=== PATIENT | male | born 1960 | race Caucasian/White ===

== ENCOUNTER 2017-01-20 15:35 | Emergency (ER) | payer BC, MEDICARE ==
[2017-01-20 16:22] VITALS: BP 122/77
--- NOTE | 2017-01-20 18:25 | EDM.PDOC ---
ED HPI GENERAL MEDICAL PROBLEM - General Chief Complaint: Respiratory Problem Stated Complaint: dyspnea Time Seen by Provider: 01/20/17 17:00 Source of Information: Reports: Patient History Limitations: Reports: No Limitations - History of Present Illness INITIAL COMMENTS - FREE TEXT/NARRATIVE: Pt is end stage COPD patient who still smokes. He uses oxygen 3.5litres per minute at home. He claims he has been feeling shortness of breath since today evening and hence came into the emergency room. No chest pain, does have mild chronic cough, but not worse. He claims he was running fever at home for past 2 days and hence was brought in to emergency room for evaluation. No nausea vomitng. no chills. No abdominal pain. no other compalints. Onset: Today Onset Date: 01/20/17 Onset Time: 15:00 Associated Symptoms: Reports: Cough, Fever/Chills, Shortness of Breath. Denies : Confusion, Chest Pain, Diaphoresis, Headaches, Loss of Appetite, Malaise, Nausea/Vomiting, Rash, Seizure, Syncope, Weakness - Related Data Allergies Allergy/AdvReac Type Severity Reaction Status Date / Time fluconazole [From Diflucan] Allergy Edema Verified 01/20/17 17:19 levofloxacin [From Levaquin] Allergy Tachycardia Verified 01/20/17 17:19 Penicillins Allergy Anaphylactic Verified 01/20/17 17:19 Shock Sulfa (Sulfonamide Allergy Rash Verified 01/20/17 17:19 Antibiotics) azithromycin AdvReac Other Verified 01/20/17 17:19 Home Meds: Home Meds Ipratropium/Albuterol Sulfate [Duoneb 0.5 MG-3 MG/3 ML] 3 ml INH QID PRN [History] Formoterol [Perforomist] 20 mcg NEB BID 12/26/14 [History] Cetirizine [ZyrTEC] 10 mg PO DAILY tablet 12/30/14 [Rx] Montelukast [Singulair] 10 mg PO DAILY tablet 12/30/14 [Rx] Calcium Carbonate/Vitamin D3 [Calcium 600 + Vit D Tablet] 1 each PO DAILY [History] Albuterol [IJD: Albuterol HFA] 90 gm INH BID PRN #1 inhaler 12/14/15 [Rx] Budesonide [Pulmicort] 0.5 mg INH BID #1 neb 12/14/15 [Rx] Ipratropium [Atrovent HFA] 1 puff INH Q4H PRN #30 inhaler 12/14/15 [Rx] Omeprazole 40 mg PO BIDAC cap.cr 12/14/15 [Rx] Ranitidine [Zantac] 150 mg PO BID #60 tablet 12/14/15 [Rx] Tiotropium [Spiriva HandiHaler] 18 mcg INH BEDTIME #2 cap 12/14/15 [Rx] diphenhydrAMINE [Benadryl] 50 mg PO ASDIRECTED PRN #60 cap 12/14/15 [Rx] LORazepam [Ativan] 1 mg PO TID 12/22/15 [History] Acetylcysteine [Mucomyst 10%] 100 mg INH Q6H 12/23/15 [History] Furosemide [Lasix] 40 mg PO DAILY #30 tablet 12/23/15 [Rx] Theophylline [Jc-24] 600 mg PO BID #120 cap.er 12/23/15 [Rx] predniSONE [Prednisone] See Taper PO DAILY #70 tablet 12/23/15 [Rx] Cyclobenzaprine [Flexeril] 10 mg PO TID 01/03/16 [History] Hydrocodone/Acetaminophen [Hydrocodon-Acetaminophen 5-325] 2 tab PO Q6HR PRN [History] Magnesium Hydroxide [Milk of Magnesia] 30 ml PO DAILY PRN 01/03/16 [History] Polyethylene Glycol 3350 [MiraLAX] 17 gm PO BID 01/03/16 [History] Past Medical History - Past Health History Medical/Surgical History: Denies Medical/Surgical History HEENT History: Reports: Impaired Vision Other HEENT History: right eye tear duct torn Cardiovascular History: Reports: Hypertension Respiratory History: Reports: COPD, Pneumonia, Recurrent, SOB Other Respiratory History: severe COPD Gastrointestinal History: Reports: GERD Musculoskeletal History: Reports: Back Pain, Chronic, Osteoporosis Other Musculoskeletal History: 2 vertebrae "gone" 1 fixed" Psychiatric History: Reports: Anxiety - Infectious Disease History Infectious Disease History: Reports: MRSA - Past Surgical History Head Surgeries/Procedures: Reports: None Cardiovascular Surgical History: Reports: None GI Surgical History: Reports: Appendectomy Musculoskeletal Surgical History: Reports: Arthroscopic Knee Dermatological Surgical History: Reports: None Social & Family History - Family History Family Medical History: Noncontributory Respiratory: Reports: Asthma, COPD Endocrine/Metabolic: Reports: Diabetes, type II Oncologic: Reports: Lung - Tobacco Use Smoking Status *Q: Current Every Day Smoker Years of Tobacco use: 40 Packs/Tins Daily: 1.5 Used Tobacco, but Quit: No Month Tobacco Last Used: current Second Hand Smoke Exposure: No - Caffeine Use Caffeine Use: Reports: Coffee - Alcohol Use Days Per Week of Alcohol Use: 2 Number of Drinks Per Day: 2 Total Drinks Per Week: 4 - Recreational Drug Use Recreational Drug Use: No - Living Situation & Occupation Living situation: Reports: Occupation: Unemployed ED ROS GENERAL - Review of Systems Review Of Systems: See Below Constitutional: Reports: Fever. Denies: Chills, Diaphoresis, Decreased Appetite HEENT: Denies: Rhinitis, Sinus Problem, Throat Pain Respiratory: Reports: Shortness of Breath, Wheezing, Cough, Sputum. Denies: Pleuritic Chest Pain, Hemoptysis Cardiovascular: Denies: Chest Pain, Claudication, Lightheadedness GI/Abdominal: Denies: Abdominal Pain, Nausea, Vomiting : Denies: Dysuria, Flank Pain, Frequency Musculoskeletal: Denies: Shoulder Pain, Joint Pain, Joint Swelling Skin: Denies: Bruising, Pruritis, Rash ED EXAM, GENERAL - Physical Exam Exam: See Below Exam Limited By: No Limitations General Appearance: Alert, WD/WN, No Apparent Distress, Other (pt does not appear in any distress. normal breathing. Afebrile. Speaks normal with out breaking the sentences.) Eye Exam: Bilateral Eye: EOMI, PERRL Ears: Normal External Exam, Normal Canal, Hearing Grossly Normal, Normal TMs Ear Exam: Bilateral Ear: Auricle Normal, Canal Normal, TM normal Nose: Normal Inspection, Normal Mucosa, No Blood Throat/Mouth: Normal Lips, Normal Teeth, Normal Gums, Normal Oropharynx, Normal Voice, No Airway Compromise, Other (Pt does have oral thrush, more so over the hard palate behind his dentures and in the buccal cavity.) Head: Atraumatic, Normocephalic Neck: Normal Inspection, Supple, Non-Tender, Full Range of Motion Respiratory/Chest: No Respiratory Distress, No Accessory Muscle Use, Chest Non- Tender, Decreased Breath Sounds (b/l), Crackles (scatterred all over the lung lopez), Rhonchi (few expiratory rhonchi heard.). No: Respiratory Distress Cardiovascular: Normal Peripheral Pulses, Regular Rate, Rhythm, No Edema, No Gallop, No JVD, No Murmur, No Rub Peripheral Pulses: 2+: Radial (L), Radial (R), Dorsalis Pedis (L), Dorsalis Pedis (R) Back Exam: Normal Inspection, Full Range of Motion, NT Extremities: Normal Inspection, Normal Range of Motion, Non-Tender, Normal Capillary Refill, No Pedal Edema Neurological: Alert, Oriented Psychiatric: Normal Affect, Normal Mood Course - Vital Signs Text/Narrative:: Pt appears very stable on exam. He maintains his SPO2 around 96% on 2 litres of oxygen and at home he uses 3.5 litres per minute. He is not tachypnec or in respiratory distress. his temp is 97. Considering his medical history. He did get workup. His CBC is normal. His CMP is stable. His LActic acid is 1.4 normal. His D- dimer is 107 which is in negative range. His chest Xray is stable. Pt is not in any distress. He appear a his stable self. Patient and family reassured that he does not have pneumonia or any acute infection and his saturation is better than normal for him. He does have oral thrush. For which i have started him on nystatin swish and swallow for 10 days. Also advised to remove his denture at night. Also advised to rinse his mouth with water after using his inhaler to prevent oral thrush. Pt was discharged home in stable condition.Followup with his primary care provider on monday in Clinic. Last Recorded V/S: Last Vital Signs Temp 97 F 01/20/17 16:18 Pulse 93 01/20/17 16:18 Resp 22 H 01/20/17 16:18 BP 122/77 01/20/17 16:18 Pulse Ox 94 L 01/20/17 16:18 - Orders/Labs/Meds Orders: Active Orders 24 hr Category Date Time Status Chest 1V Frontal [CR] Stat Exams 01/20/17 16:02 Taken Labs: Laboratory Tests 01/20/17 01/20/17 01/20/17 Range/Units 16:02 16:02 16:03 WBC 11.5 H (4.0-11.0) K/uL RBC 4.32 L (4.50-6.50) M/uL Hgb 13.2 (13.0-18.0) g/dL Hct 40.0 (40.0-54.0) % MCV 93 (76-96) fL MCH 30.6 (27.0-32.0) pg MCHC 33.0 (31.0-35.0) g/dL RDW 13.5 (11.0-16.0) % Plt Count 202 (150-400) K/uL MPV 11.3 H (6.0-10.0) fL Neut % (Auto) 85.9 H (45.0-70.0) % Lymph % (Auto) 7.0 L (20.0-40.0) % [place] % (Auto) 5.2 (3.0-10.0) % Eos % (Auto) 1.5 (1.0-5.0) % Baso % (Auto) 0.4 (0.0-0.5) % Neut # (Auto) 9.87 H (2.00-7.50) K/uL Lymph # (Auto) 0.81 L (1.50-4.00) K/uL [place] # (Auto) 0.60 (0.20-0.80) K/uL Eos # (Auto) 0.17 (0.04-0.40) K/uL Baso # (Auto) 0.05 (0.02-0.10) K/uL D-Dimer, Quantitative 107 (0-400) ng/mL VBG pH (7.31-7.41) VBG pCO2 (41-51) mm/Hg VBG pO2 (30-50) mm/Hg VBG HCO3 (23.0-28.0) mmol/L VBG O2 Saturation (60-85) % VBG Base Excess (-2-3) mm/L O2 Delivery Device Sodium 139 (136-145) mmol/L Potassium 4.2 (3.5-5.1) mmol/L Chloride 99 (98-107) mmol/L Carbon Dioxide 34.7 H (21.0-32.0) mmol/L Anion Gap 9.5 (5.0-15.0) mmol/L BUN 12 D (8-26) mg/dL Creatinine 0.90 (0.70-1.30) mg/dL Est Cr Clr Drug Dosing 110.92 mL/min Estimated GFR (MDRD) > 60 (>60) MLS/MIN BUN/Creatinine Ratio 13.3 (6-25) Glucose 111 H (74-100) mg/dL Lactic Acid (0.90-1.70) mmol/L Calcium 9.3 (8.5-10.1) mg/dL Total Bilirubin 0.6 (0.0-1.0) mg/dL AST 18 (15-37) U/L ALT 26 (12-78) U/L Alkaline Phosphatase 103 (46-116) U/L B-Natriuretic Peptide (0-125) pg/mL Total Protein 7.3 (6.4-8.2) g/dL Albumin 3.8 (3.4-5.0) g/dL Globulin 3.5 (2.2-4.2) g/dL Albumin/Globulin Ratio 1.1 (0.8-2.0) 01/20/17 01/20/17 01/20/17 Range/Units 16:03 16:03 16:08 WBC (4.0-11.0) K/uL RBC (4.50-6.50) M/uL Hgb (13.0-18.0) g/dL Hct (40.0-54.0) % MCV (76-96) fL MCH (27.0-32.0) pg MCHC (31.0-35.0) g/dL RDW (11.0-16.0) % Plt Count (150-400) K/uL MPV (6.0-10.0) fL Neut % (Auto) (45.0-70.0) % Lymph % (Auto) (20.0-40.0) % [place] % (Auto) (3.0-10.0) % Eos % (Auto) (1.0-5.0) % Baso % (Auto) (0.0-0.5) % Neut # (Auto) (2.00-7.50) K/uL Lymph # (Auto) (1.50-4.00) K/uL [place] # (Auto) (0.20-0.80) K/uL Eos # (Auto) (0.04-0.40) K/uL Baso # (Auto) (0.02-0.10) K/uL D-Dimer, Quantitative (0-400) ng/mL VBG pH 7.40 (7.31-7.41) VBG pCO2 56.1 H (41-51) mm/Hg VBG pO2 22 L (30-50) mm/Hg VBG HCO3 34.8 H (23.0-28.0) mmol/L VBG O2 Saturation 35 L (60-85) % VBG Base Excess 10 H (-2-3) mm/L O2 Delivery Device Nasal cannula Sodium (136-145) mmol/L Potassium (3.5-5.1) mmol/L Chloride (98-107) mmol/L Carbon Dioxide (21.0-32.0) mmol/L Anion Gap (5.0-15.0) mmol/L BUN (8-26) mg/dL Creatinine (0.70-1.30) mg/dL Est Cr Clr Drug Dosing mL/min Estimated GFR (MDRD) (>60) MLS/MIN BUN/Creatinine Ratio (6-25) Glucose (74-100) mg/dL Lactic Acid 1.42 (0.90-1.70) mmol/L Calcium (8.5-10.1) mg/dL Total Bilirubin (0.0-1.0) mg/dL AST (15-37) U/L ALT (12-78) U/L Alkaline Phosphatase (46-116) U/L B-Natriuretic Peptide 83 D (0-125) pg/mL Total Protein (6.4-8.2) g/dL Albumin (3.4-5.0) g/dL Globulin (2.2-4.2) g/dL Albumin/Globulin Ratio (0.8-2.0) Departure - Departure Time of Disposition: 18:10 Disposition: Home, Self-Care 01 Condition: Fair Clinical Impression: Oral thrush COPD (chronic obstructive pulmonary disease) Qualifiers: COPD type: COPD with acute exacerbation Qualified Code(s): J44.1 - Chronic obstructive pulmonary disease with (acute) exacerbation - Discharge Information Instructions: Nystatin oral suspension Referrals: PCP,None [Primary Care Provider] - Forms: ED Department Discharge - Problem List & Annotations (1) COPD (chronic obstructive pulmonary disease) SNOMED Code(s): 73742739 Code(s): J44.9 - CHRONIC OBSTRUCTIVE PULMONARY DISEASE, UNSPECIFIED Status : Acute Priority: High Current Visit: Yes Onset Date: ~12/08/15 Qualifiers: COPD type: COPD with acute exacerbation Qualified Code(s): J44.1 - Chronic obstructive pulmonary disease with (acute) exacerbation (2) Oral thrush SNOMED Code(s): 12011500 Code(s): B37.0 - CANDIDAL STOMATITIS Status: Acute Current Visit: Yes - Problem List Review Problem List Initiated/Reviewed/Updated: Yes - Assessment/Plan Assessment:: COPD Oral thrush Plan: Pt appears very stable on exam. He maintains his SPO2 around 96% on 2 litres of oxygen and at home he uses 3.5 litres per minute. He is not tachypnec or in respiratory distress. his temp is 97. Considering his medical history. He did get workup. His CBC is normal. His CMP is stable. His LActic acid is 1.4 normal. His D- dimer is 107 which is in negative range. His chest Xray is stable. Pt is not in any distress. He appear a his stable self. Patient and family reassured that he does not have pneumonia or any acute infection and his saturation is better than normal for him. He does have oral thrush. For which i have started him on nystatin swish and swallow for 10 days. Also advised to remove his denture at night. Also advised to rinse his mouth with water after using his inhaler to prevent oral thrush. Pt was discharged home in stable condition.Followup with his primary care provider on monday in Clinic.
[2017-01-20] MEDS ORDERED: Nystatin Susp 100,000 Unit/ML 5 ML UD Cup ONE (18:30)
--- NOTE | 2017-01-20 23:58 | ER ---
HISTORY OF PRESENT ILLNESS: A 56-year-old male, here with complaints of shortness of breath and coughing. This has been ongoing for several days. The patient states it feels like it is slowly getting worse. He is worried about pneumonia. The patient does have oxygen at home as well as currently he has 2.5 L going by nasal cannula. He has several different medications that he takes by nebulizer at home, and he has been taking all of them today. The patient was able to list off most of them for me. The patient denies any recent falls or injuries. He is not having any problems with chest pain or abdominal pain. PAST MEDICAL HISTORY: Extensive. The patient has longstanding history of COPD, bronchitis, history of pneumonia, history of abdominal bloating and history of respiratory distress. OBJECTIVE: GENERAL APPEARANCE: The patient is awake and alert. He is in mild shortness of breath and has an occasional congested-sounding cough. INITIAL VITAL SIGNS: Show blood pressure 122/77 and O2 sats are at 94% on 2.5 L. He is afebrile, pulse is 93. HEENT: Oral mucous membranes moist. LUNGS: Exam reveals reduced air exchange throughout the lung lopez. I do not hear any rales or wheezing. I can hear some mild rhonchi in both bases. CARDIAC: Heart sounds distinct without murmurs. ABDOMEN: Soft, protuberant, nontender with palpation. Bowel sounds are present. LABORATORY DATA AND X-RAY STUDIES: Chest x-ray is obtained and appears fairly good, stable in appearance. Today, CBC shows white count of 11.5 and neutrophils are also elevated at 85.9. D-dimer is normal at 107. Venous blood gases show a normal pH and pCO2 is 56.1, bicarb is also elevated at 34.8. Comprehensive metabolic panel shows a carbon dioxide of 34.7, otherwise unremarkable. BNP is normal at 83. DIAGNOSIS: Chronic obstructive pulmonary disease with acute exacerbation. TREATMENT PLAN: At this point, I consulted with Dr. Anaya who is taking over as my shift is ending. For further details, refer to Dr. Anaya's dictation. I am sure the patient will be admitted today. CRS/MODL /[id number]
--- NOTE | 2017-01-23 14:23 | CR ---
DATE OF SERVICE: 01/20/17 CLINICAL DATA: SOB and cough. AP CHEST Comparison is made to a prior exam dated 07/08/16. The heart size is stable. The aorta is mildly ectatic. There are emphysematous changes throughout both lungs with reticular opacities scattered throughout both lungs. There are mild atelectatic changes in both lung bases. There is a small focus of increased density in the left lung base laterally which may be infiltrate or atelectasis. Pneumonia should be considered. No pneumothorax. No pleural effusions. The patient is status post vertebroplasty of a lower thoracic vertebra. [id number] [facility]
== END 2017-01-20 18:00 | disposition home or self-care (01) ==
LOC: LB.ED 15:35
DX: J44.1 Chronic obstructive pulmonary disease with (acute) exacerbation (principal); B37.0 Candidal stomatitis; I10 Essential (primary) hypertension; F17.210 Nicotine dependence, cigarettes, uncomplicated; Z88.1 Allergy status to other antibiotic agents; Z88.2 Allergy status to sulfonamides; Z88.8 Allergy status to other drugs, medicaments and biological substances; Z79.899 Other long term (current) drug therapy
CPT/HCPCS: 36415; 71010; 80053; 82803; 83605; 83880; 85025; 85379; 99285; A9270; 99284

== ENCOUNTER 2017-04-12 13:39 | Emergency (ER) | payer BC, MEDICARE ==
[2017-04-12 14:11] VITALS: BP 120/82
--- NOTE | 2017-04-12 17:22 | EDM.PDOC ---
ED HPI GENERAL MEDICAL PROBLEM - General Chief Complaint: Respiratory Problem Stated Complaint: congested Time Seen by Provider: 04/12/17 14:00 Source of Information: Reports: Patient, Family, RN History Limitations: Reports: No Limitations - History of Present Illness INITIAL COMMENTS - FREE TEXT/NARRATIVE: 57 yr male presents with increase in congestion and not feeling well for a few days. States he becomes short of breath with waiting in clinic waiting room and parfume in waiting room bothers him, so he came to the ER today. Pt sitting in W/C with with him. States appointment in June with pulmonology. States he has taken OTC mucinex for his cough and has had some phlegm production with this and now no more phlegm, but increase in congestion. - Related Data Allergies Allergy/AdvReac Type Severity Reaction Status Date / Time fluconazole [From Diflucan] Allergy Edema Verified 01/20/17 17:19 levofloxacin [From Levaquin] Allergy Tachycardia Verified 01/20/17 17:19 Penicillins Allergy Anaphylactic Verified 01/20/17 17:19 Shock Sulfa (Sulfonamide Allergy Rash Verified 01/20/17 17:19 Antibiotics) azithromycin AdvReac Other Verified 01/20/17 17:19 Home Meds: Home Meds Ipratropium/Albuterol Sulfate [Duoneb 0.5 MG-3 MG/3 ML] 3 ml INH QID PRN [History] Formoterol [Perforomist] 20 mcg NEB BID 12/26/14 [History] Cetirizine [ZyrTEC] 10 mg PO DAILY tablet 12/30/14 [Rx] Montelukast [Singulair] 10 mg PO DAILY tablet 12/30/14 [Rx] Calcium Carbonate/Vitamin D3 [Calcium 600 + Vit D Tablet] 1 each PO DAILY [History] Albuterol [IJD: Albuterol HFA] 90 gm INH BID PRN #1 inhaler 12/14/15 [Rx] Budesonide [Pulmicort] 0.5 mg INH BID #1 neb 12/14/15 [Rx] Ranitidine [Zantac] 150 mg PO BID #60 tablet 12/14/15 [Rx] Tiotropium [Spiriva HandiHaler] 18 mcg INH BEDTIME #2 cap 12/14/15 [Rx] diphenhydrAMINE [Benadryl] 50 mg PO ASDIRECTED PRN #60 cap 12/14/15 [Rx] LORazepam [Ativan] 1 mg PO TID 12/22/15 [History] Acetylcysteine [Mucomyst 10%] 100 mg INH Q6H 12/23/15 [History] Theophylline [Jc-24] 600 mg PO BID #120 cap.er 12/23/15 [Rx] Cyclobenzaprine [Flexeril] 10 mg PO TID 01/03/16 [History] Hydrocodone/Acetaminophen [Hydrocodon-Acetaminophen 5-325] 2 tab PO Q6HR PRN [History] Magnesium Hydroxide [Milk of Magnesia] 30 ml PO DAILY PRN 01/03/16 [History] Polyethylene Glycol 3350 [MiraLAX] 17 gm PO BID 01/03/16 [History] Bumetanide 2 mg PO DAILY 01/20/17 [History] Chlorpheniramine Maleate [Chlor-Trimeton] 4 mg PO DAILY PRN 01/20/17 [History] Docusate Sodium [Colace] 100 mg PO DAILY 01/20/17 [History] Ibuprofen 400 mg PO Q4H 01/20/17 [History] Lidocaine 5% [Lidoderm 5%] 700 mg TD DAILY 01/20/17 [History] Omeprazole 40 mg PO DAILY 01/20/17 [History] predniSONE [Prednisone] 10 mg PO DAILY 01/20/17 [History] Past Medical History - Past Health History Medical/Surgical History: Denies Medical/Surgical History HEENT History: Reports: Impaired Vision Other HEENT History: right eye tear duct torn Cardiovascular History: Reports: Hypertension Respiratory History: Reports: COPD, Pneumonia, Recurrent, SOB Other Respiratory History: severe COPD Gastrointestinal History: Reports: GERD Musculoskeletal History: Reports: Back Pain, Chronic, Osteoporosis Other Musculoskeletal History: 2 vertebrae "gone" 1 fixed" Psychiatric History: Reports: Anxiety - Infectious Disease History Infectious Disease History: Reports: MRSA - Past Surgical History Head Surgeries/Procedures: Reports: None Cardiovascular Surgical History: Reports: None GI Surgical History: Reports: Appendectomy Musculoskeletal Surgical History: Reports: Arthroscopic Knee Dermatological Surgical History: Reports: None Social & Family History - Family History Family Medical History: Noncontributory Respiratory: Reports: Asthma, COPD Endocrine/Metabolic: Reports: Diabetes, type II Oncologic: Reports: Lung - Tobacco Use Smoking Status *Q: Current Every Day Smoker Years of Tobacco use: 40 Packs/Tins Daily: 1.5 Used Tobacco, but Quit: No Month Tobacco Last Used: current Second Hand Smoke Exposure: No - Caffeine Use Caffeine Use: Reports: Coffee - Alcohol Use Days Per Week of Alcohol Use: 2 Number of Drinks Per Day: 2 Total Drinks Per Week: 4 - Recreational Drug Use Recreational Drug Use: No - Living Situation & Occupation Living situation: Reports: Occupation: Unemployed ED ROS GENERAL - Review of Systems Review Of Systems: See Below Constitutional: Reports: Weakness HEENT: Reports: No Symptoms Respiratory: Reports: Shortness of Breath, Cough, Other (long history of COPD) Cardiovascular: Reports: Other (dyspnea with little exertion) Musculoskeletal: Reports: Other (chronic back pain) Neurological: Reports: No Symptoms ED EXAM, GENERAL - Physical Exam Exam: See Below Exam Limited By: No Limitations General Appearance: Alert, No Apparent Distress Ears: Hearing Grossly Normal Throat/Mouth: Normal Voice, No Airway Compromise Head: Atraumatic, Normocephalic Neck: Supple, Non-Tender Respiratory/Chest: No Respiratory Distress, Decreased Breath Sounds (to bases), Rhonchi (Rhonchii to middle lung lopez, clears with cough), Wheezing (end expiratory) Cardiovascular: Regular Rate, Rhythm Neurological: Alert, Oriented, Normal Cognition Skin Exam: Warm, Dry, Normal Color Lymphatic: No Adenopathy Course - Vital Signs Last Recorded V/S: Last Vital Signs Temp 97.2 F 04/12/17 14:29 Pulse 104 H 04/12/17 14:29 Resp 18 04/12/17 14:29 BP 120/82 04/12/17 14:29 Pulse Ox 95 04/12/17 14:29 - Orders/Labs/Meds Orders: Active Orders 24 hr Category Date Time Status CXR [Chest 2V] [CR] Stat Exams 04/12/17 14:08 Taken Labs: Laboratory Tests 04/12/17 04/12/17 04/12/17 Range/Units 14:19 14:20 14:20 WBC 10.0 (4.0-11.0) K/uL RBC 4.59 (4.50-6.50) M/uL Hgb 14.0 (13.0-18.0) g/dL Hct 42.9 (40.0-54.0) % MCV 94 (76-96) fL MCH 30.5 (27.0-32.0) pg MCHC 32.6 (31.0-35.0) g/dL RDW 13.0 (11.0-16.0) % Plt Count 214 (150-400) K/uL MPV 11.4 H (6.0-10.0) fL Neut % (Auto) 77.0 H (45.0-70.0) % Lymph % (Auto) 10.8 L (20.0-40.0) % [place] % (Auto) 8.9 (3.0-10.0) % Eos % (Auto) 2.7 (1.0-5.0) % Baso % (Auto) 0.6 H (0.0-0.5) % Neut # (Auto) 7.66 H (2.00-7.50) K/uL Lymph # (Auto) 1.08 L (1.50-4.00) K/uL [place] # (Auto) 0.89 H (0.20-0.80) K/uL Eos # (Auto) 0.27 (0.04-0.40) K/uL Baso # (Auto) 0.06 (0.02-0.10) K/uL Sodium 141 (136-145) mmol/L Potassium 3.8 (3.5-5.1) mmol/L Chloride 100 (98-107) mmol/L Carbon Dioxide 34.4 H (21.0-32.0) mmol/L Anion Gap 10.4 (5.0-15.0) mmol/L BUN 11 D (8-26) mg/dL Creatinine 0.89 (0.70-1.30) mg/dL Est Cr Clr Drug Dosing 75.48 mL/min Estimated GFR (MDRD) > 60 (>60) MLS/MIN BUN/Creatinine Ratio 12.4 (6-25) Glucose 98 (74-100) mg/dL Calcium 9.0 (8.5-10.1) mg/dL Theophylline 13 D (10-20) ug/mL - Re-Assessments/Exams Free Text/Narrative Re-Assessment/Exam: 04/12/17 17:25 Review of lab results and chest x-ray. No leukocytosis, slight elevation of neutrophils. Chest x-ray has mild atelectasis to bases, no consolidation noted. Recommend discharge to home with care of and start Azithromycin X 5 days. RTC in 5 days if symptoms persist. Departure - Departure Time of Disposition: 16:01 Disposition: Home, Self-Care 01 Condition: Fair Clinical Impression: COPD (chronic obstructive pulmonary disease) with acute bronchitis - Discharge Information Instructions: Shortness of Breath, [id number], Acute Bronchitis, [id number] Referrals: PCP,None [Primary Care Provider] - Forms: ED Department Discharge Care Plan Goals: take antibiotic as prescribed. Return to clinic next week or sooner if needed. - My Orders Last 24 Hours: My Active Orders 04/12/17 14:08 CXR [Chest 2V] [CR] Stat - Assessment/Plan Last 24 Hours: My Active Orders 04/12/17 14:08 CXR [Chest 2V] [CR] Stat
--- NOTE | 2017-04-12 19:21 | CR ---
DATE OF SERVICE: 04/12/17 CLINICAL DATA: shortness of breath PA AND LATERAL CHEST: Comparison is made to a prior exam dated 03/20/17. The heart size is normal. The aorta is ectatic. The lungs are mildly hyperexpanded. There are mild interstitial changes throughout both lungs. There are minimal atelectatic changes in both lung bases. There is linear fibrosis in the right apex. There is minimal pleural thickening in both hemithoraces. The patient is status post vertebroplasty in the lower thoracic spine. There are partial compression fractures involving multiple mid and lower thoracic vertebra, unchanged from the prior exam. No evidence of acute intrathoracic disease. [id number] [facility]
== END 2017-04-12 16:00 | disposition home or self-care (01) ==
LOC: LB.ED 13:39
DX: J44.0 Chronic obstructive pulmonary disease with (acute) lower respiratory infection (principal); J20.9 Acute bronchitis, unspecified; I10 Essential (primary) hypertension; K21.9 Gastro-esophageal reflux disease without esophagitis; F17.210 Nicotine dependence, cigarettes, uncomplicated; Z79.899 Other long term (current) drug therapy; Z88.0 Allergy status to penicillin; Z88.1 Allergy status to other antibiotic agents; Z88.2 Allergy status to sulfonamides; Z88.8 Allergy status to other drugs, medicaments and biological substances
CPT/HCPCS: 36415; 71046; 80048; 80198; 85025; 99283; 99284

== ENCOUNTER → 2019-01-17 | Outpatient (CLI) | payer BC, MEDICARE ==
--- NOTE | 2019-01-18 08:54 | CR ---
DATE OF SERVICE: 01/17/19 CLINICAL DATA: Pain in right shoulder. RIGHT SHOULDER: No priors. There is diffuse osteopenia. There are osteoarthritic changes of the AC and glenohumeral joints. There are multiple, small osseous densities superior to the glenoid on the frontal views consistent with small loose bodies or bony avulsions. No acute fracture or dislocation. No focal, lytic or blastic bone lesions. There is pleural thickening and fibrotic changes in the right lung apex. [id number] [facility]
== END ==
LOC: LB.CLINIC 10:16
PROVIDERS: ATTEND Nurse Practitioner Family
DX: M25.511 Pain in right shoulder (principal); M85.811 Other specified disorders of bone density and structure, right shoulder; M19.011 Primary osteoarthritis, right shoulder; J92.9 Pleural plaque without asbestos
CPT/HCPCS: 73030-RT

== ENCOUNTER 2019-09-06 16:06 | Emergency (ER) | payer BC, MEDICARE ==
[2019-09-06 17:27] VITALS: BP 103/66; PULSE 89
[2019-09-06] MEDS: Albuterol/Ipratropium 3.0-0.5 MG/3 ML Neb Soln NEB ONE (18:35)
[2019-09-06] MEDS: methylPREDNISolone Sodium Succinate 125 MG/2 ML SDV IV STA (18:35)
[2019-09-06] MEDS ORDERED: Potassium Chloride 40 MEQ/20 ML SDV IV ONE (19:30)
[2019-09-06] MEDS: Potassium Chloride 10 MEQ Tab.ER PO ONE (19:35)
[2019-09-06] MEDS: Potassium Chloride Riders 10 MEQ in Premix Bag 1 BAG IV SCH (20:16)
[2019-09-06] MEDS: Potassium Chloride 20 MEQ Tab.ER PO ONE (20:41)
--- NOTE | 2019-09-06 20:42 | EDM.PDOC ---
ED HPI GENERAL MEDICAL PROBLEM - General Chief Complaint: Respiratory Problem Stated Complaint: STATES HE IS HAVING AN EXACERBATION OF COPD Time Seen by Provider: 09/06/19 16:25 Source of Information: Reports: Patient History Limitations: Reports: No Limitations - History of Present Illness INITIAL COMMENTS - FREE TEXT/NARRATIVE: Patient is a 59 y/o male, with PMHx significant for COPD and bilateral leg swelling, who presents with shortness of breath that is worse than normal x 3 days. Patient denies any history of CHF and hasn't seen a pharmacovigilance scientist. 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 Patient denies fever, smoking, chest pain, dizziness, palpitations, abdominal pain, N/V/D, or numbness/tingling. - Related Data Allergies Allergy/AdvReac Type Severity Reaction Status Date / Time fluconazole [From Diflucan] Allergy Edema Verified 09/06/19 19:14 levofloxacin [From Levaquin] Allergy Tachycardia Verified 09/06/19 19:14 Penicillins Allergy Anaphylactic Verified 09/06/19 19:14 Shock Sulfa (Sulfonamide Allergy Rash Verified 09/06/19 19:14 Antibiotics) azithromycin AdvReac Other Verified 09/06/19 19:14 Home Meds: Home Meds Ipratropium/Albuterol Sulfate [Duoneb 0.5 MG-3 MG/3 ML] 3 ml INH QID PRN 12/11/12 [History] Formoterol [Perforomist] 20 mcg NEB BID 12/26/14 [History] Cetirizine [ZyrTEC] 10 mg PO DAILY tablet 12/30/14 [Rx] Montelukast [Singulair] 10 mg PO DAILY tablet 12/30/14 [Rx] Calcium Carbonate/Vitamin D3 [Calcium 600 + Vit D Tablet] 1 each PO DAILY 12/08/15 [History] Albuterol [IJD: Albuterol HFA] 90 gm INH BID PRN #1 inhaler 12/14/15 [Rx] Budesonide [Pulmicort] 0.5 mg INH BID #1 neb 12/14/15 [Rx] Ranitidine [Zantac] 150 mg PO BID #60 tablet 12/14/15 [Rx] Tiotropium [Spiriva HandiHaler] 18 mcg INH BEDTIME #2 cap 12/14/15 [Rx] diphenhydrAMINE [Benadryl] 50 mg PO ASDIRECTED PRN #60 cap 12/14/15 [Rx] LORazepam [Ativan] 1 mg PO QID 12/22/15 [History] Acetylcysteine [Mucomyst 10%] 100 mg INH Q6H 12/23/15 [History] Cyclobenzaprine [Flexeril] 10 mg PO TID 01/03/16 [History] Hydrocodone/Acetaminophen [Hydrocodon-Acetaminophen 5-325] 2 tab PO Q8HR 01/03/16 [History] Magnesium Hydroxide [Milk of Magnesia] 30 ml PO DAILY PRN 01/03/16 [History] Polyethylene Glycol 3350 [MiraLAX] 17 gm PO BID 01/03/16 [History] Bumetanide 4 mg PO DAILY 01/20/17 [History] Chlorpheniramine Maleate [Chlor-Trimeton] 4 mg PO DAILY PRN 01/20/17 [History] Docusate Sodium [Colace] 100 mg PO DAILY 01/20/17 [History] Ibuprofen 400 mg PO Q4H 01/20/17 [History] Lidocaine 5% [Lidoderm 5%] 700 mg TD DAILY 01/20/17 [History] Omeprazole 40 mg PO DAILY 01/20/17 [History] predniSONE [Prednisone] 10 mg PO DAILY 01/20/17 [History] B12/Levomefolate Calcium/B-6 [Folbic Rf Tablet] 1 each PO DAILY 09/06/19 [History] Potassium Chloride [Klor-Con M20] 20 meq PO DAILY 09/06/19 [History] Revefenacin [Yupelri] 175 mcg IH DAILY 09/06/19 [History] Sennosides/Docusate Sodium [Senokot-S Tablet] 1 each PO DAILY 09/06/19 [History] Theophylline [Jc-24] 900 mg PO BID 09/06/19 [History] Past Medical History - Past Health History Medical/Surgical History: Denies Medical/Surgical History HEENT History: Reports: Impaired Vision Other HEENT History: right eye tear duct torn Cardiovascular History: Reports: Hypertension Respiratory History: Reports: COPD, Pneumonia, Recurrent, SOB Other Respiratory History: severe COPD Gastrointestinal History: Reports: GERD Musculoskeletal History: Reports: Back Pain, Chronic, Osteoporosis Other Musculoskeletal History: 2 vertebrae "gone" 1 fixed" Psychiatric History: Reports: Anxiety - Infectious Disease History Infectious Disease History: Reports: MRSA - Past Surgical History Head Surgeries/Procedures: Reports: None Cardiovascular Surgical History: Reports: None GI Surgical History: Reports: Appendectomy Musculoskeletal Surgical History: Reports: Arthroscopic Knee Dermatological Surgical History: Reports: None Social & Family History - Family History Family Medical History: Noncontributory Respiratory: Reports: Asthma, COPD Endocrine/Metabolic: Reports: Diabetes, type II Oncologic: Reports: Lung - Tobacco Use Smoking Status *Q: Former Smoker Used Tobacco, but Quit: Yes Month/Year Tobacco Last Used: 10/2006 Second Hand Smoke Exposure: No - Caffeine Use Caffeine Use: Reports: Coffee - Recreational Drug Use Recreational Drug Use: No - Living Situation & Occupation Living situation: Reports: Occupation: Unemployed ED ROS GENERAL - Review of Systems Review Of Systems: Comprehensive ROS is negative, except as noted in HPI. ED EXAM, GENERAL - Physical Exam Exam: See Below Exam Limited By: No Limitations General Appearance: Alert, No Apparent Distress Head: Atraumatic, Normocephalic Neck: Normal Inspection Respiratory/Chest: No Respiratory Distress, No Accessory Muscle Use, Chest Non-Tender, Decreased Breath Sounds, Crackles, Wheezing Cardiovascular: Normal Peripheral Pulses, Regular Rate, Rhythm, No JVD, No Murmur Extremities: Normal Capillary Refill, Pedal Edema Skin Exam: Warm, Dry, Intact, Normal Color, No Rash (Decreased BS bilateral lower lobes; crackles and mild wheeze diffusely and bilaterally. Severe pitting pedal edema bilaterally. ) Course - Vital Signs Text/Narrative:: Hypokalemia - potassium 40 mEq given. [address] with Dr. Monae (Cardio at [facility]) and patient will increase his daily potassium to 40 mEq daily x 5 days and then return to 20 mEq after that. ECHO ordered for outpatient. BNP elevated. EKG and troponin normal. Patient given solumedrol 125 mg IV and duoneb x 1 with improvement in symptoms and exam. Call Dr. Monae next week for follow up apt for further evaluation and treatment. continue medications as prescribed. Last Recorded V/S: Last Vital Signs Temp 37.2 C 09/06/19 17:25 Pulse 89 09/06/19 17:25 Resp 22 H 09/06/19 17:25 BP 103/66 09/06/19 17:25 Pulse Ox 9 L 09/06/19 17:25 - Orders/Labs/Meds Orders: Active Orders 24 hr Category Date Time Status EKG Documentation Completion [RC] ASDIRECTED Care 09/06/19 19:46 Active RT Aerosol Therapy [RC] ASDIRECTED Care 09/06/19 17:48 Active CXR [Chest 2V] [CR] Stat Exams 09/06/19 17:49 Taken Potassium Chloride Riders [KCl 10 MEQ in Water 50 ML] Med 09/06/19 20:00 Active 10 meq Premix Bag 1 bag IV Q1H Medication Orders Potassium Chloride 10 meq/ (Premix) 50 mls @ 50 mls/hr IV Q1H ALEK Stop: 09/06/19 21:59 Last Admin: 09/06/19 20:16 Dose: 50 mls/hr Documented by: JACKI Labs: Laboratory Tests 09/06/19 09/06/19 09/06/19 Range/Units 18:00 18:00 18:00 WBC 15.8 H D (4.0-11.0) K/uL RBC 4.61 (4.50-6.50) M/uL Hgb 14.1 (13.0-18.0) g/dL Hct 42.1 (40.0-54.0) % MCV 91 (76-96) fL MCH 30.6 (27.0-32.0) pg MCHC 33.5 (31.0-35.0) g/dL RDW 14.3 (11.0-16.0) % Plt Count 241 (150-400) K/uL MPV 12.2 H (6.0-10.0) fL Neut % (Auto) 76.8 H (45.0-70.0) % Lymph % (Auto) 11.6 L (20.0-40.0) % [place] % (Auto) 9.3 (3.0-10.0) % Eos % (Auto) 1.9 (1.0-5.0) % Baso % (Auto) 0.4 (0.0-0.5) % Neut # (Auto) 12.17 H (2.00-7.50) K/uL Lymph # (Auto) 1.83 (1.50-4.00) K/uL [place] # (Auto) 1.48 H (0.20-0.80) K/uL Eos # (Auto) 0.30 (0.04-0.40) K/uL Baso # (Auto) 0.06 (0.02-0.10) K/uL Sodium 132 L (136-145) mmol/L Potassium 3.1 L (3.5-5.1) mmol/L Chloride 95 L (98-107) mmol/L Carbon Dioxide 28.5 (21.0-32.0) mmol/L Anion Gap 11.6 (5.0-15.0) mmol/L BUN 10 (8-26) mg/dL Creatinine 0.97 (0.70-1.30) mg/dL Est Cr Clr Drug Dosing 67.62 mL/min Estimated GFR (MDRD) > 60 (>60) MLS/MIN BUN/Creatinine Ratio 10.3 (6-25) Glucose 81 (74-100) mg/dL Calcium 8.9 (8.5-10.1) mg/dL Total Bilirubin 0.7 (0.0-1.0) mg/dL AST 13 L (15-37) U/L ALT 21 (12-78) U/L Alkaline Phosphatase 115 (46-116) U/L Troponin I < 0.017 (0.000-0.060) ng/mL B-Natriuretic Peptide 487 H D (0-125) pg/mL Total Protein 7.3 (6.4-8.2) g/dL Albumin 3.7 (3.4-5.0) g/dL Globulin 3.6 (2.2-4.2) g/dL Albumin/Globulin Ratio 1.0 (0.8-2.0) Theophylline (10-20) ug/mL 09/06/19 Range/Units 18:00 WBC (4.0-11.0) K/uL RBC (4.50-6.50) M/uL Hgb (13.0-18.0) g/dL Hct (40.0-54.0) % MCV (76-96) fL MCH (27.0-32.0) pg MCHC (31.0-35.0) g/dL RDW (11.0-16.0) % Plt Count (150-400) K/uL MPV (6.0-10.0) fL Neut % (Auto) (45.0-70.0) % Lymph % (Auto) (20.0-40.0) % [place] % (Auto) (3.0-10.0) % Eos % (Auto) (1.0-5.0) % Baso % (Auto) (0.0-0.5) % Neut # (Auto) (2.00-7.50) K/uL Lymph # (Auto) (1.50-4.00) K/uL [place] # (Auto) (0.20-0.80) K/uL Eos # (Auto) (0.04-0.40) K/uL Baso # (Auto) (0.02-0.10) K/uL Sodium (136-145) mmol/L Potassium (3.5-5.1) mmol/L Chloride (98-107) mmol/L Carbon Dioxide (21.0-32.0) mmol/L Anion Gap (5.0-15.0) mmol/L BUN (8-26) mg/dL Creatinine (0.70-1.30) mg/dL Est Cr Clr Drug Dosing mL/min Estimated GFR (MDRD) (>60) MLS/MIN BUN/Creatinine Ratio (6-25) Glucose (74-100) mg/dL Calcium (8.5-10.1) mg/dL Total Bilirubin (0.0-1.0) mg/dL AST (15-37) U/L ALT (12-78) U/L Alkaline Phosphatase (46-116) U/L Troponin I (0.000-0.060) ng/mL B-Natriuretic Peptide (0-125) pg/mL Total Protein (6.4-8.2) g/dL Albumin (3.4-5.0) g/dL Globulin (2.2-4.2) g/dL Albumin/Globulin Ratio (0.8-2.0) Theophylline 11 (10-20) ug/mL Meds: Medications Generic Name Dose Route Start Last Admin Trade Name Freq PRN Reason Stop Dose Admin Potassium Chloride 10 meq/ 50 mls @ 50 mls/hr 09/06/19 20:00 09/06/19 20:16 Premix IV 09/06/19 21:59 50 mls/hr Q1H ALEK Administration Discontinued Medications Generic Name Dose Route Start Last Admin Trade Name Freq PRN Reason Stop Dose Admin Albuterol/Ipratropium 3 ml 09/06/19 17:47 09/06/19 18:35 Duoneb 3.0-0.5 Mg/3 Ml NEB 09/06/19 17:48 3 ml Q4H ONE Administration Methylprednisolone Sodium Succinate 125 mg 09/06/19 17:46 09/06/19 18:35 Solu-Medrol IV 09/06/19 17:47 125 mg NOW STA Administration Potassium Chloride 20 meq 09/06/19 19:30 Potassium Chloride IV 09/06/19 19:31 ONETIME ONE Potassium Chloride 20 meq 09/06/19 19:26 09/06/19 19:35 Klor-Con 10 PO 09/06/19 19:27 20 meq ONETIME ONE Administration Departure - Departure Time of Disposition: 21:00 Disposition: Home, Self-Care 01 Condition: Good Clinical Impression: Shortness of breath - Discharge Information *PRESCRIPTION DRUG MONITORING PROGRAM REVIEWED*: Not Applicable *COPY OF PRESCRIPTION DRUG MONITORING REPORT IN PATIENT SHONDA: Not Applicable Referrals: PCP,None [Primary Care Provider] - 1 Week (Dr Monae (Cardio)) Forms: ED Department Discharge Additional Instructions: Discharge home. Potassium 40mg by mouth daily for 4 days starting tomorrow and then drop back to 20mEq on . Diet: 2gm sodium daily, low sodium diet. Call Dr. Monae office for appointment next week, . Echo to be scheduled. Elevated legs as much as possible. Sepsis Event Note (ED) - Evaluation Sepsis Screening Result: Possible Sepsis Risk - Focused Exam Vital Signs: Vital Signs Temp Pulse Resp BP Pulse Ox 09/06/19 17:25 37.2 C 89 22 H 103/66 9 L 09/06/19 17:11 37.2 C 89 18 103/66 91 L - My Orders Last 24 Hours: My Active Orders 09/06/19 17:48 RT Aerosol Therapy [RC] ASDIRECTED 09/06/19 17:49 CXR [Chest 2V] [CR] Stat 09/06/19 19:46 EKG Documentation Completion [RC] ASDIRECTED 09/06/19 20:00 Potassium Chloride Riders [KCl 10 MEQ in Water 50 ML] 10 meq Premix Bag 1 bag IV Q1H - Assessment/Plan Last 24 Hours: My Active Orders 09/06/19 17:48 RT Aerosol Therapy [RC] ASDIRECTED 09/06/19 17:49 CXR [Chest 2V] [CR] Stat 09/06/19 19:46 EKG Documentation Completion [RC] ASDIRECTED 09/06/19 20:00 Potassium Chloride Riders [KCl 10 MEQ in Water 50 ML] 10 meq Premix Bag 1 bag IV Q1H Plan: Return to the ED for fever >102, unable to tolerate fluids, difficulty breathing/swallowing, and/or persistent/worsening symptoms.
--- NOTE | 2019-09-07 14:38 | CR ---
CLINICAL DATA: COPD exacerbation. AP AND LATERAL CHEST, 06 SEPTEMBER 2019: Comparison is made to a prior exam dated 17 September 2018. The heart size is normal. The aorta is ectatic. There are mild interstitial infiltrates throughout both lungs. There are mild atelectatic changes at both lung bases. The lungs are otherwise clear. No pneumothorax. No pleural effusions. No areas of consolidation. There is diffuse osteopenia of the bony thorax. There are multiple partial compression fractures involving the thoracic spine. The patient is status post vertebroplasty in a lower thoracic vertebra. No other significant findings. Job: [id number] MTDD
== END 2019-09-06 20:50 | disposition home or self-care (01) ==
LOC: LB.ED 16:06
DX: R06.02 Shortness of breath (principal); I10 Essential (primary) hypertension; J44.9 Chronic obstructive pulmonary disease, unspecified; K21.9 Gastro-esophageal reflux disease without esophagitis; F41.9 Anxiety disorder, unspecified; E87.6 Hypokalemia; Z87.891 Personal history of nicotine dependence; Z88.1 Allergy status to other antibiotic agents; Z88.0 Allergy status to penicillin; Z88.2 Allergy status to sulfonamides; Z79.899 Other long term (current) drug therapy
CPT/HCPCS: 36415; 71046; 80053; 80198; 83880; 84484; 85025; 93005; 96374; 96375; 99285; A9270; J2930; J3480; J7620-GY

== ENCOUNTER 2020-08-31 12:20 | Emergency (ER) | payer MEDICARE ==
--- NOTE | 2020-08-31 13:09 | EDM.PDOC ---
ED HPI GENERAL MEDICAL PROBLEM - General Chief Complaint: General Stated Complaint: HAND AND FOOT PAIN Time Seen by Provider: 08/31/20 13:08 Source of Information: Reports: Patient, EMS, Family History Limitations: Reports: No Limitations - History of Present Illness INITIAL COMMENTS - FREE TEXT/NARRATIVE: patient presented to the ER with a c/o right hand and right foot pain. Denies injury or trauma. Reports that hand pain started 3 days ago and has been gradually getting worse. Associated with swelling and redness. pain 8 out of 10, unable to move around or touch anything. no fever or chills. 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 Minimal pain. But reports a b/l LEs edema for years. He is on Vicodin daily for chronic back pain. Also daily prednisone for end stage COPD. Right Hand Pain Score (Numeric/FACES): 10 - Related Data Allergies Allergy/AdvReac Type Severity Reaction Status Date / Time fluconazole [From Diflucan] Allergy Edema Verified 08/31/20 13:14 levofloxacin [From Levaquin] Allergy Tachycardia Verified 08/31/20 13:14 Penicillins Allergy Anaphylactic Verified 08/31/20 13:14 Shock Sulfa (Sulfonamide Allergy Rash Verified 08/31/20 13:14 Antibiotics) azithromycin AdvReac Other Verified 08/31/20 13:14 Home Meds: Home Meds Ipratropium/Albuterol Sulfate [Duoneb 0.5 MG-3 MG/3 ML] 3 ml INH QID PRN 12/11/12 [History] Formoterol [Perforomist] 20 mcg NEB BID 12/26/14 [History] Cetirizine [ZyrTEC] 10 mg PO DAILY tablet 12/30/14 [Rx] Montelukast [Singulair] 10 mg PO DAILY tablet 12/30/14 [Rx] Calcium Carbonate/Vitamin D3 [Calcium 600 + Vit D Tablet] 1 each PO DAILY 12/08/15 [History] Budesonide [Pulmicort] 0.5 mg INH BID #1 neb 12/14/15 [Rx] LORazepam [Ativan] 1 mg PO QID 12/22/15 [History] Acetylcysteine [Mucomyst 10%] 100 mg INH Q6H 12/23/15 [History] Hydrocodone/Acetaminophen [Hydrocodon-Acetaminophen 5-325] 2 tab PO Q8HR 01/03/16 [History] Polyethylene Glycol 3350 [MiraLAX] 17 gm PO BID 01/03/16 [History] Bumetanide 4 mg PO DAILY 01/20/17 [History] Docusate Sodium [Colace] 100 mg PO DAILY 01/20/17 [History] Ibuprofen 400 mg PO Q4H 01/20/17 [History] Omeprazole 40 mg PO DAILY 01/20/17 [History] predniSONE [Prednisone] 10 mg PO DAILY 01/20/17 [History] B12/Levomefolate Calcium/B-6 [Folbic Rf Tablet] 1 each PO DAILY 09/06/19 [History] Potassium Chloride [Klor-Con M20] 20 meq PO DAILY 09/06/19 [History] Sennosides/Docusate Sodium [Senokot-S Tablet] 1 each PO DAILY 09/06/19 [History] Theophylline [Jc-24] 900 mg PO BID 09/06/19 [History] 0.9 % Sodium Chloride [Sodium Chloride] 3 ml NEB ASDIRECTED PRN 08/31/20 [History] Acetaminophen [Tylenol] 650 mg PO ASDIRECTED PRN 08/31/20 [History] Albuterol [IJD: Albuterol HFA] 90 gm INH QID 08/31/20 [History] Amoxicillin/Potassium Clav [Augmentin 875-125 Tablet] 1 each PO BID 10 Days #20 tablet 08/31/20 [Rx] Bumetanide 2 mg PO QPM 08/31/20 [History] Ketorolac [Toradol] 10 mg PO Q6H PRN #12 tab 08/31/20 [Rx] Ondansetron [Zofran ODT] 4 mg PO Q6H PRN #20 tab.dis 08/31/20 [Rx] Spironolactone [Aldactone] 25 mg PO QAM 08/31/20 [History] Tiotropium [Spiriva HandiHaler] 25 mcg INH QAM 08/31/20 [History] diphenhydrAMINE [Benadryl] 50 mg PO BID PRN 08/31/20 [History] Past Medical History - Past Health History Medical/Surgical History: Denies Medical/Surgical History HEENT History: Reports: Impaired Vision Other HEENT History: right eye tear duct torn Cardiovascular History: Reports: Hypertension Respiratory History: Reports: COPD, Pneumonia, Recurrent, SOB Other Respiratory History: severe COPD Gastrointestinal History: Reports: GERD Musculoskeletal History: Reports: Back Pain, Chronic, Osteoporosis Other Musculoskeletal History: 2 vertebrae "gone" 1 fixed" Psychiatric History: Reports: Anxiety - Infectious Disease History Infectious Disease History: Reports: MRSA - Past Surgical History Head Surgeries/Procedures: Reports: None Cardiovascular Surgical History: Reports: None GI Surgical History: Reports: Appendectomy Musculoskeletal Surgical History: Reports: Arthroscopic Knee Dermatological Surgical History: Reports: None Social & Family History - Family History Family Medical History: No Pertinent Family History Respiratory: Reports: Asthma, COPD Endocrine/Metabolic: Reports: Diabetes, type II Oncologic: Reports: Lung - Caffeine Use Caffeine Use: Reports: Coffee - Living Situation & Occupation Living situation: Reports: Occupation: Unemployed ED ROS GENERAL - Review of Systems Review Of Systems: See Below Constitutional: Reports: Malaise, Fatigue HEENT: Reports: No Symptoms Respiratory: Reports: Shortness of Breath Cardiovascular: Reports: No Symptoms GI/Abdominal: Reports: Constipation : Reports: No Symptoms Musculoskeletal: Reports: Arm Pain Skin: Reports: No Symptoms Neurological: Reports: No Symptoms Psychiatric: Reports: No Symptoms ED EXAM, GENERAL - Physical Exam Exam: See Below Exam Limited By: No Limitations General Appearance: Alert, WD/WN, No Apparent Distress Eye Exam: Bilateral Eye: EOMI Head: Atraumatic Neck: Normal Inspection Respiratory/Chest: No Respiratory Distress, No Accessory Muscle Use Cardiovascular: Regular Rate, Rhythm GI/Abdominal: Normal Bowel Sounds, Soft, Non-Tender, Other (OBESE) Extremities: Arm Pain, Other (B/L LEs edema, right hand showd mild swelling and redness, also TTP) Neurological: Alert, Oriented, Normal Cognition Skin Exam: Other (right foot is showing 2 francisco of open wounds - no signs of infection - but has granulation tissue) Course - Vital Signs Last Recorded V/S: Last Vital Signs Temp 37.0 C 08/31/20 14:37 Pulse 93 08/31/20 14:37 Resp 20 08/31/20 12:53 BP 120/85 08/31/20 12:53 Pulse Ox 93 L 08/31/20 14:37 - Orders/Labs/Meds Orders: Active Orders 24 hr Category Date Time Status Hand Comp Min 3V Rt [CR] Stat Exams 08/31/20 13:25 Taken Labs: Laboratory Tests 08/31/20 08/31/20 Range/Units 13:40 13:40 WBC 17.1 H (4.0-11.0) K/uL RBC 4.18 L (4.50-6.50) M/uL Hgb 12.8 L (13.0-18.0) g/dL Hct 38.5 L (40.0-54.0) % MCV 92 (76-96) fL MCH 30.6 (27.0-32.0) pg MCHC 33.2 (31.0-35.0) g/dL RDW 14.8 (11.0-16.0) % Plt Count 274 (150-400) K/uL MPV 12.0 H (6.0-10.0) fL Neut % (Auto) 80.9 H (45.0-70.0) % Lymph % (Auto) 7.8 L (20.0-40.0) % [place] % (Auto) 10.5 H (3.0-10.0) % Eos % (Auto) 0.6 L (1.0-5.0) % Baso % (Auto) 0.2 (0.0-0.5) % Neut # (Auto) 13.82 H (2.00-7.50) K/uL Lymph # (Auto) 1.34 L (1.50-4.00) K/uL [place] # (Auto) 1.79 H (0.20-0.80) K/uL Eos # (Auto) 0.10 (0.04-0.40) K/uL Baso # (Auto) 0.04 (0.02-0.10) K/uL ESR 58 H (0-20) mm/hr Sodium 137 (136-145) mmol/L Potassium 2.8 L* D (3.5-5.1) mmol/L Chloride 94 L (98-107) mmol/L Carbon Dioxide 31.6 (21.0-32.0) mmol/L Anion Gap 14.2 (5.0-15.0) mmol/L BUN 13 (8-26) mg/dL Creatinine 1.14 (0.70-1.30) mg/dL Est Cr Clr Drug Dosing 56.84 mL/min Estimated GFR (MDRD) > 60 (>60) MLS/MIN BUN/Creatinine Ratio 11.4 (6-25) Glucose 107 H (74-100) mg/dL Calcium 8.8 (8.5-10.1) mg/dL C-Reactive Protein 136.9 H (0.0-3.0) mg/L Theophylline 17 D (10-20) ug/mL Meds: Medications Discontinued Medications Generic Name Dose Route Start Last Admin Trade Name Shahzad PRN Reason Stop Dose Admin Ketorolac Tromethamine Confirm 08/31/20 14:38 08/31/20 15:00 Ketorolac 30 Mg/Ml Sdv Administered 08/31/20 14:39 Not Given Dose 30 mg .ROUTE .STK-MED ONE Ketorolac Tromethamine 30 mg 08/31/20 14:25 08/31/20 14:28 Ketorolac 30 Mg/Ml Sdv IM 08/31/20 14:26 30 mg ONETIME ONE Administration Morphine Sulfate 5 mg 08/31/20 13:25 08/31/20 13:30 Morphine 10 Mg/Ml Syringe IM 08/31/20 13:26 5 mg ONETIME ONE Administration Morphine Sulfate Confirm 08/31/20 13:39 08/31/20 13:37 Morphine 10 Mg/Ml Sdv Administered 08/31/20 13:40 Not Given Dose 10 mg .ROUTE .STK-MED ONE Ondansetron HCl Confirm 08/31/20 15:04 08/31/20 15:00 Ondansetron 4 Mg Tab.Dis Administered 08/31/20 15:05 Not Given Dose 4 mg .ROUTE .STK-MED ONE - Re-Assessments/Exams Free Text/Narrative Re-Assessment/Exam: xrays - no signs of fractures labs were ordered - leukocytosis - patient is on chronic steroids use mild hypokalemia - he hasn't taken his K supplements this week normal Cr elevation in CRP/ESR pain controlled with IM morphine and Toradol wound dressing changes of the foot will start him on PO Augmentin - reports he had in the past without problem - for RUE cellulitis Departure - Departure Time of Disposition: 15:02 Disposition: Home, Self-Care 01 Condition: Good Clinical Impression: Hypokalemia, Cellulitis of hand Chronic pain Qualifiers: Chronic pain type: other chronic pain Qualified Code(s): G89.29 - Other chronic pain - Discharge Information *PRESCRIPTION DRUG MONITORING PROGRAM REVIEWED*: Not Applicable *COPY OF PRESCRIPTION DRUG MONITORING REPORT IN PATIENT SHONDA: Not Applicable Prescriptions: Amoxicillin/Potassium Clav [Augmentin 705125 Tablet] 1 each PO BID 10 Days #20 tablet Ketorolac [Toradol] 10 mg PO Q6H PRN #12 tab PRN Reason: Pain (Moderate 4-6) Ondansetron [Zofran ODT] 4 mg PO Q6H PRN #20 tab.dis PRN Reason: NAUSEA Instructions: Cellulitis, Adult, Hypokalemia Referrals: Kain Chacon MD [Primary Care Provider] - Forms: ED Department Discharge Additional Instructions: - take antibiotics as prescribed for 10 days - take potassium twice daily for 2 days, then once daily after that - double dose of stool softeners for 3 days, then once daily after that - daily wound dressing changes - follow up with PCP in 3-7 days - take pain medications as prescribed Sepsis Event Note (ED) - Focused Exam Vital Signs: Vital Signs Temp Pulse Resp BP Pulse Ox 08/31/20 14:37 37.0 C 93 93 L 08/31/20 13:55 90 95 08/31/20 12:53 37.4 C 101 H 20 120/85 90 L - Problem List & Annotations (1) Cellulitis of hand SNOMED Code(s): 12446176 Code(s): L03.119 - CELLULITIS OF UNSPECIFIED PART OF LIMB Status: Acute Priority: Low Current Visit: Yes (2) Chronic pain SNOMED Code(s): 42509676 Code(s): G89.29 - OTHER CHRONIC PAIN Status: Chronic Priority: Low Current Visit: Yes Qualifiers: Chronic pain type: other chronic pain Qualified Code(s): G89.29 - Other chronic pain (3) Hypokalemia SNOMED Code(s): 91340692 Code(s): E87.6 - HYPOKALEMIA Status: Acute Priority: Low Current Visit: Yes - Problem List Review Problem List Initiated/Reviewed/Updated: Yes - My Orders Last 24 Hours: My Active Orders 08/31/20 13:25 Hand Comp Min 3V Rt [CR] Stat - Assessment/Plan Last 24 Hours: My Active Orders 08/31/20 13:25 Hand Comp Min 3V Rt [CR] Stat Plan: - take antibiotics as prescribed for 7 days - take potassium twice daily for 2 days, then once daily after that - double dose of stool softeners for 3 days, then once daily after that - daily wound dressing changes - follow up with PCP in 3-7 days - take pain medications as prescribed
[2020-08-31 13:24] VITALS: BP 120/85
[2020-08-31] MEDS ORDERED: Morphine 10 MG/ML Syringe IM ONE (13:25)
[2020-08-31] MEDS: Morphine 10 MG/ML SDV ONE ×2 (13:30→13:37)
[2020-08-31] MEDS ORDERED: Ketorolac 30 MG/ML SDV IM ONE (14:25)
[2020-08-31 14:38] VITALS: PULSE 93
[2020-08-31] MEDS ORDERED: Ketorolac 30 MG/ML SDV ONE (14:38)
[2020-08-31] MEDS ORDERED: Ondansetron 4 MG Tab.DIS PO ONE (14:45)
[2020-08-31] MEDS ORDERED: Ondansetron 4 MG Tab.DIS ONE (15:04)
--- NOTE | 2020-09-01 07:24 | CR ---
Date of Service: 08/31/20 Clinical Data: pain/ swelling RIGHT HAND: No priors. There is diffuse osteopenia. There are osteoarthritic changes involving multiple joints of the hand and wrist. No acute fracture or dislocation. No focal lytic or blastic bone lesions. [id number] [facility]
== END 2020-08-31 15:10 | disposition home or self-care (01) ==
LOC: LB.ED 12:20
DX: L03.113 Cellulitis of right upper limb (principal); R60.0 Localized edema; E87.6 Hypokalemia; K21.9 Gastro-esophageal reflux disease without esophagitis; I10 Essential (primary) hypertension; J44.9 Chronic obstructive pulmonary disease, unspecified; Z88.1 Allergy status to other antibiotic agents; Z88.2 Allergy status to sulfonamides; Z88.8 Allergy status to other drugs, medicaments and biological substances; Z88.0 Allergy status to penicillin; Z79.899 Other long term (current) drug therapy
CPT/HCPCS: 36415; 73130-RT; 80048; 80198; 85025; 85651; 86140; 96372; 99284; 99284-25; A0425; A0429; A9270-GY; J1885; J2270

== ENCOUNTER 2020-11-15 17:30 | Inpatient (IN) | payer MEDICARE ==
[2020-11-15] MEDS: Albuterol/Ipratropium 3.0-0.5 MG/3 ML Neb Soln NEB PRN ×2 (17:57→18:15)
--- NOTE | 2020-11-15 17:57 | EDM.PDOC ---
<Jhonatan Urbina S - Last Filed: 11/15/20 18:05> ED HPI GENERAL MEDICAL PROBLEM - General Chief Complaint: Respiratory Problem Stated Complaint: SHORTNESS OF BREATH Time Seen by Provider: 11/15/20 17:57 Source of Information: Reports: Patient, EMS History Limitations: Reports: No Limitations - History of Present Illness INITIAL COMMENTS - FREE TEXT/NARRATIVE: 60-year-old male presents to the ER via EMS for shortness of breath. Previous medical history significant for end-stage COPD, respiratory infection for 1.5 weeks. Patient is currently on a steroid burst and azithromycin for his upper respiratory infection. Patient's stated that he normally gives himself his nebulizer treatments but has been so confused as did not know what they were and who they were for. Patient is not vaccinated for Covid. Patient patient also complains of a wet productive cough, increased pedal edema, increase in distention of his belly. states the lowest SPO2 that she had noticed today was 82% on 3 L of at home oxygen. 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 (see below) (Patient taking all his at home medications with the exception of his potassium.) - Related Data Allergies Allergy/AdvReac Type Severity Reaction Status Date / Time fluconazole [From Diflucan] Allergy Edema Verified 08/31/20 13:14 levofloxacin [From Levaquin] Allergy Tachycardia Verified 08/31/20 13:14 Penicillins Allergy Anaphylactic Verified 08/31/20 13:14 Shock Sulfa (Sulfonamide Allergy Rash Verified 08/31/20 13:14 Antibiotics) azithromycin AdvReac Other Verified 08/31/20 13:14 Home Meds: Home Meds RX: Ipratropium/Albuterol Sulfate [Duoneb 0.5 MG-3 MG/3 ML] 3 ml INH QID PRN 12/11/12 [History] RX: Formoterol [Perforomist] 20 mcg NEB BID 12/26/14 [History] RX: Cetirizine [ZyrTEC] 10 mg PO DAILY tablet 12/30/14 [Rx] RX: Montelukast [Singulair] 10 mg PO DAILY tablet 12/30/14 [Rx] RX: Calcium Carbonate/Vitamin D3 [Calcium 600 + Vit D Tablet] 1 each PO DAILY 12/08/15 [History] RX: Budesonide [Pulmicort] 0.5 mg INH BID #1 neb 12/14/15 [Rx] RX: LORazepam [Ativan] 1 mg PO QID 12/22/15 [History] Acetylcysteine [Mucomyst 10%] 100 mg INH Q6H 12/23/15 [History] Hydrocodone/Acetaminophen [Hydrocodon-Acetaminophen 5-325] 10 mg PO Q8HR 01/03/16 [History] Polyethylene Glycol 3350 [MiraLAX] 17 gm PO BID 01/03/16 [History] Docusate Sodium [Colace] 250 mg PO DAILY 01/20/17 [History] RX: Bumetanide 3 mg PO DAILY 01/20/17 [History] RX: Ibuprofen 400 mg PO Q4H 01/20/17 [History] RX: Omeprazole 40 mg PO DAILY 01/20/17 [History] predniSONE [Prednisone] 10 mg PO DAILY 01/20/17 [History] B12/Levomefolate Calcium/B-6 [Folbic Rf Tablet] 1 each PO DAILY 09/06/19 [History] Potassium Chloride [Klor-Con M20] 20 meq PO DAILY 09/06/19 [History] RX: Theophylline [Jc-24] 600 mg PO TID 09/06/19 [History] Sennosides/Docusate Sodium [Senokot-S Tablet] 1 each PO DAILY 09/06/19 [History] 0.9 % Sodium Chloride [Sodium Chloride] 3 ml NEB ASDIRECTED PRN 08/31/20 [History] Acetaminophen [Tylenol] 650 mg PO ASDIRECTED PRN 08/31/20 [History] Amoxicillin/Potassium Clav [Augmentin 875-125 Tablet] 1 each PO BID 10 Days #20 tablet 08/31/20 [Rx] Ketorolac [Toradol] 10 mg PO Q6H PRN #12 tab 08/31/20 [Rx] Ondansetron [Zofran ODT] 4 mg PO Q6H PRN #20 tab.dis 08/31/20 [Rx] RX: Albuterol [IJD: Albuterol HFA] 90 gm INH QID 08/31/20 [History] RX: Bumetanide 2 mg PO QPM 08/31/20 [History] RX: Tiotropium [Spiriva HandiHaler] 25 mcg INH QAM 08/31/20 [History] RX: diphenhydrAMINE [Benadryl] 50 mg PO BID PRN 08/31/20 [History] Spironolactone [Aldactone] 25 mg PO QAM 08/31/20 [History] ED ROS GENERAL - Review of Systems Review Of Systems: Unable To Obtain Reason Not Obtained: Patient short of breath, conducted a short review of systems. Constitutional: Reports: Fever, Chills, Fatigue, Diaphoresis Respiratory: Reports: Shortness of Breath, Wheezing, Cough, Sputum Cardiovascular: Denies: Chest Pain Endocrine: Reports: Fatigue Skin: Reports: Other (Flaking) Psychiatric: Reports: Agitation, Anxiety ED EXAM, GENERAL - Physical Exam Exam: See Below (Limited) Reason Not Obtained: Limited physical exam did not address ENT. Exam Limited By: Respiratory Distress General Appearance: Alert, Anxious, Moderate Distress Throat/Mouth: Normal Lips, No Airway Compromise Head: Atraumatic, Normocephalic Respiratory/Chest: Respiratory Distress, Decreased Breath Sounds, Crackles, Rales, Rhonchi, Accessory Muscle Use Cardiovascular: Regular Rate, Rhythm, Tachycardia GI/Abdominal: Distended, Tender (Male) Exam: Deferred Rectal (Males) Exam: Deferred Extremities: Pedal Edema (+3 bilateral), Other (Patient has what appears to be a venous stasis ulcer on the dorsal side of his right foot that is dressed and bandaged.) Neurological: Alert Departure - Departure Disposition: Admitted As Inpatient 68 Clinical Impression: COPD exacerbation, COPD (chronic obstructive pulmonary disease) with acute bronchitis, Pneumonia due to COVID-19 virus - Discharge Information <Lauren Tillman - Last Filed: 11/15/20 22:04> ED HPI GENERAL MEDICAL PROBLEM - History of Present Illness INITIAL COMMENTS - FREE TEXT/NARRATIVE: chills at home, productive cough. No CP. h.o CHF on diuretics and multiple other medical problems. Reports some increase in swelling and edema. Duration: Week(s): Past Medical History - Past Health History Medical/Surgical History: Denies Medical/Surgical History HEENT History: Reports: Impaired Vision Other HEENT History: right eye tear duct torn Cardiovascular History: Reports: Hypertension Respiratory History: Reports: COPD, Pneumonia, Recurrent, SOB Other Respiratory History: severe COPD Gastrointestinal History: Reports: GERD Musculoskeletal History: Reports: Back Pain, Chronic, Osteoporosis Other Musculoskeletal History: 2 vertebrae "gone" 1 fixed" Psychiatric History: Reports: Anxiety - Infectious Disease History Infectious Disease History: Reports: MRSA - Past Surgical History Head Surgeries/Procedures: Reports: None Cardiovascular Surgical History: Reports: None Respiratory Surgical History: Reports: None GI Surgical History: Reports: Appendectomy Musculoskeletal Surgical History: Reports: Arthroscopic Knee Dermatological Surgical History: Reports: None Social & Family History - Family History Family Medical History: No Pertinent Family History Respiratory: Reports: Asthma, COPD Endocrine/Metabolic: Reports: Diabetes, type II Oncologic: Reports: Lung - Caffeine Use Caffeine Use: Reports: Coffee, Tea - Living Situation & Occupation Living situation: Reports: Occupation: Unemployed Course - Vital Signs Last Recorded V/S: Last Vital Signs Temp 38.8 C H 11/15/20 19:30 Pulse 100 11/15/20 19:30 Resp 22 H 11/15/20 19:30 BP 125/78 11/15/20 19:30 Pulse Ox 94 L 11/15/20 19:30 - Orders/Labs/Meds Orders: Active Orders 24 hr Category Date Time Status Admission Diagnosis [ADT] Stat ADT 11/15/20 19:30 Active Admission Status [Patient Status] [ADT] Routine ADT 11/15/20 19:30 Active RT Aerosol Therapy [RC] ASDIRECTED Care 11/15/20 17:41 Active Chest 1V Frontal [CR] Stat Exams 11/15/20 17:39 Taken CORONAVIRUS COVID-19 RAPID [MOLEC] Stat Lab 11/15/20 17:50 Stop Req CULTURE BLOOD [BC] Stat Lab 11/15/20 18:14 Received HEPATIC FUNCTION PANEL,HFP [CHEM] DAILY Lab 11/16/20 19:30 Ordered HEPATIC FUNCTION PANEL,HFP [CHEM] DAILY Lab 11/17/20 19:30 Ordered HEPATIC FUNCTION PANEL,HFP [CHEM] DAILY Lab 11/18/20 19:30 Ordered HEPATIC FUNCTION PANEL,HFP [CHEM] DAILY Lab 11/19/20 19:30 Ordered Albuterol/Ipratropium [DuoNeb 3.0-0.5 MG/3 ML] Med 11/15/20 17:41 Active 3 ml NEB Q2H PRN Enoxaparin [Lovenox] Med 11/15/20 19:30 Active 40 mg SUBCUT Q12H dexAMETHasone Med 11/15/20 19:30 Active 6 mg PO DAILY Medication Orders Albuterol/Ipratropium (Albuterol/Ipratropium 3.0-0.5 Mg/3 Ml Neb Soln) 3 ml NEB Q2H PRN PRN Reason: Dyspnea Last Admin: 11/15/20 18:15 Dose: 3 ml Documented by: Admin: 11/15/20 17:57 Dose: 3 ml Documented by: JACKI Dexamethasone (Dexamethasone 4 Mg Tab) 6 mg PO DAILY ALEK Last Admin: 11/15/20 20:08 Dose: 6 mg Documented by: JERZY Enoxaparin Sodium (Enoxaparin 40 Mg/0.4 Ml Syringe) 40 mg SUBCUT Q12H ALEK Last Admin: 11/15/20 20:06 Dose: 40 mg Documented by: JERZY Labs: Laboratory Tests 11/15/20 11/15/20 11/15/20 Range/Units 18:00 18:00 18:00 WBC 7.0 D (4.0-11.0) K/uL RBC 4.74 (4.50-6.50) M/uL Hgb 13.7 (13.0-18.0) g/dL Hct 41.5 (40.0-54.0) % MCV 88 (76-96) fL MCH 28.9 (27.0-32.0) pg MCHC 33.0 (31.0-35.0) g/dL RDW 15.5 (11.0-16.0) % Plt Count 115 L D (150-400) K/uL MPV 11.5 H (6.0-10.0) fL Neut % (Auto) 86.0 H (45.0-70.0) % Lymph % (Auto) 5.2 L (20.0-40.0) % [place] % (Auto) 8.5 (3.0-10.0) % Eos % (Auto) 0.0 L (1.0-5.0) % Baso % (Auto) 0.3 (0.0-0.5) % Neut # (Auto) 6.01 (2.00-7.50) K/uL Lymph # (Auto) 0.36 L (1.50-4.00) K/uL [place] # (Auto) 0.59 (0.20-0.80) K/uL Eos # (Auto) 0.00 L (0.04-0.40) K/uL Baso # (Auto) 0.02 (0.02-0.10) K/uL ESR (0-20) mm/hr Sodium 131 L (136-145) mmol/L Potassium 3.7 D (3.5-5.1) mmol/L Chloride 90 L (98-107) mmol/L Carbon Dioxide 31.1 (21.0-32.0) mmol/L Anion Gap 13.6 (5.0-15.0) mmol/L BUN 19 D (8-26) mg/dL Creatinine 1.43 H D (0.70-1.30) mg/dL Est Cr Clr Drug Dosing TNP Estimated GFR (MDRD) 51 L (>60) MLS/MIN BUN/Creatinine Ratio 13.3 (6-25) Glucose 96 (74-100) mg/dL Lactic Acid (0.4-2.0) mmol/L Calcium 8.6 (8.5-10.1) mg/dL Phosphorus (2.5-4.9) mg/dL Magnesium (1.8-2.4) mg/dL Total Bilirubin 0.5 (0.0-1.0) mg/dL AST 45 H (15-37) U/L ALT 85 H (12-78) U/L Alkaline Phosphatase 99 (46-116) U/L Troponin I < 0.017 (0.000-0.060) ng/mL C-Reactive Protein (0.0-3.0) mg/L B-Natriuretic Peptide (0-125) pg/mL Total Protein 6.8 (6.4-8.2) g/dL Albumin 3.3 L (3.4-5.0) g/dL Globulin 3.5 (2.2-4.2) g/dL Albumin/Globulin Ratio 0.9 (0.8-2.0) SARS-CoV-2 RNA (PAM) (NEGATIVE) 11/15/20 11/15/20 11/15/20 Range/Units 18:00 18:00 18:00 WBC (4.0-11.0) K/uL RBC (4.50-6.50) M/uL Hgb (13.0-18.0) g/dL Hct (40.0-54.0) % MCV (76-96) fL MCH (27.0-32.0) pg MCHC (31.0-35.0) g/dL RDW (11.0-16.0) % Plt Count (150-400) K/uL MPV (6.0-10.0) fL Neut % (Auto) (45.0-70.0) % Lymph % (Auto) (20.0-40.0) % [place] % (Auto) (3.0-10.0) % Eos % (Auto) (1.0-5.0) % Baso % (Auto) (0.0-0.5) % Neut # (Auto) (2.00-7.50) K/uL Lymph # (Auto) (1.50-4.00) K/uL [place] # (Auto) (0.20-0.80) K/uL Eos # (Auto) (0.04-0.40) K/uL Baso # (Auto) (0.02-0.10) K/uL ESR (0-20) mm/hr Sodium (136-145) mmol/L Potassium (3.5-5.1) mmol/L Chloride (98-107) mmol/L Carbon Dioxide (21.0-32.0) mmol/L Anion Gap (5.0-15.0) mmol/L BUN (8-26) mg/dL Creatinine (0.70-1.30) mg/dL Est Cr Clr Drug Dosing Estimated GFR (MDRD) (>60) MLS/MIN BUN/Creatinine Ratio (6-25) Glucose (74-100) mg/dL Lactic Acid 6.4 H (0.4-2.0) mmol/L Calcium (8.5-10.1) mg/dL Phosphorus 2.9 (2.5-4.9) mg/dL Magnesium 1.7 L (1.8-2.4) mg/dL Total Bilirubin (0.0-1.0) mg/dL AST (15-37) U/L ALT (12-78) U/L Alkaline Phosphatase (46-116) U/L Troponin I (0.000-0.060) ng/mL C-Reactive Protein (0.0-3.0) mg/L B-Natriuretic Peptide 1548 H D (0-125) pg/mL Total Protein (6.4-8.2) g/dL Albumin (3.4-5.0) g/dL Globulin (2.2-4.2) g/dL Albumin/Globulin Ratio (0.8-2.0) SARS-CoV-2 RNA (PAM) (NEGATIVE) 11/15/20 11/15/20 11/15/20 Range/Units 18:00 18:00 18:00 WBC (4.0-11.0) K/uL RBC (4.50-6.50) M/uL Hgb (13.0-18.0) g/dL Hct (40.0-54.0) % MCV (76-96) fL MCH (27.0-32.0) pg MCHC (31.0-35.0) g/dL RDW (11.0-16.0) % Plt Count (150-400) K/uL MPV (6.0-10.0) fL Neut % (Auto) (45.0-70.0) % Lymph % (Auto) (20.0-40.0) % [place] % (Auto) (3.0-10.0) % Eos % (Auto) (1.0-5.0) % Baso % (Auto) (0.0-0.5) % Neut # (Auto) (2.00-7.50) K/uL Lymph # (Auto) (1.50-4.00) K/uL [place] # (Auto) (0.20-0.80) K/uL Eos # (Auto) (0.04-0.40) K/uL Baso # (Auto) (0.02-0.10) K/uL ESR 55 H (0-20) mm/hr Sodium (136-145) mmol/L Potassium (3.5-5.1) mmol/L Chloride (98-107) mmol/L Carbon Dioxide (21.0-32.0) mmol/L Anion Gap (5.0-15.0) mmol/L BUN (8-26) mg/dL Creatinine (0.70-1.30) mg/dL Est Cr Clr Drug Dosing Estimated GFR (MDRD) (>60) MLS/MIN BUN/Creatinine Ratio (6-25) Glucose (74-100) mg/dL Lactic Acid (0.4-2.0) mmol/L Calcium (8.5-10.1) mg/dL Phosphorus (2.5-4.9) mg/dL Magnesium (1.8-2.4) mg/dL Total Bilirubin (0.0-1.0) mg/dL AST (15-37) U/L ALT (12-78) U/L Alkaline Phosphatase (46-116) U/L Troponin I (0.000-0.060) ng/mL C-Reactive Protein 182.2 H (0.0-3.0) mg/L B-Natriuretic Peptide (0-125) pg/mL Total Protein (6.4-8.2) g/dL Albumin (3.4-5.0) g/dL Globulin (2.2-4.2) g/dL Albumin/Globulin Ratio (0.8-2.0) SARS-CoV-2 RNA (PAM) Positive H (NEGATIVE) Meds: Medications Generic Name Dose Route Start Last Admin Trade Name Freq PRN Reason Stop Dose Admin Albuterol/Ipratropium 3 ml 11/15/20 17:41 11/15/20 18:15 Albuterol/Ipratropium 3.0-0.5 Mg/3 Ml Neb Soln NEB 3 ml Q2H PRN Administration Dyspnea Dexamethasone 6 mg 11/15/20 19:30 11/15/20 20:08 Dexamethasone 4 Mg Tab PO 6 mg DAILY ALEK Administration Enoxaparin Sodium 40 mg 11/15/20 19:30 11/15/20 20:06 Enoxaparin 40 Mg/0.4 Ml Syringe SUBCUT 40 mg Q12H ALEK Administration Discontinued Medications Generic Name Dose Route Start Last Admin Trade Name Freq PRN Reason Stop Dose Admin Remdesivir 200 mg/ Sodium 250 mls @ 250 mls/hr 11/15/20 19:17 11/15/20 20:04 Chloride IV 11/15/20 19:18 250 mls/hr ONETIME ONE Administration - Re-Assessments/Exams Free Text/Narrative Re-Assessment/Exam: patient was given neb treatment - reports significant improvement in SOB. started him in Remdesivir and Dexamethasone, as well as, Lovenox. Departure - Departure Time of Disposition: 21:58 Condition: Fair - Discharge Information *PRESCRIPTION DRUG MONITORING PROGRAM REVIEWED*: Not Applicable *COPY OF PRESCRIPTION DRUG MONITORING REPORT IN PATIENT SHONDA: Not Applicable Sepsis Event Note (ED) - Focused Exam Vital Signs: Vital Signs Temp Temp Pulse Resp BP Pulse Ox 11/15/20 19:30 38.8 C H 100 22 H 125/78 94 L 11/15/20 18:22 108 H 22 H 92 L 11/15/20 17:40 37.3 C 107 H 22 H 132/82 91 L - Problem List & Annotations (1) COPD exacerbation SNOMED Code(s): 698520660, 655209879 Code(s): J44.1 - CHRONIC OBSTRUCTIVE PULMONARY DISEASE W (ACUTE) EXACERBATION Status: Chronic Priority: Medium Current Visit: Yes Annotation/Comment:: 07/29/15 - Chronich obstructive pulmonary disease exac erbatoin wtih bronchitis 04/30/15 - into ER. (2) Pneumonia due to COVID-19 virus SNOMED Code(s): 254879117973913902 Code(s): U07.1 - COVID-19; J12.82 - PNEUMONIA DUE TO CORONAVIRUS DISEASE 2019 Status: Acute Priority: Medium Current Visit: Yes (3) Respiratory failure with hypoxia SNOMED Code(s): 17489030312570379 Code(s): J96.91 - RESPIRATORY FAILURE, UNSPECIFIED WITH HYPOXIA Status: Acute Priority: Medium Current Visit: Yes Qualifiers: Chronicity: acute on chronic Qualified Code(s): J96.21 - Acute and chronic respiratory failure with hypoxia (4) Oxygen dependent SNOMED Code(s): 122447508941 Code(s): Z99.81 - DEPENDENCE ON SUPPLEMENTAL OXYGEN Status: Acute Priority: Low Current Visit: Yes - Problem List Review Problem List Initiated/Reviewed/Updated: Yes - My Orders Last 24 Hours: My Active Orders 11/15/20 18:14 CULTURE BLOOD [BC] Stat 11/15/20 19:30 Admission Diagnosis [ADT] Stat Admission Status [Patient Status] [ADT] Routine Enoxaparin [Lovenox] 40 mg SUBCUT Q12H dexAMETHasone 6 mg PO DAILY 11/16/20 19:30 HEPATIC FUNCTION PANEL,HFP [CHEM] DAILY 11/17/20 19:30 HEPATIC FUNCTION PANEL,HFP [CHEM] DAILY 11/18/20 19:30 HEPATIC FUNCTION PANEL,HFP [CHEM] DAILY 11/19/20 19:30 HEPATIC FUNCTION PANEL,HFP [CHEM] DAILY - Assessment/Plan Last 24 Hours: My Active Orders 11/15/20 18:14 CULTURE BLOOD [BC] Stat 11/15/20 19:30 Admission Diagnosis [ADT] Stat Admission Status [Patient Status] [ADT] Routine Enoxaparin [Lovenox] 40 mg SUBCUT Q12H dexAMETHasone 6 mg PO DAILY 11/16/20 19:30 HEPATIC FUNCTION PANEL,HFP [CHEM] DAILY 11/17/20 19:30 HEPATIC FUNCTION PANEL,HFP [CHEM] DAILY 11/18/20 19:30 HEPATIC FUNCTION PANEL,HFP [CHEM] DAILY 11/19/20 19:30 HEPATIC FUNCTION PANEL,HFP [CHEM] DAILY Plan: - IV remdesiver 200mg now and 100mg daily - Dexamethasone 6mg Po - duoneb and albuterol q2-4 hrs - O2 supplementation to keep SpO2 > 90% - resume rest of home meds as before - DVT ppx with Lovenox - daily labs given the complexity of patient's Past medical hx and risk of quick decompensation without appropriate treatment - decision to admit the patient to the floor for further therapy and stabilization
[2020-11-15] MEDS ORDERED: REMDESIVIR 200 MG in Sodium Chloride 0.9% 250 ML IV ONE (19:17)
[2020-11-15] MEDS: Enoxaparin 40 MG/0.4 ML Syringe SUBCUT SCH (20:06)
[2020-11-15] MEDS: Dexamethasone 4 MG Tab PO SCH (20:08)
[2020-11-15] MEDS: Budesonide 0.5 MG/2 ML Neb Susp NEB SCH (23:00)
[2020-11-15] MEDS ORDERED: Ondansetron 4 MG Tab.DIS PO PRN (23:01)
[2020-11-15] MEDS ORDERED: Acetylcysteine 20% 200 MG/ML 30 ML Nebulizer Soln SDV INH SCH (23:15)
[2020-11-15] MEDS: MUCOMYST 10% INH SCH (23:30)
[2020-11-16] MEDS: MUCOMYST 10% INH SCH ×3 (06:15→20:19)
[2020-11-16] MEDS: Bumetanide 2 MG Tab PO SCH ×2 (06:15→12:40)
[2020-11-16] MEDS: Enoxaparin 40 MG/0.4 ML Syringe SUBCUT SCH ×2 (06:30→19:55)
[2020-11-16] MEDS ORDERED: Albuterol 0.083% 2.5 MG/3 ML Neb Soln NEB SCH (08:00)
[2020-11-16] MEDS ORDERED: THEOPHYLLINE 300 MG PO SCH (08:00)
--- NOTE | 2020-11-16 08:47 | CR ---
Date of Service: 11/15/20 Clinical Data: sob AP CHEST: Comparison is made to a prior exam dated 09/25/20. The heart size is stable. The pulmonary vasculature is prominent with cephalization of flow consistent with pulmonary venous congestion. There are poorly defined infiltrates in the right upper lobe adjacent to the minor fissure and in both lung bases, left greater than right, consistent with pneumonia. No pneumothorax. No pleural effusions. [id number] MTDD
[2020-11-16] MEDS: Dexamethasone 4 MG Tab PO SCH (09:41)
[2020-11-16] MEDS: Potassium Chloride 20 MEQ Tab.ER PO SCH (09:42)
[2020-11-16] MEDS: Polyethylene Glycol 3350 Powder 17 GM Packet PO SCH (09:42)
[2020-11-16] MEDS: Tiotropium Inhaler 18 MCG Inhalation Powder Cap Kit of 5 INH SCH (09:44)
[2020-11-16] MEDS: Acetaminophen/HYDROcodone 325-10 MG Tab PO SCH ×3 (09:44→20:00)
[2020-11-16] MEDS: LORazepam 1 MG Tab PO SCH ×4 (09:51→19:54)
[2020-11-16] MEDS: Omeprazole 20 MG Cap.CR PO SCH (09:52)
[2020-11-16] MEDS: Spironolactone 25 MG Tab PO SCH (09:52)
[2020-11-16] MEDS: predniSONE 10 MG Tab PO SCH (09:52)
[2020-11-16] MEDS: Budesonide 0.5 MG/2 ML Neb Susp NEB SCH ×2 (09:53→20:00)
[2020-11-16] MEDS: Cetirizine 10 MG Tab PO SCH (09:53)
[2020-11-16] MEDS: PERFOROMIST 20 MCG/2 ML INH SCH ×4 (12:00→20:59)
[2020-11-16] MEDS: Menthol/Zinc Oxide Ointment 113 GM Tube TOP PRN (13:43)
--- NOTE | 2020-11-16 14:03 | PCM.HP.2 ---
H&P History of Present Illness - General Date of Service: 11/16/20 Admit Problem/Dx: Admission Diagnosis/Problem Admission Diagnosis/Problem Pneumonia Source of Information: Patient History Limitations: Reports: No Limitations - History of Present Illness Initial Comments - Free Text/Narative: Patient with a h/o End stage COPD, O2 dependent who presented to the ER with worsening SOB and fever. Was found to be positive for COVID. CXR concerning for perihilar infiltrates. Was also found to be severely hypoxic. He was admitted to the floor for aggressive respiratory therapy, Remdisiver and Dexamethasone. Also for O2 supplementation. Overnight, patient reports significant improvement in breathing but not back to normal yet. He didn't get the vaccination, nor his who is also symptomatic but less severe. Onset of Symptoms: Reports: Gradual Duration of Symptoms: Reports: Week(s): (1) Location: Reports: Chest Severity: Moderate Improves with: Reports: None Worsens with: Reports: Movement Context: Reports: Sick Contact - Related Data Allergies/Adverse Reactions: Allergies Allergy/AdvReac Type Severity Reaction Status Date / Time fluconazole [From Diflucan] Allergy Edema Verified 08/31/20 13:14 levofloxacin [From Levaquin] Allergy Tachycardia Verified 08/31/20 13:14 Penicillins Allergy Anaphylactic Verified 08/31/20 13:14 Shock Sulfa (Sulfonamide Allergy Rash Verified 08/31/20 13:14 Antibiotics) azithromycin AdvReac Other Verified 08/31/20 13:14 Home Medications: Home Meds Ipratropium/Albuterol Sulfate [Duoneb 0.5 MG-3 MG/3 ML] 3 ml INH QID 12/11/12 [History] Formoterol [Perforomist] 20 mcg NEB BID 12/26/14 [History] Cetirizine [ZyrTEC] 10 mg PO DAILY tablet 12/30/14 [Rx] Calcium Carbonate/Vitamin D3 [Calcium 600 + Vit D Tablet] 1 each PO DAILY 12/08/15 [History] Budesonide [Pulmicort] 0.5 mg INH BID #1 neb 12/14/15 [Rx] LORazepam [Ativan] 1 mg PO QID 12/22/15 [History] Acetylcysteine [Mucomyst 10%] 100 mg INH Q6H 12/23/15 [History] Polyethylene Glycol 3350 [MiraLAX] 17 gm PO DAILY 01/03/16 [History] Bumetanide 3 mg PO WITHBREAKFAST 01/20/17 [History] Docusate Sodium [Colace] 250 mg PO BEDTIME 01/20/17 [History] Ibuprofen 400 mg PO Q4H PRN 01/20/17 [History] Omeprazole 40 mg PO DAILY 01/20/17 [History] predniSONE [Prednisone] 10 mg PO DAILY 01/20/17 [History] B12/Levomefolate Calcium/B-6 [Folbic Rf Tablet] 1 each PO BEDTIME 09/06/19 [History] Potassium Chloride [Klor-Con M20] 20 meq PO DAILY 09/06/19 [History] Sennosides/Docusate Sodium [Senokot-S Tablet] 1 each PO ACLUNCH 09/06/19 [History] Theophylline [Jc-24] 300 mg PO TID 09/06/19 [History] Albuterol [IJD: Albuterol HFA] 2 puff INH QID PRN 08/31/20 [History] Bumetanide 2 mg PO ACLUNCH 08/31/20 [History] Ondansetron [Zofran ODT] 4 mg PO Q6H PRN #20 tab.dis 08/31/20 [Rx] Spironolactone [Aldactone] 25 mg PO QAM 08/31/20 [History] Tiotropium [Spiriva HandiHaler] 1 puff INH DAILY 08/31/20 [History] diphenhydrAMINE [Benadryl] 50 mg PO BID PRN 08/31/20 [History] Hydrocodone/Acetaminophen [Hydrocodon-Acetaminophn 10-325] 1 tab PO TID 11/15/20 [History] Montelukast [Singulair] 10 mg PO BEDTIME 11/15/20 [History] Past Medical History - Past Health History Medical/Surgical History: Denies Medical/Surgical History HEENT History: Reports: Impaired Vision Other HEENT History: right eye tear duct torn Cardiovascular History: Reports: Hypertension Respiratory History: Reports: COPD, Pneumonia, Recurrent, SOB Other Respiratory History: severe COPD Gastrointestinal History: Reports: GERD Musculoskeletal History: Reports: Back Pain, Chronic, Osteoporosis Other Musculoskeletal History: 2 vertebrae "gone" 1 fixed" Psychiatric History: Reports: Anxiety - Infectious Disease History Infectious Disease History: Reports: MRSA - Past Surgical History Head Surgeries/Procedures: Reports: None HEENT Surgical History: Reports: None Cardiovascular Surgical History: Reports: None Respiratory Surgical History: Reports: None GI Surgical History: Reports: Appendectomy Musculoskeletal Surgical History: Reports: Arthroscopic Knee Dermatological Surgical History: Reports: None Social & Family History - Family History Family Medical History: No Pertinent Family History Respiratory: Reports: Asthma, COPD Endocrine/Metabolic: Reports: Diabetes, type II Oncologic: Reports: Lung - Tobacco Use Tobacco Use Status *Q: Former Tobacco User Used Tobacco, but Quit: Yes Month/Year Tobacco Last Used: 2009 Second Hand Smoke Exposure: No - Caffeine Use Caffeine Use: Reports: Soda - Recreational Drug Use Recreational Drug Use: No - Living Situation & Occupation Living situation: Reports: Occupation: Unemployed H&P Review of Systems - Review of Systems: Review Of Systems: See Below General: Reports: No Symptoms HEENT: Reports: No Symptoms Pulmonary: Reports: Shortness of Breath, Wheezing, Cough, Sputum Cardiovascular: Reports: Dyspnea on Exertion. Denies: Chest Pain Gastrointestinal: Reports: No Symptoms Musculoskeletal: Reports: No Symptoms Skin: Reports: No Symptoms Psychiatric: Reports: No Symptoms Neurological: Reports: No Symptoms Exam - Exam Exam: See Below - Vital Signs Vital Signs: Last Vital Signs Temp 36.3 C 11/16/20 12:00 Pulse 80 11/16/20 12:00 Resp 20 11/16/20 12:00 BP 98/65 11/16/20 12:00 Pulse Ox 92 L 11/16/20 12:00 Weight: 86.183 kg - Exam Quality Assessment: Supplemental Oxygen, DVT Prophylaxis General: Alert, Oriented, Cooperative, Mild Distress HEENT: PERRLA, Conjunctiva Clear Lungs: Decreased Breath Sounds, Rhonchi, Wheezing Cardiovascular: Regular Rate, Regular Rhythm Extremities: Pedal Edema Neurological: Cranial Nerves Intact Neuro Extensive - Mental Status: Alert, Oriented x3 Psychiatric: Alert, Normal Affect - Patient Data Lab Results Last 24 hrs: Laboratory Results - last 24 hr 11/15/20 11/15/20 11/15/20 Range/Units 18:00 18:00 18:00 WBC 7.0 D (4.0-11.0) K/uL RBC 4.74 (4.50-6.50) M/uL Hgb 13.7 (13.0-18.0) g/dL Hct 41.5 (40.0-54.0) % MCV 88 (76-96) fL MCH 28.9 (27.0-32.0) pg MCHC 33.0 (31.0-35.0) g/dL RDW 15.5 (11.0-16.0) % Plt Count 115 L D (150-400) K/uL MPV 11.5 H (6.0-10.0) fL Neut % (Auto) 86.0 H (45.0-70.0) % Lymph % (Auto) 5.2 L (20.0-40.0) % [place] % (Auto) 8.5 (3.0-10.0) % Eos % (Auto) 0.0 L (1.0-5.0) % Baso % (Auto) 0.3 (0.0-0.5) % Neut # (Auto) 6.01 (2.00-7.50) K/uL Lymph # (Auto) 0.36 L (1.50-4.00) K/uL [place] # (Auto) 0.59 (0.20-0.80) K/uL Eos # (Auto) 0.00 L (0.04-0.40) K/uL Baso # (Auto) 0.02 (0.02-0.10) K/uL ESR (0-20) mm/hr Sodium 131 L (136-145) mmol/L Potassium 3.7 D (3.5-5.1) mmol/L Chloride 90 L (98-107) mmol/L Carbon Dioxide 31.1 (21.0-32.0) mmol/L Anion Gap 13.6 (5.0-15.0) mmol/L BUN 19 D (8-26) mg/dL Creatinine 1.43 H D (0.70-1.30) mg/dL Est Cr Clr Drug Dosing TNP Estimated GFR (MDRD) 51 L (>60) MLS/MIN BUN/Creatinine Ratio 13.3 (6-25) Glucose 96 (74-100) mg/dL Lactic Acid (0.4-2.0) mmol/L Calcium 8.6 (8.5-10.1) mg/dL Phosphorus (2.5-4.9) mg/dL Magnesium (1.8-2.4) mg/dL Total Bilirubin 0.5 (0.0-1.0) mg/dL Direct Bilirubin (0.0-0.3) mg/dL Indirect Bilirubin (<= 0.7) mg/dL AST 45 H (15-37) U/L ALT 85 H (12-78) U/L Alkaline Phosphatase 99 (46-116) U/L Troponin I < 0.017 (0.000-0.060) ng/mL C-Reactive Protein (0.0-3.0) mg/L B-Natriuretic Peptide (0-125) pg/mL Total Protein 6.8 (6.4-8.2) g/dL Albumin 3.3 L (3.4-5.0) g/dL Globulin 3.5 (2.2-4.2) g/dL Albumin/Globulin Ratio 0.9 (0.8-2.0) SARS-CoV-2 RNA (PAM) (NEGATIVE) 11/15/20 11/15/20 11/15/20 Range/Units 18:00 18:00 18:00 WBC (4.0-11.0) K/uL RBC (4.50-6.50) M/uL Hgb (13.0-18.0) g/dL Hct (40.0-54.0) % MCV (76-96) fL MCH (27.0-32.0) pg MCHC (31.0-35.0) g/dL RDW (11.0-16.0) % Plt Count (150-400) K/uL MPV (6.0-10.0) fL Neut % (Auto) (45.0-70.0) % Lymph % (Auto) (20.0-40.0) % [place] % (Auto) (3.0-10.0) % Eos % (Auto) (1.0-5.0) % Baso % (Auto) (0.0-0.5) % Neut # (Auto) (2.00-7.50) K/uL Lymph # (Auto) (1.50-4.00) K/uL [place] # (Auto) (0.20-0.80) K/uL Eos # (Auto) (0.04-0.40) K/uL Baso # (Auto) (0.02-0.10) K/uL ESR (0-20) mm/hr Sodium (136-145) mmol/L Potassium (3.5-5.1) mmol/L Chloride (98-107) mmol/L Carbon Dioxide (21.0-32.0) mmol/L Anion Gap (5.0-15.0) mmol/L BUN (8-26) mg/dL Creatinine (0.70-1.30) mg/dL Est Cr Clr Drug Dosing Estimated GFR (MDRD) (>60) MLS/MIN BUN/Creatinine Ratio (6-25) Glucose (74-100) mg/dL Lactic Acid 6.4 H (0.4-2.0) mmol/L Calcium (8.5-10.1) mg/dL Phosphorus 2.9 (2.5-4.9) mg/dL Magnesium 1.7 L (1.8-2.4) mg/dL Total Bilirubin (0.0-1.0) mg/dL Direct Bilirubin (0.0-0.3) mg/dL Indirect Bilirubin (<= 0.7) mg/dL AST (15-37) U/L ALT (12-78) U/L Alkaline Phosphatase (46-116) U/L Troponin I (0.000-0.060) ng/mL C-Reactive Protein (0.0-3.0) mg/L B-Natriuretic Peptide 1548 H D (0-125) pg/mL Total Protein (6.4-8.2) g/dL Albumin (3.4-5.0) g/dL Globulin (2.2-4.2) g/dL Albumin/Globulin Ratio (0.8-2.0) SARS-CoV-2 RNA (PAM) (NEGATIVE) 11/15/20 11/15/20 11/15/20 Range/Units 18:00 18:00 18:00 WBC (4.0-11.0) K/uL RBC (4.50-6.50) M/uL Hgb (13.0-18.0) g/dL Hct (40.0-54.0) % MCV (76-96) fL MCH (27.0-32.0) pg MCHC (31.0-35.0) g/dL RDW (11.0-16.0) % Plt Count (150-400) K/uL MPV (6.0-10.0) fL Neut % (Auto) (45.0-70.0) % Lymph % (Auto) (20.0-40.0) % [place] % (Auto) (3.0-10.0) % Eos % (Auto) (1.0-5.0) % Baso % (Auto) (0.0-0.5) % Neut # (Auto) (2.00-7.50) K/uL Lymph # (Auto) (1.50-4.00) K/uL [place] # (Auto) (0.20-0.80) K/uL Eos # (Auto) (0.04-0.40) K/uL Baso # (Auto) (0.02-0.10) K/uL ESR 55 H (0-20) mm/hr Sodium (136-145) mmol/L Potassium (3.5-5.1) mmol/L Chloride (98-107) mmol/L Carbon Dioxide (21.0-32.0) mmol/L Anion Gap (5.0-15.0) mmol/L BUN (8-26) mg/dL Creatinine (0.70-1.30) mg/dL Est Cr Clr Drug Dosing Estimated GFR (MDRD) (>60) MLS/MIN BUN/Creatinine Ratio (6-25) Glucose (74-100) mg/dL Lactic Acid (0.4-2.0) mmol/L Calcium (8.5-10.1) mg/dL Phosphorus (2.5-4.9) mg/dL Magnesium (1.8-2.4) mg/dL Total Bilirubin (0.0-1.0) mg/dL Direct Bilirubin (0.0-0.3) mg/dL Indirect Bilirubin (<= 0.7) mg/dL AST (15-37) U/L ALT (12-78) U/L Alkaline Phosphatase (46-116) U/L Troponin I (0.000-0.060) ng/mL C-Reactive Protein 182.2 H (0.0-3.0) mg/L B-Natriuretic Peptide (0-125) pg/mL Total Protein (6.4-8.2) g/dL Albumin (3.4-5.0) g/dL Globulin (2.2-4.2) g/dL Albumin/Globulin Ratio (0.8-2.0) SARS-CoV-2 RNA (PAM) Positive H (NEGATIVE) 11/16/20 11/16/20 11/16/20 Range/Units 07:30 07:30 10:13 WBC 2.2 L D (4.0-11.0) K/uL RBC 4.40 L (4.50-6.50) M/uL Hgb 12.7 L (13.0-18.0) g/dL Hct 38.3 L (40.0-54.0) % MCV 87 (76-96) fL MCH 28.9 (27.0-32.0) pg MCHC 33.2 (31.0-35.0) g/dL RDW 15.3 (11.0-16.0) % Plt Count 108 L (150-400) K/uL MPV 12.2 H (6.0-10.0) fL Neut % (Auto) (45.0-70.0) % Lymph % (Auto) (20.0-40.0) % [place] % (Auto) (3.0-10.0) % Eos % (Auto) (1.0-5.0) % Baso % (Auto) (0.0-0.5) % Neut # (Auto) (2.00-7.50) K/uL Lymph # (Auto) (1.50-4.00) K/uL [place] # (Auto) (0.20-0.80) K/uL Eos # (Auto) (0.04-0.40) K/uL Baso # (Auto) (0.02-0.10) K/uL ESR (0-20) mm/hr Sodium 131 L (136-145) mmol/L Potassium 3.2 L (3.5-5.1) mmol/L Chloride 92 L (98-107) mmol/L Carbon Dioxide 32.5 H (21.0-32.0) mmol/L Anion Gap 9.7 (5.0-15.0) mmol/L BUN 19 (8-26) mg/dL Creatinine 1.14 D (0.70-1.30) mg/dL Est Cr Clr Drug Dosing 56.84 Estimated GFR (MDRD) > 60 (>60) MLS/MIN BUN/Creatinine Ratio 16.7 (6-25) Glucose 131 H D (74-100) mg/dL Lactic Acid (0.4-2.0) mmol/L Calcium 8.1 L (8.5-10.1) mg/dL Phosphorus (2.5-4.9) mg/dL Magnesium (1.8-2.4) mg/dL Total Bilirubin 0.6 (0.0-1.0) mg/dL Direct Bilirubin 0.2 (0.0-0.3) mg/dL Indirect Bilirubin 0.4 (<= 0.7) mg/dL AST 42 H (15-37) U/L ALT 68 (12-78) U/L Alkaline Phosphatase 83 (46-116) U/L Troponin I (0.000-0.060) ng/mL C-Reactive Protein (0.0-3.0) mg/L B-Natriuretic Peptide (0-125) pg/mL Total Protein 6.6 (6.4-8.2) g/dL Albumin 2.7 L (3.4-5.0) g/dL Globulin 3.9 (2.2-4.2) g/dL Albumin/Globulin Ratio 0.7 L (0.8-2.0) SARS-CoV-2 RNA (PAM) (NEGATIVE) Result Diagrams: 11/16/20 07:30 11/16/20 10:13 Sepsis Event Note - Evaluation Sepsis Screening Result: Possible Sepsis Risk - Focused Exam Vital Signs: Vital Signs Temp Temp Pulse Resp BP Pulse Ox Pulse Ox 11/16/20 12:00 36.3 C 80 20 98/65 92 L 11/16/20 10:00 92 L 11/16/20 08:00 37.2 C 80 20 99/70 92 L 11/16/20 04:00 36.8 C 98 20 113/76 91 L - Problem List (1) COPD exacerbation SNOMED Code(s): 684588004, 799385597 ICD Code: J44.1 - CHRONIC OBSTRUCTIVE PULMONARY DISEASE W (ACUTE) EXACERBATION Status: Chronic Priority: Medium Current Visit: Yes Problem Details: 07/29/15 - Chronich obstructive pulmonary disease exacerbatoin wtih bronchitis 04/30/15 - into ER. (2) Pneumonia due to COVID-19 virus SNOMED Code(s): 931132546555671037 ICD Code: U07.1 - COVID-19; J12.82 - PNEUMONIA DUE TO CORONAVIRUS DISEASE 2019 Status: Acute Priority: Medium Current Visit: Yes (3) Respiratory failure with hypoxia SNOMED Code(s): 13665906469288356 ICD Code: J96.91 - RESPIRATORY FAILURE, UNSPECIFIED WITH HYPOXIA Status: Acute Priority: Medium Current Visit: Yes Qualifiers: Chronicity: acute on chronic Qualified Code(s): J96.21 - Acute and chronic respiratory failure with hypoxia (4) Oxygen dependent SNOMED Code(s): 690498599243 ICD Code: Z99.81 - DEPENDENCE ON SUPPLEMENTAL OXYGEN Status: Acute Priority: Low Current Visit: Yes Problem List Initiated/Reviewed/Updated: Yes Orders Last 24hrs: Active Orders 24 hr Category Date Time Status Admission Diagnosis [ADT] Stat ADT 11/15/20 19:30 Active Admission Status [Patient Status] [ADT] Routine ADT 11/15/20 19:30 Active Height and Weight [RC] DAILY Care 11/15/20 22:09 Active Intake and Output [RC] 06,18 Care 11/15/20 22:10 Active Oxygen Therapy [RC] DAILY Care 11/15/20 22:09 Active RT Aerosol Therapy [RC] ASDIRECTED Care 11/15/20 17:41 Active RT Aerosol Therapy [RC] ASDIRECTED Care 11/15/20 22:06 Active RT Post Treatment Assessment [RC] Click to Edit Care 11/15/20 23:02 Active VTE/DVT Education [RC] DAILY Care 11/15/20 22:09 Active Vital Signs [RC] Q4H Care 11/15/20 22:09 Active Heart Healthy Diet [DIET] Diet 11/16/20 Breakfast Ordered CORONAVIRUS COVID-19 RAPID [MOLEC] Stat Lab 11/15/20 17:50 Stop Req CULTURE BLOOD [BC] Stat Lab 11/15/20 18:14 Received CULTURE MRSA SURVEY [RM] Routine Lab 11/16/20 04:50 Received HEPATIC FUNCTION PANEL,HFP [CHEM] DAILY Lab 11/17/20 19:30 Ordered HEPATIC FUNCTION PANEL,HFP [CHEM] DAILY Lab 11/18/20 19:30 Ordered HEPATIC FUNCTION PANEL,HFP [CHEM] DAILY Lab 11/19/20 19:30 Ordered Acetaminophen/HYDROcodone [[place] 325-10 MG] Med 11/16/20 08:00 Active 1 tab PO TID Albuterol [Ventolin HFA] Med 11/15/20 23:01 Active 0 gm INH QID PRN Albuterol/Ipratropium [DuoNeb 3.0-0.5 MG/3 ML] Med 11/15/20 17:41 Active 3 ml NEB Q2H PRN Budesonide [Pulmicort] Med 11/15/20 22:15 Active 0.5 mg NEB BID Bumetanide [Bumex] Med 11/16/20 11:00 Active 2 mg PO ACLUNCH Bumetanide [Bumex] Med 11/16/20 07:00 Active 3 mg PO WITHBREAKFAST Cetirizine [ZyrTEC] Med 11/16/20 08:00 Active 10 mg PO DAILY Docusate Sodium [Dok] Med 11/16/20 20:00 Active 250 mg PO BEDTIME Docusate Sodium/Sennosides [Senna Plus] Med 11/16/20 11:00 Active 1 tab PO ACLUNCH Enoxaparin [Lovenox] Med 11/15/20 19:30 Active 40 mg SUBCUT Q12H LORazepam [Ativan] Med 11/16/20 08:00 Active 1 mg PO QID Magnesium Oxide Med 11/16/20 20:00 Active 400 mg PO BID Menthol/Zinc Oxide [Calmoseptine] Med 11/16/20 07:41 Active 1 gm TOP QID PRN Montelukast [Singulair] Med 11/16/20 20:00 Active 10 mg PO BEDTIME Non-Formulary Medication [NF Drug] Med 11/16/20 14:00 Active 0.5 each PO TID Omeprazole Med 11/16/20 08:00 Active 40 mg PO DAILY Ondansetron [Zofran ODT] Med 11/15/20 23:01 Active 4 mg PO Q6H PRN Patient's Own Medication [Ptom] Med 11/16/20 01:00 Active 0 each INH BID Patient's Own Medication [Ptom] Med 11/16/20 14:00 Active 1 each INH Q6H Potassium Chloride [Klor-Con M20] Med 11/16/20 08:00 Active 20 meq PO DAILY Spironolactone [Aldactone] Med 11/16/20 08:00 Active 25 mg PO QAM Tiotropium [Spiriva HandiHaler] Med 11/16/20 08:00 Active 18 mcg INH DAILY dexAMETHasone Med 11/15/20 19:30 Active 6 mg PO DAILY diphenhydrAMINE [Benadryl] Med 11/15/20 23:01 Active 50 mg PO BID PRN polyethylene glycoL 3350 [MiraLAX] Med 11/16/20 08:00 Active 17 gm PO DAILY predniSONE Med 11/16/20 08:00 Active 10 mg PO DAILY Resuscitation Status Routine Resus Stat 11/15/20 22:09 Ordered Medication Orders Hydrocodone Bitart/Acetaminophen (Acetaminophen/Hydrocodone 325-10 Mg Tab) 1 tab PO TID [facility] Last Admin: 11/16/20 09:44 Dose: 1 tab Documented by: RAMÓN Albuterol (Albuterol 8 Gm Inhaler) 0 gm INH QID PRN PRN Reason: Shortness of Breath Albuterol/Ipratropium (Albuterol/Ipratropium 3.0-0.5 Mg/3 Ml Neb Soln) 3 ml NEB Q2H PRN PRN Reason: Dyspnea Last Admin: 11/15/20 18:15 Dose: 3 ml Documented by: Admin: 11/15/20 17:57 Dose: 3 ml Documented by: JACKI Budesonide (Budesonide 0.5 Mg/2 Ml Neb Susp) 0.5 mg NEB BID [facility] Last Admin: 11/16/20 09:53 Dose: 0.5 mg Documented by: Admin: 11/15/20 23:00 Dose: 0.5 mg Documented by: JERZY Bumetanide (Bumetanide 2 Mg Tab) 2 mg PO ACLUNCH [facility] Last Admin: 11/16/20 12:40 Dose: 2 mg Documented by: RAMÓN Bumetanide (Bumetanide 2 Mg Tab) 3 mg PO WITHBREAKFAST [facility] Last Admin: 11/16/20 06:15 Dose: 3 mg Documented by: JERZY Calamine/Phenol (Menthol/Zinc Oxide Ointment 113 Gm Tube) 1 gm TOP QID PRN PRN Reason: Rash Last Admin: 11/16/20 13:43 Dose: 1 applic Documented by: RAMÓN Cetirizine HCl (Cetirizine 10 Mg Tab) 10 mg PO DAILY [facility] Last Admin: 11/16/20 09:53 Dose: 10 mg Documented by: RAMÓN Dexamethasone (Dexamethasone 4 Mg Tab) 6 mg PO DAILY [facility] Last Admin: 11/16/20 09:41 Dose: 6 mg Documented by: Admin: 11/15/20 20:08 Dose: 6 mg Documented by: JERZY Diphenhydramine HCl (Diphenhydramine 50 Mg Cap) 50 mg PO BID PRN PRN Reason: burning eyes Docusate Sodium (Docusate Sodium 250 Mg Cap) 250 mg PO BEDTIME [facility] Enoxaparin Sodium (Enoxaparin 40 Mg/0.4 Ml Syringe) 40 mg SUBCUT Q12H [facility] Last Admin: 11/16/20 06:30 Dose: 40 mg Documented by: Admin: 11/15/20 20:06 Dose: 40 mg Documented by: JERZY Lorazepam (Lorazepam 1 Mg Tab) 1 mg PO QID [facility] Last Admin: 11/16/20 12:40 Dose: 1 mg Documented by: Admin: 11/16/20 09:51 Dose: 1 mg Documented by: RAMÓN Magnesium Oxide (Magnesium Oxide 400 Mg Tab) 400 mg PO BID [facility] Montelukast Sodium (Montelukast 10 Mg Tab) 10 mg PO BEDTIME [facility] Theophylline 600mg (Er Tablet) 0.5 each PO TID [facility] Omeprazole (Omeprazole 20 Mg Cap.Cr) 40 mg PO DAILY [facility] Last Admin: 11/16/20 09:52 Dose: 40 mg Documented by: RAMÓN Ondansetron HCl (Ondansetron 4 Mg Tab.Dis) 4 mg PO Q6H PRN PRN Reason: NAUSEA Perforomist 20mcg/ (2ml Nebs) 0 each INH BID [facility] Last Admin: 11/16/20 13:23 Dose: 1 each Documented by: Admin: 11/16/20 00:00 Dose: 1 each Documented by: JERZY Mucomyst 10% Soln (Neb) 1 each INH Q6H [facility] Polyethylene Glycol (Polyethylene Glycol 3350 Powder 17 Gm Packet) 17 gm PO DAILY [facility] Last Admin: 11/16/20 09:42 Dose: 17 gm Documented by: RAMÓN Potassium Chloride (Potassium Chloride 20 Meq Tab.Er) 20 meq PO DAILY [facility] Last Admin: 11/16/20 09:42 Dose: 20 meq Documented by: RAMÓN Prednisone (Prednisone 10 Mg Tab) 10 mg PO DAILY [facility] Last Admin: 11/16/20 09:52 Dose: 10 mg Documented by: RAMÓN Senna/Docusate Sodium (Docusate Sodium/Sennosides 50-8.6 Mg Tab) 1 tab PO ACLUNCH [facility] Last Admin: 11/16/20 12:39 Dose: 1 tab Documented by: RAMÓN Spironolactone (Spironolactone 25 Mg Tab) 25 mg PO QAM [facility] Last Admin: 11/16/20 09:52 Dose: 25 mg Documented by: RAMÓN Tiotropium [place] (Tiotropium Inhaler 18 Mcg Inhalation Powder Cap Kit Of 5) 18 mcg INH DAILY [facility] Last Admin: 11/16/20 09:44 Dose: 1 puff Documented by: RAMÓN Assessment/Plan Comment:: 1- COVID pneumonia: continue on Remdesiver daily 100mg for 4 days. Dexamethasone 6mg PO. 2- COPD exacerbation: continue with neb treatments. Aggressive pulmonary hygiene is indicated. Theophylline, Mucomyst, DuoNebs and Pulmicort. 3- O2 dependent: non- rebreather and switch to nasal cannula as tolerating, to keep SpO2 >90%. 4- DVT/PE ppx with Lovenox 40mg BID 5- h/o chronic constipation due to chronic opioids use: resume home meds for stool softeners 6- h/o chronic back pain: resume baseline pain medications. patient is in the isolation room Improving but still critical - requiring 4 more days for IV remdesivir. - Mortality Measure Prognosis:: Good
[2020-11-16] MEDS: THEOPHYLLINE 600 MG PO SCH ×2 (16:29→20:19)
[2020-11-16] MEDS: REMDESIVIR 100 MG in Sodium Chloride 0.9% 100 ML IV SCH (16:36)
[2020-11-16] MEDS: Albuterol/Ipratropium 3.0-0.5 MG/3 ML Neb Soln NEB PRN (18:45)
[2020-11-16] MEDS: Magnesium Oxide 400 MG Tab PO SCH (19:54)
[2020-11-16] MEDS: Docusate Sodium 250 MG Cap PO SCH (19:54)
[2020-11-16] MEDS: Montelukast 10 MG Tab PO SCH (19:56)
[2020-11-16] MEDS ORDERED: Acetaminophen/HYDROcodone 325-10 MG Tab ONE (20:00)
[2020-11-17] MEDS: MUCOMYST 10% INH SCH ×4 (02:00→20:35)
[2020-11-17] MEDS: Albuterol/Ipratropium 3.0-0.5 MG/3 ML Neb Soln NEB PRN ×2 (02:16→06:10)
[2020-11-17] MEDS: Albuterol 0.083% 2.5 MG/3 ML Neb Soln NEB SCH ×5 (09:15→21:02)
[2020-11-17] MEDS: Magnesium Oxide 400 MG Tab PO SCH ×2 (09:23→20:31)
[2020-11-17] MEDS: Tiotropium Inhaler 18 MCG Inhalation Powder Cap Kit of 5 INH SCH (09:23)
[2020-11-17] MEDS: Polyethylene Glycol 3350 Powder 17 GM Packet PO SCH (09:23)
[2020-11-17] MEDS: Acetaminophen/HYDROcodone 325-10 MG Tab PO SCH ×3 (09:23→20:32)
[2020-11-17] MEDS: predniSONE 10 MG Tab PO SCH (09:23)
[2020-11-17] MEDS: Dexamethasone 4 MG Tab PO SCH (09:24)
[2020-11-17] MEDS: Spironolactone 25 MG Tab PO SCH (09:24)
[2020-11-17] MEDS: Omeprazole 20 MG Cap.CR PO SCH (09:24)
[2020-11-17] MEDS: Potassium Chloride 20 MEQ Tab.ER PO SCH ×2 (09:24→20:44)
[2020-11-17] MEDS: Cetirizine 10 MG Tab PO SCH (09:24)
[2020-11-17] MEDS: LORazepam 1 MG Tab PO SCH ×4 (09:24→20:31)
[2020-11-17] MEDS: THEOPHYLLINE 600 MG PO SCH ×3 (09:27→20:32)
[2020-11-17] MEDS: Budesonide 0.5 MG/2 ML Neb Susp NEB SCH ×2 (09:28→20:22)
[2020-11-17] MEDS: PERFOROMIST 20 MCG/2 ML INH SCH ×2 (09:28→20:52)
[2020-11-17] MEDS: Menthol/Zinc Oxide Ointment 113 GM Tube TOP PRN (09:35)
[2020-11-17] MEDS: Bumetanide 2 MG Tab PO SCH ×2 (13:09→13:10)
[2020-11-17] MEDS: Albuterol/Ipratropium 3.0-0.5 MG/3 ML Neb Soln NEB SCH ×2 (13:09→17:17)
[2020-11-17] MEDS: Enoxaparin 40 MG/0.4 ML Syringe SUBCUT SCH ×2 (13:10→20:23)
[2020-11-17] MEDS: REMDESIVIR 100 MG in Sodium Chloride 0.9% 100 ML IV SCH (15:36)
--- NOTE | 2020-11-17 16:29 | PCM.PN ---
- General Info Date of Service: 11/17/20 Admission Dx/Problem (Free Text): Admission Diagnosis/Problem Admission Diagnosis/Problem Pneumonia Subjective Update: reports slight improvement in breathing today compared to yesterday, no back to baseline yet. Reports nebs has been helping. O2 remained between 88-94% on 5 lit NC. no fever or chills. Tolerating PO Functional Status: Reports: Tolerating Diet, Urinating - Review of Systems General: Reports: No Symptoms. Denies: Chills HEENT: Reports: No Symptoms Pulmonary: Reports: Shortness of Breath, Cough, Sputum Cardiovascular: Reports: Dyspnea on Exertion. Denies: Chest Pain, Palpitations Gastrointestinal: Reports: No Symptoms Musculoskeletal: Reports: No Symptoms Skin: Reports: No Symptoms Neurological: Reports: No Symptoms Psychiatric: Reports: No Symptoms - Patient Data Vitals - Most Recent: Last Vital Signs Temp 36.6 C 11/17/20 12:00 Pulse 85 11/17/20 15:39 Resp 20 11/17/20 15:39 BP 120/73 11/17/20 15:39 Pulse Ox 90 L 11/17/20 15:39 Weight - Most Recent: 86.183 kg I&O - Last 24 Hours: Intake & Output 11/17/20 11/17/20 11/17/20 06:59 14:59 22:59 Intake Total 420 Output Total 400 Balance 20 Lab Results Last 24 Hours: Laboratory Results - last 24 hr 11/17/20 Range/Units 07:45 Total Bilirubin 0.8 D (0.0-1.0) mg/dL Direct Bilirubin 0.1 (0.0-0.3) mg/dL Indirect Bilirubin 0.7 (<= 0.7) mg/dL AST 37 (15-37) U/L ALT 64 (12-78) U/L Alkaline Phosphatase 83 (46-116) U/L Total Protein 6.7 (6.4-8.2) g/dL Albumin 2.9 L (3.4-5.0) g/dL Globulin 3.8 (2.2-4.2) g/dL Albumin/Globulin Ratio 0.8 (0.8-2.0) Fab Results Last 24 Hours: Microbiology 11/16/20 04:50 MRSA Surveillance Culture - Final Nares, Left NO MRSA ISOLATED 11/15/20 18:14 Aerobic Blood Culture - Preliminary Blood NO GROWTH AFTER 1 DAY Anaerobic Blood Culture - Preliminary NO GROWTH AFTER 1 DAY Med Orders - Current: Current Medications Hydrocodone Bitart/Acetaminophen (Acetaminophen/Hydrocodone 325-10 Mg Tab) 1 tab PO TID [facility] Last Admin: 11/17/20 15:34 Dose: 1 tab Documented by: Albuterol (Albuterol 8 Gm Inhaler) 0 gm INH QID PRN PRN Reason: Shortness of Breath Albuterol (Albuterol 0.083% 2.5 Mg/3 Ml Neb Soln) 2.5 mg NEB Q3H [facility] Last Admin: 11/17/20 15:35 Dose: 2.5 mg Documented by: Albuterol/Ipratropium (Albuterol/Ipratropium 3.0-0.5 Mg/3 Ml Neb Soln) 6 ml NEB ASDIRECTED ONE Stop: 11/17/20 20:01 Albuterol/Ipratropium (Albuterol/Ipratropium 3.0-0.5 Mg/3 Ml Neb Soln) 3 ml NEB Q6H [facility] Last Admin: 11/17/20 13:09 Dose: 3 ml Documented by: Budesonide (Budesonide 0.5 Mg/2 Ml Neb Susp) 0.5 mg NEB BID [facility] Last Admin: 11/17/20 09:28 Dose: 0.5 mg Documented by: Bumetanide (Bumetanide 2 Mg Tab) 2 mg PO ACLUNCH [facility] Last Admin: 11/17/20 13:09 Dose: 2 mg Documented by: Bumetanide (Bumetanide 2 Mg Tab) 3 mg PO WITHBREAKFAST [facility] Last Admin: 11/17/20 13:10 Dose: Not Given Documented by: Calamine/Phenol (Menthol/Zinc Oxide Ointment 113 Gm Tube) 1 gm TOP QID PRN PRN Reason: Rash Last Admin: 11/17/20 09:35 Dose: 1 applic Documented by: Cetirizine HCl (Cetirizine 10 Mg Tab) 10 mg PO DAILY [facility] Last Admin: 11/17/20 09:24 Dose: 10 mg Documented by: Dexamethasone (Dexamethasone 4 Mg Tab) 6 mg PO DAILY [facility] Last Admin: 11/17/20 09:24 Dose: 6 mg Documented by: Diphenhydramine HCl (Diphenhydramine 50 Mg Cap) 50 mg PO BID PRN PRN Reason: burning eyes Docusate Sodium (Docusate Sodium 250 Mg Cap) 250 mg PO BEDTIME [facility] Last Admin: 11/16/20 19:54 Dose: 250 mg Documented by: Enoxaparin Sodium (Enoxaparin 40 Mg/0.4 Ml Syringe) 40 mg SUBCUT Q12H [facility] Last Admin: 11/17/20 13:10 Dose: Not Given Documented by: Remdesivir 100 mg/ Sodium (Chloride) 100 mls @ 100 mls/hr IV Q24H [facility] Stop: 11/19/20 16:59 Last Admin: 11/17/20 15:36 Dose: 100 mls/hr Documented by: Lorazepam (Lorazepam 1 Mg Tab) 1 mg PO QID [facility] Last Admin: 11/17/20 15:35 Dose: 1 mg Documented by: Magnesium Oxide (Magnesium Oxide 400 Mg Tab) 400 mg PO BID [facility] Last Admin: 11/17/20 09:23 Dose: 400 mg Documented by: Montelukast Sodium (Montelukast 10 Mg Tab) 10 mg PO BEDTIME [facility] Last Admin: 11/16/20 19:56 Dose: 10 mg Documented by: Theophylline 600mg (Er Tablet) 0.5 each PO TID [facility] Last Admin: 11/17/20 13:11 Dose: 0.5 each Documented by: Omeprazole (Omeprazole 20 Mg Cap.Cr) 40 mg PO DAILY [facility] Last Admin: 11/17/20 09:24 Dose: 40 mg Documented by: Ondansetron HCl (Ondansetron 4 Mg Tab.Dis) 4 mg PO Q6H PRN PRN Reason: NAUSEA Perforomist 20mcg/ (2ml Nebs) 0 each INH BID [facility] Last Admin: 11/17/20 09:28 Dose: 1 each Documented by: Mucomyst 10% Soln (Neb) 1 each INH Q6H [facility] Last Admin: 11/17/20 13:10 Dose: 1 each Documented by: Polyethylene Glycol (Polyethylene Glycol 3350 Powder 17 Gm Packet) 17 gm PO DAILY [facility] Last Admin: 11/17/20 09:23 Dose: 17 gm Documented by: Potassium Chloride (Potassium Chloride 20 Meq Tab.Er) 20 meq PO DAILY [facility] Last Admin: 11/17/20 09:24 Dose: 20 meq Documented by: Prednisone (Prednisone 10 Mg Tab) 10 mg PO DAILY [facility] Last Admin: 11/17/20 09:23 Dose: 10 mg Documented by: Senna/Docusate Sodium (Docusate Sodium/Sennosides 50-8.6 Mg Tab) 1 tab PO ACLU GAH [facility] Last Admin: 11/17/20 13:09 Dose: 1 tab Documented by: Spironolactone (Spironolactone 25 Mg Tab) 25 mg PO QAM [facility] Last Admin: 11/17/20 09:24 Dose: 25 mg Documented by: Tiotropium [place] (Tiotropium Inhaler 18 Mcg Inhalation Powder Cap Kit Of 5) 18 mcg INH DAILY [facility] Last Admin: 11/17/20 09:23 Dose: 1 puff Documented by: Discontinued Medications Hydrocodone Bitart/Acetaminophen (Acetaminophen/Hydrocodone 325-10 Mg Tab) Confirm Administered Dose 1 tab .ROUTE .STK-MED ONE Stop: 11/16/20 20:01 Last Admin: 11/16/20 20:18 Dose: Not Given Documented by: Acetylcysteine (Acetylcysteine 20% 200 Mg/Ml 30 Ml Nebulizer Soln Sdv) 100 mg INH Q6H [facility] Last Admin: 11/15/20 23:30 Dose: 100 mg Documented by: Albuterol (Albuterol 0.083% 2.5 Mg/3 Ml Neb Soln) 2.5 mg NEB Q6H [facility] Albuterol/Ipratropium (Albuterol/Ipratropium 3.0-0.5 Mg/3 Ml Neb Soln) 3 ml NEB Q2H PRN PRN Reason: Dyspnea Last Admin: 11/17/20 06:10 Dose: 3 ml Documented by: Remdesivir 200 mg/ Sodium (Chloride) 250 mls @ 250 mls/hr IV ONETIME ONE Stop: 11/15/20 19:18 Last Admin: 11/15/20 20:04 Dose: 250 mls/hr Documented by: Mucomyst 10% Soln (Neb) 0 each INH Q6H [facility] Last Admin: 11/16/20 06:15 Dose: 1 each Documented by: Theophylline (Theophylline 300 Mg Cap.Er) 300 mg PO TID [facility] Last Admin: 11/16/20 12:39 Dose: 300 mg Documented by: - Exam Quality Assessment: Supplemental Oxygen, DVT Prophylaxis General: Alert, Oriented, Cooperative HEENT: Pupils Equal Lungs: Decreased Breath Sounds, Crackles Cardiovascular: Regular Rate, Regular Rhythm GI/Abdominal Exam: Normal Bowel Sounds, Soft, Non-Tender Back Exam: Normal Inspection Extremities: Normal Inspection, Normal Range of Motion, Pedal Edema Neurological: No New Focal Deficit Psy/Mental Status: Alert, Normal Affect, Normal Mood - Patient Data Lab Results Last 24 hrs: Laboratory Results - last 24 hr 11/17/20 Range/Units 07:45 Total Bilirubin 0.8 D (0.0-1.0) mg/dL Direct Bilirubin 0.1 (0.0-0.3) mg/dL Indirect Bilirubin 0.7 (<= 0.7) mg/dL AST 37 (15-37) U/L ALT 64 (12-78) U/L Alkaline Phosphatase 83 (46-116) U/L Total Protein 6.7 (6.4-8.2) g/dL Albumin 2.9 L (3.4-5.0) g/dL Globulin 3.8 (2.2-4.2) g/dL Albumin/Globulin Ratio 0.8 (0.8-2.0) Result Diagrams: 11/16/20 07:30 11/16/20 10:13 Fab Results Last 24 hrs: Microbiology 11/16/20 04:50 MRSA Surveillance Culture - Final Nares, Left NO MRSA ISOLATED 11/15/20 18:14 Aerobic Blood Culture - Preliminary Blood NO GROWTH AFTER 1 DAY Anaerobic Blood Culture - Preliminary NO GROWTH AFTER 1 DAY Sepsis Event Note - Evaluation Sepsis Screening Result: No Definite Risk - Focused Exam Vital Signs: Vital Signs Temp Pulse Resp BP Pulse Ox Pulse Ox 11/17/20 15:39 85 20 120/73 90 L 11/17/20 12:00 36.6 C 84 20 109/67 86 L 11/17/20 09:02 88 L 11/17/20 08:00 94 20 111/68 92 L - Problem List & Annotations (1) COPD exacerbation SNOMED Code(s): 552971586, 635423855 Code(s): J44.1 - CHRONIC OBSTRUCTIVE PULMONARY DISEASE W (ACUTE) EXACERBATION Status: Chronic Priority: Medium Current Visit: Yes Annotation/Comment:: 07/29/15 - Chronich obstructive pulmonary disease exacerbatoin wtih bronchitis 04/30/15 - into ER. (2) Pneumonia due to COVID-19 virus SNOMED Code(s): 870917251949881861 Code(s): U07.1 - COVID-19; J12.82 - PNEUMONIA DUE TO CORONAVIRUS DISEASE 2019 Status: Acute Priority: Medium Current Visit: Yes (3) Respiratory failure with hypoxia SNOMED Code(s): 71957604539861781 Code(s): J96.91 - RESPIRATORY FAILURE, UNSPECIFIED WITH HYPOXIA Status: Acute Priority: Medium Current Visit: Yes Qualifiers: Chronicity: acute on chronic Qualified Code(s): J96.21 - Acute and chronic respiratory failure with hypoxia (4) Oxygen dependent SNOMED Code(s): 678540723142 Code(s): Z99.81 - DEPENDENCE ON SUPPLEMENTAL OXYGEN Status: Acute Priority: Low Current Visit: Yes - Problem List Review Problem List Initiated/Reviewed/Updated: Yes - My Orders Last 24 Hours: My Active Orders 11/16/20 20:00 Docusate Sodium [Dok] 250 mg PO BEDTIME Magnesium Oxide 400 mg PO BID Montelukast [Singulair] 10 mg PO BEDTIME 11/17/20 09:02 RT Aerosol Therapy [RC] ASDIRECTED 11/17/20 09:15 Albuterol [Proventil Neb Soln] 2.5 mg NEB Q3H 11/17/20 12:00 Albuterol/Ipratropium [DuoNeb 3.0-0.5 MG/3 ML] 3 ml NEB Q6H 11/17/20 15:30 CXR [Chest 1V Frontal] [CR] Routine 11/17/20 16:21 BASIC METABOLIC PANEL,BMP [CHEM] Routine CBC W/O DIFF,HEMOGRAM [HEME] Routine 11/17/20 16:22 B-TYPE NATRIURETIC PEPTIDE,BNP [CHEM] Routine 11/18/20 19:30 HEPATIC FUNCTION PANEL,HFP [CHEM] DAILY 11/19/20 19:30 HEPATIC FUNCTION PANEL,HFP [CHEM] DAILY - Plan Plan:: 1- COVID pneumonia: continue on Remdesiver daily 100mg for 4 days. Dexamethasone 6mg PO. Azithromycin 500mg PO daily for 7 days. 2- COPD exacerbation: continue with neb treatments. Aggressive pulmonary hygiene is indicated. Theophylline, Mucomyst, DuoNebs and Pulmicort. Nebs scheduled q2-4 hrs 3- O2 dependent: non- rebreather and switch to nasal cannula as tolerating, to keep SpO2 >90%. 4- DVT/PE ppx with Lovenox 40mg BID 5- h/o chronic constipation due to chronic opioids use: resume home meds for stool softeners 6- h/o chronic back pain: resume baseline pain medications. 7- mild hypokalemia: On K supplements. patient is in the isolation room Improving but still critical - requiring 4 more days for IV remdesivir- ends on 11/19
[2020-11-17] MEDS: Azithromycin 250 MG Tab PO SCH (17:16)
[2020-11-17] MEDS ORDERED: Albuterol/Ipratropium 3.0-0.5 MG/3 ML Neb Soln NEB ONE (20:00)
[2020-11-17] MEDS: diphenhydrAMINE 50 MG Cap PO PRN (20:31)
[2020-11-17] MEDS: Docusate Sodium 250 MG Cap PO SCH (20:32)
[2020-11-17] MEDS: Montelukast 10 MG Tab PO SCH (20:32)
[2020-11-17] MEDS ORDERED: Bumetanide 1 MG Tab PO ONE (21:19)
[2020-11-18] MEDS: Albuterol/Ipratropium 3.0-0.5 MG/3 ML Neb Soln NEB SCH ×5 (00:42→23:52)
[2020-11-18] MEDS: Albuterol 0.083% 2.5 MG/3 ML Neb Soln NEB SCH ×8 (00:42→20:20)
[2020-11-18] MEDS: MUCOMYST 10% INH SCH ×5 (01:16→20:43)
[2020-11-18] MEDS ORDERED: LORazepam 1 MG Tab PO ONE (03:45)
[2020-11-18] MEDS: Enoxaparin 40 MG/0.4 ML Syringe SUBCUT SCH ×2 (06:40→20:28)
[2020-11-18] MEDS: Bumetanide 2 MG Tab PO SCH ×2 (06:42→10:04)
[2020-11-18] MEDS: PERFOROMIST 20 MCG/2 ML INH SCH ×2 (07:45→20:54)
[2020-11-18] MEDS: Omeprazole 20 MG Cap.CR PO SCH (07:46)
[2020-11-18] MEDS: Magnesium Oxide 400 MG Tab PO SCH ×2 (07:46→20:21)
[2020-11-18] MEDS: Cetirizine 10 MG Tab PO SCH (07:47)
[2020-11-18] MEDS: Potassium Chloride 20 MEQ Tab.ER PO SCH ×2 (07:47→20:21)
[2020-11-18] MEDS: Spironolactone 25 MG Tab PO SCH (07:47)
[2020-11-18] MEDS: predniSONE 10 MG Tab PO SCH (07:47)
[2020-11-18] MEDS: Dexamethasone 4 MG Tab PO SCH (07:47)
[2020-11-18] MEDS: Acetaminophen/HYDROcodone 325-10 MG Tab PO SCH ×3 (07:48→20:22)
[2020-11-18] MEDS: LORazepam 1 MG Tab PO SCH ×4 (07:48→20:21)
[2020-11-18] MEDS: Tiotropium Inhaler 18 MCG Inhalation Powder Cap Kit of 5 INH SCH (07:48)
[2020-11-18] MEDS: Polyethylene Glycol 3350 Powder 17 GM Packet PO SCH (07:49)
[2020-11-18] MEDS: Azithromycin 250 MG Tab PO SCH (07:49)
[2020-11-18] MEDS: Budesonide 0.5 MG/2 ML Neb Susp NEB SCH ×2 (07:52→20:20)
[2020-11-18] MEDS: THEOPHYLLINE 600 MG PO SCH ×3 (07:54→20:24)
[2020-11-18] MEDS ORDERED: Morphine Oral Concentrate 20 MG/ML 30 ML Bottle ONE (08:12)
[2020-11-18] MEDS: Morphine Oral Concentrate 20 MG/ML 30 ML Bottle SL PRN ×3 (08:22→22:51)
--- NOTE | 2020-11-18 08:26 | CR ---
Date of Service: 11/17/20 Clinical Data: Worsening SOB AP CHEST: Comparison is made to a prior exam dated 11/15/20. The patient has taken a poor inspiration. The heart size is stable. The pulmonary vasculature remains mildly prominent, however, it does appear slightly improved from the prior study. The poorly defined infiltrates in the right upper lobe and in both lung bases appear minimally improved. No other interval changes. No new abnormalities. [id number] [facility]
[2020-11-18] MEDS: LORazepam 2 MG/ML SDV IVPUSH PRN ×2 (11:28→22:51)
[2020-11-18] MEDS: REMDESIVIR 100 MG in Sodium Chloride 0.9% 100 ML IV SCH (16:58)
--- NOTE | 2020-11-18 17:55 | PN ---
DATE OF VISIT: 11/18/2020 HISTORY OF PRESENT ILLNESS: This patient was admitted 3 days ago for COVID plus pneumonia with underlying history of COPD. The patient has been getting Remdesivir infusions as well as dexamethasone. He has been on oxygen currently on 10 L per mask. He has been refusing a BiPAP machine. He has history also of CHF. The patient has advanced COPD. He is on O2 at home and has nebulizer treatments at home as well. He has not been vaccinated. He is not on any IV fluids. I understand his condition has been slowly improving. He has had episodes of anxiety and does take Ativan at home 1 mg q.i.d. He has been getting 0.5 mg here for anxiety, but I understand this has not been helping much. Upon arrival to the patient in the COVID room, he is sitting in a chair with his mask on. He states that he feels a little better. His cough has improved some. He tells me that he is able to drink liquids good. He does not have much of an appetite for solid food though. He has been able to ambulate around the room and go to the bathroom on his own. PHYSICAL EXAMINATION: GENERAL: The patient is not in any respiratory distress with oxygen on. VITAL SIGNS: Revealed he is afebrile. Pulse 105, O2 sats are 91% on 10 L, and blood pressure 140/68. LUNGS: Lung exam today reveals scattered rhonchi throughout the lung lopez. I do not hear any wheezing . CARDIAC: Heart sounds distinct without murmurs. SKIN: Warm and dry. EXTREMITIES: He does have some lower extremity edema noted, more so on the left leg than the right. At this point, we will continue with the current treatment plan.The patient's Ativan will be increased to 1 mg and he also will be put on morphine p.r.n. for pain control. We will continue to monitor the patient without any other changes as of this point in time. CRS/MODL /[id number]
[2020-11-18] MEDS: Montelukast 10 MG Tab PO SCH (20:21)
[2020-11-18] MEDS: Docusate Sodium 250 MG Cap PO SCH (20:21)
[2020-11-18] MEDS: Sodium Chloride 0.9% 10 ML Syringe FLUSH SCH (20:30)
[2020-11-19] MEDS: Albuterol 8 GM Inhaler INH PRN (01:24)
[2020-11-19] MEDS: MUCOMYST 10% INH SCH ×4 (01:27→20:00)
[2020-11-19] MEDS: Morphine Oral Concentrate 20 MG/ML 30 ML Bottle SL PRN (03:12)
[2020-11-19] MEDS: Albuterol 0.083% 2.5 MG/3 ML Neb Soln NEB SCH ×8 (03:24→20:16)
[2020-11-19] MEDS: LORazepam 2 MG/ML SDV IVPUSH PRN ×3 (04:13→20:15)
[2020-11-19] MEDS: Albuterol/Ipratropium 3.0-0.5 MG/3 ML Neb Soln NEB SCH ×3 (05:52→17:52)
[2020-11-19] MEDS: Bumetanide 2 MG Tab PO SCH ×2 (08:24→10:51)
[2020-11-19] MEDS: Enoxaparin 40 MG/0.4 ML Syringe SUBCUT SCH ×2 (08:24→20:17)
[2020-11-19] MEDS: Omeprazole 20 MG Cap.CR PO SCH (08:25)
[2020-11-19] MEDS: Dexamethasone 4 MG Tab PO SCH (08:26)
[2020-11-19] MEDS: Magnesium Oxide 400 MG Tab PO SCH ×2 (08:26→20:10)
[2020-11-19] MEDS: Potassium Chloride 20 MEQ Tab.ER PO SCH ×2 (08:27→20:10)
[2020-11-19] MEDS: Acetaminophen/HYDROcodone 325-10 MG Tab PO SCH ×3 (08:28→20:00)
[2020-11-19] MEDS: Azithromycin 250 MG Tab PO SCH (08:28)
[2020-11-19] MEDS: predniSONE 10 MG Tab PO SCH (08:29)
[2020-11-19] MEDS: LORazepam 1 MG Tab PO SCH ×4 (08:30→20:00)
[2020-11-19] MEDS: Cetirizine 10 MG Tab PO SCH (08:30)
[2020-11-19] MEDS: Spironolactone 25 MG Tab PO SCH (08:30)
[2020-11-19] MEDS: Polyethylene Glycol 3350 Powder 17 GM Packet PO SCH ×2 (08:32→12:14)
[2020-11-19] MEDS: Tiotropium Inhaler 18 MCG Inhalation Powder Cap Kit of 5 INH SCH (08:32)
[2020-11-19] MEDS: THEOPHYLLINE 600 MG PO SCH ×2 (08:33→14:40)
[2020-11-19] MEDS: PERFOROMIST 20 MCG/2 ML INH SCH ×2 (08:37→20:00)
[2020-11-19] MEDS: Budesonide 0.5 MG/2 ML Neb Susp NEB SCH ×2 (08:38→20:16)
[2020-11-19] MEDS: Sodium Chloride 0.9% 10 ML Syringe FLUSH SCH ×2 (08:38→20:00)
--- NOTE | 2020-11-19 15:22 | PN ---
DATE OF VISIT: 11/19/2020 SUBJECTIVE: This patient has been an inpatient for 4 days for COVID with underlying issues with COPD, CHF, and pneumonia. The patient has been getting remdesivir. He received his 4th injection today and he has been getting dexamethasone in addition to multiple inhalers that he uses. He has been on oxygen 10 to 11 L, which has kept his sats in the low 90s when he keeps the mask on. The patient has been somewhat noncompliant with this. When I saw the patient this morning, he states that he feels okay. He thinks he is doing better. His liquid intake has been okay. OBJECTIVE: VITAL SIGNS: Today reveal he is afebrile. Pulse is 108, blood pressure 120/76, respirations 22, and O2 sats are 93 on 10 L. LUNGS: Physical exam today reveals rhonchi is only heard in the right upper lobe. Yesterday, rhonchi was scattered throughout the patient's lungs. I do not hear any wheezing and he has a fairly good air exchange today. CARDIAC: Heart sounds distinct. No murmurs noted. SKIN: Warm and dry. ASSESSMENT AND PLAN: I did consult with Pharmacy. We will continue the patient on dexamethasone for a 10-day course of treatment. At this point, he is slowly improving. His did bring in a Trilogy machine today and we will see if he can tolerate this to try to blow off some CO2. The patient will have ABGs ordered now. We did get a CMP earlier today, which revealed his potassium level had improved from 2.8 to 3.2. I did discuss with the patient's the fact that they do not want him transferred out of our facility if his condition worsens and he is DNR/DNI, and they are both in agreement with this. I spoke with his , Britta today by phone. I also discussed this pt'e case with the E- Hospitalist Dr Temple who will review his case and make some additional changes. CRS/MODL /[id number] NUSRAT
[2020-11-19] MEDS: REMDESIVIR 100 MG in Sodium Chloride 0.9% 100 ML IV SCH (16:25)
--- NOTE | 2020-11-19 18:36 | PCM.PN ---
- General Info Date of Service: 11/19/20 - Patient Data Vitals - Most Recent: Last Vital Signs Temp 98.3 F 11/19/20 15:30 Pulse 108 H 11/19/20 15:30 Resp 16 11/19/20 15:30 BP 121/76 11/19/20 15:30 Pulse Ox 93 L 11/19/20 12:00 Weight - Most Recent: 190 lb I&O - Last 24 Hours: Intake & Output 11/19/20 11/19/20 11/19/20 06:59 14:59 22:59 Intake Total 900 280 Output Total 725 900 Balance 175 -620 Lab Results Last 24 Hours: Laboratory Results - last 24 hr 11/19/20 11/19/20 11/19/20 Range/Units 07:30 08:00 08:40 WBC 16.1 H D (4.0-11.0) K/uL RBC 4.77 (4.50-6.50) M/uL Hgb 13.7 (13.0-18.0) g/dL Hct 41.0 (40.0-54.0) % MCV 86 (76-96) fL MCH 28.7 (27.0-32.0) pg MCHC 33.4 (31.0-35.0) g/dL RDW 15.2 (11.0-16.0) % Plt Count 126 L D (150-400) K/uL Neut % (Auto) 87.4 H (45.0-70.0) % Lymph % (Auto) 3.3 L (20.0-40.0) % [place] % (Auto) 8.6 (3.0-10.0) % Eos % (Auto) 0.1 L (1.0-5.0) % Baso % (Auto) 0.6 H (0.0-0.5) % Neut # (Auto) 14.10 H (2.00-7.50) K/uL Lymph # (Auto) 0.53 L (1.50-4.00) K/uL [place] # (Auto) 1.39 H (0.20-0.80) K/uL Eos # (Auto) 0.02 L (0.04-0.40) K/uL Baso # (Auto) 0.09 (0.02-0.10) K/uL ABG pH (7.35-7.45) ABG pCO2 (35-45) mmHg ABG pO2 (80-105) mmHg ABG HCO3 (22-26) mmol/L ABG O2 Saturation (95-98) % ABG Base Excess (-2-2) Curtis Test VBG pH VBG pCO2 VBG HCO3 VBG Base Excess O2 Delivery Device Sodium 130 L (136-145) mmol/L Potassium 3.2 L (3.5-5.1) mmol/L Chloride 90 L (98-107) mmol/L Carbon Dioxide 29.0 (21.0-32.0) mmol/L Anion Gap 14.2 (5.0-15.0) mmol/L BUN 20 (8-26) mg/dL Creatinine 1.08 (0.70-1.30) mg/dL Est Cr Clr Drug Dosing 60.00 mL/min Estimated GFR (MDRD) > 60 (>60) MLS/MIN BUN/Creatinine Ratio 18.5 (6-25) Glucose 132 H D (74-100) mg/dL Calcium 8.3 L (8.5-10.1) mg/dL Total Bilirubin 1.6 H D (0.0-1.0) mg/dL Direct Bilirubin 0.3 (0.0-0.3) mg/dL Indirect Bilirubin 1.3 H (<= 0.7) mg/dL AST 56 H (15-37) U/L ALT 70 (12-78) U/L Alkaline Phosphatase 95 (46-116) U/L Total Protein 6.9 (6.4-8.2) g/dL Albumin 3.1 L (3.4-5.0) g/dL Globulin 3.8 (2.2-4.2) g/dL Albumin/Globulin Ratio 0.8 (0.8-2.0) 11/19/20 Range/Units 13:25 WBC (4.0-11.0) K/uL RBC (4.50-6.50) M/uL Hgb (13.0-18.0) g/dL Hct (40.0-54.0) % MCV (76-96) fL MCH (27.0-32.0) pg MCHC (31.0-35.0) g/dL RDW (11.0-16.0) % Plt Count (150-400) K/uL Neut % (Auto) (45.0-70.0) % Lymph % (Auto) (20.0-40.0) % [place] % (Auto) (3.0-10.0) % Eos % (Auto) (1.0-5.0) % Baso % (Auto) (0.0-0.5) % Neut # (Auto) (2.00-7.50) K/uL Lymph # (Auto) (1.50-4.00) K/uL [place] # (Auto) (0.20-0.80) K/uL Eos # (Auto) (0.04-0.40) K/uL Baso # (Auto) (0.02-0.10) K/uL ABG pH 7.42 (7.35-7.45) ABG pCO2 49.5 H (35-45) mmHg ABG pO2 22.8 L* (80-105) mmHg ABG HCO3 31.8 H (22-26) mmol/L ABG O2 Saturation 39.2 L (95-98) % ABG Base Excess 7.3 H (-2-2) Curtis Test Positive VBG pH Cancelled VBG pCO2 Cancelled VBG HCO3 Cancelled VBG Base Excess Cancelled O2 Delivery Device Simple mask Sodium (136-145) mmol/L Potassium (3.5-5.1) mmol/L Chloride (98-107) mmol/L Carbon Dioxide (21.0-32.0) mmol/L Anion Gap (5.0-15.0) mmol/L BUN (8-26) mg/dL Creatinine (0.70-1.30) mg/dL Est Cr Clr Drug Dosing mL/min Estimated GFR (MDRD) (>60) MLS/MIN BUN/Creatinine Ratio (6-25) Glucose (74-100) mg/dL Calcium (8.5-10.1) mg/dL Total Bilirubin (0.0-1.0) mg/dL Direct Bilirubin (0.0-0.3) mg/dL Indirect Bilirubin (<= 0.7) mg/dL AST (15-37) U/L ALT (12-78) U/L Alkaline Phosphatase (46-116) U/L Total Protein (6.4-8.2) g/dL Albumin (3.4-5.0) g/dL Globulin (2.2-4.2) g/dL Albumin/Globulin Ratio (0.8-2.0) Fab Results Last 24 Hours: Microbiology 11/15/20 18:14 Aerobic Blood Culture - Preliminary Blood NO GROWTH AFTER 4 DAYS Anaerobic Blood Culture - Preliminary NO GROWTH AFTER 4 DAYS Med Orders - Current: Current Medications Hydrocodone Bitart/Acetaminophen (Acetaminophen/Hydrocodone 325-10 Mg Tab) 1 tab PO TID [facility] Last Admin: 11/19/20 15:00 Dose: 1 tab Documented by: Albuterol (Albuterol 8 Gm Inhaler) 0 gm INH QID PRN PRN Reason: Shortness of Breath Last Admin: 11/19/20 01:24 Dose: 2 puff Documented by: Albuterol (Albuterol 0.083% 2.5 Mg/3 Ml Neb Soln) 2.5 mg NEB Q3H [facility] Last Admin: 11/19/20 17:52 Dose: Not Given Documented by: Albuterol/Ipratropium (Albuterol/Ipratropium 3.0-0.5 Mg/3 Ml Neb Soln) 3 ml NEB Q6H [facility] Last Admin: 11/19/20 17:52 Dose: 3 ml Documented by: Budesonide (Budesonide 0.5 Mg/2 Ml Neb Susp) 0.5 mg NEB BID [facility] Last Admin: 11/19/20 08:38 Dose: 0.5 mg Documented by: Bumetanide (Bumetanide 2 Mg Tab) 2 mg PO ACLUNCH [facility] Last Admin: 11/19/20 10:51 Dose: 2 mg Documented by: Bumetanide (Bumetanide 2 Mg Tab) 3 mg PO DAILY@0800 [facility] Last Admin: 11/19/20 08:24 Dose: 3 mg Documented by: Calamine/Phenol (Menthol/Zinc Oxide Ointment 113 Gm Tube) 1 gm TOP QID PRN PRN Reason: Rash Last Admin: 11/17/20 09:35 Dose: 1 applic Documented by: Cetirizine HCl (Cetirizine 10 Mg Tab) 10 mg PO DAILY [facility] Last Admin: 11/19/20 08:30 Dose: 10 mg Documented by: Diphenhydramine HCl (Diphenhydramine 50 Mg Cap) 50 mg PO BID PRN PRN Reason: burning eyes Last Admin: 11/17/20 20:31 Dose: 50 mg Documented by: Docusate Sodium (Docusate Sodium 250 Mg Cap) 250 mg PO BEDTIME [facility] Last Admin: 11/18/20 20:21 Dose: 250 mg Documented by: Enoxaparin Sodium (Enoxaparin 40 Mg/0.4 Ml Syringe) 40 mg SUBCUT Q12H [facility] Last Admin: 11/19/20 08:24 Dose: 40 mg Documented by: Levofloxacin/Dextrose 500 mg/ (Levofloxacin/Dextrose) 200 mls @ 100 mls/hr IV Q24H [facility] Lorazepam (Lorazepam 1 Mg Tab) 1 mg PO QID [facility] Last Admin: 11/19/20 16:24 Dose: 1 mg Documented by: Lorazepam (Lorazepam 2 Mg/Ml Sdv) 1 mg IVPUSH Q6H PRN PRN Reason: Agitation Last Admin: 11/19/20 10:52 Dose: 1 mg Documented by: Magnesium Oxide (Magnesium Oxide 400 Mg Tab) 400 mg PO BID [facility] Last Admin: 11/19/20 08:26 Dose: 400 mg Documented by: Methylprednisolone Sodium Succinate (Methylprednisolone Sodium Succinate 40 Mg/1 Ml Sdv) 40 mg IVPUSH Q12H [facility] Montelukast Sodium (Montelukast 10 Mg Tab) 10 mg PO BEDTIME [facility] Last Admin: 11/18/20 20:21 Dose: 10 mg Documented by: Morphine Sulfate (Morphine Oral Concentrate 20 Mg/Ml 30 Ml Bottle) 5 mg SL Q4H PRN PRN Reason: Pain Last Admin: 11/19/20 03:12 Dose: 5 mg Documented by: Theophylline 600mg (Er Tablet) 0.5 each PO TID [facility] Last Admin: 11/19/20 14:40 Dose: 0.5 each Documented by: Omeprazole (Omeprazole 20 Mg Cap.Cr) 40 mg PO DAILY [facility] Last Admin: 11/19/20 08:25 Dose: 40 mg Documented by: Ondansetron HCl (Ondansetron 4 Mg Tab.Dis) 4 mg PO Q6H PRN PRN Reason: NAUSEA Last Admin: 11/19/20 08:31 Dose: 4 mg Documented by: Perforomist 20mcg/ (2ml Nebs) 0 each INH BID [facility] Last Admin: 11/19/20 08:37 Dose: 1 each Documented by: Mucomyst 10% Soln (Neb) 1 each INH Q6H [facility] Last Admin: 11/19/20 14:41 Dose: 1 each Documented by: Polyethylene Glycol (Polyethylene Glycol 3350 Powder 17 Gm Packet) 17 gm PO DAILY [facility] Last Admin: 11/19/20 12:14 Dose: Not Given Documented by: Potassium Chloride (Potassium Chloride 20 Meq Tab.Er) 20 meq PO BID [facility] Last Admin: 11/19/20 08:27 Dose: 20 meq Documented by: Prednisone (Prednisone 10 Mg Tab) 10 mg PO DAILY [facility] Last Admin: 11/19/20 08:29 Dose: 10 mg Documented by: Senna/Docusate Sodium (Docusate Sodium/Sennosides 50-8.6 Mg Tab) 1 tab PO ACLUNCH [facility] Last Admin: 11/19/20 10:51 Dose: 1 tab Documented by: Sodium Chloride (Sodium Chloride 0.9% 10 Ml Syringe) 10 ml FLUSH BID [facility] Last Admin: 11/19/20 08:38 Dose: 10 ml Documented by: Spironolactone (Spironolactone 25 Mg Tab) 25 mg PO QAM [facility] Last Admin: 11/19/20 08:30 Dose: 25 mg Documented by: Tiotropium [place] (Tiotropium Inhaler 18 Mcg Inhalation Powder Cap Kit Of 5) 18 mcg INH DAILY [facility] Last Admin: 11/19/20 08:32 Dose: 1 puff Documented by: Discontinued Medications Hydrocodone Bitart/Acetaminophen (Acetaminophen/Hydrocodone 325-10 Mg Tab) Confirm Administered Dose 1 tab .ROUTE .STK-MED ONE Stop: 11/16/20 20:01 Last Admin: 11/16/20 20:18 Dose: Not Given Documented by: Acetylcysteine (Acetylcysteine 20% 200 Mg/Ml 30 Ml Nebulizer Soln Sdv) 100 mg INH Q6H [facility] Last Admin: 11/15/20 23:30 Dose: 100 mg Documented by: Albuterol (Albuterol 0.083% 2.5 Mg/3 Ml Neb Soln) 2.5 mg NEB Q6H [facility] Albuterol/Ipratropium (Albuterol/Ipratropium 3.0-0.5 Mg/3 Ml Neb Soln) 3 ml NEB Q2H PRN PRN Reason: Dyspnea Last Admin: 11/17/20 06:10 Dose: 3 ml Documented by: Albuterol/Ipratropium (Albuterol/Ipratropium 3.0-0.5 Mg/3 Ml Neb Soln) 6 ml NEB ASDIRECTED ONE Stop: 11/17/20 20:01 Last Admin: 11/17/20 21:02 Dose: 6 ml Documented by: Azithromycin (Azithromycin 250 Mg Tab) 500 mg PO DAILY [facility] Stop: 11/24/20 16:31 Last Admin: 11/19/20 08:28 Dose: 500 mg Documented by: Bumetanide (Bumetanide 2 Mg Tab) 3 mg PO WITHBREAKFAST [facility] Last Admin: 11/18/20 06:42 Dose: 3 mg Documented by: Bumetanide (Bumetanide 1 Mg Tab) 3 mg PO ONETIME ONE Stop: 11/17/20 21:20 Last Admin: 11/17/20 22:11 Dose: 3 mg Documented by: Dexamethasone (Dexamethasone 4 Mg Tab) 6 mg PO DAILY [facility] Last Admin: 11/19/20 08:26 Dose: 6 mg Documented by: Remdesivir 200 mg/ Sodium (Chloride) 250 mls @ 250 mls/hr IV ONETIME ONE Stop: 11/15/20 19:18 Last Admin: 11/15/20 20:04 Dose: 250 mls/hr Documented by: Remdesivir 100 mg/ Sodium (Chloride) 100 mls @ 100 mls/hr IV Q24H [facility] Stop: 11/19/20 16:59 Last Admin: 11/19/20 16:25 Dose: 100 mls/hr Documented by: Lorazepam (Lorazepam 1 Mg Tab) 1 mg PO ONETIME ONE Stop: 11/18/20 03:46 Last Admin: 11/18/20 03:45 Dose: 1 mg Documented by: Lorazepam (Lorazepam 2 Mg/Ml Sdv) 0.5 mg IVPUSH Q6H PRN PRN Reason: Agitation Last Admin: 11/19/20 04:13 Dose: 0.5 mg Documented by: Morphine Sulfate (Morphine Oral Concentrate 20 Mg/Ml 30 Ml Bottle) Confirm Administered Dose 600 mg .ROUTE .STK-MED ONE Stop: 11/18/20 08:13 Last Admin: 11/18/20 09:22 Dose: Not Given Documented by: Mucomyst 10% Soln (Neb) 0 each INH Q6H [facility] Last Admin: 11/18/20 09:24 Dose: Not Given Documented by: Potassium Chloride (Potassium Chloride 20 Meq Tab.Er) 20 meq PO DAILY [facility] Last Admin: 11/17/20 09:24 Dose: 20 meq Documented by: Theophylline (Theophylline 300 Mg Cap.Er) 300 mg PO TID [facility] Last Admin: 11/16/20 12:39 Dose: 300 mg Documented by: - Patient Data Lab Results Last 24 hrs: Laboratory Results - last 24 hr 11/19/20 11/19/20 11/19/20 Range/Units 07:30 08:00 08:40 WBC 16.1 H D (4.0-11.0) K/uL RBC 4.77 (4.50-6.50) M/uL Hgb 13.7 (13.0-18.0) g/dL Hct 41.0 (40.0-54.0) % MCV 86 (76-96) fL MCH 28.7 (27.0-32.0) pg MCHC 33.4 (31.0-35.0) g/dL RDW 15.2 (11.0-16.0) % Plt Count 126 L D (150-400) K/uL Neut % (Auto) 87.4 H (45.0-70.0) % Lymph % (Auto) 3.3 L (20.0-40.0) % [place] % (Auto) 8.6 (3.0-10.0) % Eos % (Auto) 0.1 L (1.0-5.0) % Baso % (Auto) 0.6 H (0.0-0.5) % Neut # (Auto) 14.10 H (2.00-7.50) K/uL Lymph # (Auto) 0.53 L (1.50-4.00) K/uL [place] # (Auto) 1.39 H (0.20-0.80) K/uL Eos # (Auto) 0.02 L (0.04-0.40) K/uL Baso # (Auto) 0.09 (0.02-0.10) K/uL ABG pH (7.35-7.45) ABG pCO2 (35-45) mmHg ABG pO2 (80-105) mmHg ABG HCO3 (22-26) mmol/L ABG O2 Saturation (95-98) % ABG Base Excess (-2-2) Curtis Test VBG pH VBG pCO2 VBG HCO3 VBG Base Excess O2 Delivery Device Sodium 130 L (136-145) mmol/L Potassium 3.2 L (3.5-5.1) mmol/L Chloride 90 L (98-107) mmol/L Carbon Dioxide 29.0 (21.0-32.0) mmol/L Anion Gap 14.2 (5.0-15.0) mmol/L BUN 20 (8-26) mg/dL Creatinine 1.08 (0.70-1.30) mg/dL Est Cr Clr Drug Dosing 60.00 mL/min Estimated GFR (MDRD) > 60 (>60) MLS/MIN BUN/Creatinine Ratio 18.5 (6-25) Glucose 132 H D (74-100) mg/dL Calcium 8.3 L (8.5-10.1) mg/dL Total Bilirubin 1.6 H D (0.0-1.0) mg/dL Direct Bilirubin 0.3 (0.0-0.3) mg/dL Indirect Bilirubin 1.3 H (<= 0.7) mg/dL AST 56 H (15-37) U/L ALT 70 (12-78) U/L Alkaline Phosphatase 95 (46-116) U/L Total Protein 6.9 (6.4-8.2) g/dL Albumin 3.1 L (3.4-5.0) g/dL Globulin 3.8 (2.2-4.2) g/dL Albumin/Globulin Ratio 0.8 (0.8-2.0) // Range/Units 13:25 WBC (4.0-11.0) K/uL RBC (4.50-6.50) M/uL Hgb (13.0-18.0) g/dL Hct (40.0-54.0) % MCV (76-96) fL MCH (27.0-32.0) pg MCHC (31.0-35.0) g/dL RDW (11.0-16.0) % Plt Count (150-400) K/uL Neut % (Auto) (45.0-70.0) % Lymph % (Auto) (20.0-40.0) % [place] % (Auto) (3.0-10.0) % Eos % (Auto) (1.0-5.0) % Baso % (Auto) (0.0-0.5) % Neut # (Auto) (2.00-7.50) K/uL Lymph # (Auto) (1.50-4.00) K/uL [place] # (Auto) (0.20-0.80) K/uL Eos # (Auto) (0.04-0.40) K/uL Baso # (Auto) (0.02-0.10) K/uL ABG pH 7.42 (7.35-7.45) ABG pCO2 49.5 H (35-45) mmHg ABG pO2 22.8 L* (80-105) mmHg ABG HCO3 31.8 H (22-26) mmol/L ABG O2 Saturation 39.2 L (95-98) % ABG Base Excess 7.3 H (-2-2) Curtis Test Positive VBG pH Cancelled VBG pCO2 Cancelled VBG HCO3 Cancelled VBG Base Excess Cancelled O2 Delivery Device Simple mask Sodium (136-145) mmol/L Potassium (3.5-5.1) mmol/L Chloride (98-107) mmol/L Carbon Dioxide (21.0-32.0) mmol/L Anion Gap (5.0-15.0) mmol/L BUN (8-26) mg/dL Creatinine (0.70-1.30) mg/dL Est Cr Clr Drug Dosing mL/min Estimated GFR (MDRD) (>60) MLS/MIN BUN/Creatinine Ratio (6-25) Glucose (74-100) mg/dL Calcium (8.5-10.1) mg/dL Total Bilirubin (0.0-1.0) mg/dL Direct Bilirubin (0.0-0.3) mg/dL Indirect Bilirubin (<= 0.7) mg/dL AST (15-37) U/L ALT (12-78) U/L Alkaline Phosphatase (46-116) U/L Total Protein (6.4-8.2) g/dL Albumin (3.4-5.0) g/dL Globulin (2.2-4.2) g/dL Albumin/Globulin Ratio (0.8-2.0) Result Diagrams: 11/19/20 07:30 11/19/20 08:00 Fab Results Last 24 hrs: Microbiology 11/15/20 18:14 Aerobic Blood Culture - Preliminary Blood NO GROWTH AFTER 4 DAYS Anaerobic Blood Culture - Preliminary NO GROWTH AFTER 4 DAYS Sepsis Event Note - Evaluation Sepsis Screening Result: Sepsis Risk - Focused Exam Vital Signs: Vital Signs Temp Pulse Resp BP Pulse Ox 11/19/20 15:30 98.3 F 108 H 16 121/76 11/19/20 12:00 98.0 F 108 H 22 H 120/76 93 L 11/19/20 08:00 98.2 F 112 H 22 H 120/69 83 L - Problem List Review Problem List Initiated/Reviewed/Updated: No - My Orders Last 24 Hours: My Active Orders 11/19/20 18:00 Levofloxacin/Dextrose 5%-Water [Levaquin in D5W 500 MG/100 ML] 500 mg Levofloxacin/Dextrose 5%-Water [Levaquin in D5W 500 MG/100 ML] 100 ml IV Q24H methylPREDNISolone Sod Succ [Solu-MEDROL] 40 mg IVPUSH Q12H 11/19/20 18:11 THEOPHYLLINE [CHEM] Routine 11/19/20 19:03 ABG [BLOOD GAS ARTERIAL] [BG] Routine - Plan Plan:: [facility] CONSULTATION NOTE: [facility] was contacted by Marcio Fernandez with request of consultation for covid 19 resp failure HPI: 60-year-old male with chronic respiratory disease presented on 11/15 with acute on chronic hypoxia. At that time he required initiation of oxygen by facemask for sats in the 80s despite 2 L by nasal cannula. He was found to be Covid positive. He was admitted and started on appropriate therapies of remdesivir and dexamethasone and nebulized treatments. Azithromycin was used as well. His O2 needs slightly increased today. During my visit he was 83-84% with his nebulized treatment. On 8 L by simple mask his oxygen sats were 87%. 91% on 14 L bled in. ABG done earlier today appears consistent with a venous gas. Other lab notable for increasing bilirubin Pertinent Medical History: COPD, follows [facility] in [facility] but reports have not been able to see in years. Dr Chacon his local physician has been prescribing meds. reports he has exacerbation approx. every 6 weeks then gets prednisone burst and taper and antibiotic. Normally on 2.5 L with sat 91-94. Ambulates 6 ft at baseline echo 09/2019: LV EF 55%, RV poorly seen to renea who is his caregiver Exam (performed via interactive video with assistance of bedside nurse): General: alert, no acute distress Lungs: decreased throughout, significant rhonchi, worse in right lung base CV: tachycardic, irregular, no loud MRG Ext: edema bilaterally in feet, erythema bilaterall. Wound to dorsal surface right foot with yellow adherent eschar Assessment and Plan: 60 yo M with chronic resp failure presented 11/15 with worsening resp failure, dx with COVID 19, COVID pneumonia Concern for secondary bacterial pneumonia Acute on chronic hypoxic resp failure COPD exacerbation. Elevated bilirubin/ast Chronic prednisone use - 10 mg daily for several years currently on duoneb q6, budesonide. 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 With PCN allergy will utilize Levaquin although has allergy of tachycardia this was ok'd by his and patient and this is not a true allergy. Stopped azithromycin ordered levaquin Theophylline level ordered Monitor LFTs Complete 5 day course of remdesivir that was ordred Continue home trilogy -goal of 88-91% for him, will titrate O2 Plan to check ABG at 7pm, if not improving then will consider changing to hospital bipap which could be adjusted notes he tolerated augmentin recently - hopefully can check with pharmacy in morning due to allergy listed as anaphylaxis. Confirmed with that patient would not want to transfer. She reports that they have discussed this and decided in the past that he would not transfer. She understands that if he gets worse and requires higher level of care than his option would not be aggressive medical cares rather would get comfort cares locally. She again confirms that this is the plan but request that she would like to confer with him as well. Encouraged her that if they want to transfer should elect to do that sooner rather than later. Otherwise reassured her that there are decision based on his quality of life is not currently being questioned but rather confirmed. Discussed with Marcio Fernandez, Renea and bedside RN Thank you for including [facility] the [facility] care. This service is available for further assistance as requested by your care team by calling [phone].
[2020-11-19] MEDS ORDERED: Levofloxacin/Dextrose 5%-Water 100 ML IV ONE (19:25)
[2020-11-19] MEDS: Levofloxacin/Dextrose 5%-Water 500 MG in Levofloxacin/Dextrose 5%-Water 100 ML IV SCH (20:00)
[2020-11-19] MEDS: methylPREDNISolone Sodium Succinate 40 MG/1 ML SDV IVPUSH SCH (20:10)
[2020-11-19] MEDS: Docusate Sodium 250 MG Cap PO SCH (20:10)
[2020-11-19] MEDS: Montelukast 10 MG Tab PO SCH (20:10)
[2020-11-20] MEDS: Albuterol/Ipratropium 3.0-0.5 MG/3 ML Neb Soln NEB SCH ×4 (00:29→17:51)
[2020-11-20] MEDS: Albuterol 0.083% 2.5 MG/3 ML Neb Soln NEB SCH ×8 (00:29→21:15)
[2020-11-20] MEDS: THEOPHYLLINE 600 MG PO SCH (00:31)
[2020-11-20] MEDS: MUCOMYST 10% INH SCH ×4 (02:28→20:00)
[2020-11-20] MEDS ORDERED: LORazepam 2 MG/ML SDV ONE (06:25)
[2020-11-20] MEDS: methylPREDNISolone Sodium Succinate 40 MG/1 ML SDV IVPUSH SCH ×2 (06:26→17:51)
[2020-11-20] MEDS: LORazepam 2 MG/ML SDV IVPUSH PRN ×2 (06:27→17:51)
[2020-11-20] MEDS: Morphine Oral Concentrate 20 MG/ML 30 ML Bottle SL PRN ×2 (08:00→12:00)
[2020-11-20] MEDS: Enoxaparin 40 MG/0.4 ML Syringe SUBCUT SCH ×2 (08:18→19:42)
[2020-11-20] MEDS: Acetaminophen/HYDROcodone 325-10 MG Tab PO SCH ×3 (08:22→19:41)
[2020-11-20] MEDS: Potassium Chloride 20 MEQ Tab.ER PO SCH ×2 (08:25→19:41)
[2020-11-20] MEDS: Magnesium Oxide 400 MG Tab PO SCH ×2 (08:25→19:41)
[2020-11-20] MEDS: Bumetanide 2 MG Tab PO SCH ×2 (08:26→11:00)
[2020-11-20] MEDS: predniSONE 10 MG Tab PO SCH (08:27)
[2020-11-20] MEDS: LORazepam 1 MG Tab PO SCH ×4 (08:28→19:40)
[2020-11-20] MEDS: Spironolactone 25 MG Tab PO SCH (08:30)
[2020-11-20] MEDS: Omeprazole 20 MG Cap.CR PO SCH (08:30)
[2020-11-20] MEDS: Tiotropium Inhaler 18 MCG Inhalation Powder Cap Kit of 5 INH SCH (08:31)
[2020-11-20] MEDS: Sodium Chloride 0.9% 10 ML Syringe FLUSH SCH (08:31)
[2020-11-20] MEDS: Cetirizine 10 MG Tab PO SCH (08:31)
[2020-11-20] MEDS: Budesonide 0.5 MG/2 ML Neb Susp NEB SCH ×2 (08:33→19:42)
[2020-11-20] MEDS: PERFOROMIST 20 MCG/2 ML INH SCH ×2 (08:37→19:43)
[2020-11-20] MEDS: Polyethylene Glycol 3350 Powder 17 GM Packet PO SCH (08:37)
[2020-11-20] MEDS: Levofloxacin/Dextrose 5%-Water 500 MG in Levofloxacin/Dextrose 5%-Water 100 ML IV SCH (17:50)
--- NOTE | 2020-11-20 19:30 | PCM.PN ---
- General Info Date of Service: 11/20/20 - Patient Data Vitals - Most Recent: Last Vital Signs Temp 97.6 F 11/20/20 15:19 Pulse 91 11/20/20 15:19 Resp 16 11/20/20 15:19 BP 112/70 11/20/20 15:19 Pulse Ox 90 L 11/20/20 15:19 Weight - Most Recent: 190 lb I&O - Last 24 Hours: Intake & Output 11/20/20 11/20/20 11/20/20 06:59 14:59 22:59 Intake Total 350 400 Output Total 350 800 Balance 0 -400 Lab Results Last 24 Hours: Laboratory Results - last 24 hr 11/19/20 11/20/20 11/20/20 Range/Units 19:00 10:50 12:14 WBC 10.4 D (4.0-11.0) K/uL RBC 4.35 L (4.50-6.50) M/uL Hgb 12.7 L (13.0-18.0) g/dL Hct 37.9 L (40.0-54.0) % MCV 87 (76-96) fL MCH 29.2 (27.0-32.0) pg MCHC 33.5 (31.0-35.0) g/dL RDW 15.0 (11.0-16.0) % Plt Count 112 L (150-400) K/uL Neut % (Auto) 90.9 H (45.0-70.0) % Lymph % (Auto) 2.6 L (20.0-40.0) % Faulkner % (Auto) 6.1 (3.0-10.0) % Eos % (Auto) 0.0 L (1.0-5.0) % Baso % (Auto) 0.4 (0.0-0.5) % Neut # (Auto) 9.45 H (2.00-7.50) K/uL Lymph # (Auto) 0.27 L (1.50-4.00) K/uL Faulkner # (Auto) 0.63 (0.20-0.80) K/uL Eos # (Auto) 0.00 L (0.04-0.40) K/uL Baso # (Auto) 0.04 (0.02-0.10) K/uL Sodium 126 L (136-145) mmol/L Potassium 4.3 D (3.5-5.1) mmol/L Chloride 88 L* (98-107) mmol/L Carbon Dioxide 33.0 H (21.0-32.0) mmol/L Anion Gap 9.3 (5.0-15.0) mmol/L BUN 27 H D (8-26) mg/dL Creatinine 1.23 (0.70-1.30) mg/dL Est Cr Clr Drug Dosing 52.69 mL/min Estimated GFR (MDRD) > 60 (>60) MLS/MIN BUN/Creatinine Ratio 22.0 (6-25) Glucose 202 H D (74-100) mg/dL Calcium 8.4 L (8.5-10.1) mg/dL Total Bilirubin 0.9 D (0.0-1.0) mg/dL AST 33 (15-37) U/L ALT 62 (12-78) U/L Alkaline Phosphatase 95 (46-116) U/L B-Natriuretic Peptide 486 H D (0-125) pg/mL Total Protein 6.9 (6.4-8.2) g/dL Albumin 2.9 L (3.4-5.0) g/dL Globulin 4.0 (2.2-4.2) g/dL Albumin/Globulin Ratio 0.7 L (0.8-2.0) Theophylline 44 H* D (10-20) ug/mL Fab Results Last 24 Hours: Microbiology 11/15/20 18:14 Aerobic Blood Culture - Final Blood NO GROWTH AFTER 5 DAYS Anaerobic Blood Culture - Final NO GROWTH AFTER 5 DAYS Med Orders - Current: Current Medications Hydrocodone Bitart/Acetaminophen (Acetaminophen/Hydrocodone 325-10 Mg Tab) 1 tab PO TID [facility] Last Admin: 11/20/20 15:00 Dose: 1 tab Documented by: Albuterol (Albuterol 8 Gm Inhaler) 0 gm INH QID PRN PRN Reason: Shortness of Breath Last Admin: 11/19/20 01:24 Dose: 2 puff Documented by: Albuterol (Albuterol 0.083% 2.5 Mg/3 Ml Neb Soln) 2.5 mg NEB Q3H [facility] Last Admin: 11/20/20 17:51 Dose: Not Given Documented by: Albuterol/Ipratropium (Albuterol/Ipratropium 3.0-0.5 Mg/3 Ml Neb Soln) 3 ml NEB Q6H [facility] Last Admin: 11/20/20 17:51 Dose: 3 ml Documented by: Budesonide (Budesonide 0.5 Mg/2 Ml Neb Susp) 0.5 mg NEB BID [facility] Last Admin: 11/20/20 08:33 Dose: 0.5 mg Documented by: Bumetanide (Bumetanide 2 Mg Tab) 2 mg PO ACLUNCH [facility] Last Admin: 11/20/20 11:00 Dose: 2 mg Documented by: Bumetanide (Bumetanide 2 Mg Tab) 3 mg PO DAILY@0800 [facility] Last Admin: 11/20/20 08:26 Dose: 3 mg Documented by: Calamine/Phenol (Menthol/Zinc Oxide Ointment 113 Gm Tube) 1 gm TOP QID PRN PRN Reason: Rash Last Admin: 11/17/20 09:35 Dose: 1 applic Documented by: Cetirizine HCl (Cetirizine 10 Mg Tab) 10 mg PO DAILY [facility] Last Admin: 11/20/20 08:31 Dose: 10 mg Documented by: Diphenhydramine HCl (Diphenhydramine 50 Mg Cap) 50 mg PO BID PRN PRN Reason: burning eyes Last Admin: 11/17/20 20:31 Dose: 50 mg Documented by: Docusate Sodium (Docusate Sodium 250 Mg Cap) 250 mg PO BEDTIME [facility] Last Admin: 11/19/20 20:10 Dose: 250 mg Documented by: Enoxaparin Sodium (Enoxaparin 40 Mg/0.4 Ml Syringe) 40 mg SUBCUT Q12H [facility] Last Admin: 11/20/20 08:18 Dose: 40 mg Documented by: Levofloxacin/Dextrose 500 mg/ (Levofloxacin/Dextrose) 200 mls @ 100 mls/hr IV Q24H [facility] Last Admin: 11/20/20 17:50 Dose: 100 mls/hr Documented by: Lorazepam (Lorazepam 1 Mg Tab) 1 mg PO QID [facility] Last Admin: 11/20/20 15:01 Dose: 1 mg Documented by: Lorazepam (Lorazepam 2 Mg/Ml Sdv) 1 mg IVPUSH Q6H PRN PRN Reason: Agitation Last Admin: 11/20/20 17:51 Dose: 1 mg Documented by: Magnesium Oxide (Magnesium Oxide 400 Mg Tab) 400 mg PO BID [facility] Last Admin: 11/20/20 08:25 Dose: 400 mg Documented by: Methylprednisolone Sodium Succinate (Methylprednisolone Sodium Succinate 40 Mg/1 Ml Sdv) 40 mg IVPUSH Q12H [facility] Last Admin: 11/20/20 17:51 Dose: 40 mg Documented by: Montelukast Sodium (Montelukast 10 Mg Tab) 10 mg PO BEDTIME [facility] Last Admin: 11/19/20 20:10 Dose: 10 mg Documented by: Morphine Sulfate (Morphine Oral Concentrate 20 Mg/Ml 30 Ml Bottle) 5 mg SL Q4H PRN PRN Reason: Pain Last Admin: 11/20/20 12:00 Dose: 5 mg Documented by: Clotrimazole Luis Fernando 1 each PO SEECOMMENT PRN PRN Reason: Other Last Admin: 11/20/20 11:00 Dose: 1 each Documented by: Omeprazole (Omeprazole 20 Mg Cap.Cr) 40 mg PO DAILY [facility] Last Admin: 11/20/20 08:30 Dose: 40 mg Documented by: Ondansetron HCl (Ondansetron 4 Mg Tab.Dis) 4 mg PO Q6H PRN PRN Reason: NAUSEA Last Admin: 11/19/20 08:31 Dose: 4 mg Documented by: Perforomist 20mcg/ (2ml Nebs) 0 each INH BID [facility] Last Admin: 11/20/20 08:37 Dose: 1 each Documented by: Mucomyst 10% Soln (Neb) 1 each INH Q6H [facility] Last Admin: 11/20/20 15:01 Dose: 1 each Documented by: Polyethylene Glycol (Polyethylene Glycol 3350 Powder 17 Gm Packet) 17 gm PO DAILY [facility] Last Admin: 11/20/20 08:37 Dose: Not Given Documented by: Potassium Chloride (Potassium Chloride 20 Meq Tab.Er) 20 meq PO BID [facility] Last Admin: 11/20/20 08:25 Dose: 20 meq Documented by: Prednisone (Prednisone 10 Mg Tab) 10 mg PO DAILY [facility] Last Admin: 11/20/20 08:27 Dose: 10 mg Documented by: Senna/Docusate Sodium (Docusate Sodium/Sennosides 50-8.6 Mg Tab) 1 tab PO ACLUNCH [facility] Last Admin: 11/20/20 11:00 Dose: 1 tab Documented by: Sodium Chloride (Sodium Chloride 0.9% 10 Ml Syringe) 10 ml FLUSH BID [facility] Last Admin: 11/20/20 08:31 Dose: 10 ml Documented by: Spironolactone (Spironolactone 25 Mg Tab) 25 mg PO QAM [facility] Last Admin: 11/20/20 08:30 Dose: 25 mg Documented by: Tiotropium Rice (Tiotropium Inhaler 18 Mcg Inhalation Powder Cap Kit Of 5) 18 mcg INH DAILY [facility] Last Admin: 11/20/20 08:31 Dose: 1 puff Documented by: Discontinued Medications Hydrocodone Bitart/Acetaminophen (Acetaminophen/Hydrocodone 325-10 Mg Tab) Confirm Administered Dose 1 tab .ROUTE .STK-MED ONE Stop: 11/16/20 20:01 Last Admin: 11/16/20 20:18 Dose: Not Given Documented by: Acetylcysteine (Acetylcysteine 20% 200 Mg/Ml 30 Ml Nebulizer Soln Sdv) 100 mg INH Q6H [facility] Last Admin: 11/15/20 23:30 Dose: 100 mg Documented by: Albuterol (Albuterol 0.083% 2.5 Mg/3 Ml Neb Soln) 2.5 mg NEB Q6H [facility] Albuterol/Ipratropium (Albuterol/Ipratropium 3.0-0.5 Mg/3 Ml Neb Soln) 3 ml NEB Q2H PRN PRN Reason: Dyspnea Last Admin: 11/17/20 06:10 Dose: 3 ml Documented by: Albuterol/Ipratropium (Albuterol/Ipratropium 3.0-0.5 Mg/3 Ml Neb Soln) 6 ml NEB ASDIRECTED ONE Stop: 11/17/20 20:01 Last Admin: 11/17/20 21:02 Dose: 6 ml Documented by: Azithromycin (Azithromycin 250 Mg Tab) 500 mg PO DAILY [facility] Stop: 11/24/20 16:31 Last Admin: 11/19/20 08:28 Dose: 500 mg Documented by: Bumetanide (Bumetanide 2 Mg Tab) 3 mg PO WITHBREAKFAST [facility] Last Admin: 11/18/20 06:42 Dose: 3 mg Documented by: Bumetanide (Bumetanide 1 Mg Tab) 3 mg PO ONETIME ONE Stop: 11/17/20 21:20 Last Admin: 11/17/20 22:11 Dose: 3 mg Documented by: Dexamethasone (Dexamethasone 4 Mg Tab) 6 mg PO DAILY [facility] Last Admin: 11/19/20 08:26 Dose: 6 mg Documented by: Remdesivir 200 mg/ Sodium (Chloride) 250 mls @ 250 mls/hr IV ONETIME ONE Stop: 11/15/20 19:18 Last Admin: 11/15/20 20:04 Dose: 250 mls/hr Documented by: Remdesivir 100 mg/ Sodium (Chloride) 100 mls @ 100 mls/hr IV Q24H [facility] Stop: 11/19/20 16:59 Last Admin: 11/19/20 16:25 Dose: 100 mls/hr Documented by: Levofloxacin/Dextrose (Levaquin In D5w 500 Mg/100 Ml) Confirm Administered Dose 100 mls @ as directed IV .STK-MED ONE Stop: 11/19/20 19:26 Last Admin: 11/20/20 02:33 Dose: Not Given Documented by: Lorazepam (Lorazepam 1 Mg Tab) 1 mg PO ONETIME ONE Stop: 11/18/20 03:46 Last Admin: 11/18/20 03:45 Dose: 1 mg Documented by: Lorazepam (Lorazepam 2 Mg/Ml Sdv) 0.5 mg IVPUSH Q6H PRN PRN Reason: Agitation Last Admin: 11/19/20 04:13 Dose: 0.5 mg Documented by: Lorazepam (Lorazepam 2 Mg/Ml Sdv) Confirm Administered Dose 2 mg .ROUTE .STK-MED ONE Stop: 11/20/20 06:26 Last Admin: 11/20/20 06:35 Dose: Not Given Documented by: Morphine Sulfate (Morphine Oral Concentrate 20 Mg/Ml 30 Ml Bottle) Confirm Administered Dose 600 mg .ROUTE .STK-MED ONE Stop: 11/18/20 08:13 Last Admin: 11/18/20 09:22 Dose: Not Given Documented by: Theophylline 600mg (Er Tablet) 0.5 each PO TID [facility] Last Admin: 11/20/20 00:31 Dose: Not Given Documented by: Mucomyst 10% Soln (Neb) 0 each INH Q6H [facility] Last Admin: 11/18/20 09:24 Dose: Not Given Documented by: Potassium Chloride (Potassium Chloride 20 Meq Tab.Er) 20 meq PO DAILY [facility] Last Admin: 11/17/20 09:24 Dose: 20 meq Documented by: Theophylline (Theophylline 300 Mg Cap.Er) 300 mg PO TID [facility] Last Admin: 11/16/20 12:39 Dose: 300 mg Documented by: - Patient Data Lab Results Last 24 hrs: Laboratory Results - last 24 hr 11/19/20 11/20/20 11/20/20 Range/Units 19:00 10:50 12:14 WBC 10.4 D (4.0-11.0) K/uL RBC 4.35 L (4.50-6.50) M/uL Hgb 12.7 L (13.0-18.0) g/dL Hct 37.9 L (40.0-54.0) % MCV 87 (76-96) fL MCH 29.2 (27.0-32.0) pg MCHC 33.5 (31.0-35.0) g/dL RDW 15.0 (11.0-16.0) % Plt Count 112 L (150-400) K/uL Neut % (Auto) 90.9 H (45.0-70.0) % Lymph % (Auto) 2.6 L (20.0-40.0) % Faulkner % (Auto) 6.1 (3.0-10.0) % Eos % (Auto) 0.0 L (1.0-5.0) % Baso % (Auto) 0.4 (0.0-0.5) % Neut # (Auto) 9.45 H (2.00-7.50) K/uL Lymph # (Auto) 0.27 L (1.50-4.00) K/uL Faulkner # (Auto) 0.63 (0.20-0.80) K/uL Eos # (Auto) 0.00 L (0.04-0.40) K/uL Baso # (Auto) 0.04 (0.02-0.10) K/uL Sodium 126 L (136-145) mmol/L Potassium 4.3 D (3.5-5.1) mmol/L Chloride 88 L* (98-107) mmol/L Carbon Dioxide 33.0 H (21.0-32.0) mmol/L Anion Gap 9.3 (5.0-15.0) mmol/L BUN 27 H D (8-26) mg/dL Creatinine 1.23 (0.70-1.30) mg/dL Est Cr Clr Drug Dosing 52.69 mL/min Estimated GFR (MDRD) > 60 (>60) MLS/MIN BUN/Creatinine Ratio 22.0 (6-25) Glucose 202 H D (74-100) mg/dL Calcium 8.4 L (8.5-10.1) mg/dL Total Bilirubin 0.9 D (0.0-1.0) mg/dL AST 33 (15-37) U/L ALT 62 (12-78) U/L Alkaline Phosphatase 95 (46-116) U/L B-Natriuretic Peptide 486 H D (0-125) pg/mL Total Protein 6.9 (6.4-8.2) g/dL Albumin 2.9 L (3.4-5.0) g/dL Globulin 4.0 (2.2-4.2) g/dL Albumin/Globulin Ratio 0.7 L (0.8-2.0) Theophylline 44 H* D (10-20) ug/mL Result Diagrams: 11/20/20 12:14 11/20/20 10:50 Fab Results Last 24 hrs: Microbiology 11/15/20 18:14 Aerobic Blood Culture - Final Blood NO GROWTH AFTER 5 DAYS Anaerobic Blood Culture - Final NO GROWTH AFTER 5 DAYS Sepsis Event Note - Evaluation Sepsis Screening Result: Sepsis Risk - Focused Exam Vital Signs: Vital Signs Temp Pulse Resp BP Pulse Ox 11/20/20 15:19 97.6 F 91 16 112/70 90 L 11/20/20 12:00 98.0 F 87 16 126/70 91 L 11/20/20 08:00 98.2 F 95 24 H 126/61 90 L - Problem List Review Problem List Initiated/Reviewed/Updated: No - My Orders Last 24 Hours: My Active Orders 11/20/20 10:54 CXR [Chest 1V Frontal] [CR] Routine 11/20/20 21:00 SODIUM,NA [CHEM] Timed 11/21/20 05:11 BASIC METABOLIC PANEL,BMP [CHEM] AM - Plan Plan:: [facility] Hospitalist Follow up NOTE: eHospitalist was contacted by Marcio Fernandez with request of consultation for covid 19 resp failure On home trelogy tolerating well. Actually tells me he feels a little bit better. Is on high amount of O2 into trelogy. WBC, LFTs better today. Na down to 126 with low CL and decreasing BMP. RN concerned about puffy feet and abdominal distension to renea who is his caregiver Exam (performed via interactive video with assistance of bedside nurse): General: alert, no acute distress Lungs:unable to hear, on trelogy without distress Ext: edema bilaterally in feet, erythema bilateral Assessment and Plan: 60 yo M with chronic resp failure presented 11/15 with worsening resp failure, dx with COVID 19, COVID pneumonia Concern for secondary bacterial pneumonia Acute on chronic hypoxic resp failure COPD exacerbation. Elevated bilirubin/ast Chronic prednisone use - 10 mg daily for several years currently on duoneb q6, budesonide. dexamethasone Continue levaquin started 11/19 for pseudomonas coverage Continue currenet bumex of 3mg then 2mg Consider placing tiotropium on hold while getting scheduled duonebs (not done since this is home regimen) Changed steroids to COPD exacerbation tx rather than COVID given kyaw sabillon: methylpred 40mg BID ordered on 11/19 Continue to hold theophylline which was at double therapeutic dose Na at 9pm, BMP in AM: note with lab and BNP do not think hyponatremia is volume overload related Complete 5 day course of remdesivir that was ordered Per conversation 11/19: patient and decline option of transfer, would elect comfort care rather than that Please call over weekend for assistance with steroid and sodium management Thank you for including [facility] Hospitalist in the patients care. This service is available for further assistance as requested by your care team by calling [phone].
[2020-11-20] MEDS: Docusate Sodium 250 MG Cap PO SCH (19:41)
[2020-11-20] MEDS: Montelukast 10 MG Tab PO SCH (19:41)
[2020-11-21] MEDS: Albuterol/Ipratropium 3.0-0.5 MG/3 ML Neb Soln NEB SCH ×4 (00:02→17:35)
[2020-11-21] MEDS: Albuterol 0.083% 2.5 MG/3 ML Neb Soln NEB SCH ×8 (00:03→20:35)
[2020-11-21] MEDS: methylPREDNISolone Sodium Succinate 40 MG/1 ML SDV IVPUSH SCH ×2 (06:26→17:36)
[2020-11-21] MEDS: Sodium Chloride 0.9% 10 ML Syringe FLUSH SCH ×3 (06:27→20:17)
[2020-11-21] MEDS: MUCOMYST 10% INH SCH ×4 (06:28→20:23)
[2020-11-21] MEDS: Enoxaparin 40 MG/0.4 ML Syringe SUBCUT SCH ×2 (07:52→19:52)
[2020-11-21] MEDS: Omeprazole 20 MG Cap.CR PO SCH (07:53)
[2020-11-21] MEDS: LORazepam 1 MG Tab PO SCH ×4 (07:53→19:59)
[2020-11-21] MEDS: Bumetanide 2 MG Tab PO SCH ×2 (07:54→10:35)
[2020-11-21] MEDS: Acetaminophen/HYDROcodone 325-10 MG Tab PO SCH ×3 (07:55→19:58)
[2020-11-21] MEDS: Cetirizine 10 MG Tab PO SCH (07:56)
[2020-11-21] MEDS: Potassium Chloride 20 MEQ Tab.ER PO SCH ×2 (07:56→19:59)
[2020-11-21] MEDS: Magnesium Oxide 400 MG Tab PO SCH ×2 (07:56→20:15)
[2020-11-21] MEDS: Spironolactone 25 MG Tab PO SCH (07:57)
[2020-11-21] MEDS: Polyethylene Glycol 3350 Powder 17 GM Packet PO SCH (07:57)
[2020-11-21] MEDS: predniSONE 10 MG Tab PO SCH (07:57)
[2020-11-21] MEDS: LORazepam 2 MG/ML SDV IVPUSH PRN (07:58)
[2020-11-21] MEDS: Tiotropium Inhaler 18 MCG Inhalation Powder Cap Kit of 5 INH SCH (07:59)
[2020-11-21] MEDS: Budesonide 0.5 MG/2 ML Neb Susp NEB SCH ×2 (08:02→20:17)
[2020-11-21] MEDS: PERFOROMIST 20 MCG/2 ML INH SCH ×2 (08:04→20:17)
--- NOTE | 2020-11-21 08:37 | PN ---
DATE OF VISIT: 11/20/2020 HISTORY OF PRESENT ILLNESS: A 60-year-old male who has been here for several days now with diagnosis of COVID with underlying severe COPD and CHF. Yesterday, a few changes were made with the patient's treatment plan after I consulted with the hospitalist, per their recommendation. He was also started on a Trilogy machine which he has at home, but his just brought it in yesterday. The patient refused to use a BiPAP or CPAP, but is using the Trilogy machine and is doing better with it. The patient tells me that he feels okay today. He is not having any problems with pain. On entering the room, the patient was sitting in a chair with the breathing mask on and his vitals have been good. Temp today is 98.2, pulse 95, blood pressure 126/61, respirations 24-26, O2 sats have been between 90% and 94% with the Trilogy machine on at 14 L. The patient's theophylline was held yesterday when his lab results revealed a high theophylline level of 44. The patient has had been taking 300 mg t.i.d. I did discuss this with the pharmacist to see if he needs to stay on this medication and what would be an appropriate wait time before restarting it if needed. We plan on rechecking his theophylline level tomorrow after being off the medicine for 2 days. PHYSICAL EXAMINATION: LUNGS: Today, reveals mild scattered rhonchi. I do not hear any wheezes. The patient is not in any respiratory distress. CARDIAC: Heart sounds distinct. S1, S2 present without murmurs. ABDOMEN: Soft, protuberant, and nontender to palpation. Examining the right foot reveals a dressing is applied to the dorsal aspect of the right foot due to a chronic ulcer that is here. Nursing staff last evaluated it with measurements of 2.5 x 1.5 x 0.04 depth. I will have Wound Care evaluate this and implement any treatment measures, they CFIT. The patient has finished his remdesivir, but is still on steroids and multiple breathing treatments. Liquid intake has been good. Intake for solid food has been fairly poor since he has been here. The patient is fairly talkative today and has no other complaints or concerns. CRS/MODL /[id number]
[2020-11-21] MEDS: Furosemide 20 MG Tab PO SCH ×2 (11:00→15:31)
[2020-11-21] MEDS ORDERED: Furosemide 20 MG Tab ONE (11:47)
--- NOTE | 2020-11-21 12:28 | CR ---
DATE OF SERVICE: 11/20/2020 CLINICAL DATA: Dyspnea. AP CHEST: Comparison is made to a prior exam dated 11/17/2020. The patient has taken a poor inspiration. The heart size is stable. There is persistent mild pulmonary vascular congestion, unchanged. There is persistent infiltrate in the right upper lobe just above the minor fissure. It appears unchanged. There is progressive increased density in the left lung base consistent with basilar atelectasis or infiltrate. It has progressed from the prior study. There is blunting of the left costophrenic angle consistent with left pleural effusion. The exam is otherwise unchanged from the prior. Continued followup is recommended. [id number] [facility]
[2020-11-21] MEDS: Levofloxacin/Dextrose 5%-Water 500 MG in Levofloxacin/Dextrose 5%-Water 100 ML IV SCH (17:15)
[2020-11-21] MEDS: Docusate Sodium 250 MG Cap PO SCH (19:59)
[2020-11-21] MEDS: Montelukast 10 MG Tab PO SCH (19:59)
--- NOTE | 2020-11-21 20:43 | PN ---
DATE OF VISIT: 11/21/2020 SUBJECTIVE: A 60-year-old male who is here with COVID with multiple underlying comorbidities that include severe COPD and CHF. The patient has been managed with the assistance of the e-hospitalist service where multiple changes have been made over the last couple of days. It seems like his condition is slowly improving. The patient tells me today that he feels okay and that he really likes his nurse today. OBJECTIVE: VITAL SIGNS: Today reveal he is afebrile. Blood pressure 110/70, pulse 90, respirations 22, O2 saturations are currently at 92%, using the Trilogy machine. On physical exam today. LUNGS: Reveal some scattered rales, which I have not heard before. I hear rhonchi only in a couple of areas. I do not hear any wheezing. ABDOMEN: Soft, protuberant, and nontender. EXTREMITIES: Examining his lower extremities reveals physical therapy has been changing the dressing on an ulcer on the dorsal aspect of his right foot, and this is currently covered. He does have fairly significant edema of both ankles and feet. PLAN: Changes today, we will add Lasix 20 mg b.i.d. for 3 days. We will order laboratories tomorrow that include a BNP, theophylline level, and basic metabolic panel. CRS/MODL /[id number]
[2020-11-22] MEDS: Albuterol/Ipratropium 3.0-0.5 MG/3 ML Neb Soln NEB SCH ×4 (00:24→18:01)
[2020-11-22] MEDS: Albuterol 0.083% 2.5 MG/3 ML Neb Soln NEB SCH ×8 (00:24→21:21)
[2020-11-22] MEDS: MUCOMYST 10% INH SCH ×4 (02:36→19:44)
[2020-11-22] MEDS: methylPREDNISolone Sodium Succinate 40 MG/1 ML SDV IVPUSH SCH ×2 (05:40→18:01)
[2020-11-22] MEDS: Enoxaparin 40 MG/0.4 ML Syringe SUBCUT SCH ×2 (08:23→19:36)
[2020-11-22] MEDS: Acetaminophen/HYDROcodone 325-10 MG Tab PO SCH ×3 (08:23→19:39)
[2020-11-22] MEDS: Cetirizine 10 MG Tab PO SCH (08:23)
[2020-11-22] MEDS: Omeprazole 20 MG Cap.CR PO SCH (08:23)
[2020-11-22] MEDS: Bumetanide 2 MG Tab PO SCH ×2 (08:24→11:44)
[2020-11-22] MEDS: Furosemide 20 MG Tab PO SCH ×2 (08:24→14:59)
[2020-11-22] MEDS: Tiotropium Inhaler 18 MCG Inhalation Powder Cap Kit of 5 INH SCH (08:25)
[2020-11-22] MEDS: Polyethylene Glycol 3350 Powder 17 GM Packet PO SCH (08:25)
[2020-11-22] MEDS: PERFOROMIST 20 MCG/2 ML INH SCH ×2 (08:26→20:01)
[2020-11-22] MEDS: Budesonide 0.5 MG/2 ML Neb Susp NEB SCH ×2 (08:26→19:41)
[2020-11-22] MEDS: LORazepam 1 MG Tab PO SCH ×4 (08:27→19:40)
[2020-11-22] MEDS: Spironolactone 25 MG Tab PO SCH (08:28)
[2020-11-22] MEDS: Magnesium Oxide 400 MG Tab PO SCH ×2 (08:28→19:39)
[2020-11-22] MEDS: Potassium Chloride 20 MEQ Tab.ER PO SCH ×2 (08:28→19:39)
[2020-11-22] MEDS: LORazepam 2 MG/ML SDV IVPUSH PRN (08:29)
[2020-11-22] MEDS: Sodium Chloride 0.9% 10 ML Syringe FLUSH SCH ×2 (08:29→20:03)
[2020-11-22] MEDS: predniSONE 10 MG Tab PO SCH (08:29)
--- NOTE | 2020-11-22 13:28 | PN ---
DATE OF VISIT: 11/22/2020 SUBJECTIVE: This patient has been maintaining his labs fairly well the last couple of days as well as his vital signs with the current treatment measures. LABORATORY DATA: Labs today include a basic metabolic panel which shows a sodium level is 128, roughly where it has been. BUN is 28, it was 29 yesterday. BNP is 400; it was 486 on the and his theophylline level is now 3. TREATMENT AND PLAN: The patient has not been eating much, but this has been his routine. Liquid intake has been okay. Lung exam today reveals the lungs are more clear. He was given Lasix yesterday in addition to the Bumex that he is on. The patient states he feels okay. There have been no other changes in his status, and we will continue with the current treatment measures at this time. Nursing staff also agrees that his condition has not really changed, if anything, slightly better. CRS/MODL /[id number]
[2020-11-22] MEDS: Levofloxacin/Dextrose 5%-Water 500 MG in Levofloxacin/Dextrose 5%-Water 100 ML IV SCH (18:01)
[2020-11-22] MEDS: Montelukast 10 MG Tab PO SCH (19:39)
[2020-11-22] MEDS: Docusate Sodium 250 MG Cap PO SCH (19:40)
[2020-11-23] MEDS: Albuterol/Ipratropium 3.0-0.5 MG/3 ML Neb Soln NEB SCH ×5 (00:09→23:50)
[2020-11-23] MEDS: Albuterol 0.083% 2.5 MG/3 ML Neb Soln NEB SCH ×8 (00:09→21:58)
[2020-11-23] MEDS: MUCOMYST 10% INH SCH ×4 (02:06→21:21)
[2020-11-23] MEDS: methylPREDNISolone Sodium Succinate 40 MG/1 ML SDV IVPUSH SCH (06:02)
[2020-11-23] MEDS ORDERED: Bumetanide 1 MG Tab ONE (07:35)
[2020-11-23] MEDS: Potassium Chloride 20 MEQ Tab.ER PO SCH ×2 (07:36→21:21)
[2020-11-23] MEDS: Spironolactone 25 MG Tab PO SCH (07:36)
[2020-11-23] MEDS: LORazepam 1 MG Tab PO SCH ×4 (07:37→21:20)
[2020-11-23] MEDS: Enoxaparin 40 MG/0.4 ML Syringe SUBCUT SCH ×2 (07:37→21:21)
[2020-11-23] MEDS: Polyethylene Glycol 3350 Powder 17 GM Packet PO SCH ×2 (07:37→11:53)
[2020-11-23] MEDS: predniSONE 10 MG Tab PO SCH (07:37)
[2020-11-23] MEDS: Magnesium Oxide 400 MG Tab PO SCH ×2 (07:37→21:19)
[2020-11-23] MEDS: Omeprazole 20 MG Cap.CR PO SCH (07:37)
[2020-11-23] MEDS: Furosemide 20 MG Tab PO SCH ×2 (07:37→16:53)
[2020-11-23] MEDS: Cetirizine 10 MG Tab PO SCH (07:37)
[2020-11-23] MEDS: Budesonide 0.5 MG/2 ML Neb Susp NEB SCH ×2 (07:38→22:03)
[2020-11-23] MEDS: Bumetanide 2 MG Tab PO SCH ×2 (07:38→10:25)
[2020-11-23] MEDS: Acetaminophen/HYDROcodone 325-10 MG Tab PO SCH ×3 (07:38→21:19)
[2020-11-23] MEDS: Tiotropium Inhaler 18 MCG Inhalation Powder Cap Kit of 5 INH SCH (09:18)
[2020-11-23] MEDS: Sodium Chloride 0.9% 10 ML Syringe FLUSH SCH (09:19)
[2020-11-23] MEDS: PERFOROMIST 20 MCG/2 ML INH SCH ×2 (09:19→21:21)
[2020-11-23] MEDS: LORazepam 2 MG/ML SDV IVPUSH PRN (10:25)
--- NOTE | 2020-11-23 15:43 | PN ---
DATE OF VISIT: 11/23/2020 SUBJECTIVE: This 60-year-old male has been an inpatient here now for over a week. He is COVID positive. The patient did finish a course of Remdesivir and he is on dexamethasone daily in addition to multiple inhalers and other medications. His condition has been changing very little over the last few days. It seems like he has made just slight improvement at times. OBJECTIVE: VITAL SIGNS: Today reveal he is afebrile. Pulse is 80, blood pressure 103/68, respirations 18, and O2 sats are 93% on 12 L per Trilogy machine. Vitals have not changed much over the last couple of days. GENERAL: The patient becomes hypoxic whenever he is not wearing his mask, but when he does wear his mask, he seems to do okay. He has a wound on the dorsal aspect of the right foot that is being addressed by Physical Therapy. This is chronic for him. At this point, discussion will be needed soon whether he stays in acute care or transfers to [facility]. He is still on quarantine status and it is undetermined the last day of this whether it will be 10 or 14 days. When I hear this, further arrangements would be discussed. LUNGS: The patient's lungs have a significantly reduced air exchange, but I do not hear any rales, wheezes, or rhonchi. BACK: On the back, I do hear some scattered rhonchi on the anterior chest wall. He is sitting in a chair. I assisted the patient to stand with the help of a nurse to weigh him, but the scale was not working. At this point, I will not make any changes, but I will consult with the [facility] E-hospitalist program. They have been involved with him just to see if they have any suggestions for any further treatment measures. CRS/MODL /[id number]
[2020-11-23] MEDS ORDERED: methylPREDNISolone Sodium Succinate 40 MG/1 ML SDV ONE (17:55)
[2020-11-23] MEDS: Levofloxacin 500 MG Tab PO SCH (18:03)
[2020-11-23] MEDS: predniSONE 20 MG Tab PO SCH (18:22)
[2020-11-23] MEDS ORDERED: predniSONE 10 MG Tab ONE (18:25)
[2020-11-23] MEDS: Theophylline 300 MG Tab.ER PO SCH (20:30)
[2020-11-23] MEDS: Docusate Sodium 250 MG Cap PO SCH (21:19)
[2020-11-23] MEDS: Montelukast 10 MG Tab PO SCH (21:19)
[2020-11-23] MEDS: Morphine Oral Concentrate 20 MG/ML 30 ML Bottle SL PRN (22:03)
[2020-11-23] MEDS ORDERED: LORazepam 2 MG/ML SDV IVPUSH PRN (23:08)
--- NOTE | 2020-11-23 23:16 | PCM.CONSN ---
- General Info Date of Service: 11/23/20 - Patient Data Vitals - Most Recent: Last Vital Signs Temp 36.3 C 11/23/20 08:00 Pulse 91 11/23/20 14:09 Resp 18 11/23/20 08:00 BP 103/68 11/23/20 08:00 Pulse Ox 91 L 11/23/20 14:09 Weight - Most Recent: 86.183 kg I&O - Last 24 Hours: Intake & Output 11/23/20 11/23/20 11/24/20 14:59 22:59 06:59 Intake Total 100 Output Total 450 Balance -450 100 Lab Results Last 24 Hours: Laboratory Results - last 24 hr 11/23/20 Range/Units 15:16 SARS-CoV-2 RNA (PAM) Positive H (NEGATIVE) Med Orders - Current: Current Medications Hydrocodone Bitart/Acetaminophen (Acetaminophen/Hydrocodone 325-10 Mg Tab) 1 tab PO TID [facility] Last Admin: 11/23/20 21:19 Dose: 1 tab Documented by: Albuterol (Albuterol 8 Gm Inhaler) 0 gm INH QID PRN PRN Reason: Shortness of Breath Last Admin: 11/19/20 01:24 Dose: 2 puff Documented by: Albuterol (Albuterol 0.083% 2.5 Mg/3 Ml Neb Soln) 2.5 mg NEB Q3H [facility] Last Admin: 11/23/20 21:58 Dose: 2.5 mg Documented by: Albuterol/Ipratropium (Albuterol/Ipratropium 3.0-0.5 Mg/3 Ml Neb Soln) 3 ml NEB Q6H [facility] Last Admin: 11/23/20 18:03 Dose: 3 ml Documented by: Budesonide (Budesonide 0.5 Mg/2 Ml Neb Susp) 0.5 mg NEB BID [facility] Last Admin: 11/23/20 22:03 Dose: 0.5 mg Documented by: Bumetanide (Bumetanide 2 Mg Tab) 2 mg PO ACLUNCH [facility] Last Admin: 11/23/20 10:25 Dose: 2 mg Documented by: Bumetanide (Bumetanide 2 Mg Tab) 3 mg PO DAILY@0800 [facility] Last Admin: 11/23/20 07:38 Dose: Not Given Documented by: Calamine/Phenol (Menthol/Zinc Oxide Ointment 113 Gm Tube) 1 gm TOP QID PRN PRN Reason: Rash Last Admin: 11/17/20 09:35 Dose: 1 applic Documented by: Cetirizine HCl (Cetirizine 10 Mg Tab) 10 mg PO DAILY [facility] Last Admin: 11/23/20 07:37 Dose: 10 mg Documented by: Diphenhydramine HCl (Diphenhydramine 50 Mg Cap) 50 mg PO BID PRN PRN Reason: burning eyes Last Admin: 11/17/20 20:31 Dose: 50 mg Documented by: Docusate Sodium (Docusate Sodium 250 Mg Cap) 250 mg PO BEDTIME [facility] Last Admin: 11/23/20 21:19 Dose: 250 mg Documented by: Enoxaparin Sodium (Enoxaparin 40 Mg/0.4 Ml Syringe) 40 mg SUBCUT Q12H [facility] Last Admin: 11/23/20 21:21 Dose: 40 mg Documented by: Furosemide (Furosemide 20 Mg Tab) 20 mg PO BIDDIURETIC [facility] Stop: 11/24/20 23:59 Last Admin: 11/23/20 16:53 Dose: 20 mg Documented by: Levofloxacin (Levofloxacin 500 Mg Tab) 500 mg PO Q24H [facility] Last Admin: 11/23/20 18:03 Dose: 500 mg Documented by: Lorazepam (Lorazepam 1 Mg Tab) 1 mg PO QID [facility] Last Admin: 11/23/20 21:20 Dose: 1 mg Documented by: Lorazepam (Lorazepam 2 Mg/Ml Sdv) 1 mg IVPUSH Q6H PRN PRN Reason: Anxiety Magnesium Oxide (Magnesium Oxide 400 Mg Tab) 400 mg PO BID [facility] Last Admin: 11/23/20 21:19 Dose: 400 mg Documented by: Montelukast Sodium (Montelukast 10 Mg Tab) 10 mg PO BEDTIME [facility] Last Admin: 11/23/20 21:19 Dose: 10 mg Documented by: Morphine Sulfate (Morphine Oral Concentrate 20 Mg/Ml 30 Ml Bottle) 5 mg SL Q4H PRN PRN Reason: Pain Last Admin: 11/23/20 22:03 Dose: 5 mg Documented by: Clotrimazole Luis Fernando 1 each PO SEECOMMENT PRN PRN Reason: Other Last Admin: 11/20/20 11:00 Dose: 1 each Documented by: Omeprazole (Omeprazole 20 Mg Cap.Cr) 40 mg PO DAILY [facility] Last Admin: 11/23/20 07:37 Dose: 40 mg Documented by: Ondansetron HCl (Ondansetron 4 Mg Tab.Dis) 4 mg PO Q6H PRN PRN Reason: NAUSEA Last Admin: 11/19/20 08:31 Dose: 4 mg Documented by: Perforomist 20mcg/ (2ml Nebs) 0 each INH BID [facility] Last Admin: 11/23/20 21:21 Dose: 1 each Documented by: Mucomyst 10% Soln (Neb) 1 each INH Q6H [facility] Last Admin: 11/23/20 21:21 Dose: 1 each Documented by: Polyethylene Glycol (Polyethylene Glycol 3350 Powder 17 Gm Packet) 17 gm PO DAILY [facility] Last Admin: 11/23/20 11:53 Dose: Not Given Documented by: Potassium Chloride (Potassium Chloride 20 Meq Tab.Er) 20 meq PO BID [facility] Last Admin: 11/23/20 21:21 Dose: 20 meq Documented by: Prednisone (Prednisone 20 Mg Tab) 20 mg PO DAILY [facility] Last Admin: 11/23/20 18:22 Dose: 10 mg Documented by: Senna/Docusate Sodium (Docusate Sodium/Sennosides 50-8.6 Mg Tab) 1 tab PO ACLUNCH [facility] Last Admin: 11/23/20 10:25 Dose: 1 tab Documented by: Spironolactone (Spironolactone 25 Mg Tab) 25 mg PO QAM [facility] Last Admin: 11/23/20 07:36 Dose: 25 mg Documented by: Tiotropium [place] (Tiotropium Inhaler 18 Mcg Inhalation Powder Cap Kit Of 5) 18 mcg INH DAILY [facility] Last Admin: 11/23/20 09:18 Dose: 1 puff Documented by: Discontinued Medications Hydrocodone Bitart/Acetaminophen (Acetaminophen/Hydrocodone 325-10 Mg Tab) Confirm Administered Dose 1 tab .ROUTE .STK-MED ONE Stop: 11/16/20 20:01 Last Admin: 11/16/20 20:18 Dose: Not Given Documented by: Acetylcysteine (Acetylcysteine 20% 200 Mg/Ml 30 Ml Nebulizer Soln Sdv) 100 mg INH Q6H [facility] Last Admin: 11/15/20 23:30 Dose: 100 mg Documented by: Albuterol (Albuterol 0.083% 2.5 Mg/3 Ml Neb Soln) 2.5 mg NEB Q6H [facility] Albuterol/Ipratropium (Albuterol/Ipratropium 3.0-0.5 Mg/3 Ml Neb Soln) 3 ml NEB Q2H PRN PRN Reason: Dyspnea Last Admin: 11/17/20 06:10 Dose: 3 ml Documented by: Albuterol/Ipratropium (Albuterol/Ipratropium 3.0-0.5 Mg/3 Ml Neb Soln) 6 ml NEB ASDIRECTED ONE Stop: 11/17/20 20:01 Last Admin: 11/17/20 21:02 Dose: 6 ml Documented by: Azithromycin (Azithromycin 250 Mg Tab) 500 mg PO DAILY [facility] Stop: 11/24/20 16:31 Last Admin: 11/19/20 08:28 Dose: 500 mg Documented by: Bumetanide (Bumetanide 2 Mg Tab) 3 mg PO WITHBREAKFAST [facility] Last Admin: 11/18/20 06:42 Dose: 3 mg Documented by: Bumetanide (Bumetanide 1 Mg Tab) 3 mg PO ONETIME ONE Stop: 11/17/20 21:20 Last Admin: 11/17/20 22:11 Dose: 3 mg Documented by: Bumetanide (Bumetanide 1 Mg Tab) Confirm Administered Dose 3 mg .ROUTE .STK-MED ONE Stop: 11/23/20 07:36 Last Admin: 11/23/20 07:37 Dose: 3 mg Documented by: Dexamethasone (Dexamethasone 4 Mg Tab) 6 mg PO DAILY [facility] Last Admin: 11/19/20 08:26 Dose: 6 mg Documented by: Furosemide (Furosemide 20 Mg Tab) Confirm Administered Dose 20 mg .ROUTE .STK- MED ONE Stop: 11/21/20 11:48 Last Admin: 11/21/20 19:11 Dose: Not Given Documented by: Remdesivir 200 mg/ Sodium (Chloride) 250 mls @ 250 mls/hr IV ONETIME ONE Stop: 11/15/20 19:18 Last Admin: 11/15/20 20:04 Dose: 250 mls/hr Documented by: Remdesivir 100 mg/ Sodium (Chloride) 100 mls @ 100 mls/hr IV Q24H [facility] Stop: 11/19/20 16:59 Last Admin: 11/19/20 16:25 Dose: 100 mls/hr Documented by: Levofloxacin/Dextrose 500 mg/ (Levofloxacin/Dextrose) 200 mls @ 100 mls/hr IV Q24H [facility] Last Admin: 11/22/20 18:01 Dose: 100 mls/hr Documented by: Levofloxacin/Dextrose (Levaquin In D5w 500 Mg/100 Ml) Confirm Administered Dose 100 mls @ as directed IV .STK-MED ONE Stop: 11/19/20 19:26 Last Admin: 11/20/20 02:33 Dose: Not Given Documented by: Lorazepam (Lorazepam 1 Mg Tab) 1 mg PO ONETIME ONE Stop: 11/18/20 03:46 Last Admin: 11/18/20 03:45 Dose: 1 mg Documented by: Lorazepam (Lorazepam 2 Mg/Ml Sdv) 0.5 mg IVPUSH Q6H PRN PRN Reason: Agitation Last Admin: 11/19/20 04:13 Dose: 0.5 mg Documented by: Lorazepam (Lorazepam 2 Mg/Ml Sdv) 1 mg IVPUSH Q6H PRN PRN Reason: Agitation Last Admin: 11/23/20 10:25 Dose: 1 mg Documented by: Lorazepam (Lorazepam 2 Mg/Ml Sdv) Confirm Administered Dose 2 mg .ROUTE .STK-MED ONE Stop: 11/20/20 06:26 Last Admin: 11/20/20 06:35 Dose: Not Given Documented by: Methylprednisolone (Methylprednisolone 4 Mg Tab) 40 mg PO Q12H [facility] Methylprednisolone Sodium Succinate (Methylprednisolone Sodium Succinate 40 Mg/1 Ml Sdv) 40 mg IVPUSH Q12H [facility] Last Admin: 11/23/20 06:02 Dose: 40 mg Documented by: Methylprednisolone Sodium Succinate (Methylprednisolone Sodium Succinate 40 Mg/1 Ml Sdv) Confirm Administered Dose 40 mg .ROUTE .STK-MED ONE Stop: 11/23/20 17:56 Last Admin: 11/23/20 17:57 Dose: Not Given Documented by: Morphine Sulfate (Morphine Oral Concentrate 20 Mg/Ml 30 Ml Bottle) Confirm Administered Dose 600 mg .ROUTE .STK-MED ONE Stop: 11/18/20 08:13 Last Admin: 11/18/20 09:22 Dose: Not Given Documented by: Theophylline 600mg (Er Tablet) 0.5 each PO TID [facility] Last Admin: 09/17/21 00:31 Dose: Not Given Documented by: Mucomyst 10% Soln (Neb) 0 each INH Q6H [facility] Last Admin: 11/18/20 09:24 Dose: Not Given Documented by: Potassium Chloride (Potassium Chloride 20 Meq Tab.Er) 20 meq PO DAILY [facility] Last Admin: 11/17/20 09:24 Dose: 20 meq Documented by: Prednisone (Prednisone 10 Mg Tab) 10 mg PO DAILY [facility] Last Admin: 11/23/20 07:37 Dose: 10 mg Documented by: Prednisone (Prednisone 10 Mg Tab) Confirm Administered Dose 10 mg .ROUTE .STK- MED ONE Stop: 11/23/20 18:26 Last Admin: 11/23/20 21:20 Dose: Not Given Documented by: Sodium Chloride (Sodium Chloride 0.9% 10 Ml Syringe) 10 ml FLUSH BID [facility] Last Admin: 11/23/20 09:19 Dose: 10 ml Documented by: Theophylline (Theophylline 300 Mg Cap.Er) 300 mg PO TID [facility] Last Admin: 11/16/20 12:39 Dose: 300 mg Documented by: Sepsis Event Note - Evaluation Sepsis Screening Result: No Definite Risk - Focused Exam Vital Signs: Vital Signs Pulse Pulse Ox 11/23/20 14:09 91 91 L 11/23/20 12:00 96 87 L Consult PN Assessment/Plan Procedures: Procedures [id number] PHENO (09/27/19) [id number] TOTAL (09/27/19) ASSAY OF BLOOD/URIC ACID (09/17/18) ASSAY OF LACTIC ACID (01/20/17) ASSAY OF MAGNESIUM (03/19/19) ASSAY OF NATRIURETIC PEPTIDE (09/06/19) ASSAY OF SERUM POTASSIUM (03/12/18) ASSAY OF THEOPHYLLINE (09/25/20) ASSAY OF TROPONIN QUANT (09/06/19) ASSAY THYROID STIM HORMONE (11/16/18) BLOOD CULTURE FOR BACTERIA (12/22/15) BLOOD GASES ANY COMBINATION (01/20/17) C-REACTIVE PROTEIN (08/31/20) CHEST X-RAY 1 VIEW FRONTAL (01/20/17) CHEST X-RAY 2VW FRONTAL&LATL (11/11/15) COMPLETE CBC AUTOMATED (03/11/16) COMPLETE CBC W/AUTO DIFF WBC (09/25/20) COMPREHEN METABOLIC PANEL (09/25/20) CT ABD & PELVIS W/O CONTRAST (01/03/16) CT CHEST SPINE W/O DYE (01/03/16) CT LUMBAR SPINE W/O DYE (01/03/16) CULTURE AEROBIC IDENTIFY (08/20/15) CULTURE OTHR SPECIMN AEROBIC (09/25/20) CULTURE SCREEN ONLY (04/25/13) EGD BIOPSY SINGLE/MULTIPLE (04/11/14) ELECTROCARDIOGRAM TRACING (09/06/19) EMERGENCY DEPT VISIT (08/31/20) EMERGENCY DEPT VISIT (09/06/19) EMERGENCY DEPT VISIT (04/12/17) EMERGENCY DEPT VISIT (04/12/17) EMERGENCY DEPT VISIT (01/20/17) EMERGENCY DEPT VISIT (01/03/16) EMERGENCY DEPT VISIT (07/29/15) EMERGENCY DEPT VISIT (05/05/15) EMERGENCY DEPT VISIT (04/14/15) EMERGENCY DEPT VISIT (06/26/14) EMERGENCY DEPT VISIT (06/26/14) FIBRIN DEGRADATION QUANT (01/20/17) GLYCOSYLATED HEMOGLOBIN TEST (03/11/16) INFLUENZA ASSAY W/OPTIC (03/28/18) LIPID PANEL (09/27/19) METABOLIC PANEL TOTAL CA (08/31/20) MICROBE SUSCEPTIBLE KATHLEEN (08/20/15) MYCOBACTERIA CULTURE (01/21/16) PROTHROMBIN TIME (03/11/16) RBC SED RATE NONAUTOMATED (08/31/20) ROUTINE VENIPUNCTURE (09/25/20) SMEAR FLUORESCENT/ACID STAI (01/21/16) SMEAR GRAM STAIN (09/25/20) SPECIMEN INFECT AGNT CONCNTJ (01/21/16) STREP A AG IA (04/25/13) THER/PROPH/DIAG INJ IV PUSH (09/06/19) THER/PROPH/DIAG INJ SC/IM (08/31/20) THER/PROPH/DIAG IV INF INIT (04/14/15) THROMBOPLASTIN TIME PARTIAL (06/26/14) TTE W/DOPPLER COMPLETE (09/18/19) TX/PRO/DX INJ NEW DRUG ADDON (09/06/19) TX/PRO/DX INJ SAME DRUG STAINED GLASS INSTALLER (06/26/14) URINALYSIS AUTO W/O SCOPE (08/20/15) URINALYSIS AUTO W/SCOPE (09/25/20) WITHDRAWAL OF ARTERIAL BLOOD (01/03/16) X-RAY EXAM CHEST 2 VIEWS (09/25/20) X-RAY EXAM OF FOOT (09/17/18) X-RAY EXAM OF HAND (08/31/20) X-RAY EXAM OF SHOULDER (01/17/19) X-RAY EXAM OF WRIST (09/25/20) X-RAY EXAM RIBS/CHEST4/> VWS (07/08/16) X-RAY EXAM THORAC SPINE 2VWS (11/10/20) Problem List Initiated/Reviewed/Updated: Yes My Orders Last 24 Hours: My Active Orders 11/23/20 23:08 LORazepam [Ativan] 1 mg IVPUSH Q6H PRN Plan: Kurt Hernandezist CONSULTATION NOTE: Reason for consult: Covid pneumonia Assessment and Plan: 1. Covid pneumonia Patient is a 60-year-old gentleman with Covid pneumonia. He has been in the hospital for several days. We are asked to review his chart and therapies to see if there is any optimization of care that can be done. Currently patient is but not tolerated trilogy this evening, and the best saturations able to be gotten with a high flow oxygen or the mid 80s to low 90s but typically in the mid 80s currently. He was agitated and anxious with the trilogy and pulling it off. We will try and get him calmed down a bit with some PRNs so they can keep the trilogy on and hopefully maximize his respiratory status. Otherwise there is no additional therapeutics that can be added to significantly change his course with Covid. He is on appropriate steroids and has completed remdesivir. The remainder is supportive care having him prone and aggressive pulmonary toilet as able. Maximizing oxygenation and ventilation with a trilogy or other external ventilation can be utilized. As patient is a DNR there is no further escalation of care past external ventilation. I did offer her ERT services, but bedside staff feels they are comfortable managing settings currently. I did speak with nurse at bedside and visually examined patient. He was sleepy and encephalopathic and did not provide any additional history. Thank you for including Kurt Gaffney in the patients care. This service is available for further assistance as requested by your care team by calling [phone].
[2020-11-24] MEDS: Albuterol 0.083% 2.5 MG/3 ML Neb Soln NEB SCH ×8 (00:15→23:01)
[2020-11-24] MEDS: MUCOMYST 10% INH SCH ×4 (02:00→23:02)
[2020-11-24] MEDS: Tiotropium Inhaler 18 MCG Inhalation Powder Cap Kit of 5 INH SCH (07:36)
[2020-11-24] MEDS: Enoxaparin 40 MG/0.4 ML Syringe SUBCUT SCH ×2 (08:28→23:01)
[2020-11-24] MEDS: Polyethylene Glycol 3350 Powder 17 GM Packet PO SCH (08:36)
[2020-11-24] MEDS: Bumetanide 2 MG Tab PO SCH ×2 (08:37→12:56)
[2020-11-24] MEDS: predniSONE 20 MG Tab PO SCH (08:37)
[2020-11-24] MEDS: Potassium Chloride 20 MEQ Tab.ER PO SCH ×2 (08:38→22:58)
[2020-11-24] MEDS: Magnesium Oxide 400 MG Tab PO SCH ×2 (08:38→22:59)
[2020-11-24] MEDS: Spironolactone 25 MG Tab PO SCH (08:39)
[2020-11-24] MEDS: Acetaminophen/HYDROcodone 325-10 MG Tab PO SCH ×3 (08:39→23:04)
[2020-11-24] MEDS: Cetirizine 10 MG Tab PO SCH (08:40)
[2020-11-24] MEDS: Furosemide 20 MG Tab PO SCH ×2 (08:40→17:29)
[2020-11-24] MEDS: LORazepam 1 MG Tab PO SCH ×4 (08:40→23:00)
[2020-11-24] MEDS: Omeprazole 20 MG Cap.CR PO SCH (08:41)
[2020-11-24] MEDS: Theophylline 300 MG Tab.ER PO SCH ×3 (08:43→23:02)
[2020-11-24] MEDS: PERFOROMIST 20 MCG/2 ML INH SCH ×2 (08:45→23:02)
[2020-11-24] MEDS: Albuterol/Ipratropium 3.0-0.5 MG/3 ML Neb Soln NEB SCH ×4 (09:02→23:01)
[2020-11-24] MEDS: Budesonide 0.5 MG/2 ML Neb Susp NEB SCH ×2 (09:18→23:02)
--- NOTE | 2020-11-24 12:34 | PN ---
DATE OF VISIT: 11/24/2020 HISTORY OF PRESENT ILLNESS: This patient has been an inpatient here for 10 days now I believe for COVID with underlying severe COPD and CHF. The patient's condition in the last 24 hours has remained stable. He did have one episode during the night where he took his mask off, became more hypoxic and then became anxious, which is not unusual for him. Nursing staff gave him some Ativan and reapplied his mask and he improved. Today, the patient is currently wearing a nasal cannula. He is at 87% oxygen saturation with the nasal cannula on. He is sitting in the chair. He is asking when he can go home. The patient tells me his eyes are irritated a little, but otherwise, he is doing okay. PHYSICAL EXAMINATION: Today, reveals again reduced air exchange throughout the lung lopez. There is minimal end expiratory scattered rhonchi as well. Examining the patient's eyes reveals the conjunctiva is pink. Sclerae white. There is no matter or discharge present today from either eye. TREATMENT AND PLAN: At this point, I will not make any changes with his care. I advised the patient that he needs to get back to his baseline level of care and he is still on quarantine as far as when he can go home. CRS/MODL /[id number]
[2020-11-24] MEDS: Levofloxacin 500 MG Tab PO SCH (17:29)
[2020-11-24] MEDS: Morphine Oral Concentrate 20 MG/ML 30 ML Bottle SL PRN (22:30)
[2020-11-24] MEDS: Montelukast 10 MG Tab PO SCH (22:58)
[2020-11-24] MEDS: Docusate Sodium 250 MG Cap PO SCH (22:58)
[2020-11-25] MEDS: Albuterol 0.083% 2.5 MG/3 ML Neb Soln NEB SCH ×8 (00:15→21:46)
[2020-11-25] MEDS: MUCOMYST 10% INH SCH ×4 (02:10→20:14)
[2020-11-25] MEDS: LORazepam 1 MG Tab PO SCH ×5 (04:13→20:00)
[2020-11-25] MEDS: Morphine Oral Concentrate 20 MG/ML 30 ML Bottle SL PRN ×3 (04:14→11:37)
[2020-11-25] MEDS ORDERED: LORazepam 1 MG Tab ONE (04:14)
[2020-11-25] MEDS: LORazepam 1 MG Tab PO PRN (05:48)
[2020-11-25] MEDS: Albuterol/Ipratropium 3.0-0.5 MG/3 ML Neb Soln NEB SCH ×3 (05:49→17:21)
[2020-11-25] MEDS: Theophylline 300 MG Tab.ER PO SCH ×4 (07:31→22:00)
[2020-11-25] MEDS: Budesonide 0.5 MG/2 ML Neb Susp NEB SCH ×2 (07:32→19:59)
[2020-11-25] MEDS: Omeprazole 20 MG Cap.CR PO SCH (07:32)
[2020-11-25] MEDS: Magnesium Oxide 400 MG Tab PO SCH ×2 (07:33→19:59)
[2020-11-25] MEDS: Acetaminophen/HYDROcodone 325-10 MG Tab PO SCH ×3 (07:33→20:01)
[2020-11-25] MEDS: Cetirizine 10 MG Tab PO SCH (07:33)
[2020-11-25] MEDS: Spironolactone 25 MG Tab PO SCH (07:33)
[2020-11-25] MEDS: Potassium Chloride 20 MEQ Tab.ER PO SCH ×2 (07:33→20:00)
[2020-11-25] MEDS: predniSONE 20 MG Tab PO SCH (07:34)
[2020-11-25] MEDS: Enoxaparin 40 MG/0.4 ML Syringe SUBCUT SCH ×2 (07:34→20:05)
[2020-11-25] MEDS: Polyethylene Glycol 3350 Powder 17 GM Packet PO SCH (07:34)
[2020-11-25] MEDS: Bumetanide 2 MG Tab PO SCH ×2 (07:34→11:36)
[2020-11-25] MEDS: Tiotropium Inhaler 18 MCG Inhalation Powder Cap Kit of 5 INH SCH (07:36)
[2020-11-25] MEDS: PERFOROMIST 20 MCG/2 ML INH SCH ×2 (07:57→20:13)
--- NOTE | 2020-11-25 14:17 | PN ---
DATE OF VISIT: 11/25/2020 HISTORY OF PRESENT ILLNESS: A 60-year-old male who has been here for about 10 days for COVID with underlying severe COPD and CHF. The patient's condition has been unchanged in the last 24 hours. He is on oxygen by nasal cannula most of the time now, and his sats have remained around 90% at rest, it will dip down if the oxygen comes off or if he is active in any way. PHYSICAL EXAMINATION: VITAL SIGNS: Today, revealed a temp of 97.3, pulse 102, blood pressure 112/77, respirations 24, sats are 90% at 9-10 L per nasal cannula. The patient states that he feels okay. He has no complaints of pain. LUNGS: Today, reveals scattered rhonchi and rales with again fairly significant reduction of air exchange. SKIN: Warm and dry. CARDIAC: Heart sounds are distinct without any murmur noted. TREATMENT AND PLAN: The patient's care will continue without really any changes. He has been restarted on theophylline after holding it for a couple of days because his theophylline level was quite high, but it was determined that he should be restarted on it and that dose is being titrated up starting today to 300 mg daily. CRS/MODL /[id number]
[2020-11-25] MEDS ORDERED: Albuterol 0.083% 2.5 MG/3 ML Neb Soln ONE (16:12)
[2020-11-25] MEDS: Levofloxacin 500 MG Tab PO SCH (17:21)
[2020-11-25] MEDS: Docusate Sodium 250 MG Cap PO SCH (20:00)
[2020-11-25] MEDS: Montelukast 10 MG Tab PO SCH (20:00)
[2020-11-25] MEDS: THEOPHYLLINE 600 MG PO SCH (21:55)
[2020-11-26] MEDS: Albuterol/Ipratropium 3.0-0.5 MG/3 ML Neb Soln NEB SCH ×4 (00:25→17:57)
[2020-11-26] MEDS: Albuterol 0.083% 2.5 MG/3 ML Neb Soln NEB SCH ×8 (00:29→20:54)
[2020-11-26] MEDS: LORazepam 1 MG Tab PO PRN (01:05)
[2020-11-26] MEDS: MUCOMYST 10% INH SCH ×4 (02:00→21:01)
[2020-11-26] MEDS: Morphine Oral Concentrate 20 MG/ML 30 ML Bottle SL PRN (03:51)
[2020-11-26] MEDS: Enoxaparin 40 MG/0.4 ML Syringe SUBCUT SCH ×2 (09:16→20:50)
[2020-11-26] MEDS: Omeprazole 20 MG Cap.CR PO SCH (09:16)
[2020-11-26] MEDS: LORazepam 1 MG Tab PO SCH ×4 (09:17→20:47)
[2020-11-26] MEDS: Bumetanide 2 MG Tab PO SCH ×2 (09:17→13:16)
[2020-11-26] MEDS: Cetirizine 10 MG Tab PO SCH (09:18)
[2020-11-26] MEDS: Potassium Chloride 20 MEQ Tab.ER PO SCH ×2 (09:18→20:49)
[2020-11-26] MEDS: predniSONE 20 MG Tab PO SCH (09:18)
[2020-11-26] MEDS: Spironolactone 25 MG Tab PO SCH (09:18)
[2020-11-26] MEDS: Acetaminophen/HYDROcodone 325-10 MG Tab PO SCH ×3 (09:19→20:46)
[2020-11-26] MEDS: Magnesium Oxide 400 MG Tab PO SCH ×2 (09:19→20:49)
[2020-11-26] MEDS: Polyethylene Glycol 3350 Powder 17 GM Packet PO SCH (09:19)
[2020-11-26] MEDS: Tiotropium Inhaler 18 MCG Inhalation Powder Cap Kit of 5 INH SCH (09:21)
[2020-11-26] MEDS: Theophylline 300 MG Tab.ER PO SCH (09:23)
[2020-11-26] MEDS: Budesonide 0.5 MG/2 ML Neb Susp NEB SCH ×2 (09:23→20:49)
[2020-11-26] MEDS: PERFOROMIST 20 MCG/2 ML INH SCH ×2 (09:39→20:15)
--- NOTE | 2020-11-26 17:16 | PN ---
DATE OF VISIT: 11/26/2020 SUBJECTIVE: The patient has had some improvement in the last 24 hours. Nursing staff today reports that he is more alert and he was able to go off his Trilogy machine at one point for 2 hours using a nasal cannula with 10 L and his O2 sats remained around 90%. OBJECTIVE: VITAL SIGNS: His vital signs have been good. Today, his temperature is 97.7, pulse 92, blood pressure 108/67, respirations 22, O2 sats are 92% currently on the Trilogy machine. GENERAL: The patient states he is feeling good today and he looks more alert. LUNGS: Today reveals he still has scattered rhonchi; today there is more on the right side with minimal involvement on the left. SKIN: Otherwise warm and dry. NEUROLOGIC: The patient is watching TV and definitely appears to be more alert and active today. He is more talkative as well. He is wondering when he can go home. I advised the patient that he is improving and arrangements will be made when the time comes, but he is definitely showing signs of improvement, which is great. CRS/MODL /[id number]
[2020-11-26] MEDS: Levofloxacin 500 MG Tab PO SCH (17:57)
[2020-11-26] MEDS: Docusate Sodium 250 MG Cap PO SCH (20:49)
[2020-11-26] MEDS: diphenhydrAMINE 50 MG Cap PO PRN (20:49)
[2020-11-26] MEDS: Montelukast 10 MG Tab PO SCH (20:49)
[2020-11-27] MEDS: Albuterol/Ipratropium 3.0-0.5 MG/3 ML Neb Soln NEB SCH ×4 (00:16→17:31)
[2020-11-27] MEDS: Albuterol 0.083% 2.5 MG/3 ML Neb Soln NEB SCH ×8 (00:27→21:14)
[2020-11-27] MEDS: MUCOMYST 10% INH SCH ×4 (03:23→19:48)
[2020-11-27] MEDS: Enoxaparin 40 MG/0.4 ML Syringe SUBCUT SCH ×2 (08:26→19:31)
[2020-11-27] MEDS: Polyethylene Glycol 3350 Powder 17 GM Packet PO SCH (08:26)
[2020-11-27] MEDS: Budesonide 0.5 MG/2 ML Neb Susp NEB SCH ×2 (08:27→19:43)
[2020-11-27] MEDS: Tiotropium Inhaler 18 MCG Inhalation Powder Cap Kit of 5 INH SCH (08:29)
[2020-11-27] MEDS: Magnesium Oxide 400 MG Tab PO SCH ×2 (08:29→19:33)
[2020-11-27] MEDS: predniSONE 20 MG Tab PO SCH (08:29)
[2020-11-27] MEDS: Potassium Chloride 20 MEQ Tab.ER PO SCH ×2 (08:29→19:33)
[2020-11-27] MEDS: Bumetanide 2 MG Tab PO SCH ×2 (08:29→12:23)
[2020-11-27] MEDS: Omeprazole 20 MG Cap.CR PO SCH (08:29)
[2020-11-27] MEDS: LORazepam 1 MG Tab PO SCH ×4 (08:29→19:36)
[2020-11-27] MEDS: Spironolactone 25 MG Tab PO SCH (08:29)
[2020-11-27] MEDS: Acetaminophen/HYDROcodone 325-10 MG Tab PO SCH ×3 (08:30→19:33)
[2020-11-27] MEDS: Theophylline 300 MG Tab.ER PO SCH (08:30)
[2020-11-27] MEDS: Cetirizine 10 MG Tab PO SCH (08:30)
[2020-11-27] MEDS: PERFOROMIST 20 MCG/2 ML INH SCH ×2 (08:31→19:55)
--- NOTE | 2020-11-27 13:54 | PN ---
DATE OF VISIT: 11/27/2020 SUBJECTIVE: This 60-year-old male has been here for I believe about 12 days ago as a COVID patient with severe underlying COPD and CHF. The patient's condition in the last couple of days has definitely been improving. He is much more alert now and talkative. He still needs to have oxygen on at 10-12 L to maintain a saturation level around 90%. He has been using his Trilogy machine the majority of the time, at times has been going without it, but then his sats usually will drop. The patient is feeling much better and is again wondering when he can go home. OBJECTIVE: VITAL SIGNS: The vital signs today remained good. Temperature is 98.3, pulse 81, blood pressure 106/74, respirations 20, O2 sats are currently 90% at 12 L of oxygen. LUNGS: Lung sounds today reveal again scattered rhonchi. This has been the case most of the time that I have seen him over the last 9 days. The patient is more talkative and appears much more alert the last 2 days, and I feel it is time to evaluate this patient's chance of going home. I would like a PT evaluation if we can make arrangements that his oxygen supplier could provide high enough flow of oxygen at home similar to what he is getting here. He could be covered on that base. We are using his Trilogy machine that was brought in from home, but also his currently is a COVID patient at home and we need to see how she is doing because she has been involved with his care as well, so we will make these evaluations and see where that takes us. I believe the patient is getting close to his baseline other than the oxygen level needed to maintain his O2 sats. CRS/MODL /[id number]
[2020-11-27] MEDS: Levofloxacin 500 MG Tab PO SCH (17:30)
[2020-11-27] MEDS: LORazepam 1 MG Tab PO PRN (19:32)
[2020-11-27] MEDS: Montelukast 10 MG Tab PO SCH (19:32)
[2020-11-27] MEDS: Docusate Sodium 250 MG Cap PO SCH (19:32)
[2020-11-28] MEDS: Albuterol/Ipratropium 3.0-0.5 MG/3 ML Neb Soln NEB SCH ×4 (00:30→18:23)
[2020-11-28] MEDS: Albuterol 0.083% 2.5 MG/3 ML Neb Soln NEB SCH ×8 (00:31→21:01)
[2020-11-28] MEDS: MUCOMYST 10% INH SCH ×4 (01:49→19:31)
[2020-11-28] MEDS: Theophylline 300 MG Tab.ER PO SCH (08:56)
[2020-11-28] MEDS: Budesonide 0.5 MG/2 ML Neb Susp NEB SCH ×2 (08:56→19:31)
[2020-11-28] MEDS: Enoxaparin 40 MG/0.4 ML Syringe SUBCUT SCH ×2 (08:57→19:27)
[2020-11-28] MEDS: Omeprazole 20 MG Cap.CR PO SCH (08:57)
[2020-11-28] MEDS: Bumetanide 2 MG Tab PO SCH ×2 (08:58→12:00)
[2020-11-28] MEDS: Acetaminophen/HYDROcodone 325-10 MG Tab PO SCH ×3 (08:58→19:29)
[2020-11-28] MEDS: Tiotropium Inhaler 18 MCG Inhalation Powder Cap Kit of 5 INH SCH (08:59)
[2020-11-28] MEDS: Spironolactone 25 MG Tab PO SCH (08:59)
[2020-11-28] MEDS: LORazepam 1 MG Tab PO SCH ×4 (08:59→19:28)
[2020-11-28] MEDS: Cetirizine 10 MG Tab PO SCH (09:00)
[2020-11-28] MEDS: Potassium Chloride 20 MEQ Tab.ER PO SCH ×2 (09:00→19:29)
[2020-11-28] MEDS: Polyethylene Glycol 3350 Powder 17 GM Packet PO SCH (09:00)
[2020-11-28] MEDS: predniSONE 20 MG Tab PO SCH (09:00)
[2020-11-28] MEDS: Magnesium Oxide 400 MG Tab PO SCH ×2 (09:00→19:28)
[2020-11-28] MEDS: PERFOROMIST 20 MCG/2 ML INH SCH ×2 (09:00→19:31)
--- NOTE | 2020-11-28 10:24 | PCM.PN ---
- General Info Date of Service: 11/28/20 Admission Dx/Problem (Free Text): Admission Diagnosis/Problem Admission Diagnosis/Problem Pneumonia Subjective Update: reports slight improvement in breathing today compared to yesterday, no back to baseline yet. Reports nebs has been helping. O2 remained between 88-94% on 5 lit NC. no fever or chills. Tolerating PO Functional Status: Reports: Incentive Spirometry - Review of Systems General: Reports: Fatigue HEENT: Reports: No Symptoms Pulmonary: Reports: Shortness of Breath Cardiovascular: Reports: Dyspnea on Exertion Gastrointestinal: Reports: No Symptoms Genitourinary: Reports: No Symptoms Musculoskeletal: Reports: No Symptoms Neurological: Reports: No Symptoms Psychiatric: Reports: Anxiety - Patient Data Vitals - Most Recent: Last Vital Signs Temp 36.6 C 11/28/20 03:23 Pulse 95 11/28/20 03:23 Resp 20 11/28/20 03:23 BP 105/78 11/28/20 03:23 Pulse Ox 89 L 11/28/20 03:23 Weight - Most Recent: 86.183 kg I&O - Last 24 Hours: Intake & Output 11/27/20 11/28/20 11/28/20 22:59 06:59 14:59 Intake Total 400 500 Output Total 350 Balance 400 150 Lab Results Last 24 Hours: Laboratory Results - last 24 hr 11/27/20 Range/Units 17:00 Theophylline 7 L D (10-20) ug/mL Med Orders - Current: Current Medications Hydrocodone Bitart/Acetaminophen (Acetaminophen/Hydrocodone 325-10 Mg Tab) 1 tab PO TID [facility] Last Admin: 11/28/20 08:58 Dose: 1 tab Documented by: Albuterol (Albuterol 8 Gm Inhaler) 0 gm INH QID PRN PRN Reason: Shortness of Breath Last Admin: 11/19/20 01:24 Dose: 2 puff Documented by: Albuterol (Albuterol 0.083% 2.5 Mg/3 Ml Neb Soln) 2.5 mg NEB Q3H [facility] Last Admin: 11/28/20 08:55 Dose: 2.5 mg Documented by: Albuterol/Ipratropium (Albuterol/Ipratropium 3.0-0.5 Mg/3 Ml Neb Soln) 3 ml NEB Q6H [facility] Last Admin: 11/28/20 06:12 Dose: 3 ml Documented by: Budesonide (Budesonide 0.5 Mg/2 Ml Neb Susp) 0.5 mg NEB BID [facility] Last Admin: 11/28/20 08:56 Dose: 0.5 mg Documented by: Bumetanide (Bumetanide 2 Mg Tab) 2 mg PO ACLUNCH [facility] Last Admin: 11/27/20 12:23 Dose: 2 mg Documented by: Bumetanide (Bumetanide 2 Mg Tab) 3 mg PO DAILY@0800 [facility] Last Admin: 11/28/20 08:58 Dose: 3 mg Documented by: Calamine/Phenol (Menthol/Zinc Oxide Ointment 113 Gm Tube) 1 gm TOP QID PRN PRN Reason: Rash Last Admin: 11/17/20 09:35 Dose: 1 applic Documented by: Cetirizine HCl (Cetirizine 10 Mg Tab) 10 mg PO DAILY [facility] Last Admin: 11/28/20 09:00 Dose: 10 mg Documented by: Diphenhydramine HCl (Diphenhydramine 50 Mg Cap) 50 mg PO BID PRN PRN Reason: burning eyes Last Admin: 11/26/20 20:49 Dose: 50 mg Documented by: Docusate Sodium (Docusate Sodium 250 Mg Cap) 250 mg PO BEDTIME [facility] Last Admin: 11/27/20 19:32 Dose: 250 mg Documented by: Enoxaparin Sodium (Enoxaparin 40 Mg/0.4 Ml Syringe) 40 mg SUBCUT Q12H [facility] Last Admin: 11/28/20 08:57 Dose: 40 mg Documented by: Levofloxacin (Levofloxacin 500 Mg Tab) 500 mg PO Q24H [facility] Last Admin: 11/27/20 17:30 Dose: 500 mg Documented by: Lorazepam (Lorazepam 1 Mg Tab) 1 mg PO QID [facility] Last Admin: 11/28/20 08:59 Dose: 1 mg Documented by: Lorazepam (Lorazepam 1 Mg Tab) 1 mg PO Q6H PRN PRN Reason: Anxiety Last Admin: 11/26/20 01:05 Dose: 1 mg Documented by: Magnesium Oxide (Magnesium Oxide 400 Mg Tab) 400 mg PO BID [facility] Last Admin: 11/28/20 09:00 Dose: 400 mg Documented by: Montelukast Sodium (Montelukast 10 Mg Tab) 10 mg PO BEDTIME [facility] Last Admin: 11/27/20 19:32 Dose: 10 mg Documented by: Morphine Sulfate (Morphine Oral Concentrate 20 Mg/Ml 30 Ml Bottle) 5 mg SL Q4H PRN PRN Reason: Pain Last Admin: 11/26/20 03:51 Dose: 5 mg Documented by: Clotrimazole Luis Fernando 1 each PO SEECOMMENT PRN PRN Reason: Other Last Admin: 11/20/20 11:00 Dose: 1 each Documented by: Omeprazole (Omeprazole 20 Mg Cap.Cr) 40 mg PO DAILY [facility] Last Admin: 11/28/20 08:57 Dose: 40 mg Documented by: Ondansetron HCl (Ondansetron 4 Mg Tab.Dis) 4 mg PO Q6H PRN PRN Reason: NAUSEA Last Admin: 11/19/20 08:31 Dose: 4 mg Documented by: Perforomist 20mcg/ (2ml Nebs) 0 each INH BID [facility] Last Admin: 11/28/20 09:00 Dose: 1 each Documented by: Mucomyst 10% Soln (Neb) 1 each INH Q6H [facility] Last Admin: 11/28/20 08:55 Dose: 1 each Documented by: Polyethylene Glycol (Polyethylene Glycol 3350 Powder 17 Gm Packet) 17 gm PO DAILY [facility] Last Admin: 11/28/20 09:00 Dose: Not Given Documented by: Potassium Chloride (Potassium Chloride 20 Meq Tab.Er) 20 meq PO BID [facility] Last Admin: 11/28/20 09:00 Dose: 20 meq Documented by: Prednisone (Prednisone 20 Mg Tab) 20 mg PO DAILY [facility] Last Admin: 11/28/20 09:00 Dose: 20 mg Documented by: Senna/Docusate Sodium (Docusate Sodium/Sennosides 50-8.6 Mg Tab) 1 tab PO ACLUNCH [facility] Last Admin: 11/27/20 12:23 Dose: 1 tab Documented by: Spironolactone (Spironolactone 25 Mg Tab) 25 mg PO QAM [facility] Last Admin: 11/28/20 08:59 Dose: 25 mg Documented by: Theophylline (Theophylline 300 Mg Tab.Er) 300 mg PO DAILY [facility] Last Admin: 11/28/20 08:56 Dose: 300 mg Documented by: Tiotropium [place] (Tiotropium Inhaler 18 Mcg Inhalation Powder Cap Kit Of 5) 18 mcg INH DAILY [facility] Last Admin: 11/28/20 08:59 Dose: 1 puff Documented by: Discontinued Medications Hydrocodone Bitart/Acetaminophen (Acetaminophen/Hydrocodone 325-10 Mg Tab) Confirm Administered Dose 1 tab .ROUTE .STK-MED ONE Stop: 11/16/20 20:01 Last Admin: 11/16/20 20:18 Dose: Not Given Documented by: Acetylcysteine (Acetylcysteine 20% 200 Mg/Ml 30 Ml Nebulizer Soln Sdv) 100 mg INH Q6H [facility] Last Admin: 11/15/20 23:30 Dose: 100 mg Documented by: Albuterol (Albuterol 0.083% 2.5 Mg/3 Ml Neb Soln) 2.5 mg NEB Q6H [facility] Albuterol (Albuterol 0.083% 2.5 Mg/3 Ml Neb Soln) Confirm Administered Dose 2.5 mg .ROUTE .STK-MED ONE Stop: 11/25/20 16:13 Last Admin: 11/25/20 16:35 Dose: Not Given Documented by: Albuterol/Ipratropium (Albuterol/Ipratropium 3.0-0.5 Mg/3 Ml Neb Soln) 3 ml NEB Q2H PRN PRN Reason: Dyspnea Last Admin: 11/17/20 06:10 Dose: 3 ml Documented by: Albuterol/Ipratropium (Albuterol/Ipratropium 3.0-0.5 Mg/3 Ml Neb Soln) 6 ml NEB ASDIRECTED ONE Stop: 11/17/20 20:01 Last Admin: 11/17/20 21:02 Dose: 6 ml Documented by: Azithromycin (Azithromycin 250 Mg Tab) 500 mg PO DAILY [facility] Stop: 11/24/20 16:31 Last Admin: 11/19/20 08:28 Dose: 500 mg Documented by: Bumetanide (Bumetanide 2 Mg Tab) 3 mg PO WITHBREAKFAST [facility] Last Admin: 11/18/20 06:42 Dose: 3 mg Documented by: Bumetanide (Bumetanide 1 Mg Tab) 3 mg PO ONETIME ONE Stop: 11/17/20 21:20 Last Admin: 11/17/20 22:11 Dose: 3 mg Documented by: Bumetanide (Bumetanide 1 Mg Tab) Confirm Administered Dose 3 mg .ROUTE .STK-MED ONE Stop: 11/23/20 07:36 Last Admin: 11/23/20 07:37 Dose: 3 mg Documented by: Dexamethasone (Dexamethasone 4 Mg Tab) 6 mg PO DAILY [facility] Last Admin: 11/19/20 08:26 Dose: 6 mg Documented by: Furosemide (Furosemide 20 Mg Tab) Confirm Administered Dose 20 mg .ROUTE .STK- MED ONE Stop: 11/21/20 11:48 Last Admin: 11/21/20 19:11 Dose: Not Given Documented by: Furosemide (Furosemide 20 Mg Tab) 20 mg PO BIDDIURETIC [facility] Stop: 11/24/20 23:59 Last Admin: 11/24/20 17:29 Dose: 20 mg Documented by: Remdesivir 200 mg/ Sodium (Chloride) 250 mls @ 250 mls/hr IV ONETIME ONE Stop: 11/15/20 19:18 Last Admin: 11/15/20 20:04 Dose: 250 mls/hr Documented by: Remdesivir 100 mg/ Sodium (Chloride) 100 mls @ 100 mls/hr IV Q24H [facility] Stop: 11/19/20 16:59 Last Admin: 11/19/20 16:25 Dose: 100 mls/hr Documented by: Levofloxacin/Dextrose 500 mg/ (Levofloxacin/Dextrose) 200 mls @ 100 mls/hr IV Q24H [facility] Last Admin: 11/22/20 18:01 Dose: 100 mls/hr Documented by: Levofloxacin/Dextrose (Levaquin In D5w 500 Mg/100 Ml) Confirm Administered Dose 100 mls @ as directed IV .STK-MED ONE Stop: 11/19/20 19:26 Last Admin: 11/20/20 02:33 Dose: Not Given Documented by: Lorazepam (Lorazepam 1 Mg Tab) 1 mg PO ONETIME ONE Stop: 11/18/20 03:46 Last Admin: 11/18/20 03:45 Dose: 1 mg Documented by: Lorazepam (Lorazepam 2 Mg/Ml Sdv) 0.5 mg IVPUSH Q6H PRN PRN Reason: Agitation Last Admin: 11/19/20 04:13 Dose: 0.5 mg Documented by: Lorazepam (Lorazepam 2 Mg/Ml Sdv) 1 mg IVPUSH Q6H PRN PRN Reason: Agitation Last Admin: 11/23/20 10:25 Dose: 1 mg Documented by: Lorazepam (Lorazepam 2 Mg/Ml Sdv) Confirm Administered Dose 2 mg .ROUTE .STK-MED ONE Stop: 11/20/20 06:26 Last Admin: 11/20/20 06:35 Dose: Not Given Documented by: Lorazepam (Lorazepam 2 Mg/Ml Sdv) 1 mg IVPUSH Q6H PRN PRN Reason: Anxiety Stop: 11/24/20 19:00 Lorazepam (Lorazepam 1 Mg Tab) Confirm Administered Dose 1 mg .ROUTE .STK-MED ONE Stop: 11/25/20 04:15 Last Admin: 11/25/20 04:18 Dose: Not Given Documented by: Methylprednisolone (Methylprednisolone 4 Mg Tab) 40 mg PO Q12H [facility] Methylprednisolone Sodium Succinate (Methylprednisolone Sodium Succinate 40 Mg/1 Ml Sdv) 40 mg IVPUSH Q12H [facility] Last Admin: 11/23/20 06:02 Dose: 40 mg Documented by: Methylprednisolone Sodium Succinate (Methylprednisolone Sodium Succinate 40 Mg/1 Ml Sdv) Confirm Administered Dose 40 mg .ROUTE .STK-MED ONE Stop: 11/23/20 17:56 Last Admin: 11/23/20 17:57 Dose: Not Given Documented by: Morphine Sulfate (Morphine Oral Concentrate 20 Mg/Ml 30 Ml Bottle) Confirm Administered Dose 600 mg .ROUTE .STK-MED ONE Stop: 11/18/20 08:13 Last Admin: 11/18/20 09:22 Dose: Not Given Documented by: Theophylline 600mg (Er Tablet) 0.5 each PO TID [facility] Last Admin: 11/25/20 21:55 Dose: Not Given Documented by: Mucomyst 10% Soln (Neb) 0 each INH Q6H [facility] Last Admin: 11/18/20 09:24 Dose: Not Given Documented by: Potassium Chloride (Potassium Chloride 20 Meq Tab.Er) 20 meq PO DAILY [facility] Last Admin: 11/17/20 09:24 Dose: 20 meq Documented by: Prednisone (Prednisone 10 Mg Tab) 10 mg PO DAILY [facility] Last Admin: 11/23/20 07:37 Dose: 10 mg Documented by: Prednisone (Prednisone 10 Mg Tab) Confirm Administered Dose 10 mg .ROUTE .STK- MED ONE Stop: 11/23/20 18:26 Last Admin: 11/23/20 21:20 Dose: Not Given Documented by: Sodium Chloride (Sodium Chloride 0.9% 10 Ml Syringe) 10 ml FLUSH BID [facility] Last Admin: 11/23/20 09:19 Dose: 10 ml Documented by: Theophylline (Theophylline 300 Mg Cap.Er) 300 mg PO TID [facility] Last Admin: 11/16/20 12:39 Dose: 300 mg Documented by: Theophylline (Theophylline 300 Mg Tab.Er) 150 mg PO TID [facility] Stop: 11/26/20 01:00 Last Admin: 11/25/20 22:00 Dose: 150 mg Documented by: - Exam Quality Assessment: Supplemental Oxygen, DVT Prophylaxis General: Alert, Oriented, Cooperative, Mild Distress HEENT: Pupils Equal, Pupils Reactive Lungs: Decreased Breath Sounds, Crackles (diffuse bilateral ) Cardiovascular: Tachycardia GI/Abdominal Exam: Normal Bowel Sounds, Soft, Non-Tender Back Exam: Normal Inspection, Full Range of Motion Extremities: Normal Inspection, Normal Range of Motion, No Pedal Edema Skin: Warm Neurological: No New Focal Deficit Psy/Mental Status: Alert, Normal Affect - Patient Data Lab Results Last 24 hrs: Laboratory Results - last 24 hr 11/27/20 Range/Units 17:00 Theophylline 7 L D (10-20) ug/mL Result Diagrams: 11/20/20 12:14 11/22/20 10:20 Sepsis Event Note - Evaluation Sepsis Screening Result: No Definite Risk - Focused Exam Vital Signs: Vital Signs Temp Pulse Pulse Resp BP Pulse Ox 11/28/20 03:23 36.6 C 95 20 105/78 89 L 11/28/20 02:50 70 117/67 95 11/28/20 00:00 36.1 C 85 24 H 113/70 87 L - Problem List & Annotations (1) COPD exacerbation SNOMED Code(s): 676026220, 951112308 Code(s): J44.1 - CHRONIC OBSTRUCTIVE PULMONARY DISEASE W (ACUTE) EXACERBATION Status: Chronic Priority: Medium Current Visit: Yes Annotation/Comment:: 07/29/15 - Chronich obstructive pulmonary disease exacerbatoin wtih bronchitis 04/30/15 - into ER. (2) Pneumonia due to COVID-19 virus SNOMED Code(s): 397197705122667690 Code(s): U07.1 - COVID-19; J12.82 - PNEUMONIA DUE TO CORONAVIRUS DISEASE 2019 Status: Acute Priority: Medium Current Visit: Yes (3) Respiratory failure with hypoxia SNOMED Code(s): 72053839668742208 Code(s): J96.91 - RESPIRATORY FAILURE, UNSPECIFIED WITH HYPOXIA Status: Acute Priority: Medium Current Visit: Yes Qualifiers: Chronicity: acute on chronic Qualified Code(s): J96.21 - Acute and chronic respiratory failure with hypoxia (4) Oxygen dependent SNOMED Code(s): 273235912807 Code(s): Z99.81 - DEPENDENCE ON SUPPLEMENTAL OXYGEN Status: Acute Priority: Low Current Visit: Yes - Problem List Review Problem List Initiated/Reviewed/Updated: Yes - My Orders Last 24 Hours: My Active Orders 11/28/20 09:18 BASIC METABOLIC PANEL,BMP [CHEM] Routine CBC W/O DIFF,HEMOGRAM [HEME] Routine MAGNESIUM [CHEM] Routine 11/28/20 09:19 B-TYPE NATRIURETIC PEPTIDE,BNP [CHEM] Routine - Plan Plan:: Assessment and Plan: - 60 yo M with chronic resp failure presented 11/15 with worsening resp failure, dx with COVID 19 - Completed a course of Remdesivir and dexamethasone. - COVID pneumonia Finished a course of Remdesivir IV. On quarantine till Dec 05. - Concern for secondary bacterial pneumonia Continue Levaquin started 11/19 for pseudomonas coverage. - Acute on chronic hypoxia 2/2 respiratory failure He is on chronic O2 use at home 3-4 lit by NC, currently, requiring 10 lit by high flow NC and his home Trilogy BiPAP machine. - Acute on chronic COPD exacerbation. Currently on DuoNeb q6hr, Pulmicort, Albuterol, and his home medications Theophylline and Spiriva. - Chronic prednisone use On prednisone 20mg PO daily. - h/o CHF - no e/o fluid overload or LEs edema Currently on home dose of Bumex 3mg and 2 mg PO. Also, Spironolactone daily - Hypomagnesemia On Mg replacement PO. - High risk of DVT; On Lovenox 40mg BID - h/o Anxiety On Ativan 1mg q6hr PRN Patient is DNR/DNI, and he and his decline option of transfer. Patient will still in quarantine till Dec 05 due to immunocompromised state, Also will need to be weaned off his O2 slowly as tolerating, but this seems to be challenging as his continue to drop to mid 70's whenever he removes his O2 for few seconds.
[2020-11-28] MEDS: Levofloxacin 500 MG Tab PO SCH (18:21)
[2020-11-28] MEDS: Docusate Sodium 250 MG Cap PO SCH (19:28)
[2020-11-28] MEDS: Montelukast 10 MG Tab PO SCH (19:28)
[2020-11-29] MEDS: Albuterol 0.083% 2.5 MG/3 ML Neb Soln NEB SCH ×8 (00:11→21:28)
[2020-11-29] MEDS: Albuterol/Ipratropium 3.0-0.5 MG/3 ML Neb Soln NEB SCH ×4 (00:11→17:34)
[2020-11-29] MEDS: MUCOMYST 10% INH SCH ×4 (01:51→19:29)
[2020-11-29] MEDS: LORazepam 1 MG Tab PO PRN (05:00)
[2020-11-29] MEDS: Morphine Oral Concentrate 20 MG/ML 30 ML Bottle SL PRN ×2 (05:45→20:50)
[2020-11-29] MEDS: Enoxaparin 40 MG/0.4 ML Syringe SUBCUT SCH ×2 (08:38→19:27)
[2020-11-29] MEDS: Theophylline 300 MG Tab.ER PO SCH (08:39)
[2020-11-29] MEDS: Omeprazole 20 MG Cap.CR PO SCH (08:39)
[2020-11-29] MEDS: Spironolactone 25 MG Tab PO SCH (08:39)
[2020-11-29] MEDS: Potassium Chloride 20 MEQ Tab.ER PO SCH ×2 (08:39→19:28)
[2020-11-29] MEDS: Cetirizine 10 MG Tab PO SCH (08:39)
[2020-11-29] MEDS: PERFOROMIST 20 MCG/2 ML INH SCH ×2 (08:40→19:29)
[2020-11-29] MEDS: Magnesium Oxide 400 MG Tab PO SCH ×2 (08:43→19:28)
[2020-11-29] MEDS: Bumetanide 2 MG Tab PO SCH ×2 (08:43→12:10)
[2020-11-29] MEDS: Acetaminophen/HYDROcodone 325-10 MG Tab PO SCH ×3 (08:43→19:27)
[2020-11-29] MEDS: predniSONE 20 MG Tab PO SCH (08:43)
[2020-11-29] MEDS: Polyethylene Glycol 3350 Powder 17 GM Packet PO SCH (08:44)
[2020-11-29] MEDS: LORazepam 1 MG Tab PO SCH ×4 (08:44→19:28)
[2020-11-29] MEDS: Budesonide 0.5 MG/2 ML Neb Susp NEB SCH ×2 (08:44→19:30)
[2020-11-29] MEDS: Tiotropium Inhaler 18 MCG Inhalation Powder Cap Kit of 5 INH SCH (08:44)
--- NOTE | 2020-11-29 14:17 | PCM.PN ---
- General Info Date of Service: 11/29/20 Admission Dx/Problem (Free Text): Admission Diagnosis/Problem Admission Diagnosis/Problem Pneumonia Subjective Update: reports slight improvement in breathing today compared to yesterday, no back to baseline yet. Reports nebs has been helping. O2 remained between 88-94% on 5 lit NC. no fever or chills. Tolerating PO Functional Status: Reports: Tolerating Diet, Urinating, New Symptoms, Incentive Spirometry - Review of Systems General: Denies: Fever, Malaise, Chills HEENT: Reports: No Symptoms Pulmonary: Reports: Shortness of Breath Cardiovascular: Reports: Dyspnea on Exertion Gastrointestinal: Reports: No Symptoms Musculoskeletal: Reports: No Symptoms Skin: Reports: No Symptoms Neurological: Reports: No Symptoms Psychiatric: Reports: No Symptoms - Patient Data Vitals - Most Recent: Last Vital Signs Temp 36.8 C 11/29/20 12:00 Pulse 98 11/29/20 12:00 Resp 20 11/29/20 12:00 BP 124/73 11/29/20 12:00 Pulse Ox 90 L 11/29/20 12:00 Weight - Most Recent: 73.119 kg I&O - Last 24 Hours: Intake & Output 11/28/20 11/29/20 11/29/20 22:59 06:59 14:59 Intake Total 100 Output Total 300 Balance -300 100 Med Orders - Current: Current Medications Hydrocodone Bitart/Acetaminophen (Acetaminophen/Hydrocodone 325-10 Mg Tab) 1 tab PO TID [facility] Last Admin: 11/29/20 08:43 Dose: 1 tab Documented by: Albuterol (Albuterol 8 Gm Inhaler) 0 gm INH QID PRN PRN Reason: Shortness of Breath Last Admin: 11/19/20 01:24 Dose: 2 puff Documented by: Albuterol (Albuterol 0.083% 2.5 Mg/3 Ml Neb Soln) 2.5 mg NEB Q3H [facility] Last Admin: 11/29/20 12:09 Dose: 2.5 mg Documented by: Albuterol/Ipratropium (Albuterol/Ipratropium 3.0-0.5 Mg/3 Ml Neb Soln) 3 ml NEB Q6H [facility] Last Admin: 11/29/20 12:09 Dose: 3 ml Documented by: Budesonide (Budesonide 0.5 Mg/2 Ml Neb Susp) 0.5 mg NEB BID [facility] Last Admin: 11/29/20 08:44 Dose: 0.5 mg Documented by: Bumetanide (Bumetanide 2 Mg Tab) 2 mg PO ACLUNCH [facility] Last Admin: 11/29/20 12:10 Dose: 2 mg Documented by: Bumetanide (Bumetanide 2 Mg Tab) 3 mg PO DAILY@0800 [facility] Last Admin: 11/29/20 08:43 Dose: 3 mg Documented by: Calamine/Phenol (Menthol/Zinc Oxide Ointment 113 Gm Tube) 1 gm TOP QID PRN PRN Reason: Rash Last Admin: 11/17/20 09:35 Dose: 1 applic Documented by: Cetirizine HCl (Cetirizine 10 Mg Tab) 10 mg PO DAILY [facility] Last Admin: 11/29/20 08:39 Dose: 10 mg Documented by: Diphenhydramine HCl (Diphenhydramine 50 Mg Cap) 50 mg PO BID PRN PRN Reason: burning eyes Last Admin: 11/26/20 20:49 Dose: 50 mg Documented by: Docusate Sodium (Docusate Sodium 250 Mg Cap) 250 mg PO BEDTIME [facility] Last Admin: 11/28/20 19:28 Dose: 250 mg Documented by: Enoxaparin Sodium (Enoxaparin 40 Mg/0.4 Ml Syringe) 40 mg SUBCUT Q12H [facility] Last Admin: 11/29/20 08:38 Dose: 40 mg Documented by: Levofloxacin (Levofloxacin 500 Mg Tab) 500 mg PO Q24H [facility] Last Admin: 11/28/20 18:21 Dose: 500 mg Documented by: Lorazepam (Lorazepam 1 Mg Tab) 1 mg PO QID [facility] Last Admin: 11/29/20 12:10 Dose: 1 mg Documented by: Lorazepam (Lorazepam 1 Mg Tab) 1 mg PO Q6H PRN PRN Reason: Anxiety Last Admin: 11/29/20 05:00 Dose: 1 mg Documented by: Magnesium Oxide (Magnesium Oxide 400 Mg Tab) 400 mg PO BID [facility] Last Admin: 11/29/20 08:43 Dose: 400 mg Documented by: Montelukast Sodium (Montelukast 10 Mg Tab) 10 mg PO BEDTIME [facility] Last Admin: 11/28/20 19:28 Dose: 10 mg Documented by: Morphine Sulfate (Morphine Oral Concentrate 20 Mg/Ml 30 Ml Bottle) 5 mg SL Q4H PRN PRN Reason: Pain Last Admin: 11/29/20 05:45 Dose: 5 mg Documented by: Clotrimazole Luis Fernando 1 each PO SEECOMMENT PRN PRN Reason: Other Last Admin: 11/20/20 11:00 Dose: 1 each Documented by: Omeprazole (Omeprazole 20 Mg Cap.Cr) 40 mg PO DAILY [facility] Last Admin: 11/29/20 08:39 Dose: 40 mg Documented by: Ondansetron HCl (Ondansetron 4 Mg Tab.Dis) 4 mg PO Q6H PRN PRN Reason: NAUSEA Last Admin: 11/19/20 08:31 Dose: 4 mg Documented by: Perforomist 20mcg/ (2ml Nebs) 0 each INH BID [facility] Last Admin: 11/29/20 08:40 Dose: 1 each Documented by: Mucomyst 10% Soln (Neb) 1 each INH Q6H [facility] Last Admin: 11/29/20 08:44 Dose: 1 each Documented by: Polyethylene Glycol (Polyethylene Glycol 3350 Powder 17 Gm Packet) 17 gm PO DAILY [facility] Last Admin: 11/29/20 08:44 Dose: Not Given Documented by: Potassium Chloride (Potassium Chloride 20 Meq Tab.Er) 20 meq PO BID [facility] Last Admin: 11/29/20 08:39 Dose: 20 meq Documented by: Prednisone (Prednisone 20 Mg Tab) 20 mg PO DAILY [facility] Last Admin: 11/29/20 08:43 Dose: 20 mg Documented by: Senna/Docusate Sodium (Docusate Sodium/Sennosides 50-8.6 Mg Tab) 1 tab PO ACLUNCH [facility] Last Admin: 11/29/20 12:10 Dose: Not Given Documented by: Spironolactone (Spironolactone 25 Mg Tab) 25 mg PO QAM [facility] Last Admin: 11/29/20 08:39 Dose: 25 mg Documented by: Theophylline (Theophylline 300 Mg Tab.Er) 300 mg PO DAILY [facility] Last Admin: 11/29/20 08:39 Dose: 300 mg Documented by: Tiotropium Ace (Tiotropium Inhaler 18 Mcg Inhalation Powder Cap Kit Of 5) 18 mcg INH DAILY [facility] Last Admin: 11/29/20 08:44 Dose: 1 puff Documented by: Discontinued Medications Hydrocodone Bitart/Acetaminophen (Acetaminophen/Hydrocodone 325-10 Mg Tab) Confirm Administered Dose 1 tab .ROUTE .STK-MED ONE Stop: 11/16/20 20:01 Last Admin: 11/16/20 20:18 Dose: Not Given Documented by: Acetylcysteine (Acetylcysteine 20% 200 Mg/Ml 30 Ml Nebulizer Soln Sdv) 100 mg INH Q6H [facility] Last Admin: 11/15/20 23:30 Dose: 100 mg Documented by: Albuterol (Albuterol 0.083% 2.5 Mg/3 Ml Neb Soln) 2.5 mg NEB Q6H [facility] Albuterol (Albuterol 0.083% 2.5 Mg/3 Ml Neb Soln) Confirm Administered Dose 2.5 mg .ROUTE .STK-MED ONE Stop: 11/25/20 16:13 Last Admin: 11/25/20 16:35 Dose: Not Given Documented by: Albuterol/Ipratropium (Albuterol/Ipratropium 3.0-0.5 Mg/3 Ml Neb Soln) 3 ml NEB Q2H PRN PRN Reason: Dyspnea Last Admin: 11/17/20 06:10 Dose: 3 ml Documented by: Albuterol/Ipratropium (Albuterol/Ipratropium 3.0-0.5 Mg/3 Ml Neb Soln) 6 ml NEB ASDIRECTED ONE Stop: 11/17/20 20:01 Last Admin: 11/17/20 21:02 Dose: 6 ml Documented by: Azithromycin (Azithromycin 250 Mg Tab) 500 mg PO DAILY [facility] Stop: 11/24/20 16:31 Last Admin: 11/19/20 08:28 Dose: 500 mg Documented by: Bumetanide (Bumetanide 2 Mg Tab) 3 mg PO WITHBREAKFAST [facility] Last Admin: 11/18/20 06:42 Dose: 3 mg Documented by: Bumetanide (Bumetanide 1 Mg Tab) 3 mg PO ONETIME ONE Stop: 11/17/20 21:20 Last Admin: 11/17/20 22:11 Dose: 3 mg Documented by: Bumetanide (Bumetanide 1 Mg Tab) Confirm Administered Dose 3 mg .ROUTE .STK-MED ONE Stop: 11/23/20 07:36 Last Admin: 11/23/20 07:37 Dose: 3 mg Documented by: Dexamethasone (Dexamethasone 4 Mg Tab) 6 mg PO DAILY [facility] Last Admin: 11/19/20 08:26 Dose: 6 mg Documented by: Furosemide (Furosemide 20 Mg Tab) Confirm Administered Dose 20 mg .ROUTE .STK- MED ONE Stop: 11/21/20 11:48 Last Admin: 11/21/20 19:11 Dose: Not Given Documented by: Furosemide (Furosemide 20 Mg Tab) 20 mg PO BIDDIURETIC [facility] Stop: 11/24/20 23:59 Last Admin: 11/24/20 17:29 Dose: 20 mg Documented by: Remdesivir 200 mg/ Sodium (Chloride) 250 mls @ 250 mls/hr IV ONETIME ONE Stop: 11/15/20 19:18 Last Admin: 11/15/20 20:04 Dose: 250 mls/hr Documented by: Remdesivir 100 mg/ Sodium (Chloride) 100 mls @ 100 mls/hr IV Q24H [facility] Stop: 11/19/20 16:59 Last Admin: 11/19/20 16:25 Dose: 100 mls/hr Documented by: Levofloxacin/Dextrose 500 mg/ (Levofloxacin/Dextrose) 200 mls @ 100 mls/hr IV Q 24H [facility] Last Admin: 11/22/20 18:01 Dose: 100 mls/hr Documented by: Levofloxacin/Dextrose (Levaquin In D5w 500 Mg/100 Ml) Confirm Administered Dose 100 mls @ as directed IV .STK-MED ONE Stop: 11/19/20 19:26 Last Admin: 11/20/20 02:33 Dose: Not Given Documented by: Lorazepam (Lorazepam 1 Mg Tab) 1 mg PO ONETIME ONE Stop: 11/18/20 03:46 Last Admin: 11/18/20 03:45 Dose: 1 mg Documented by: Lorazepam (Lorazepam 2 Mg/Ml Sdv) 0.5 mg IVPUSH Q6H PRN PRN Reason: Agitation Last Admin: 11/19/20 04:13 Dose: 0.5 mg Documented by: Lorazepam (Lorazepam 2 Mg/Ml Sdv) 1 mg IVPUSH Q6H PRN PRN Reason: Agitation Last Admin: 11/23/20 10:25 Dose: 1 mg Documented by: Lorazepam (Lorazepam 2 Mg/Ml Sdv) Confirm Administered Dose 2 mg .ROUTE .STK-MED ONE Stop: 11/20/20 06:26 Last Admin: 11/20/20 06:35 Dose: Not Given Documented by: Lorazepam (Lorazepam 2 Mg/Ml Sdv) 1 mg IVPUSH Q6H PRN PRN Reason: Anxiety Stop: 11/24/20 19:00 Lorazepam (Lorazepam 1 Mg Tab) Confirm Administered Dose 1 mg .ROUTE .STK-MED ONE Stop: 11/25/20 04:15 Last Admin: 11/25/20 04:18 Dose: Not Given Documented by: Methylprednisolone (Methylprednisolone 4 Mg Tab) 40 mg PO Q12H [facility] Methylprednisolone Sodium Succinate (Methylprednisolone Sodium Succinate 40 Mg/1 Ml Sdv) 40 mg IVPUSH Q12H [facility] Last Admin: 11/23/20 06:02 Dose: 40 mg Documented by: Methylprednisolone Sodium Succinate (Methylprednisolone Sodium Succinate 40 Mg/1 Ml Sdv) Confirm Administered Dose 40 mg .ROUTE .STK-MED ONE Stop: 11/23/20 17:56 Last Admin: 11/23/20 17:57 Dose: Not Given Documented by: Morphine Sulfate (Morphine Oral Concentrate 20 Mg/Ml 30 Ml Bottle) Confirm Administered Dose 600 mg .ROUTE .STK-MED ONE Stop: 11/18/20 08:13 Last Admin: 11/18/20 09:22 Dose: Not Given Documented by: Theophylline 600mg (Er Tablet) 0.5 each PO TID [facility] Last Admin: 11/25/20 21:55 Dose: Not Given Documented by: Mucomyst 10% Soln (Neb) 0 each INH Q6H [facility] Last Admin: 11/18/20 09:24 Dose: Not Given Documented by: Potassium Chloride (Potassium Chloride 20 Meq Tab.Er) 20 meq PO DAILY [facility] Last Admin: 11/17/20 09:24 Dose: 20 meq Documented by: Prednisone (Prednisone 10 Mg Tab) 10 mg PO DAILY [facility] Last Admin: 11/23/20 07:37 Dose: 10 mg Documented by: Prednisone (Prednisone 10 Mg Tab) Confirm Administered Dose 10 mg .ROUTE .STK- MED ONE Stop: 11/23/20 18:26 Last Admin: 11/23/20 21:20 Dose: Not Given Documented by: Sodium Chloride (Sodium Chloride 0.9% 10 Ml Syringe) 10 ml FLUSH BID [facility] Last Admin: 11/23/20 09:19 Dose: 10 ml Documented by: Theophylline (Theophylline 300 Mg Cap.Er) 300 mg PO TID [facility] Last Admin: 11/16/20 12:39 Dose: 300 mg Documented by: Theophylline (Theophylline 300 Mg Tab.Er) 150 mg PO TID [facility] Stop: 11/26/20 01:00 Last Admin: 11/25/20 22:00 Dose: 150 mg Documented by: - Exam Quality Assessment: Supplemental Oxygen, DVT Prophylaxis General: Alert, Oriented, Cooperative HEENT: Pupils Equal, Pupils Reactive Lungs: Decreased Breath Sounds, Rhonchi Cardiovascular: Regular Rate, Regular Rhythm GI/Abdominal Exam: Normal Bowel Sounds, Soft, Non-Tender Skin: Warm Neurological: No New Focal Deficit Psy/Mental Status: Alert, Normal Affect, Normal Mood - Patient Data Result Diagrams: 11/28/20 09:40 11/28/20 09:40 Sepsis Event Note - Evaluation Sepsis Screening Result: No Definite Risk - Focused Exam Vital Signs: Vital Signs Temp Pulse Pulse Resp BP Pulse Ox 11/29/20 12:00 36.8 C 98 20 124/73 90 L 11/29/20 08:00 37.0 C 52 L 20 119/68 96 11/29/20 04:00 89 85 11/29/20 03:28 36.6 C 104/64 - Problem List & Annotations (1) COPD exacerbation SNOMED Code(s): 578678192, 313476301 Code(s): J44.1 - CHRONIC OBSTRUCTIVE PULMONARY DISEASE W (ACUTE) EXACERBATION Status: Chronic Priority: Medium Current Visit: Yes Annotation/Comment:: 07/29/15 - Chronich obstructive pulmonary disease exacerbatoin wtih bronchitis 04/30/15 - into ER. (2) Pneumonia due to COVID-19 virus SNOMED Code(s): 977083539168011884 Code(s): U07.1 - COVID-19; J12.82 - PNEUMONIA DUE TO CORONAVIRUS DISEASE 2019 Status: Acute Priority: Medium Current Visit: Yes (3) Respiratory failure with hypoxia SNOMED Code(s): 75038756954757853 Code(s): J96.91 - RESPIRATORY FAILURE, UNSPECIFIED WITH HYPOXIA Status: Acute Priority: Medium Current Visit: Yes Qualifiers: Chronicity: acute on chronic Qualified Code(s): J96.21 - Acute and chronic respiratory failure with hypoxia (4) Oxygen dependent SNOMED Code(s): 711749348481 Code(s): Z99.81 - DEPENDENCE ON SUPPLEMENTAL OXYGEN Status: Acute Priority: Low Current Visit: Yes - Problem List Review Problem List Initiated/Reviewed/Updated: Yes - Plan Plan:: Assessment and Plan: - 60 yo M with chronic resp failure presented 11/15 with worsening resp failure, dx with COVID 19 - Completed a course of Remdesivir and dexamethasone. - COVID pneumonia Finished a 5 days course of Remdesivir IV. On quarantine till Dec 05. - Concern for secondary bacterial pneumonia Continue Levaquin started 11/19 for pseudomonas coverage. Last dose on 12/05 - Acute on chronic hypoxia 2/2 respiratory failure He is on chronic O2 use at home 3-4 lit by [place], currently, requiring 10 lit by high flow NC and his home Trilogy BiPAP machine. - Acute on chronic COPD exacerbation. Currently on DuoNeb q6hr, Pulmicort, Albuterol, and his home medications Theophylline and Spiriva. - Chronic prednisone use On prednisone 20mg PO daily. Resume for now and plan to gradually wean him off as tolerating. Baseline at home is 10mg daily - h/o CHF - no e/o fluid overload or LEs edema Currently on home dose of Bumex 3mg and 2 mg PO. Also, on Spironolactone daily - Hypomagnesemia On Mg replacement PO. - High risk of DVT; On Lovenox 40mg BID - h/o Anxiety On Ativan 1mg q6hr PRN Patient is DNR/DNI, and he and his decline option of transfer. Patient will still in quarantine till Dec 05 due to immunocompromised state, Also will need to be weaned off his O2 slowly as tolerating, but this seems to be challenging as his continue to drop to mid 70's whenever he removes his O2 for few seconds.
[2020-11-29] MEDS: Levofloxacin 500 MG Tab PO SCH (17:36)
[2020-11-29] MEDS: Docusate Sodium 250 MG Cap PO SCH (19:28)
[2020-11-29] MEDS: Montelukast 10 MG Tab PO SCH (19:30)
[2020-11-30] MEDS: MUCOMYST 10% INH SCH ×4 (04:24→20:30)
[2020-11-30] MEDS: Albuterol/Ipratropium 3.0-0.5 MG/3 ML Neb Soln NEB SCH ×4 (04:26→17:49)
[2020-11-30] MEDS: Albuterol 0.083% 2.5 MG/3 ML Neb Soln NEB SCH ×8 (04:27→21:00)
[2020-11-30] MEDS ORDERED: LORazepam 1 MG Tab ONE (04:28)
[2020-11-30] MEDS: Enoxaparin 40 MG/0.4 ML Syringe SUBCUT SCH ×2 (08:52→20:30)
[2020-11-30] MEDS: Budesonide 0.5 MG/2 ML Neb Susp NEB SCH ×2 (08:52→20:30)
[2020-11-30] MEDS: Tiotropium Inhaler 18 MCG Inhalation Powder Cap Kit of 5 INH SCH (08:53)
[2020-11-30] MEDS: PERFOROMIST 20 MCG/2 ML INH SCH ×2 (08:53→20:15)
[2020-11-30] MEDS: Magnesium Oxide 400 MG Tab PO SCH ×2 (08:54→20:20)
[2020-11-30] MEDS: LORazepam 1 MG Tab PO SCH ×4 (08:54→20:32)
[2020-11-30] MEDS: Omeprazole 20 MG Cap.CR PO SCH (08:54)
[2020-11-30] MEDS: Acetaminophen/HYDROcodone 325-10 MG Tab PO SCH ×3 (08:54→20:25)
[2020-11-30] MEDS: predniSONE 20 MG Tab PO SCH (08:54)
[2020-11-30] MEDS: Theophylline 300 MG Tab.ER PO SCH ×3 (08:55→20:31)
[2020-11-30] MEDS: Spironolactone 25 MG Tab PO SCH (08:55)
[2020-11-30] MEDS: Cetirizine 10 MG Tab PO SCH (08:55)
[2020-11-30] MEDS: Polyethylene Glycol 3350 Powder 17 GM Packet PO SCH (08:55)
[2020-11-30] MEDS: Bumetanide 2 MG Tab PO SCH ×2 (08:55→12:39)
[2020-11-30] MEDS: Potassium Chloride 20 MEQ Tab.ER PO SCH ×2 (08:55→20:26)
--- NOTE | 2020-11-30 09:46 | PCM.PN ---
- General Info Date of Service: 11/30/20 Admission Dx/Problem (Free Text): Admission Diagnosis/Problem Admission Diagnosis/Problem Pneumonia Subjective Update: reports slight improvement in breathing today compared to yesterday, no back to baseline yet. Reports nebs has been helping. O2 remained between 88-94% on 5 lit NC. no fever or chills. Tolerating PO Functional Status: Reports: New Symptoms, Incentive Spirometry - Review of Systems General: Reports: No Symptoms HEENT: Reports: No Symptoms Pulmonary: Reports: Shortness of Breath, Cough Cardiovascular: Reports: No Symptoms Gastrointestinal: Reports: No Symptoms Musculoskeletal: Reports: No Symptoms Neurological: Reports: No Symptoms - Patient Data Vitals - Most Recent: Last Vital Signs Temp 37.0 C 11/30/20 08:00 Pulse 81 11/30/20 08:00 Resp 20 11/30/20 08:00 BP 118/56 L 11/30/20 08:00 Pulse Ox 96 11/30/20 08:00 Weight - Most Recent: 73.119 kg I&O - Last 24 Hours: Intake & Output 11/29/20 11/30/20 11/30/20 22:59 06:59 14:59 Intake Total 600 200 Output Total 200 Balance 400 200 Med Orders - Current: Current Medications Hydrocodone Bitart/Acetaminophen (Acetaminophen/Hydrocodone 325-10 Mg Tab) 1 tab PO TID [facility] Last Admin: 11/30/20 08:54 Dose: 1 tab Documented by: Albuterol (Albuterol 8 Gm Inhaler) 0 gm INH QID PRN PRN Reason: Shortness of Breath Last Admin: 11/19/20 01:24 Dose: 2 puff Documented by: Albuterol (Albuterol 0.083% 2.5 Mg/3 Ml Neb Soln) 2.5 mg NEB Q3H ALEK Last Admin: 11/30/20 08:52 Dose: 2.5 mg Documented by: Albuterol/Ipratropium (Albuterol/Ipratropium 3.0-0.5 Mg/3 Ml Neb Soln) 3 ml NEB Q6H ALEK Last Admin: 11/30/20 08:52 Dose: 3 ml Documented by: Budesonide (Budesonide 0.5 Mg/2 Ml Neb Susp) 0.5 mg NEB BID [facility] Last Admin: 11/30/20 08:52 Dose: 0.5 mg Documented by: Bumetanide (Bumetanide 2 Mg Tab) 2 mg PO ACLUNCH [facility] Last Admin: 11/29/20 12:10 Dose: 2 mg Documented by: Bumetanide (Bumetanide 2 Mg Tab) 3 mg PO DAILY@0800 [facility] Last Admin: 11/30/20 08:55 Dose: 3 mg Documented by: Calamine/Phenol (Menthol/Zinc Oxide Ointment 113 Gm Tube) 1 gm TOP QID PRN PRN Reason: Rash Last Admin: 11/17/20 09:35 Dose: 1 applic Documented by: Cetirizine HCl (Cetirizine 10 Mg Tab) 10 mg PO DAILY [facility] Last Admin: 11/30/20 08:55 Dose: 10 mg Documented by: Diphenhydramine HCl (Diphenhydramine 50 Mg Cap) 50 mg PO BID PRN PRN Reason: burning eyes Last Admin: 11/26/20 20:49 Dose: 50 mg Documented by: Docusate Sodium (Docusate Sodium 250 Mg Cap) 250 mg PO BEDTIME [facility] Last Admin: 11/29/20 19:28 Dose: Not Given Documented by: Enoxaparin Sodium (Enoxaparin 40 Mg/0.4 Ml Syringe) 40 mg SUBCUT Q12H [facility] Last Admin: 11/30/20 08:52 Dose: 40 mg Documented by: Levofloxacin (Levofloxacin 500 Mg Tab) 500 mg PO Q24H [facility] Last Admin: 11/29/20 17:36 Dose: 500 mg Documented by: Lorazepam (Lorazepam 1 Mg Tab) 1 mg PO QID [facility] Last Admin: 11/30/20 08:54 Dose: 1 mg Documented by: Lorazepam (Lorazepam 1 Mg Tab) 1 mg PO Q6H PRN PRN Reason: Anxiety Last Admin: 11/29/20 05:00 Dose: 1 mg Documented by: Magnesium Oxide (Magnesium Oxide 400 Mg Tab) 400 mg PO BID [facility] Last Admin: 11/30/20 08:54 Dose: 400 mg Documented by: Montelukast Sodium (Montelukast 10 Mg Tab) 10 mg PO BEDTIME [facility] Last Admin: 11/29/20 19:30 Dose: 10 mg Documented by: Morphine Sulfate (Morphine Oral Concentrate 20 Mg/Ml 30 Ml Bottle) 5 mg SL Q4H PRN PRN Reason: Pain Last Admin: 11/29/20 20:50 Dose: 5 mg Documented by: Clotrimazole Luis Fernando 1 each PO SEECOMMENT PRN PRN Reason: Other Last Admin: 11/20/20 11:00 Dose: 1 each Documented by: Omeprazole (Omeprazole 20 Mg Cap.Cr) 40 mg PO DAILY [facility] Last Admin: 11/30/20 08:54 Dose: 40 mg Documented by: Ondansetron HCl (Ondansetron 4 Mg Tab.Dis) 4 mg PO Q6H PRN PRN Reason: NAUSEA Last Admin: 11/19/20 08:31 Dose: 4 mg Documented by: Perforomist 20mcg/ (2ml Nebs) 0 each INH BID [facility] Last Admin: 11/30/20 08:53 Dose: 1 each Documented by: Mucomyst 10% Soln (Neb) 1 each INH Q6H [facility] Last Admin: 11/30/20 08:53 Dose: 1 each Documented by: Polyethylene Glycol (Polyethylene Glycol 3350 Powder 17 Gm Packet) 17 gm PO DAILY [facility] Last Admin: 11/30/20 08:55 Dose: Not Given Documented by: Potassium Chloride (Potassium Chloride 20 Meq Tab.Er) 20 meq PO BID [facility] Last Admin: 11/30/20 08:55 Dose: 20 meq Documented by: Prednisone (Prednisone 20 Mg Tab) 20 mg PO DAILY [facility] Last Admin: 11/30/20 08:54 Dose: 20 mg Documented by: Senna/Docusate Sodium (Docusate Sodium/Sennosides 50-8.6 Mg Tab) 1 tab PO ACLUNCH [facility] Last Admin: 11/29/20 12:10 Dose: Not Given Documented by: Spironolactone (Spironolactone 25 Mg Tab) 25 mg PO QAM [facility] Last Admin: 11/30/20 08:55 Dose: 25 mg Documented by: Theophylline (Theophylline 300 Mg Tab.Er) 300 mg PO DAILY [facility] Last Admin: 11/30/20 08:55 Dose: 300 mg Documented by: Tiotropium Gay (Tiotropium Inhaler 18 Mcg Inhalation Powder Cap Kit Of 5) 18 mcg INH DAILY [facility] Last Admin: 11/30/20 08:53 Dose: 1 puff Documented by: Discontinued Medications Hydrocodone Bitart/Acetaminophen (Acetaminophen/Hydrocodone 325-10 Mg Tab) Conf irm Administered Dose 1 tab .ROUTE .STK-MED ONE Stop: 11/16/20 20:01 Last Admin: 11/16/20 20:18 Dose: Not Given Documented by: Acetylcysteine (Acetylcysteine 20% 200 Mg/Ml 30 Ml Nebulizer Soln Sdv) 100 mg INH Q6H [facility] Last Admin: 11/15/20 23:30 Dose: 100 mg Documented by: Albuterol (Albuterol 0.083% 2.5 Mg/3 Ml Neb Soln) 2.5 mg NEB Q6H ALEK Albuterol (Albuterol 0.083% 2.5 Mg/3 Ml Neb Soln) Confirm Administered Dose 2.5 mg .ROUTE .STK-MED ONE Stop: 11/25/20 16:13 Last Admin: 11/25/20 16:35 Dose: Not Given Documented by: Albuterol/Ipratropium (Albuterol/Ipratropium 3.0-0.5 Mg/3 Ml Neb Soln) 3 ml NEB Q2H PRN PRN Reason: Dyspnea Last Admin: 11/17/20 06:10 Dose: 3 ml Documented by: Albuterol/Ipratropium (Albuterol/Ipratropium 3.0-0.5 Mg/3 Ml Neb Soln) 6 ml NEB ASDIRECTED ONE Stop: 11/17/20 20:01 Last Admin: 11/17/20 21:02 Dose: 6 ml Documented by: Azithromycin (Azithromycin 250 Mg Tab) 500 mg PO DAILY [facility] Stop: 11/24/20 16:31 Last Admin: 11/19/20 08:28 Dose: 500 mg Documented by: Bumetanide (Bumetanide 2 Mg Tab) 3 mg PO WITHBREAKFAST [facility] Last Admin: 11/18/20 06:42 Dose: 3 mg Documented by: Bumetanide (Bumetanide 1 Mg Tab) 3 mg PO ONETIME ONE Stop: 11/17/20 21:20 Last Admin: 11/17/20 22:11 Dose: 3 mg Documented by: Bumetanide (Bumetanide 1 Mg Tab) Confirm Administered Dose 3 mg .ROUTE .STK-MED ONE Stop: 11/23/20 07:36 Last Admin: 11/23/20 07:37 Dose: 3 mg Documented by: Dexamethasone (Dexamethasone 4 Mg Tab) 6 mg PO DAILY [facility] Last Admin: 11/19/20 08:26 Dose: 6 mg Documented by: Furosemide (Furosemide 20 Mg Tab) Confirm Administered Dose 20 mg .ROUTE .STK- MED ONE Stop: 11/21/20 11:48 Last Admin: 11/21/20 19:11 Dose: Not Given Documented by: Furosemide (Furosemide 20 Mg Tab) 20 mg PO BIDDIURETIC ALEK Stop: 11/24/20 23:59 Last Admin: 11/24/20 17:29 Dose: 20 mg Documented by: Remdesivir 200 mg/ Sodium (Chloride) 250 mls @ 250 mls/hr IV ONETIME ONE Stop: 11/15/20 19:18 Last Admin: 11/15/20 20:04 Dose: 250 mls/hr Documented by: Remdesivir 100 mg/ Sodium (Chloride) 100 mls @ 100 mls/hr IV Q24H [facility] Stop: 11/19/20 16:59 Last Admin: 11/19/20 16:25 Dose: 100 mls/hr Documented by: Levofloxacin/Dextrose 500 mg/ (Levofloxacin/Dextrose) 200 mls @ 100 mls/hr IV Q24H [facility] Last Admin: 11/22/20 18:01 Dose: 100 mls/hr Documented by: Levofloxacin/Dextrose (Levaquin In D5w 500 Mg/100 Ml) Confirm Administered Dose 100 mls @ as directed IV .STK-MED ONE Stop: 11/19/20 19:26 Last Admin: 11/20/20 02:33 Dose: Not Given Documented by: Lorazepam (Lorazepam 1 Mg Tab) 1 mg PO ONETIME ONE Stop: 11/18/20 03:46 Last Admin: 11/18/20 03:45 Dose: 1 mg Documented by: Lorazepam (Lorazepam 2 Mg/Ml Sdv) 0.5 mg IVPUSH Q6H PRN PRN Reason: Agitation Last Admin: 11/19/20 04:13 Dose: 0.5 mg Documented by: Lorazepam (Lorazepam 2 Mg/Ml Sdv) 1 mg IVPUSH Q6H PRN PRN Reason: Agitation Last Admin: 11/23/20 10:25 Dose: 1 mg Documented by: Lorazepam (Lorazepam 2 Mg/Ml Sdv) Confirm Administered Dose 2 mg .ROUTE .STK-MED ONE Stop: 11/20/20 06:26 Last Admin: 11/20/20 06:35 Dose: Not Given Documented by: Lorazepam (Lorazepam 2 Mg/Ml Sdv) 1 mg IVPUSH Q6H PRN PRN Reason: Anxiety Stop: 11/24/20 19:00 Lorazepam (Lorazepam 1 Mg Tab) Confirm Administered Dose 1 mg .ROUTE .STK-MED ONE Stop: 11/25/20 04:15 Last Admin: 11/25/20 04:18 Dose: Not Given Documented by: Lorazepam (Lorazepam 1 Mg Tab) Confirm Administered Dose 1 mg .ROUTE .STK-MED ONE Stop: 11/30/20 04:29 Last Admin: 11/30/20 04:25 Dose: 1 mg Documented by: Methylprednisolone (Methylprednisolone 4 Mg Tab) 40 mg PO Q12H [facility] Methylprednisolone Sodium Succinate (Methylprednisolone Sodium Succinate 40 Mg/1 Ml Sdv) 40 mg IVPUSH Q12H [facility] Last Admin: 11/23/20 06:02 Dose: 40 mg Documented by: Methylprednisolone Sodium Succinate (Methylprednisolone Sodium Succinate 40 Mg/1 Ml Sdv) Confirm Administered Dose 40 mg .ROUTE .STK-MED ONE Stop: 11/23/20 17:56 Last Admin: 11/23/20 17:57 Dose: Not Given Documented by: Morphine Sulfate (Morphine Oral Concentrate 20 Mg/Ml 30 Ml Bottle) Confirm Administered Dose 600 mg .ROUTE .STK-MED ONE Stop: 11/18/20 08:13 Last Admin: 11/18/20 09:22 Dose: Not Given Documented by: Theophylline 600mg (Er Tablet) 0.5 each PO TID [facility] Last Admin: 11/25/20 21:55 Dose: Not Given Documented by: Mucomyst 10% Soln (Neb) 0 each INH Q6H [facility] Last Admin: 11/18/20 09:24 Dose: Not Given Documented by: Potassium Chloride (Potassium Chloride 20 Meq Tab.Er) 20 meq PO DAILY [facility] Last Admin: 11/17/20 09:24 Dose: 20 meq Documented by: Prednisone (Prednisone 10 Mg Tab) 10 mg PO DAILY [facility] Last Admin: 11/23/20 07:37 Dose: 10 mg Documented by: Prednisone (Prednisone 10 Mg Tab) Confirm Administered Dose 10 mg .ROUTE .STK- MED ONE Stop: 11/23/20 18:26 Last Admin: 11/23/20 21:20 Dose: Not Given Documented by: Sodium Chloride (Sodium Chloride 0.9% 10 Ml Syringe) 10 ml FLUSH BID [facility] Last Admin: 11/23/20 09:19 Dose: 10 ml Documented by: Theophylline (Theophylline 300 Mg Cap.Er) 300 mg PO TID [facility] Last Admin: 11/16/20 12:39 Dose: 300 mg Documented by: Theophylline (Theophylline 300 Mg Tab.Er) 150 mg PO TID [facility] Stop: 11/26/20 01:00 Last Admin: 11/25/20 22:00 Dose: 150 mg Documented by: - Exam Quality Assessment: Supplemental Oxygen, DVT Prophylaxis General: Alert, Oriented, Cooperative, No Acute Distress HEENT: Pupils Equal Lungs: Decreased Breath Sounds, Crackles Cardiovascular: Regular Rate, Regular Rhythm GI/Abdominal Exam: Normal Bowel Sounds, Soft, Non-Tender Back Exam: Normal Inspection Neurological: No New Focal Deficit Psy/Mental Status: Alert, Normal Affect - Patient Data Result Diagrams: 11/28/20 09:40 11/28/20 09:40 Sepsis Event Note - Evaluation Sepsis Screening Result: No Definite Risk - Focused Exam Vital Signs: Vital Signs Temp Pulse Resp BP BP Pulse Ox 11/30/20 08:00 37.0 C 81 20 118/56 L 96 11/30/20 04:00 80 111/69 89 L 11/29/20 23:59 68 90 L - Problem List & Annotations (1) COPD exacerbation SNOMED Code(s): 605255260, 214419766 Code(s): J44.1 - CHRONIC OBSTRUCTIVE PULMONARY DISEASE W (ACUTE) EXACERBATION Status: Chronic Priority: Medium Current Visit: Yes Annotation/Comment:: 07/29/15 - Chronich obstructive pulmonary disease exacerbatoin wtih bronchitis 04/30/15 - into ER. (2) Pneumonia due to COVID-19 virus SNOMED Code(s): 661196132505939746 Code(s): U07.1 - COVID-19; J12.82 - PNEUMONIA DUE TO CORONAVIRUS DISEASE 2019 Status: Acute Priority: Medium Current Visit: Yes (3) Respiratory failure with hypoxia SNOMED Code(s): 24716361673038352 Code(s): J96.91 - RESPIRATORY FAILURE, UNSPECIFIED WITH HYPOXIA Status: Acute Priority: Medium Current Visit: Yes Qualifiers: Chronicity: acute on chronic Qualified Code(s): J96.21 - Acute and chronic respiratory failure with hypoxia (4) Oxygen dependent SNOMED Code(s): 099358889189 Code(s): Z99.81 - DEPENDENCE ON SUPPLEMENTAL OXYGEN Status: Acute Priority: Low Current Visit: Yes - Problem List Review Problem List Initiated/Reviewed/Updated: Yes - Plan Plan:: Assessment and Plan: - 60 yo M with chronic resp failure presented 11/15 with worsening resp failure, dx with COVID 19 - Completed a course of Remdesivir and dexamethasone. - COVID pneumonia Finished a 5 days course of Remdesivir IV. On quarantine till Dec 05. - Concern for secondary bacterial pneumonia Continue Levaquin started 11/19 for pseudomonas coverage. Last dose on 12/05 - Acute on chronic hypoxia 2/ respiratory failure He is on chronic O2 use at home 3-4 lit by NC, currently, requiring 10 lit by high flow NC and his home Trilogy BiPAP machine. We are able to wean him down to 8-9 lit today while maintaining Sat 92-93% - Acute on chronic COPD exacerbation. Currently on DuoNeb q6hr, Pulmicort, Albuterol, and his home medications Theophylline and Spiriva. - Chronic prednisone use On prednisone 20mg PO daily. Resume for now and plan to gradually wean him off as tolerating. Baseline at home is 10mg daily - h/o CHF - mild fluid overload in feet Currently on home dose of Bumex 3mg and 2 mg PO. Also, on Spironolactone daily. Will give an extra dose of diuretics today - Hypomagnesemia On Mg replacement PO. - High risk of DVT; On Lovenox 40mg BID - h/o Anxiety On Ativan 1mg q6hr PRN Patient is DNR/DNI, and he and his decline option of transfer. Patient will still in quarantine till Dec 05 due to immunocompromised state, Also will need to be weaned off his O2 slowly as tolerating.
[2020-11-30] MEDS ORDERED: Spironolactone 25 MG Tab PO ONE (09:47)
[2020-11-30] MEDS: Levofloxacin 500 MG Tab PO SCH (17:49)
[2020-11-30] MEDS: Docusate Sodium 250 MG Cap PO SCH (20:24)
[2020-11-30] MEDS: Montelukast 10 MG Tab PO SCH (20:26)
[2020-11-30] MEDS: Morphine Oral Concentrate 20 MG/ML 30 ML Bottle SL PRN (21:15)
[2020-11-30] MEDS: LORazepam 1 MG Tab PO PRN (23:00)
[2020-12-01] MEDS ORDERED: Sodium Chloride 0.65% Nasal Spray 45 ML Bottle NAS PRN (00:01)
[2020-12-01] MEDS: Albuterol 0.083% 2.5 MG/3 ML Neb Soln NEB SCH ×8 (00:15→20:16)
[2020-12-01] MEDS: MUCOMYST 10% INH SCH ×4 (02:00→20:15)
[2020-12-01] MEDS: Albuterol/Ipratropium 3.0-0.5 MG/3 ML Neb Soln NEB SCH ×4 (08:54→17:27)
[2020-12-01] MEDS: Theophylline 300 MG Tab.ER PO SCH ×3 (08:56→20:15)
[2020-12-01] MEDS: Budesonide 0.5 MG/2 ML Neb Susp NEB SCH ×2 (08:57→20:15)
[2020-12-01] MEDS: Tiotropium Inhaler 18 MCG Inhalation Powder Cap Kit of 5 INH SCH (08:57)
[2020-12-01] MEDS: Enoxaparin 40 MG/0.4 ML Syringe SUBCUT SCH ×2 (08:57→20:11)
[2020-12-01] MEDS: Spironolactone 25 MG Tab PO SCH (08:58)
[2020-12-01] MEDS: LORazepam 1 MG Tab PO SCH ×5 (08:58→20:13)
[2020-12-01] MEDS: PERFOROMIST 20 MCG/2 ML INH SCH ×2 (08:58→20:15)
[2020-12-01] MEDS: Potassium Chloride 20 MEQ Tab.ER PO SCH ×2 (08:59→20:12)
[2020-12-01] MEDS: Magnesium Oxide 400 MG Tab PO SCH ×2 (08:59→20:12)
[2020-12-01] MEDS: Bumetanide 2 MG Tab PO SCH ×2 (08:59→12:07)
[2020-12-01] MEDS: Acetaminophen/HYDROcodone 325-10 MG Tab PO SCH ×3 (08:59→20:12)
[2020-12-01] MEDS: Omeprazole 20 MG Cap.CR PO SCH (09:00)
[2020-12-01] MEDS: predniSONE 20 MG Tab PO SCH (09:01)
[2020-12-01] MEDS: Cetirizine 10 MG Tab PO SCH (09:02)
[2020-12-01] MEDS: Polyethylene Glycol 3350 Powder 17 GM Packet PO SCH (09:37)
--- NOTE | 2020-12-01 10:23 | PCM.PN ---
- General Info Date of Service: 12/01/20 Admission Dx/Problem (Free Text): Admission Diagnosis/Problem Admission Diagnosis/Problem Pneumonia Subjective Update: Patient reports his breathing is the best that has been since arriving at the hospital. Patient relates that he can comfortably watch television and that his strength is returning back towards baseline. Patient says he is eating well, urinating without difficulty, bowel movements have returned back to baseline after 2 days of loose stools. Patient is encouraged there is progress towards discharge. Patient continues to deny chest pain, dizzy lightheaded, nausea vomiting. Functional Status: Reports: Tolerating Diet, Ambulating (Patient is using walker with assistance one-person), Urinating, Incentive Spirometry (Arnold status is he moving any pupils) - Review of Systems General: Reports: Appetite (Patient is eating regular meals without difficulty). Denies: Fever, Chills HEENT: Reports: No Symptoms Pulmonary: Reports: Shortness of Breath (Patient approaching baseline), Cough (Chronic condition) Cardiovascular: Reports: Dyspnea on Exertion, Edema (Markedly improved from admission date, patient down 2 pounds today). Denies: Chest Pain, Palpitations, Lightheadedness Gastrointestinal: Reports: Other (Patient had had 2 days of loose stools MiraLAX and Colace were held). Denies: Abdominal Pain, Constipation, Decreased Appetit e, Nausea, Vomiting Genitourinary: Reports: Urgency, Incontinence Musculoskeletal: Reports: Foot Pain (Chronic condition no change) Skin: Reports: Other (Flaking skin at various locations on his body including face, legs, feet. Patient has a pressure sore located in the sacral area which is receiving wound care.) Neurological: Reports: No Symptoms Psychiatric: Reports: No Symptoms, Other (Patient mood appears to be improved today which correlates with his condition improving) - Patient Data Vitals - Most Recent: Last Vital Signs Temp 98.1 F 12/01/20 08:00 Pulse 92 12/01/20 08:00 Resp 22 H 12/01/20 08:00 BP 109/71 12/01/20 08:00 Pulse Ox 85 L 12/01/20 08:00 Weight - Most Recent: 164 lb I&O - Last 24 Hours: Intake & Output 11/30/20 12/01/20 12/01/20 22:59 06:59 14:59 Intake Total 600 500 Balance 600 500 Lab Results Last 24 Hours: Laboratory Results - last 24 hr 11/30/20 Range/Units 09:38 Theophylline < 2 L (10-20) ug/mL Med Orders - Current: Current Medications Hydrocodone Bitart/Acetaminophen (Acetaminophen/Hydrocodone 325-10 Mg Tab) 1 tab PO TID [facility] Last Admin: 12/01/20 08:59 Dose: 1 tab Documented by: Albuterol (Albuterol 8 Gm Inhaler) 0 gm INH QID PRN PRN Reason: Shortness of Breath Last Admin: 11/19/20 01:24 Dose: 2 puff Documented by: Albuterol (Albuterol 0.083% 2.5 Mg/3 Ml Neb Soln) 2.5 mg NEB Q3H [facility] Last Admin: 12/01/20 08:56 Dose: 2.5 mg Documented by: Albuterol/Ipratropium (Albuterol/Ipratropium 3.0-0.5 Mg/3 Ml Neb Soln) 3 ml NEB Q6H [facility] Last Admin: 12/01/20 08:54 Dose: 3 ml Documented by: Budesonide (Budesonide 0.5 Mg/2 Ml Neb Susp) 0.5 mg NEB BID [facility] Last Admin: 12/01/20 08:57 Dose: 0.5 mg Documented by: Bumetanide (Bumetanide 2 Mg Tab) 2 mg PO ACLUNCH [facility] Last Admin: 11/30/20 12:39 Dose: 2 mg Documented by: Bumetanide (Bumetanide 2 Mg Tab) 3 mg PO DAILY@0800 [facility] Last Admin: 12/01/20 08:59 Dose: 3 mg Documented by: Calamine/Phenol (Menthol/Zinc Oxide Ointment 113 Gm Tube) 1 gm TOP QID PRN PRN Reason: Rash Last Admin: 11/17/20 09:35 Dose: 1 applic Documented by: Cetirizine HCl (Cetirizine 10 Mg Tab) 10 mg PO DAILY [facility] Last Admin: 12/01/20 09:02 Dose: 10 mg Documented by: Diphenhydramine HCl (Diphenhydramine 50 Mg Cap) 50 mg PO BID PRN PRN Reason: burning eyes Last Admin: 11/26/20 20:49 Dose: 50 mg Documented by: Docusate Sodium (Docusate Sodium 250 Mg Cap) 250 mg PO BEDTIME [facility] Last Admin: 11/30/20 20:24 Dose: 250 mg Documented by: Enoxaparin Sodium (Enoxaparin 40 Mg/0.4 Ml Syringe) 40 mg SUBCUT Q12H [facility] Last Admin: 12/01/20 08:57 Dose: 40 mg Documented by: Levofloxacin (Levofloxacin 500 Mg Tab) 500 mg PO Q24H [facility] Last Admin: 11/30/20 17:49 Dose: 500 mg Documented by: Lorazepam (Lorazepam 1 Mg Tab) 1 mg PO QID [facility] Last Admin: 12/01/20 08:58 Dose: 1 mg Documented by: Lorazepam (Lorazepam 1 Mg Tab) 1 mg PO Q6H PRN PRN Reason: Anxiety Last Admin: 11/30/20 23:00 Dose: 1 mg Documented by: Magnesium Oxide (Magnesium Oxide 400 Mg Tab) 400 mg PO BID [facility] Last Admin: 12/01/20 08:59 Dose: 400 mg Documented by: Montelukast Sodium (Montelukast 10 Mg Tab) 10 mg PO BEDTIME [facility] Last Admin: 11/30/20 20:26 Dose: 10 mg Documented by: Morphine Sulfate (Morphine Oral Concentrate 20 Mg/Ml 30 Ml Bottle) 5 mg SL Q4H PRN PRN Reason: Pain Last Admin: 11/30/20 21:15 Dose: 5 mg Documented by: Clotrimazole Luis Fernando 1 each PO SEECOMMENT PRN PRN Reason: Other Last Admin: 11/20/20 11:00 Dose: 1 each Documented by: Omeprazole (Omeprazole 20 Mg Cap.Cr) 40 mg PO DAILY [facility] Last Admin: 12/01/20 09:00 Dose: 40 mg Documented by: Ondansetron HCl (Ondansetron 4 Mg Tab.Dis) 4 mg PO Q6H PRN PRN Reason: NAUSEA Last Admin: 11/19/20 08:31 Dose: 4 mg Documented by: Perforomist 20mcg/ (2ml Nebs) 0 each INH BID [facility] Last Admin: 12/01/20 08:58 Dose: 1 each Documented by: Mucomyst 10% Soln (Neb) 1 each INH Q6H [facility] Last Admin: 12/01/20 09:01 Dose: 1 each Documented by: Polyethylene Glycol (Polyethylene Glycol 3350 Powder 17 Gm Packet) 17 gm PO DAILY [facility] Last Admin: 12/01/20 09:37 Dose: 17 gm Documented by: Potassium Chloride (Potassium Chloride 20 Meq Tab.Er) 20 meq PO BID [facility] Last Admin: 12/01/20 08:59 Dose: 20 meq Documented by: Prednisone (Prednisone 20 Mg Tab) 20 mg PO DAILY [facility] Last Admin: 12/01/20 09:01 Dose: 20 mg Documented by: Senna/Docusate Sodium (Docusate Sodium/Sennosides 50-8.6 Mg Tab) 1 tab PO ACLUNCH [facility] Last Admin: 11/30/20 14:39 Dose: Not Given Documented by: Sodium Chloride (Sodium Chloride 0.65% Nasal [place] 45 Ml Bottle) 1 ml [place] Q2H PRN PRN Reason: Nasal Dryness Spironolactone (Spironolactone 25 Mg Tab) 25 mg PO QAM [facility] Last Admin: 12/01/20 08:58 Dose: 25 mg Documented by: Theophylline (Theophylline 300 Mg Tab.Er) 300 mg PO TID [facility] Last Admin: 12/01/20 08:56 Dose: 300 mg Documented by: Tiotropium [place] (Tiotropium Inhaler 18 Mcg Inhalation Powder Cap Kit Of 5) 18 mcg INH DAILY [facility] Last Admin: 12/01/20 08:57 Dose: 1 puff Documented by: Discontinued Medications Hydrocodone Bitart/Acetaminophen (Acetaminophen/Hydrocodone 325-10 Mg Tab) Con firm Administered Dose 1 tab .ROUTE .STK-MED ONE Stop: 11/16/20 20:01 Last Admin: 11/16/20 20:18 Dose: Not Given Documented by: Acetylcysteine (Acetylcysteine 20% 200 Mg/Ml 30 Ml Nebulizer Soln Sdv) 100 mg INH Q6H [facility] Last Admin: 11/15/20 23:30 Dose: 100 mg Documented by: Albuterol (Albuterol 0.083% 2.5 Mg/3 Ml Neb Soln) 2.5 mg NEB Q6H [facility] Albuterol (Albuterol 0.083% 2.5 Mg/3 Ml Neb Soln) Confirm Administered Dose 2.5 mg .ROUTE .STK-MED ONE Stop: 11/25/20 16:13 Last Admin: 11/25/20 16:35 Dose: Not Given Documented by: Albuterol/Ipratropium (Albuterol/Ipratropium 3.0-0.5 Mg/3 Ml Neb Soln) 3 ml NEB Q2H PRN PRN Reason: Dyspnea Last Admin: 11/17/20 06:10 Dose: 3 ml Documented by: Albuterol/Ipratropium (Albuterol/Ipratropium 3.0-0.5 Mg/3 Ml Neb Soln) 6 ml NEB ASDIRECTED ONE Stop: 11/17/20 20:01 Last Admin: 11/17/20 21:02 Dose: 6 ml Documented by: Azithromycin (Azithromycin 250 Mg Tab) 500 mg PO DAILY [facility] Stop: 11/24/20 16:31 Last Admin: 11/19/20 08:28 Dose: 500 mg Documented by: Bumetanide (Bumetanide 2 Mg Tab) 3 mg PO WITHBREAKFAST [facility] Last Admin: 11/18/20 06:42 Dose: 3 mg Documented by: Bumetanide (Bumetanide 1 Mg Tab) 3 mg PO ONETIME ONE Stop: 11/17/20 21:20 Last Admin: 11/17/20 22:11 Dose: 3 mg Documented by: Bumetanide (Bumetanide 1 Mg Tab) Confirm Administered Dose 3 mg .ROUTE .STK-MED ONE Stop: 11/23/20 07:36 Last Admin: 11/23/20 07:37 Dose: 3 mg Documented by: Dexamethasone (Dexamethasone 4 Mg Tab) 6 mg PO DAILY [facility] Last Admin: 11/19/20 08:26 Dose: 6 mg Documented by: Furosemide (Furosemide 20 Mg Tab) Confirm Administered Dose 20 mg .ROUTE .STK- MED ONE Stop: 11/21/20 11:48 Last Admin: 11/21/20 19:11 Dose: Not Given Documented by: Furosemide (Furosemide 20 Mg Tab) 20 mg PO BIDDIURETIC [facility] Stop: 11/24/20 23:59 Last Admin: 11/24/20 17:29 Dose: 20 mg Documented by: Remdesivir 200 mg/ Sodium (Chloride) 250 mls @ 250 mls/hr IV ONETIME ONE Stop: 11/15/20 19:18 Last Admin: 11/15/20 20:04 Dose: 250 mls/hr Documented by: Remdesivir 100 mg/ Sodium (Chloride) 100 mls @ 100 mls/hr IV Q24H [facility] Stop: 11/19/20 16:59 Last Admin: 11/19/20 16:25 Dose: 100 mls/hr Documented by: Levofloxacin/Dextrose 500 mg/ (Levofloxacin/Dextrose) 200 mls @ 100 mls/hr IV Q24H [facility] Last Admin: 11/22/20 18:01 Dose: 100 mls/hr Documented by: Levofloxacin/Dextrose (Levaquin In D5w 500 Mg/100 Ml) Confirm Administered Dose 100 mls @ as directed IV .STK-MED ONE Stop: 11/19/20 19:26 Last Admin: 11/20/20 02:33 Dose: Not Given Documented by: Lorazepam (Lorazepam 1 Mg Tab) 1 mg PO ONETIME ONE Stop: 11/18/20 03:46 Last Admin: 11/18/20 03:45 Dose: 1 mg Documented by: Lorazepam (Lorazepam 2 Mg/Ml Sdv) 0.5 mg IVPUSH Q6H PRN PRN Reason: Agitation Last Admin: 11/19/20 04:13 Dose: 0.5 mg Documented by: Lorazepam (Lorazepam 2 Mg/Ml Sdv) 1 mg IVPUSH Q6H PRN PRN Reason: Agitation Last Admin: 11/23/20 10:25 Dose: 1 mg Documented by: Lorazepam (Lorazepam 2 Mg/Ml Sdv) Confirm Administered Dose 2 mg .ROUTE .STK-MED ONE Stop: 11/20/20 06:26 Last Admin: 11/20/20 06:35 Dose: Not Given Documented by: Lorazepam (Lorazepam 2 Mg/Ml Sdv) 1 mg IVPUSH Q6H PRN PRN Reason: Anxiety Stop: 11/24/20 19:00 Lorazepam (Lorazepam 1 Mg Tab) Confirm Administered Dose 1 mg .ROUTE .STK-MED ONE Stop: 11/25/20 04:15 Last Admin: 11/25/20 04:18 Dose: Not Given Documented by: Lorazepam (Lorazepam 1 Mg Tab) Confirm Administered Dose 1 mg .ROUTE .STK-MED ONE Stop: 11/30/20 04:29 Last Admin: 11/30/20 04:25 Dose: 1 mg Documented by: Methylprednisolone (Methylprednisolone 4 Mg Tab) 40 mg PO Q12H [facility] Methylprednisolone Sodium Succinate (Methylprednisolone Sodium Succinate 40 Mg/1 Ml Sdv) 40 mg IVPUSH Q12H [facility] Last Admin: 11/23/20 06:02 Dose: 40 mg Documented by: Methylprednisolone Sodium Succinate (Methylprednisolone Sodium Succinate 40 Mg/1 Ml Sdv) Confirm Administered Dose 40 mg .ROUTE .STK-MED ONE Stop: 11/23/20 17:56 Last Admin: 11/23/20 17:57 Dose: Not Given Documented by: Morphine Sulfate (Morphine Oral Concentrate 20 Mg/Ml 30 Ml Bottle) Confirm Administered Dose 600 mg .ROUTE .STK-MED ONE Stop: 11/18/20 08:13 Last Admin: 11/18/20 09:22 Dose: Not Given Documented by: Theophylline 600mg (Er Tablet) 0.5 each PO TID [facility] Last Admin: 11/25/20 21:55 Dose: Not Given Documented by: Mucomyst 10% Soln (Neb) 0 each INH Q6H [facility] Last Admin: 11/18/20 09:24 Dose: Not Given Documented by: Potassium Chloride (Potassium Chloride 20 Meq Tab.Er) 20 meq PO DAILY [facility] Last Admin: 11/17/20 09:24 Dose: 20 meq Documented by: Prednisone (Prednisone 10 Mg Tab) 10 mg PO DAILY [facility] Last Admin: 11/23/20 07:37 Dose: 10 mg Documented by: Prednisone (Prednisone 10 Mg Tab) Confirm Administered Dose 10 mg .ROUTE .STK- MED ONE Stop: 11/23/20 18:26 Last Admin: 11/23/20 21:20 Dose: Not Given Documented by: Sodium Chloride (Sodium Chloride 0.9% 10 Ml Syringe) 10 ml FLUSH BID [facility] Last Admin: 11/23/20 09:19 Dose: 10 ml Documented by: Spironolactone (Spironolactone 25 Mg Tab) 25 mg PO ONETIME ONE Stop: 11/30/20 09:48 Last Admin: 11/30/20 12:39 Dose: 25 mg Documented by: Theophylline (Theophylline 300 Mg Cap.Er) 300 mg PO TID [facility] Last Admin: 11/16/20 12:39 Dose: 300 mg Documented by: Theophylline (Theophylline 300 Mg Tab.Er) 150 mg PO TID [facility] Stop: 11/26/20 01:00 Last Admin: 11/25/20 22:00 Dose: 150 mg Documented by: Theophylline (Theophylline 300 Mg Tab.Er) 300 mg PO DAILY [facility] Last Admin: 11/30/20 08:55 Dose: 300 mg Documented by: - Exam Quality Assessment: Supplemental Oxygen, DVT Prophylaxis (Patient on Lovenox) General: Alert, Oriented, Cooperative, Mild Distress HEENT: EOMI Lungs: Decreased Breath Sounds, Rhonchi (Much decreased since the .) Cardiovascular: Regular Rate, Regular Rhythm, No Murmurs GI/Abdominal Exam: Distended Back Exam: Other (No obvious trauma, or obvious deformity, kyphosis present) Extremities: Pedal Edema (Decreased edema from admission, much improved, patient's toes and feet still remarkably tender to palpation) Skin: Warm, Dry, Intact (Patient's skin color has improved throughout admission, patient skin is flaking around the face and feet which does not cause any discomfort to the patient) Wound/Incisions: Other (Patient has 2 wounds 1 located in the sacral region which is a vertical slit approximately 1 to 1-1/2 inches that is being cared for by nursing staff, patient also has a longstanding wound on the dorsal aspect of his right foot being cared for by PT which they state it is progressing well.) Neurological: No New Focal Deficit, Normal Speech Psy/Mental Status: Alert, Normal Affect, Normal Mood - Patient Data Lab Results Last 24 hrs: Laboratory Results - last 24 hr 11/30/20 Range/Units 09:38 Theophylline < 2 L (10-20) ug/mL Result Diagrams: 11/28/20 09:40 11/28/20 09:40 Sepsis Event Note - Evaluation Sepsis Screening Result: No Definite Risk - Focused Exam Vital Signs: Vital Signs Temp Temp Pulse Pulse Resp BP Pulse Ox 12/01/20 08:00 98.1 F 92 22 H 109/71 85 L 12/01/20 04:00 89 20 91 L 12/01/20 00:00 97.7 F 99 20 101/68 91 L - Problem List Review Problem List Initiated/Reviewed/Updated: Yes - Plan Plan:: Assessment and Plan: - 60 yo M with chronic resp failure presented 11/15 with worsening resp failure, dx with COVID 19 - Completed a course of Remdesivir and dexamethasone. - COVID pneumonia Finished a 5 days course of Remdesivir IV. On quarantine till Dec 05. - Concern for secondary bacterial pneumonia Continue Levaquin started 11/19 for pseudomonas coverage. Last dose on 12/05 - Acute on chronic hypoxia 2/2 respiratory failure He is on chronic O2 use at home 3-4 lit by NH during the day, trilogy BiPAP machine only at night. 12/01/2020 patient has been weaned down to 7 L/min by nasal cannula satting between 86-91%, without any increased work of breathing. - Acute on chronic COPD exacerbation. Currently on DuoNeb q6hr, Pulmicort, Albuterol, and his home medications Theophylline and Spiriva. Continued. - Chronic prednisone use On prednisone 20mg PO daily. Resume for now and plan to gradually wean him off as tolerating. Baseline at home is 10mg daily - h/o CHF - mild fluid overload in feet Currently on home dose of Bumex 3mg and 2 mg PO. Also, on Spironolactone daily. No presentation of being fluid overloaded today. - Hypomagnesemia On Mg replacement PO. - High risk of DVT; On Lovenox 40mg BID - h/o Anxiety On Ativan 1mg q6hr PRN Patient is DNR/DNI, and he and his decline option of transfer. Patient will still in quarantine till Dec 05 due to immunocompromised state, patient is currently on a oxygen taper plan as tolerated.
[2020-12-01] MEDS: Morphine Oral Concentrate 20 MG/ML 30 ML Bottle SL PRN ×2 (12:19→20:59)
[2020-12-01] MEDS: Levofloxacin 500 MG Tab PO SCH (17:29)
[2020-12-01] MEDS: Docusate Sodium 250 MG Cap PO SCH (20:11)
[2020-12-01] MEDS: Montelukast 10 MG Tab PO SCH (20:11)
[2020-12-01] MEDS: LORazepam 1 MG Tab PO PRN (20:58)
[2020-12-02] MEDS: Albuterol 0.083% 2.5 MG/3 ML Neb Soln NEB SCH ×8 (01:07→21:15)
[2020-12-02] MEDS: MUCOMYST 10% INH SCH ×4 (01:07→19:48)
[2020-12-02] MEDS: Albuterol/Ipratropium 3.0-0.5 MG/3 ML Neb Soln NEB SCH ×4 (01:07→17:23)
[2020-12-02] MEDS: LORazepam 1 MG Tab PO PRN ×2 (02:45→18:30)
[2020-12-02] MEDS: Morphine Oral Concentrate 20 MG/ML 30 ML Bottle SL PRN (02:46)
[2020-12-02] MEDS: LORazepam 1 MG Tab PO SCH ×4 (08:49→19:48)
[2020-12-02] MEDS: Polyethylene Glycol 3350 Powder 17 GM Packet PO SCH (08:49)
[2020-12-02] MEDS: Potassium Chloride 20 MEQ Tab.ER PO SCH ×2 (08:50→19:45)
[2020-12-02] MEDS: Enoxaparin 40 MG/0.4 ML Syringe SUBCUT SCH ×2 (08:50→19:45)
[2020-12-02] MEDS: Omeprazole 20 MG Cap.CR PO SCH (08:50)
[2020-12-02] MEDS: Magnesium Oxide 400 MG Tab PO SCH ×2 (08:50→19:46)
[2020-12-02] MEDS: Spironolactone 25 MG Tab PO SCH (08:51)
[2020-12-02] MEDS: Bumetanide 2 MG Tab PO SCH ×2 (08:51→11:53)
[2020-12-02] MEDS: predniSONE 20 MG Tab PO SCH (08:51)
[2020-12-02] MEDS: Cetirizine 10 MG Tab PO SCH (08:51)
[2020-12-02] MEDS: Theophylline 300 MG Tab.ER PO SCH ×3 (08:52→19:45)
[2020-12-02] MEDS: Budesonide 0.5 MG/2 ML Neb Susp NEB SCH ×2 (09:02→20:00)
[2020-12-02] MEDS: Tiotropium Inhaler 18 MCG Inhalation Powder Cap Kit of 5 INH SCH (09:02)
[2020-12-02] MEDS: Acetaminophen/HYDROcodone 325-10 MG Tab PO SCH ×3 (09:03→19:46)
[2020-12-02] MEDS: PERFOROMIST 20 MCG/2 ML INH SCH ×2 (09:07→19:49)
--- NOTE | 2020-12-02 17:13 | PCM.PN ---
- General Info Date of Service: 12/02/20 Admission Dx/Problem (Free Text): Admission Diagnosis/Problem Admission Diagnosis/Problem Pneumonia Subjective Update: Patient reports his breathing is the best that has been since arriving at the hospital. Patient relates that he can comfortably watch television and that his strength is returning back towards baseline. Patient says he is eating well, urinating without difficulty, bowel movements have returned back to baseline after 2 days of loose stools. Patient is encouraged there is progress towards discharge. Patient continues to deny chest pain, dizzy lightheaded, nausea vomiting. Functional Status: Reports: Tolerating Diet, Urinating, Incentive Spirometry - Patient Data Vitals - Most Recent: Last Vital Signs Temp 35.7 C L 12/02/20 12:00 Pulse 76 12/02/20 12:00 Resp 20 12/02/20 12:00 BP 108/63 12/02/20 12:00 Pulse Ox 93 L 12/02/20 12:00 Weight - Most Recent: 73.845 kg I&O - Last 24 Hours: Intake & Output 12/02/20 12/02/20 12/02/20 06:59 14:59 22:59 Intake Total 600 Balance 600 Lab Results Last 24 Hours: Laboratory Results - last 24 hr 12/02/20 12/02/20 12/02/20 Range/Units 07:10 07:10 07:10 WBC 13.4 H D (4.0-11.0) K/uL RBC 4.15 L (4.50-6.50) M/uL Hgb 11.9 L (13.0-18.0) g/dL Hct 36.4 L (40.0-54.0) % MCV 88 (76-96) fL MCH 28.7 (27.0-32.0) pg MCHC 32.7 (31.0-35.0) g/dL RDW 16.3 H (11.0-16.0) % Plt Count 245 (150-400) K/uL MPV 11.2 H (6.0-10.0) fL Neut % (Auto) 79.9 H (45.0-70.0) % Lymph % (Auto) 9.7 L (20.0-40.0) % [place] % (Auto) 9.4 (3.0-10.0) % Eos % (Auto) 0.5 L (1.0-5.0) % Baso % (Auto) 0.5 (0.0-0.5) % Neut # (Auto) 10.72 H (2.00-7.50) K/uL Lymph # (Auto) 1.31 L (1.50-4.00) K/uL [place] # (Auto) 1.27 H (0.20-0.80) K/uL Eos # (Auto) 0.07 (0.04-0.40) K/uL Baso # (Auto) 0.07 (0.02-0.10) K/uL VBG pH 7.40 (7.31-7.41) VBG pCO2 50.9 (41-51) mm/Hg VBG HCO3 31.2 H (23.0-28.0) mmol/L VBG Base Excess 6.3 H (-2-3) mm/L O2 Delivery Device Nasal cannula Sodium 133 L (136-145) mmol/L Potassium 4.2 (3.5-5.1) mmol/L Chloride 93 L (98-107) mmol/L Carbon Dioxide 33.0 H (21.0-32.0) mmol/L Anion Gap 11.2 (5.0-15.0) mmol/L BUN 21 (8-26) mg/dL Creatinine 1.11 (0.70-1.30) mg/dL Est Cr Clr Drug Dosing 58.38 mL/min Estimated GFR (MDRD) > 60 (>60) MLS/MIN BUN/Creatinine Ratio 18.9 (6-25) Glucose 125 H (74-100) mg/dL Calcium 9.2 (8.5-10.1) mg/dL Total Bilirubin 0.5 D (0.0-1.0) mg/dL AST 70 H (15-37) U/L ALT 82 H (12-78) U/L Alkaline Phosphatase 99 (46-116) U/L Total Protein 6.8 (6.4-8.2) g/dL Albumin 2.4 L (3.4-5.0) g/dL Globulin 4.4 H (2.2-4.2) g/dL Albumin/Globulin Ratio 0.6 L (0.8-2.0) Med Orders - Current: Current Medications Hydrocodone Bitart/Acetaminophen (Acetaminophen/Hydrocodone 325-10 Mg Tab) 1 tab PO TID [facility] Last Admin: 12/02/20 14:36 Dose: 1 tab Documented by: Albuterol (Albuterol 8 Gm Inhaler) 0 gm INH QID PRN PRN Reason: Shortness of Breath Last Admin: 11/19/20 01:24 Dose: 2 puff Documented by: Albuterol (Albuterol 0.083% 2.5 Mg/3 Ml Neb Soln) 2.5 mg NEB Q3H [facility] Last Admin: 12/02/20 14:37 Dose: 2.5 mg Documented by: Albuterol/Ipratropium (Albuterol/Ipratropium 3.0-0.5 Mg/3 Ml Neb Soln) 3 ml NEB Q6H [facility] Last Admin: 12/02/20 11:53 Dose: 3 ml Documented by: Budesonide (Budesonide 0.5 Mg/2 Ml Neb Susp) 0.5 mg NEB BID [facility] Last Admin: 12/02/20 09:02 Dose: 0.5 mg Documented by: Bumetanide (Bumetanide 2 Mg Tab) 2 mg PO ACLUNCH [facility] Last Admin: 12/02/20 11:53 Dose: 2 mg Documented by: Bumetanide (Bumetanide 2 Mg Tab) 3 mg PO DAILY@0800 [facility] Last Admin: 12/02/20 08:51 Dose: 3 mg Documented by: Calamine/Phenol (Menthol/Zinc Oxide Ointment 113 Gm Tube) 1 gm TOP QID PRN PRN Reason: Rash Last Admin: 11/17/20 09:35 Dose: 1 applic Documented by: Cetirizine HCl (Cetirizine 10 Mg Tab) 10 mg PO DAILY [facility] Last Admin: 12/02/20 08:51 Dose: 10 mg Documented by: Diphenhydramine HCl (Diphenhydramine 50 Mg Cap) 50 mg PO BID PRN PRN Reason: burning eyes Last Admin: 11/26/20 20:49 Dose: 50 mg Documented by: Docusate Sodium (Docusate Sodium 250 Mg Cap) 250 mg PO BEDTIME [facility] Last Admin: 12/01/20 20:11 Dose: 250 mg Documented by: Enoxaparin Sodium (Enoxaparin 40 Mg/0.4 Ml Syringe) 40 mg SUBCUT Q12H [facility] Last Admin: 12/02/20 08:50 Dose: 40 mg Documented by: Levofloxacin (Levofloxacin 500 Mg Tab) 500 mg PO Q24H [facility] Last Admin: 12/01/20 17:29 Dose: 500 mg Documented by: Lorazepam (Lorazepam 1 Mg Tab) 1 mg PO QID [facility] Last Admin: 12/02/20 11:53 Dose: 1 mg Documented by: Lorazepam (Lorazepam 1 Mg Tab) 1 mg PO Q6H PRN PRN Reason: Anxiety Last Admin: 12/02/20 02:45 Dose: 1 mg Documented by: Magnesium Oxide (Magnesium Oxide 400 Mg Tab) 400 mg PO BID [facility] Last Admin: 12/02/20 08:50 Dose: 400 mg Documented by: Montelukast Sodium (Montelukast 10 Mg Tab) 10 mg PO BEDTIME [facility] Last Admin: 12/01/20 20:11 Dose: 10 mg Documented by: Morphine Sulfate (Morphine Oral Concentrate 20 Mg/Ml 30 Ml Bottle) 5 mg SL Q4H PRN PRN Reason: Pain Last Admin: 12/02/20 02:46 Dose: 5 mg Documented by: Clotrimazole Luis Fernando 1 each PO SEECOMMENT PRN PRN Reason: Other Last Admin: 12/02/20 01:08 Dose: 1 each Documented by: Omeprazole (Omeprazole 20 Mg Cap.Cr) 40 mg PO DAILY [facility] Last Admin: 12/02/20 08:50 Dose: 40 mg Documented by: Ondansetron HCl (Ondansetron 4 Mg Tab.Dis) 4 mg PO Q6H PRN PRN Reason: NAUSEA Last Admin: 11/19/20 08:31 Dose: 4 mg Documented by: Perforomist 20mcg/ (2ml Nebs) 0 each INH BID [facility] Last Admin: 12/02/20 09:07 Dose: 1 each Documented by: Mucomyst 10% Soln (Neb) 1 each INH Q6H [facility] Last Admin: 12/02/20 14:37 Dose: 1 each Documented by: Polyethylene Glycol (Polyethylene Glycol 3350 Powder 17 Gm Packet) 17 gm PO DAILY [facility] Last Admin: 12/02/20 08:49 Dose: 17 gm Documented by: Potassium Chloride (Potassium Chloride 20 Meq Tab.Er) 20 meq PO BID [facility] Last Admin: 12/02/20 08:50 Dose: 20 meq Documented by: Prednisone (Prednisone 20 Mg Tab) 20 mg PO DAILY [facility] Last Admin: 12/02/20 08:51 Dose: 20 mg Documented by: Senna/Docusate Sodium (Docusate Sodium/Sennosides 50-8.6 Mg Tab) 1 tab PO ACLUNCH [facility] Last Admin: 12/02/20 11:53 Dose: 1 tab Documented by: Sodium Chloride (Sodium Chloride 0.65% Nasal [place] 45 Ml Bottle) 1 ml ROLANDO Q2H PRN PRN Reason: Nasal Dryness Last Admin: 12/01/20 21:00 Dose: 1 each Documented by: Spironolactone (Spironolactone 25 Mg Tab) 25 mg PO QAM [facility] Last Admin: 12/02/20 08:51 Dose: 25 mg Documented by: Theophylline (Theophylline 300 Mg Tab.Er) 300 mg PO TID [facility] Last Admin: 12/02/20 14:37 Dose: 300 mg Documented by: Tiotropium [place] (Tiotropium Inhaler 18 Mcg Inhalation Powder Cap Kit Of 5) 18 mcg INH DAILY [facility] Last Admin: 12/02/20 09:02 Dose: 1 puff Documented by: Discontinued Medications Hydrocodone Bitart/Acetaminophen (Acetaminophen/Hydrocodone 325-10 Mg Tab) Confirm Administered Dose 1 tab .ROUTE .STK-MED ONE Stop: 11/16/20 20:01 Last Admin: 11/16/20 20:18 Dose: Not Given Documented by: Acetylcysteine (Acetylcysteine 20% 200 Mg/Ml 30 Ml Nebulizer Soln Sdv) 100 mg INH Q6H [facility] Last Admin: 11/15/20 23:30 Dose: 100 mg Documented by: Albuterol (Albuterol 0.083% 2.5 Mg/3 Ml Neb Soln) 2.5 mg NEB Q6H [facility] Albuterol (Albuterol 0.083% 2.5 Mg/3 Ml Neb Soln) Confirm Administered Dose 2.5 mg .ROUTE .STK-MED ONE Stop: 11/25/20 16:13 Last Admin: 11/25/20 16:35 Dose: Not Given Documented by: Albuterol/Ipratropium (Albuterol/Ipratropium 3.0-0.5 Mg/3 Ml Neb Soln) 3 ml NEB Q2H PRN PRN Reason: Dyspnea Last Admin: 11/17/20 06:10 Dose: 3 ml Documented by: Albuterol/Ipratropium (Albuterol/Ipratropium 3.0-0.5 Mg/3 Ml Neb Soln) 6 ml NEB ASDIRECTED ONE Stop: 11/17/20 20:01 Last Admin: 11/17/20 21:02 Dose: 6 ml Documented by: Azithromycin (Azithromycin 250 Mg Tab) 500 mg PO DAILY [facility] Stop: 11/24/20 16:31 Last Admin: 11/19/20 08:28 Dose: 500 mg Documented by: Bumetanide (Bumetanide 2 Mg Tab) 3 mg PO WITHBREAKFAST [facility] Last Admin: 11/18/20 06:42 Dose: 3 mg Documented by: Bumetanide (Bumetanide 1 Mg Tab) 3 mg PO ONETIME ONE Stop: 11/17/20 21:20 Last Admin: 11/17/20 22:11 Dose: 3 mg Documented by: Bumetanide (Bumetanide 1 Mg Tab) Confirm Administered Dose 3 mg .ROUTE .STK-MED ONE Stop: 11/23/20 07:36 Last Admin: 11/23/20 07:37 Dose: 3 mg Documented by: Dexamethasone (Dexamethasone 4 Mg Tab) 6 mg PO DAILY [facility] Last Admin: 11/19/20 08:26 Dose: 6 mg Documented by: Furosemide (Furosemide 20 Mg Tab) Confirm Administered Dose 20 mg .ROUTE .STK- MED ONE Stop: 11/21/20 11:48 Last Admin: 11/21/20 19:11 Dose: Not Given Documented by: Furosemide (Furosemide 20 Mg Tab) 20 mg PO BIDDIURETIC [facility] Stop: 11/24/20 23:59 Last Admin: 11/24/20 17:29 Dose: 20 mg Documented by: Remdesivir 200 mg/ Sodium (Chloride) 250 mls @ 250 mls/hr IV ONETIME ONE Stop: 11/15/20 19:18 Last Admin: 11/15/20 20:04 Dose: 250 mls/hr Documented by: Remdesivir 100 mg/ Sodium (Chloride) 100 mls @ 100 mls/hr IV Q24H [facility] Stop: 11/19/20 16:59 Last Admin: 11/19/20 16:25 Dose: 100 mls/hr Documented by: Levofloxacin/Dextrose 500 mg/ (Levofloxacin/Dextrose) 200 mls @ 100 mls/hr IV Q24H [facility] Last Admin: 11/22/20 18:01 Dose: 100 mls/hr Documented by: Levofloxacin/Dextrose (Levaquin In D5w 500 Mg/100 Ml) Confirm Administered Dose 100 mls @ as directed IV .STK-MED ONE Stop: 11/19/20 19:26 Last Admin: 11/20/20 02:33 Dose: Not Given Documented by: Lorazepam (Lorazepam 1 Mg Tab) 1 mg PO ONETIME ONE Stop: 11/18/20 03:46 Last Admin: 11/18/20 03:45 Dose: 1 mg Documented by: Lorazepam (Lorazepam 2 Mg/Ml Sdv) 0.5 mg IVPUSH Q6H PRN PRN Reason: Agitation Last Admin: 11/19/20 04:13 Dose: 0.5 mg Documented by: Lorazepam (Lorazepam 2 Mg/Ml Sdv) 1 mg IVPUSH Q6H PRN PRN Reason: Agitation Last Admin: 11/23/20 10:25 Dose: 1 mg Documented by: Lorazepam (Lorazepam 2 Mg/Ml Sdv) Confirm Administered Dose 2 mg .ROUTE .STK-MED ONE Stop: 11/20/20 06:26 Last Admin: 11/20/20 06:35 Dose: Not Given Documented by: Lorazepam (Lorazepam 2 Mg/Ml Sdv) 1 mg IVPUSH Q6H PRN PRN Reason: Anxiety Stop: 11/24/20 19:00 Lorazepam (Lorazepam 1 Mg Tab) Confirm Administered Dose 1 mg .ROUTE .STK-MED ONE Stop: 11/25/20 04:15 Last Admin: 11/25/20 04:18 Dose: Not Given Documented by: Lorazepam (Lorazepam 1 Mg Tab) Confirm Administered Dose 1 mg .ROUTE .STK-MED ONE Stop: 11/30/20 04:29 Last Admin: 11/30/20 04:25 Dose: 1 mg Documented by: Methylprednisolone (Methylprednisolone 4 Mg Tab) 40 mg PO Q12H [facility] Methylprednisolone Sodium Succinate (Methylprednisolone Sodium Succinate 40 Mg/1 Ml Sdv) 40 mg IVPUSH Q12H [facility] Last Admin: 11/23/20 06:02 Dose: 40 mg Documented by: Methylprednisolone Sodium Succinate (Methylprednisolone Sodium Succinate 40 Mg/1 Ml Sdv) Confirm Administered Dose 40 mg .ROUTE .STK-MED ONE Stop: 11/23/20 17:56 Last Admin: 11/23/20 17:57 Dose: Not Given Documented by: Morphine Sulfate (Morphine Oral Concentrate 20 Mg/Ml 30 Ml Bottle) Confirm Administered Dose 600 mg .ROUTE .STK-MED ONE Stop: 11/18/20 08:13 Last Admin: 11/18/20 09:22 Dose: Not Given Documented by: Theophylline 600mg (Er Tablet) 0.5 each PO TID [facility] Last Admin: 11/25/20 21:55 Dose: Not Given Documented by: Mucomyst 10% Soln (Neb) 0 each INH Q6H [facility] Last Admin: 11/18/20 09:24 Dose: Not Given Documented by: Potassium Chloride (Potassium Chloride 20 Meq Tab.Er) 20 meq PO DAILY [facility] Last Admin: 11/17/20 09:24 Dose: 20 meq Documented by: Prednisone (Prednisone 10 Mg Tab) 10 mg PO DAILY [facility] Last Admin: 11/23/20 07:37 Dose: 10 mg Documented by: Prednisone (Prednisone 10 Mg Tab) Confirm Administered Dose 10 mg .ROUTE .STK- MED ONE Stop: 11/23/20 18:26 Last Admin: 11/23/20 21:20 Dose: Not Given Documented by: Sodium Chloride (Sodium Chloride 0.9% 10 Ml Syringe) 10 ml FLUSH BID [facility] Last Admin: 11/23/20 09:19 Dose: 10 ml Documented by: Spironolactone (Spironolactone 25 Mg Tab) 25 mg PO ONETIME ONE Stop: 11/30/20 09:48 Last Admin: 11/30/20 12:39 Dose: 25 mg Documented by: Theophylline (Theophylline 300 Mg Cap.Er) 300 mg PO TID [facility] Last Admin: 11/16/20 12:39 Dose: 300 mg Documented by: Theophylline (Theophylline 300 Mg Tab.Er) 150 mg PO TID [facility] Stop: 11/26/20 01:00 Last Admin: 11/25/20 22:00 Dose: 150 mg Documented by: Theophylline (Theophylline 300 Mg Tab.Er) 300 mg PO DAILY [facility] Last Admin: 11/30/20 08:55 Dose: 300 mg Documented by: - Patient Data Lab Results Last 24 hrs: Laboratory Results - last 24 hr 09/29/21 09/29/21 09/29/21 Range/Units 07:10 07:10 07:10 WBC 13.4 H D (4.0-11.0) K/uL RBC 4.15 L (4.50-6.50) M/uL Hgb 11.9 L (13.0-18.0) g/dL Hct 36.4 L (40.0-54.0) % MCV 88 (76-96) fL MCH 28.7 (27.0-32.0) pg MCHC 32.7 (31.0-35.0) g/dL RDW 16.3 H (11.0-16.0) % Plt Count 245 (150-400) K/uL MPV 11.2 H (6.0-10.0) fL Neut % (Auto) 79.9 H (45.0-70.0) % Lymph % (Auto) 9.7 L (20.0-40.0) % [place] % (Auto) 9.4 (3.0-10.0) % Eos % (Auto) 0.5 L (1.0-5.0) % Baso % (Auto) 0.5 (0.0-0.5) % Neut # (Auto) 10.72 H (2.00-7.50) K/uL Lymph # (Auto) 1.31 L (1.50-4.00) K/uL [place] # (Auto) 1.27 H (0.20-0.80) K/uL Eos # (Auto) 0.07 (0.04-0.40) K/uL Baso # (Auto) 0.07 (0.02-0.10) K/uL VBG pH 7.40 (7.31-7.41) VBG pCO2 50.9 (41-51) mm/Hg VBG HCO3 31.2 H (23.0-28.0) mmol/L VBG Base Excess 6.3 H (-2-3) mm/L O2 Delivery Device Nasal cannula Sodium 133 L (136-145) mmol/L Potassium 4.2 (3.5-5.1) mmol/L Chloride 93 L (98-107) mmol/L Carbon Dioxide 33.0 H (21.0-32.0) mmol/L Anion Gap 11.2 (5.0-15.0) mmol/L BUN 21 (8-26) mg/dL Creatinine 1.11 (0.70-1.30) mg/dL Est Cr Clr Drug Dosing 58.38 mL/min Estimated GFR (MDRD) > 60 (>60) MLS/MIN BUN/Creatinine Ratio 18.9 (6-25) Glucose 125 H (74-100) mg/dL Calcium 9.2 (8.5-10.1) mg/dL Total Bilirubin 0.5 D (0.0-1.0) mg/dL AST 70 H (15-37) U/L ALT 82 H (12-78) U/L Alkaline Phosphatase 99 (46-116) U/L Total Protein 6.8 (6.4-8.2) g/dL Albumin 2.4 L (3.4-5.0) g/dL Globulin 4.4 H (2.2-4.2) g/dL Albumin/Globulin Ratio 0.6 L (0.8-2.0) Result Diagrams: 12/02/20 07:10 12/02/20 07:10 Sepsis Event Note - Evaluation Sepsis Screening Result: Sepsis Risk - Focused Exam Vital Signs: Vital Signs Temp Pulse Pulse Resp BP Pulse Ox 12/02/20 12:00 35.7 C L 76 20 108/63 93 L 12/02/20 08:00 36.0 C L 96 24 H 104/59 L 90 L - Problem List & Annotations (1) COPD exacerbation SNOMED Code(s): 227426845, 749458695 Code(s): J44.1 - CHRONIC OBSTRUCTIVE PULMONARY DISEASE W (ACUTE) EXACERBATION Status: Chronic Priority: Medium Current Visit: Yes Annotation/Comment:: 07/29/15 - Chronich obstructive pulmonary disease exacerbatoin wtih bronchitis 04/30/15 - into ER. (2) Pneumonia due to COVID-19 virus SNOMED Code(s): 827814414753794553 Code(s): U07.1 - COVID-19; J12.82 - PNEUMONIA DUE TO CORONAVIRUS DISEASE 2019 Status: Acute Priority: Medium Current Visit: Yes (3) Respiratory failure with hypoxia SNOMED Code(s): 84432409706211713 Code(s): J96.91 - RESPIRATORY FAILURE, UNSPECIFIED WITH HYPOXIA Status: Acute Priority: Medium Current Visit: Yes Qualifiers: Chronicity: acute on chronic Qualified Code(s): J96.21 - Acute and chronic respiratory failure with hypoxia (4) Oxygen dependent SNOMED Code(s): 901561215176 Code(s): Z99.81 - DEPENDENCE ON SUPPLEMENTAL OXYGEN Status: Acute Priority: Low Current Visit: Yes - Problem List Review Problem List Initiated/Reviewed/Updated: Yes - Plan Plan:: Assessment and Plan: - 60 yo M with chronic resp failure presented 11/15 with worsening resp failure, dx with COVID 19 - Completed a course of Remdesivir and dexamethasone. - COVID pneumonia Finished a 5 days course of Remdesivir IV. On quarantine till Dec 05. - Concern for secondary bacterial pneumonia Continue Levaquin started 11/19 for pseudomonas coverage. Last dose on 12/05 - Acute on chronic hypoxia 2/2 respiratory failure He is on chronic O2 use at home 3-4 lit by NC during the day, trilogy BiPAP machine only at night. 12/01/2020 patient has been weaned down to 7 L/min by nasal cannula satting between 86-91%, without any increased work of breathing. - Acute on chronic COPD exacerbation. Currently on DuoNeb q6hr, Pulmicort, Albuterol, and his home medications Theophylline and Spiriva. Continued. - Chronic prednisone use On prednisone 20mg PO daily. Resume for now and plan to gradually wean him off as tolerating. Baseline at home is 10mg daily - h/o CHF - mild fluid overload in feet Currently on home dose of Bumex 3mg and 2 mg PO. Also, on Spironolactone daily. No presentation of being fluid overloaded today. - Hypomagnesemia On Mg replacement PO. - High risk of DVT; On Lovenox 40mg BID - h/o Anxiety On Ativan 1mg q6hr PRN Patient is DNR/DNI, and he and his decline option of transfer. Patient will still in quarantine till Dec 05 due to immunocompromised state, patient is currently on a oxygen taper plan as tolerated.
[2020-12-02] MEDS: Levofloxacin 500 MG Tab PO SCH (17:22)
[2020-12-02] MEDS: Montelukast 10 MG Tab PO SCH (19:44)
[2020-12-02] MEDS: Docusate Sodium 250 MG Cap PO SCH (19:46)
[2020-12-03] MEDS: Morphine Oral Concentrate 20 MG/ML 30 ML Bottle SL PRN ×2 (00:30→20:20)
[2020-12-03] MEDS: LORazepam 1 MG Tab PO PRN (00:30)
[2020-12-03] MEDS: Albuterol 0.083% 2.5 MG/3 ML Neb Soln NEB SCH ×9 (00:31→20:45)
[2020-12-03] MEDS: MUCOMYST 10% INH SCH ×4 (02:00→19:50)
[2020-12-03] MEDS: Enoxaparin 40 MG/0.4 ML Syringe SUBCUT SCH ×2 (07:26→19:47)
[2020-12-03] MEDS: predniSONE 20 MG Tab PO SCH ×2 (07:27→19:48)
[2020-12-03] MEDS: Magnesium Oxide 400 MG Tab PO SCH ×2 (07:27→19:44)
[2020-12-03] MEDS: Spironolactone 25 MG Tab PO SCH (07:27)
[2020-12-03] MEDS: Cetirizine 10 MG Tab PO SCH (07:27)
[2020-12-03] MEDS: Albuterol/Ipratropium 3.0-0.5 MG/3 ML Neb Soln NEB SCH ×4 (07:27→17:56)
[2020-12-03] MEDS: Polyethylene Glycol 3350 Powder 17 GM Packet PO SCH (07:27)
[2020-12-03] MEDS: LORazepam 1 MG Tab PO SCH ×4 (07:28→19:44)
[2020-12-03] MEDS: Potassium Chloride 20 MEQ Tab.ER PO SCH ×2 (07:28→19:44)
[2020-12-03] MEDS: Acetaminophen/HYDROcodone 325-10 MG Tab PO SCH ×3 (07:28→19:44)
[2020-12-03] MEDS: Omeprazole 20 MG Cap.CR PO SCH (07:28)
[2020-12-03] MEDS: Bumetanide 2 MG Tab PO SCH ×2 (07:30→10:46)
[2020-12-03] MEDS: PERFOROMIST 20 MCG/2 ML INH SCH ×2 (07:55→19:52)
[2020-12-03] MEDS: Budesonide 0.5 MG/2 ML Neb Susp NEB SCH ×2 (07:58→19:43)
[2020-12-03] MEDS: Tiotropium Inhaler 18 MCG Inhalation Powder Cap Kit of 5 INH SCH (08:04)
[2020-12-03] MEDS: THEOPHYLLINE 600 MG PO SCH ×2 (13:01→19:47)
[2020-12-03] MEDS: Theophylline 300 MG Tab.ER PO SCH (13:01)
--- NOTE | 2020-12-03 13:23 | PCM.PN ---
- General Info Date of Service: 12/03/20 Admission Dx/Problem (Free Text): Admission Diagnosis/Problem Admission Diagnosis/Problem Pneumonia Subjective Update: breathing improved. no fever. Still satting high 80's and low 90's on Trelogy. Able to wean him down the O2 to 7 lit by NC. Functional Status: Reports: Tolerating Diet, Urinating, New Symptoms, Incentive Spirometry - Review of Systems General: Reports: No Symptoms HEENT: Reports: No Symptoms Pulmonary: Reports: Shortness of Breath, Cough Cardiovascular: Reports: No Symptoms Gastrointestinal: Reports: No Symptoms Musculoskeletal: Reports: No Symptoms Neurological: Reports: No Symptoms Psychiatric: Reports: Anxiety. Denies: Confusion, Depression - Patient Data Vitals - Most Recent: Last Vital Signs Temp 36.4 C 12/03/20 11:51 Pulse 100 12/03/20 08:00 Resp 16 12/03/20 11:51 BP 129/69 12/03/20 11:51 Pulse Ox 89 L 12/03/20 08:00 Weight - Most Recent: 73.845 kg I&O - Last 24 Hours: Intake & Output 12/02/20 12/03/20 12/03/20 22:59 06:59 14:59 Intake Total 650 1270 Output Total 600 550 Balance 50 720 Med Orders - Current: Current Medications Hydrocodone Bitart/Acetaminophen (Acetaminophen/Hydrocodone 325-10 Mg Tab) 1 tab PO TID [facility] Last Admin: 12/03/20 07:28 Dose: 1 tab Documented by: Albuterol (Albuterol 8 Gm Inhaler) 0 gm INH QID PRN PRN Reason: Shortness of Breath Last Admin: 11/19/20 01:24 Dose: 2 puff Documented by: Albuterol (Albuterol 0.083% 2.5 Mg/3 Ml Neb Soln) 2.5 mg NEB Q3H ALEK Last Admin: 12/03/20 11:41 Dose: 2.5 mg Documented by: Albuterol/Ipratropium (Albuterol/Ipratropium 3.0-0.5 Mg/3 Ml Neb Soln) 3 ml NEB Q6H ALEK Last Admin: 12/03/20 11:41 Dose: 3 ml Documented by: Budesonide (Budesonide 0.5 Mg/2 Ml Neb Susp) 0.5 mg NEB BID ALEK Last Admin: 12/03/20 07:58 Dose: 0.5 mg Documented by: Bumetanide (Bumetanide 2 Mg Tab) 2 mg PO ACLUNCH [facility] Last Admin: 12/03/20 10:46 Dose: 2 mg Documented by: Bumetanide (Bumetanide 2 Mg Tab) 3 mg PO DAILY@0800 [facility] Last Admin: 12/03/20 07:30 Dose: 3 mg Documented by: Calamine/Phenol (Menthol/Zinc Oxide Ointment 113 Gm Tube) 1 gm TOP QID PRN PRN Reason: Rash Last Admin: 11/17/20 09:35 Dose: 1 applic Documented by: Cetirizine HCl (Cetirizine 10 Mg Tab) 10 mg PO DAILY [facility] Last Admin: 12/03/20 07:27 Dose: 10 mg Documented by: Diphenhydramine HCl (Diphenhydramine 50 Mg Cap) 50 mg PO BID PRN PRN Reason: burning eyes Last Admin: 11/26/20 20:49 Dose: 50 mg Documented by: Docusate Sodium (Docusate Sodium 250 Mg Cap) 250 mg PO BEDTIME [facility] Last Admin: 12/02/20 19:46 Dose: 250 mg Documented by: Enoxaparin Sodium (Enoxaparin 40 Mg/0.4 Ml Syringe) 40 mg SUBCUT Q12H [facility] Last Admin: 12/03/20 07:26 Dose: 40 mg Documented by: Levofloxacin (Levofloxacin 500 Mg Tab) 500 mg PO Q24H [facility] Last Admin: 12/02/20 17:22 Dose: 500 mg Documented by: Lorazepam (Lorazepam 1 Mg Tab) 1 mg PO QID [facility] Last Admin: 12/03/20 11:40 Dose: 1 mg Documented by: Lorazepam (Lorazepam 1 Mg Tab) 1 mg PO Q6H PRN PRN Reason: Anxiety Last Admin: 12/03/20 00:30 Dose: 1 mg Documented by: Magnesium Oxide (Magnesium Oxide 400 Mg Tab) 400 mg PO BID [facility] Last Admin: 12/03/20 07:27 Dose: 400 mg Documented by: Montelukast Sodium (Montelukast 10 Mg Tab) 10 mg PO BEDTIME [facility] Last Admin: 12/02/20 19:44 Dose: 10 mg Documented by: Morphine Sulfate (Morphine Oral Concentrate 20 Mg/Ml 30 Ml Bottle) 5 mg SL Q4H PRN PRN Reason: Pain Last Admin: 12/03/20 00:30 Dose: 5 mg Documented by: Clotrimazole [place] 1 each PO SEECOMMENT PRN PRN Reason: Other Last Admin: 12/02/20 01:08 Dose: 1 each Documented by: Theophylline 600mg (Er Tablets) 0.5 each PO TID [facility] Last Admin: 12/03/20 13:01 Dose: 0.5 each Documented by: Omeprazole (Omeprazole 20 Mg Cap.Cr) 40 mg PO DAILY [facility] Last Admin: 12/03/20 07:28 Dose: 40 mg Documented by: Ondansetron HCl (Ondansetron 4 Mg Tab.Dis) 4 mg PO Q6H PRN PRN Reason: NAUSEA Last Admin: 11/19/20 08:31 Dose: 4 mg Documented by: Perforomist 20mcg/ (2ml Nebs) 0 each INH BID [facility] Last Admin: 12/03/20 07:55 Dose: 1 each Documented by: Mucomyst 10% Soln (Neb) 1 each INH Q6H [facility] Last Admin: 12/03/20 07:47 Dose: 1 each Documented by: Polyethylene Glycol (Polyethylene Glycol 3350 Powder 17 Gm Packet) 17 gm PO DAILY [facility] Last Admin: 12/03/20 07:27 Dose: 17 gm Documented by: Potassium Chloride (Potassium Chloride 20 Meq Tab.Er) 20 meq PO BID [facility] Last Admin: 12/03/20 07:28 Dose: 20 meq Documented by: Prednisone (Prednisone 20 Mg Tab) 20 mg PO DAILY [facility] Last Admin: 12/03/20 07:27 Dose: 20 mg Documented by: Senna/Docusate Sodium (Docusate Sodium/Sennosides 50-8.6 Mg Tab) 1 tab PO ACLUNCH [facility] Last Admin: 12/03/20 10:46 Dose: Not Given Documented by: Sodium Chloride (Sodium Chloride 0.65% Nasal [place] 45 Ml Bottle) 1 ml [place] Q2H PRN PRN Reason: Nasal Dryness Last Admin: 12/01/20 21:00 Dose: 1 each Documented by: Spironolactone (Spironolactone 25 Mg Tab) 25 mg PO QAM [facility] Last Admin: 12/03/20 07:27 Dose: 25 mg Documented by: Tiotropium [place] (Tiotropium Inhaler 18 Mcg Inhalation Powder Cap Kit Of 5) 18 mcg INH DAILY [facility] Last Admin: 12/03/20 08:04 Dose: 1 puff Documented by: Discontinued Medications Hydrocodone Bitart/Acetaminophen (Acetaminophen/Hydrocodone 325-10 Mg Tab) Confirm Administered Dose 1 tab .ROUTE .STK-MED ONE Stop: 11/16/20 20:01 Last Admin: 11/16/20 20:18 Dose: Not Given Documented by: Acetylcysteine (Acetylcysteine 20% 200 Mg/Ml 30 Ml Nebulizer Soln Sdv) 100 mg INH Q6H [facility] Last Admin: 11/15/20 23:30 Dose: 100 mg Documented by: Albuterol (Albuterol 0.083% 2.5 Mg/3 Ml Neb Soln) 2.5 mg NEB Q6H ALEK Albuterol (Albuterol 0.083% 2.5 Mg/3 Ml Neb Soln) Confirm Administered Dose 2.5 mg .ROUTE .STK-MED ONE Stop: 11/25/20 16:13 Last Admin: 11/25/20 16:35 Dose: Not Given Documented by: Albuterol/Ipratropium (Albuterol/Ipratropium 3.0-0.5 Mg/3 Ml Neb Soln) 3 ml NEB Q2H PRN PRN Reason: Dyspnea Last Admin: 11/17/20 06:10 Dose: 3 ml Documented by: Albuterol/Ipratropium (Albuterol/Ipratropium 3.0-0.5 Mg/3 Ml Neb Soln) 6 ml NEB ASDIRECTED ONE Stop: 11/17/20 20:01 Last Admin: 11/17/20 21:02 Dose: 6 ml Documented by: Azithromycin (Azithromycin 250 Mg Tab) 500 mg PO DAILY [facility] Stop: 11/24/20 16:31 Last Admin: 11/19/20 08:28 Dose: 500 mg Documented by: Bumetanide (Bumetanide 2 Mg Tab) 3 mg PO WITHBREAKFAST [facility] Last Admin: 11/18/20 06:42 Dose: 3 mg Documented by: Bumetanide (Bumetanide 1 Mg Tab) 3 mg PO ONETIME ONE Stop: 11/17/20 21:20 Last Admin: 11/17/20 22:11 Dose: 3 mg Documented by: Bumetanide (Bumetanide 1 Mg Tab) Confirm Administered Dose 3 mg .ROUTE .STK-MED ONE Stop: 11/23/20 07:36 Last Admin: 11/23/20 07:37 Dose: 3 mg Documented by: Dexamethasone (Dexamethasone 4 Mg Tab) 6 mg PO DAILY [facility] Last Admin: 11/19/20 08:26 Dose: 6 mg Documented by: Furosemide (Furosemide 20 Mg Tab) Confirm Administered Dose 20 mg .ROUTE .STK- MED ONE Stop: 11/21/20 11:48 Last Admin: 11/21/20 19:11 Dose: Not Given Documented by: Furosemide (Furosemide 20 Mg Tab) 20 mg PO BIDDIURETIC ALEK Stop: 11/24/20 23:59 Last Admin: 11/24/20 17:29 Dose: 20 mg Documented by: Remdesivir 200 mg/ Sodium (Chloride) 250 mls @ 250 mls/hr IV ONETIME ONE Stop: 11/15/20 19:18 Last Admin: 11/15/20 20:04 Dose: 250 mls/hr Documented by: Remdesivir 100 mg/ Sodium (Chloride) 100 mls @ 100 mls/hr IV Q24H [facility] Stop: 11/19/20 16:59 Last Admin: 11/19/20 16:25 Dose: 100 mls/hr Documented by: Levofloxacin/Dextrose 500 mg/ (Levofloxacin/Dextrose) 200 mls @ 100 mls/hr IV Q24H [facility] Last Admin: 11/22/20 18:01 Dose: 100 mls/hr Documented by: Levofloxacin/Dextrose (Levaquin In D5w 500 Mg/100 Ml) Confirm Administered Dose 100 mls @ as directed IV .STK-MED ONE Stop: 11/19/20 19:26 Last Admin: 11/20/20 02:33 Dose: Not Given Documented by: Lorazepam (Lorazepam 1 Mg Tab) 1 mg PO ONETIME ONE Stop: 11/18/20 03:46 Last Admin: 11/18/20 03:45 Dose: 1 mg Documented by: Lorazepam (Lorazepam 2 Mg/Ml Sdv) 0.5 mg IVPUSH Q6H PRN PRN Reason: Agitation Last Admin: 11/19/20 04:13 Dose: 0.5 mg Documented by: Lorazepam (Lorazepam 2 Mg/Ml Sdv) 1 mg IVPUSH Q6H PRN PRN Reason: Agitation Last Admin: 11/23/20 10:25 Dose: 1 mg Documented by: Lorazepam (Lorazepam 2 Mg/Ml Sdv) Confirm Administered Dose 2 mg .ROUTE .STK-MED ONE Stop: 11/20/20 06:26 Last Admin: 11/20/20 06:35 Dose: Not Given Documented by: Lorazepam (Lorazepam 2 Mg/Ml Sdv) 1 mg IVPUSH Q6H PRN PRN Reason: Anxiety Stop: 11/24/20 19:00 Lorazepam (Lorazepam 1 Mg Tab) Confirm Administered Dose 1 mg .ROUTE .STK-MED ONE Stop: 11/25/20 04:15 Last Admin: 11/25/20 04:18 Dose: Not Given Documented by: Lorazepam (Lorazepam 1 Mg Tab) Confirm Administered Dose 1 mg .ROUTE .STK-MED ONE Stop: 11/30/20 04:29 Last Admin: 11/30/20 04:25 Dose: 1 mg Documented by: Methylprednisolone (Methylprednisolone 4 Mg Tab) 40 mg PO Q12H [facility] Methylprednisolone Sodium Succinate (Methylprednisolone Sodium Succinate 40 Mg/1 Ml Sdv) 40 mg IVPUSH Q12H [facility] Last Admin: 11/23/20 06:02 Dose: 40 mg Documented by: Methylprednisolone Sodium Succinate (Methylprednisolone Sodium Succinate 40 Mg/1 Ml Sdv) Confirm Administered Dose 40 mg .ROUTE .STK-MED ONE Stop: 11/23/20 17:56 Last Admin: 11/23/20 17:57 Dose: Not Given Documented by: Morphine Sulfate (Morphine Oral Concentrate 20 Mg/Ml 30 Ml Bottle) Confirm Administered Dose 600 mg .ROUTE .STK-MED ONE Stop: 11/18/20 08:13 Last Admin: 11/18/20 09:22 Dose: Not Given Documented by: Theophylline 600mg (Er Tablet) 0.5 each PO TID [facility] Last Admin: 11/25/20 21:55 Dose: Not Given Documented by: Mucomyst 10% Soln (Neb) 0 each INH Q6H [facility] Last Admin: 11/18/20 09:24 Dose: Not Given Documented by: Potassium Chloride (Potassium Chloride 20 Meq Tab.Er) 20 meq PO DAILY [facility] Last Admin: 11/17/20 09:24 Dose: 20 meq Documented by: Prednisone (Prednisone 10 Mg Tab) 10 mg PO DAILY [facility] Last Admin: 11/23/20 07:37 Dose: 10 mg Documented by: Prednisone (Prednisone 10 Mg Tab) Confirm Administered Dose 10 mg .ROUTE .STK- MED ONE Stop: 11/23/20 18:26 Last Admin: 11/23/20 21:20 Dose: Not Given Documented by: Sodium Chloride (Sodium Chloride 0.9% 10 Ml Syringe) 10 ml FLUSH BID [facility] Last Admin: 11/23/20 09:19 Dose: 10 ml Documented by: Spironolactone (Spironolactone 25 Mg Tab) 25 mg PO ONETIME ONE Stop: 11/30/20 09:48 Last Admin: 11/30/20 12:39 Dose: 25 mg Documented by: Theophylline (Theophylline 300 Mg Cap.Er) 300 mg PO TID [facility] Last Admin: 11/16/20 12:39 Dose: 300 mg Documented by: Theophylline (Theophylline 300 Mg Tab.Er) 150 mg PO TID [facility] Stop: 11/26/20 01:00 Last Admin: 11/25/20 22:00 Dose: 150 mg Documented by: Theophylline (Theophylline 300 Mg Tab.Er) 300 mg PO DAILY [facility] Last Admin: 11/30/20 08:55 Dose: 300 mg Documented by: Theophylline (Theophylline 300 Mg Tab.Er) 300 mg PO TID [facility] Last Admin: 12/03/20 13:01 Dose: 300 mg Documented by: - Exam Quality Assessment: Supplemental Oxygen, DVT Prophylaxis General: Alert, Oriented, Cooperative HEENT: Pupils Equal, Pupils Reactive Lungs: Normal Respiratory Effort (at baseline) Cardiovascular: Regular Rate, Regular Rhythm GI/Abdominal Exam: Normal Bowel Sounds, Soft, Non-Tender Back Exam: Normal Inspection Extremities: Normal Inspection Neurological: No New Focal Deficit - Patient Data Result Diagrams: 12/02/20 07:10 12/02/20 07:10 Sepsis Event Note - Evaluation Sepsis Screening Result: No Definite Risk - Focused Exam Vital Signs: Vital Signs Temp Temp Pulse Resp BP BP Pulse Ox 12/03/20 11:51 36.4 C 16 129/69 12/03/20 08:00 36.5 C 100 18 133/71 92 L 12/03/20 04:00 36.3 C 89 20 114/70 Pulse Ox 12/03/20 11:51 12/03/20 08:00 89 L 12/03/20 04:00 - Problem List & Annotations (1) COPD exacerbation SNOMED Code(s): 775814962, 630379352 Code(s): J44.1 - CHRONIC OBSTRUCTIVE PULMONARY DISEASE W (ACUTE) EXACERBATION Status: Chronic Priority: Medium Current Visit: Yes Annotation/Comment:: 07/29/15 - Chronich obstructive pulmonary disease exacerbatoin wtih bronchitis 04/30/15 - into ER. (2) Pneumonia due to COVID-19 virus SNOMED Code(s): 423597291904121683 Code(s): U07.1 - COVID-19; J12.82 - PNEUMONIA DUE TO CORONAVIRUS DISEASE 2019 Status: Acute Priority: Medium Current Visit: Yes (3) Respiratory failure with hypoxia SNOMED Code(s): 22058796122150552 Code(s): J96.91 - RESPIRATORY FAILURE, UNSPECIFIED WITH HYPOXIA Status: Acute Priority: Medium Current Visit: Yes Qualifiers: Chronicity: acute on chronic Qualified Code(s): J96.21 - Acute and chronic respiratory failure with hypoxia (4) Oxygen dependent SNOMED Code(s): 328392362644 Code(s): Z99.81 - DEPENDENCE ON SUPPLEMENTAL OXYGEN Status: Acute Priority: Low Current Visit: Yes - Problem List Review Problem List Initiated/Reviewed/Updated: Yes - My Orders Last 24 Hours: My Active Orders 12/03/20 14:00 Non-Formulary Medication [NF Drug] 0.5 each PO TID - Plan Plan:: Assessment and Plan: - 60 yo M with chronic resp failure presented 11/15 with worsening resp failure, dx with COVID 19 - Completed a course of Remdesivir and dexamethasone. - COVID pneumonia Finished a 5 days course of Remdesivir IV. On quarantine till Dec 05. - Concern for secondary bacterial pneumonia Continue Levaquin started 11/19 for pseudomonas coverage. Last dose on 12/05 - Acute on chronic hypoxia 2/2 respiratory failure He is on chronic O2 use at home 3-4 lit by NC during the day, trilogy BiPAP machine only at night. 12/01/2020 patient has been weaned down to 7 L/min by nasal cannula satting between 86-91%, without any increased work of breathing. - Acute on chronic COPD exacerbation. Currently on DuoNeb q6hr, Pulmicort, Albuterol, and his home medications Theophylline and Spiriva. Continued. - Chronic prednisone use Increased prednisone 20mg PO BID on 12/03. plan to gradually wean him off as tolerating. Baseline at home is 10mg daily - h/o CHF - mild fluid overload in feet - resolving Currently on home dose of Bumex 3mg and 2 mg PO. Also, on Spironolactone daily. No presentation of being fluid overloaded today. - Hypomagnesemia On Mg replacement PO. - High risk of DVT; On Lovenox 40mg BID - h/o Anxiety On Ativan 1mg q6hr PRN Patient is DNR/DNI, and he and his decline option of transfer. Patient will still in quarantine till Dec 05 due to immunocompromised state, patient is currently on a oxygen taper plan as tolerated.
[2020-12-03] MEDS: Levofloxacin 500 MG Tab PO SCH (17:56)
[2020-12-03] MEDS: Docusate Sodium 250 MG Cap PO SCH (19:43)
[2020-12-03] MEDS: Montelukast 10 MG Tab PO SCH (19:44)
[2020-12-04] MEDS: Albuterol/Ipratropium 3.0-0.5 MG/3 ML Neb Soln NEB SCH ×4 (00:44→17:14)
[2020-12-04] MEDS: Albuterol 0.083% 2.5 MG/3 ML Neb Soln NEB SCH ×8 (00:44→21:30)
[2020-12-04] MEDS: MUCOMYST 10% INH SCH ×4 (02:57→20:05)
[2020-12-04] MEDS: Morphine Oral Concentrate 20 MG/ML 30 ML Bottle SL PRN (06:00)
[2020-12-04] MEDS: Acetaminophen/HYDROcodone 325-10 MG Tab PO SCH ×3 (08:06→20:03)
[2020-12-04] MEDS: Budesonide 0.5 MG/2 ML Neb Susp NEB SCH ×2 (08:06→20:06)
[2020-12-04] MEDS: Bumetanide 2 MG Tab PO SCH ×2 (08:07→12:34)
[2020-12-04] MEDS: Potassium Chloride 20 MEQ Tab.ER PO SCH ×2 (08:08→20:02)
[2020-12-04] MEDS: predniSONE 20 MG Tab PO SCH ×2 (08:08→20:04)
[2020-12-04] MEDS: Cetirizine 10 MG Tab PO SCH (08:08)
[2020-12-04] MEDS: Omeprazole 20 MG Cap.CR PO SCH (08:08)
[2020-12-04] MEDS: Magnesium Oxide 400 MG Tab PO SCH ×2 (08:09→20:02)
[2020-12-04] MEDS: LORazepam 1 MG Tab PO SCH ×4 (08:09→20:00)
[2020-12-04] MEDS: Spironolactone 25 MG Tab PO SCH (08:09)
[2020-12-04] MEDS: Enoxaparin 40 MG/0.4 ML Syringe SUBCUT SCH ×2 (08:11→19:58)
[2020-12-04] MEDS: Polyethylene Glycol 3350 Powder 17 GM Packet PO SCH (08:12)
[2020-12-04] MEDS: THEOPHYLLINE 600 MG PO SCH ×3 (08:12→20:03)
[2020-12-04] MEDS: PERFOROMIST 20 MCG/2 ML INH SCH ×2 (08:20→20:05)
[2020-12-04] MEDS: Tiotropium Inhaler 18 MCG Inhalation Powder Cap Kit of 5 INH SCH (08:20)
[2020-12-04] MEDS: Levofloxacin 500 MG Tab PO SCH (17:14)
--- NOTE | 2020-12-04 19:46 | PCM.PN ---
- General Info Date of Service: 12/04/20 Admission Dx/Problem (Free Text): Admission Diagnosis/Problem Admission Diagnosis/Problem Pneumonia Subjective Update: Continues to regular variable amounts of oxygen to maintain appropriate sats. Appetite good. Quite demanding with nursing staff and often refusing to care for himself when he is capable of doing so. Functional Status: Reports: Pain Controlled, Tolerating Diet, Ambulating, Urinating - Review of Systems General: Reports: Weakness. Denies: Fever HEENT: Reports: No Symptoms Pulmonary: Reports: Shortness of Breath, Cough. Denies: Wheezing Cardiovascular: Reports: Dyspnea on Exertion. Denies: Chest Pain Gastrointestinal: Reports: No Symptoms Musculoskeletal: Reports: No Symptoms Skin: Reports: No Symptoms Neurological: Reports: No Symptoms - Patient Data Vitals - Most Recent: Last Vital Signs Temp 36.7 C 12/04/20 19:36 Pulse 86 12/04/20 19:36 Resp 24 H 12/04/20 16:00 BP 106/59 L 12/04/20 19:36 Pulse Ox 86 L 12/04/20 19:36 Weight - Most Recent: 73.845 kg I&O - Last 24 Hours: Intake & Output 12/04/20 12/04/20 12/04/20 06:59 14:59 22:59 Intake Total 720 840 Output Total 900 650 Balance -180 190 Med Orders - Current: Current Medications Hydrocodone Bitart/Acetaminophen (Acetaminophen/Hydrocodone 325-10 Mg Tab) 1 tab PO TID ALEK Last Admin: 12/04/20 13:08 Dose: 1 tab Documented by: Albuterol (Albuterol 8 Gm Inhaler) 0 gm INH QID PRN PRN Reason: Shortness of Breath Last Admin: 11/19/20 01:24 Dose: 2 puff Documented by: Albuterol (Albuterol 0.083% 2.5 Mg/3 Ml Neb Soln) 2.5 mg NEB Q3H ALEK Last Admin: 12/04/20 17:14 Dose: 2.5 mg Documented by: Albuterol/Ipratropium (Albuterol/Ipratropium 3.0-0.5 Mg/3 Ml Neb Soln) 3 ml NEB Q6H ALEK Last Admin: 12/04/20 17:14 Dose: 3 ml Documented by: Budesonide (Budesonide 0.5 Mg/2 Ml Neb Susp) 0.5 mg NEB BID [facility] Last Admin: 12/04/20 08:06 Dose: 0.5 mg Documented by: Bumetanide (Bumetanide 2 Mg Tab) 2 mg PO ACLUNCH [facility] Last Admin: 12/04/20 12:34 Dose: 2 mg Documented by: Bumetanide (Bumetanide 2 Mg Tab) 3 mg PO DAILY@0800 [facility] Last Admin: 12/04/20 08:07 Dose: 3 mg Documented by: Calamine/Phenol (Menthol/Zinc Oxide Ointment 113 Gm Tube) 1 gm TOP QID PRN PRN Reason: Rash Last Admin: 11/17/20 09:35 Dose: 1 applic Documented by: Cetirizine HCl (Cetirizine 10 Mg Tab) 10 mg PO DAILY [facility] Last Admin: 12/04/20 08:08 Dose: 10 mg Documented by: Diphenhydramine HCl (Diphenhydramine 50 Mg Cap) 50 mg PO BID PRN PRN Reason: burning eyes Last Admin: 11/26/20 20:49 Dose: 50 mg Documented by: Docusate Sodium (Docusate Sodium 250 Mg Cap) 250 mg PO BEDTIME [facility] Last Admin: 12/03/20 19:43 Dose: 250 mg Documented by: Enoxaparin Sodium (Enoxaparin 40 Mg/0.4 Ml Syringe) 40 mg SUBCUT Q12H [facility] Last Admin: 12/04/20 08:11 Dose: 40 mg Documented by: Levofloxacin (Levofloxacin 500 Mg Tab) 500 mg PO Q24H [facility] Last Admin: 12/04/20 17:14 Dose: 500 mg Documented by: Lorazepam (Lorazepam 1 Mg Tab) 1 mg PO QID [facility] Last Admin: 12/04/20 15:54 Dose: 1 mg Documented by: Lorazepam (Lorazepam 1 Mg Tab) 1 mg PO Q6H PRN PRN Reason: Anxiety Last Admin: 12/03/20 00:30 Dose: 1 mg Documented by: Magnesium Oxide (Magnesium Oxide 400 Mg Tab) 400 mg PO BID [facility] Last Admin: 12/04/20 08:09 Dose: 400 mg Documented by: Montelukast Sodium (Montelukast 10 Mg Tab) 10 mg PO BEDTIME [facility] Last Admin: 12/03/20 19:44 Dose: 10 mg Documented by: Morphine Sulfate (Morphine Oral Concentrate 20 Mg/Ml 30 Ml Bottle) 5 mg SL Q4H PRN PRN Reason: Pain Last Admin: 12/04/20 06:00 Dose: 5 mg Documented by: Clotrimazole Luis Fernando 1 each PO SEECOMMENT PRN PRN Reason: Other Last Admin: 12/02/20 01:08 Dose: 1 each Documented by: Theophylline 600mg (Er Tablets) 0.5 each PO TID [facility] Last Admin: 12/04/20 13:09 Dose: 0.5 each Documented by: Omeprazole (Omeprazole 20 Mg Cap.Cr) 40 mg PO DAILY [facility] Last Admin: 12/04/20 08:08 Dose: 40 mg Documented by: Ondansetron HCl (Ondansetron 4 Mg Tab.Dis) 4 mg PO Q6H PRN PRN Reason: NAUSEA Last Admin: 11/19/20 08:31 Dose: 4 mg Documented by: Perforomist 20mcg/ (2ml Nebs) 0 each INH BID [facility] Last Admin: 12/04/20 08:20 Dose: 1 each Documented by: Mucomyst 10% Soln (Neb) 1 each INH Q6H [facility] Last Admin: 12/04/20 13:09 Dose: 1 each Documented by: Polyethylene Glycol (Polyethylene Glycol 3350 Powder 17 Gm Packet) 17 gm PO DAILY [facility] Last Admin: 12/04/20 08:12 Dose: 17 gm Documented by: Potassium Chloride (Potassium Chloride 20 Meq Tab.Er) 20 meq PO BID [facility] Last Admin: 12/04/20 08:08 Dose: 20 meq Documented by: Prednisone (Prednisone 20 Mg Tab) 20 mg PO BID [facility] Last Admin: 12/04/20 08:08 Dose: 20 mg Documented by: Senna/Docusate Sodium (Docusate Sodium/Sennosides 50-8.6 Mg Tab) 1 tab PO ACLUNCH [facility] Last Admin: 12/04/20 12:34 Dose: 1 tab Documented by: Sodium Chloride (Sodium Chloride 0.65% Nasal [place] 45 Ml Bottle) 1 ml [place] Q2H PRN PRN Reason: Nasal Dryness Last Admin: 12/01/20 21:00 Dose: 1 each Documented by: Spironolactone (Spironolactone 25 Mg Tab) 25 mg PO QAM [facility] Last Admin: 12/04/20 08:09 Dose: 25 mg Documented by: Tiotropium [place] (Tiotropium Inhaler 18 Mcg Inhalation Powder Cap Kit Of 5) 18 mcg INH DAILY [facility] Last Admin: 12/04/20 08:20 Dose: 1 puff Documented by: Discontinued Medications Hydrocodone Bitart/Acetaminophen (Acetaminophen/Hydrocodone 325-10 Mg Tab) Confirm Administered Dose 1 tab .ROUTE .STK-MED ONE Stop: 11/16/20 20:01 Last Admin: 11/16/20 20:18 Dose: Not Given Documented by: Acetylcysteine (Acetylcysteine 20% 200 Mg/Ml 30 Ml Nebulizer Soln Sdv) 100 mg INH Q6H [facility]LE[facility] Last Admin: 11/15/20 23:30 Dose: 100 mg Documented by: Albuterol (Albuterol 0.083% 2.5 Mg/3 Ml Neb Soln) 2.5 mg NEB Q6H [facility] Albuterol (Albuterol 0.083% 2.5 Mg/3 Ml Neb Soln) Confirm Administered Dose 2.5 mg .ROUTE .STK-MED ONE Stop: 11/25/20 16:13 Last Admin: 11/25/20 16:35 Dose: Not Given Documented by: Albuterol/Ipratropium (Albuterol/Ipratropium 3.0-0.5 Mg/3 Ml Neb Soln) 3 ml NEB Q2H PRN PRN Reason: Dyspnea Last Admin: 11/17/20 06:10 Dose: 3 ml Documented by: Albuterol/Ipratropium (Albuterol/Ipratropium 3.0-0.5 Mg/3 Ml Neb Soln) 6 ml NEB ASDIRECTED ONE Stop: 11/17/20 20:01 Last Admin: 11/17/20 21:02 Dose: 6 ml Documented by: Azithromycin (Azithromycin 250 Mg Tab) 500 mg PO DAILY [facility] Stop: 11/24/20 16:31 Last Admin: 11/19/20 08:28 Dose: 500 mg Documented by: Bumetanide (Bumetanide 2 Mg Tab) 3 mg PO WITHBREAKFAST [facility] Last Admin: 11/18/20 06:42 Dose: 3 mg Documented by: Bumetanide (Bumetanide 1 Mg Tab) 3 mg PO ONETIME ONE Stop: 11/17/20 21:20 Last Admin: 11/17/20 22:11 Dose: 3 mg Documented by: Bumetanide (Bumetanide 1 Mg Tab) Confirm Administered Dose 3 mg .ROUTE .STK-MED ONE Stop: 11/23/20 07:36 Last Admin: 11/23/20 07:37 Dose: 3 mg Documented by: Dexamethasone (Dexamethasone 4 Mg Tab) 6 mg PO DAILY [facility] Last Admin: 11/19/20 08:26 Dose: 6 mg Documented by: Furosemide (Furosemide 20 Mg Tab) Confirm Administered Dose 20 mg .ROUTE .STK- MED ONE Stop: 11/21/20 11:48 Last Admin: 11/21/20 19:11 Dose: Not Given Documented by: Furosemide (Furosemide 20 Mg Tab) 20 mg PO BIDDIURETIC [facility] Stop: 11/24/20 23:59 Last Admin: 11/24/20 17:29 Dose: 20 mg Documented by: Remdesivir 200 mg/ Sodium (Chloride) 250 mls @ 250 mls/hr IV ONETIME ONE Stop: 11/15/20 19:18 Last Admin: 11/15/20 20:04 Dose: 250 mls/hr Documented by: Remdesivir 100 mg/ Sodium (Chloride) 100 mls @ 100 mls/hr IV Q24H [facility] Stop: 11/19/20 16:59 Last Admin: 11/19/20 16:25 Dose: 100 mls/hr Documented by: Levofloxacin/Dextrose 500 mg/ (Levofloxacin/Dextrose) 200 mls @ 100 mls/hr IV Q24H [facility] Last Admin: 11/22/20 18:01 Dose: 100 mls/hr Documented by: Levofloxacin/Dextrose (Levaquin In D5w 500 Mg/100 Ml) Confirm Administered Dose 100 mls @ as directed IV .STK-MED ONE Stop: 11/19/20 19:26 Last Admin: 11/20/20 02:33 Dose: Not Given Documented by: Lorazepam (Lorazepam 1 Mg Tab) 1 mg PO ONETIME ONE Stop: 11/18/20 03:46 Last Admin: 11/18/20 03:45 Dose: 1 mg Documented by: Lorazepam (Lorazepam 2 Mg/Ml Sdv) 0.5 mg IVPUSH Q6H PRN PRN Reason: Agitation Last Admin: 11/19/20 04:13 Dose: 0.5 mg Documented by: Lorazepam (Lorazepam 2 Mg/Ml Sdv) 1 mg IVPUSH Q6H PRN PRN Reason: Agitation Last Admin: 11/23/20 10:25 Dose: 1 mg Documented by: Lorazepam (Lorazepam 2 Mg/Ml Sdv) Confirm Administered Dose 2 mg .ROUTE .STK-MED ONE Stop: 11/20/20 06:26 Last Admin: 11/20/20 06:35 Dose: Not Given Documented by: Lorazepam (Lorazepam 2 Mg/Ml Sdv) 1 mg IVPUSH Q6H PRN PRN Reason: Anxiety Stop: 11/24/20 19:00 Lorazepam (Lorazepam 1 Mg Tab) Confirm Administered Dose 1 mg .ROUTE .STK-MED ONE Stop: 11/25/20 04:15 Last Admin: 11/25/20 04:18 Dose: Not Given Documented by: Lorazepam (Lorazepam 1 Mg Tab) Confirm Administered Dose 1 mg .ROUTE .STK-MED ONE Stop: 11/30/20 04:29 Last Admin: 11/30/20 04:25 Dose: 1 mg Documented by: Methylprednisolone (Methylprednisolone 4 Mg Tab) 40 mg PO Q12H [facility] Methylprednisolone Sodium Succinate (Methylprednisolone Sodium Succinate 40 Mg/1 Ml Sdv) 40 mg IVPUSH Q12H [facility] Last Admin: 11/23/20 06:02 Dose: 40 mg Documented by: Methylprednisolone Sodium Succinate (Methylprednisolone Sodium Succinate 40 Mg/1 Ml Sdv) Confirm Administered Dose 40 mg .ROUTE .STK-MED ONE Stop: 11/23/20 17:56 Last Admin: 11/23/20 17:57 Dose: Not Given Documented by: Morphine Sulfate (Morphine Oral Concentrate 20 Mg/Ml 30 Ml Bottle) Confirm Administered Dose 600 mg .ROUTE .STK-MED ONE Stop: 11/18/20 08:13 Last Admin: 11/18/20 09:22 Dose: Not Given Documented by: Theophylline 600mg (Er Tablet) 0.5 each PO TID [facility] Last Admin: 11/25/20 21:55 Dose: Not Given Documented by: Mucomyst 10% Soln (Neb) 0 each INH Q6H [facility] Last Admin: 11/18/20 09:24 Dose: Not Given Documented by: Potassium Chloride (Potassium Chloride 20 Meq Tab.Er) 20 meq PO DAILY [facility] Last Admin: 11/17/20 09:24 Dose: 20 meq Documented by: Prednisone (Prednisone 10 Mg Tab) 10 mg PO DAILY [facility] Last Admin: 11/23/20 07:37 Dose: 10 mg Documented by: Prednisone (Prednisone 20 Mg Tab) 20 mg PO DAILY [facility] Last Admin: 12/03/20 07:27 Dose: 20 mg Documented by: Prednisone (Prednisone 10 Mg Tab) Confirm Administered Dose 10 mg .ROUTE .STK- MED ONE Stop: 11/23/20 18:26 Last Admin: 11/23/20 21:20 Dose: Not Given Documented by: Sodium Chloride (Sodium Chloride 0.9% 10 Ml Syringe) 10 ml FLUSH BID [facility] Last Admin: 11/23/20 09:19 Dose: 10 ml Documented by: Spironolactone (Spironolactone 25 Mg Tab) 25 mg PO ONETIME ONE Stop: 11/30/20 09:48 Last Admin: 11/30/20 12:39 Dose: 25 mg Documented by: Theophylline (Theophylline 300 Mg Cap.Er) 300 mg PO TID [facility] Last Admin: 11/16/20 12:39 Dose: 300 mg Documented by: Theophylline (Theophylline 300 Mg Tab.Er) 150 mg PO TID [facility] Stop: 11/26/20 01:00 Last Admin: 11/25/20 22:00 Dose: 150 mg Documented by: Theophylline (Theophylline 300 Mg Tab.Er) 300 mg PO DAILY [facility] Last Admin: 11/30/20 08:55 Dose: 300 mg Documented by: Theophylline (Theophylline 300 Mg Tab.Er) 300 mg PO TID [facility] Last Admin: 12/03/20 13:01 Dose: 300 mg Documented by: - Exam Quality Assessment: Supplemental Oxygen General: Alert, Oriented, Moderate Distress HEENT: Pupils Equal, Pupils Reactive, Mucous Membr. Moist/[place] Neck: Supple Lungs: Decreased Breath Sounds, Crackles, Rales Cardiovascular: Regular Rate, Regular Rhythm Extremities: Normal Inspection Skin: Warm, Dry Neurological: No New Focal Deficit Psy/Mental Status: Alert - Patient Data Result Diagrams: 12/02/20 07:10 12/02/20 07:10 Sepsis Event Note - Evaluation Sepsis Screening Result: No Definite Risk - Focused Exam Vital Signs: Vital Signs Temp Temp Pulse Pulse Resp BP BP 12/04/20 19:36 36.7 C 86 112 H 106/59 L 12/04/20 16:00 36.7 C 102 H 24 H 110/72 12/04/20 12:00 36.8 C 102 H 24 H 108/61 12/04/20 08:00 36.7 C 116 H 22 H 115/70 Pulse Ox 12/04/20 19:36 86 L 12/04/20 16:00 94 L 12/04/20 12:00 90 L 12/04/20 08:00 91 L - Problem List Review Problem List Initiated/Reviewed/Updated: Yes - Assessment Assessment:: Continue to provide oxygen to maintain saturations greater than 90%. - Plan Plan:: Assessment and Plan: - 60 yo M with chronic resp failure presented 11/15 with worsening resp failure, dx with COVID 19 - Completed a course of Remdesivir and dexamethasone. - COVID pneumonia Finished a 5 days course of Remdesivir IV. On quarantine till Dec 05. - Concern for secondary bacterial pneumonia Continue Levaquin started 11/19 for pseudomonas coverage. Last dose on 12/05 - Acute on chronic hypoxia 2/2 respiratory failure He is on chronic O2 use at home 3-4 lit by NC during the day, trilogy BiPAP machine only at night. 12/01/2020 patient has been weaned down to 7 L/min by nasal cannula satting between 86-91%, without any increased work of breathing. - Acute on chronic COPD exacerbation. Currently on DuoNeb q6hr, Pulmicort, Albuterol, and his home medications Theophylline and Spiriva. Continued. - Chronic prednisone use Increased prednisone 20mg PO BID on 12/03. plan to gradually wean him off as tolerating. Baseline at home is 10mg daily - h/o CHF - mild fluid overload in feet - resolving Currently on home dose of Bumex 3mg and 2 mg PO. Also, on Spironolactone daily. No presentation of being fluid overloaded today. - Hypomagnesemia On Mg replacement PO. - High risk of DVT; On Lovenox 40mg BID - h/o Anxiety On Ativan 1mg q6hr PRN Patient is DNR/DNI, and he and his decline option of transfer. Patient will still in quarantine till Dec 05 due to immunocompromised state, patient is currently on a oxygen taper plan as tolerated.
[2020-12-04] MEDS ORDERED: LORazepam 1 MG Tab ONE ×2 (19:54→22:19)
[2020-12-04] MEDS: Docusate Sodium 250 MG Cap PO SCH (20:01)
[2020-12-04] MEDS: Montelukast 10 MG Tab PO SCH (20:06)
[2020-12-04] MEDS: LORazepam 1 MG Tab PO PRN (22:09)
[2020-12-05] MEDS: Albuterol/Ipratropium 3.0-0.5 MG/3 ML Neb Soln NEB SCH ×4 (01:26→17:39)
[2020-12-05] MEDS: Albuterol 0.083% 2.5 MG/3 ML Neb Soln NEB SCH ×8 (01:26→21:34)
[2020-12-05] MEDS: MUCOMYST 10% INH SCH ×4 (02:20→19:46)
[2020-12-05] MEDS ORDERED: LORazepam 0.5 MG Tab ONE ×3 (07:40→16:45)
[2020-12-05] MEDS: Bumetanide 2 MG Tab PO SCH ×2 (07:57→11:51)
[2020-12-05] MEDS: Polyethylene Glycol 3350 Powder 17 GM Packet PO SCH ×2 (07:57→08:08)
[2020-12-05] MEDS: LORazepam 1 MG Tab PO SCH ×4 (07:57→19:52)
[2020-12-05] MEDS: Enoxaparin 40 MG/0.4 ML Syringe SUBCUT SCH ×2 (07:57→19:42)
[2020-12-05] MEDS: Omeprazole 20 MG Cap.CR PO SCH (07:58)
[2020-12-05] MEDS: Potassium Chloride 20 MEQ Tab.ER PO SCH ×2 (07:58→19:44)
[2020-12-05] MEDS: Magnesium Oxide 400 MG Tab PO SCH ×2 (07:58→19:43)
[2020-12-05] MEDS: Spironolactone 25 MG Tab PO SCH (07:58)
[2020-12-05] MEDS: Cetirizine 10 MG Tab PO SCH (07:58)
[2020-12-05] MEDS: predniSONE 20 MG Tab PO SCH ×2 (07:58→19:45)
[2020-12-05] MEDS: THEOPHYLLINE 600 MG PO SCH ×3 (08:02→19:46)
[2020-12-05] MEDS: Acetaminophen/HYDROcodone 325-10 MG Tab PO SCH ×3 (08:02→19:44)
[2020-12-05] MEDS: PERFOROMIST 20 MCG/2 ML INH SCH ×2 (08:03→19:46)
[2020-12-05] MEDS: Budesonide 0.5 MG/2 ML Neb Susp NEB SCH ×2 (08:03→19:46)
[2020-12-05] MEDS: Tiotropium Inhaler 18 MCG Inhalation Powder Cap Kit of 5 INH SCH (11:51)
--- NOTE | 2020-12-05 14:05 | PCM.PN ---
- General Info Date of Service: 12/05/20 Admission Dx/Problem (Free Text): Admission Diagnosis/Problem Admission Diagnosis/Problem Pneumonia Functional Status: Reports: Other (Continues to complain of pain in various areas.) - Review of Systems General: Reports: Weakness. Denies: Fever HEENT: Reports: No Symptoms Pulmonary: Reports: Shortness of Breath, Cough, Wheezing Cardiovascular: Reports: No Symptoms Gastrointestinal: Reports: No Symptoms Musculoskeletal: Reports: No Symptoms Skin: Reports: No Symptoms Neurological: Reports: No Symptoms - Patient Data Vitals - Most Recent: Last Vital Signs Temp 36.2 C 12/05/20 08:00 Pulse 99 12/05/20 08:00 Resp 22 H 12/05/20 08:00 BP 105/55 L 12/05/20 08:00 Pulse Ox 89 L 12/05/20 08:00 Weight - Most Recent: 73.845 kg I&O - Last 24 Hours: Intake & Output 12/04/20 12/05/20 12/05/20 22:59 06:59 14:59 Intake Total 840 900 Output Total 650 1000 Balance 190 -100 Med Orders - Current: Current Medications Hydrocodone Bitart/Acetaminophen (Acetaminophen/Hydrocodone 325-10 Mg Tab) 1 tab PO TID [facility] Last Admin: 12/05/20 08:02 Dose: 1 tab Documented by: Albuterol (Albuterol 8 Gm Inhaler) 0 gm INH QID PRN PRN Reason: Shortness of Breath Last Admin: 11/19/20 01:24 Dose: 2 puff Documented by: Albuterol (Albuterol 0.083% 2.5 Mg/3 Ml Neb Soln) 2.5 mg NEB Q3H [facility] Last Admin: 12/05/20 11:52 Dose: 2.5 mg Documented by: Albuterol/Ipratropium (Albuterol/Ipratropium 3.0-0.5 Mg/3 Ml Neb Soln) 3 ml NEB Q6H [facility] Last Admin: 12/05/20 11:52 Dose: 3 ml Documented by: Budesonide (Budesonide 0.5 Mg/2 Ml Neb Susp) 0.5 mg NEB BID [facility] Last Admin: 12/05/20 08:03 Dose: 0.5 mg Documented by: Bumetanide (Bumetanide 2 Mg Tab) 2 mg PO ACLUNCH [facility] Last Admin: 12/05/20 11:51 Dose: 2 mg Documented by: Bumetanide (Bumetanide 2 Mg Tab) 3 mg PO DAILY@0800 [facility] Last Admin: 12/05/20 07:57 Dose: 3 mg Documented by: Calamine/Phenol (Menthol/Zinc Oxide Ointment 113 Gm Tube) 1 gm TOP QID PRN PRN Reason: Rash Last Admin: 11/17/20 09:35 Dose: 1 applic Documented by: Cetirizine HCl (Cetirizine 10 Mg Tab) 10 mg PO DAILY [facility] Last Admin: 12/05/20 07:58 Dose: 10 mg Documented by: Diphenhydramine HCl (Diphenhydramine 50 Mg Cap) 50 mg PO BID PRN PRN Reason: burning eyes Last Admin: 11/26/20 20:49 Dose: 50 mg Documented by: Docusate Sodium (Docusate Sodium 250 Mg Cap) 250 mg PO BEDTIME [facility] Last Admin: 12/04/20 20:01 Dose: 250 mg Documented by: Enoxaparin Sodium (Enoxaparin 40 Mg/0.4 Ml Syringe) 40 mg SUBCUT Q12H [facility] Last Admin: 12/05/20 07:57 Dose: 40 mg Documented by: Levofloxacin (Levofloxacin 500 Mg Tab) 500 mg PO Q24H [facility] Last Admin: 12/04/20 17:14 Dose: 500 mg Documented by: Lorazepam (Lorazepam 1 Mg Tab) 1 mg PO QID [facility] Last Admin: 12/05/20 11:52 Dose: 1 mg Documented by: Lorazepam (Lorazepam 1 Mg Tab) 1 mg PO Q6H PRN PRN Reason: Anxiety Last Admin: 12/04/20 22:09 Dose: 1 mg Documented by: Magnesium Oxide (Magnesium Oxide 400 Mg Tab) 400 mg PO BID [facility] Last Admin: 12/05/20 07:58 Dose: 400 mg Documented by: Montelukast Sodium (Montelukast 10 Mg Tab) 10 mg PO BEDTIME [facility] Last Admin: 12/04/20 20:06 Dose: 10 mg Documented by: Morphine Sulfate (Morphine Oral Concentrate 20 Mg/Ml 30 Ml Bottle) 5 mg SL Q4H PRN PRN Reason: Pain Last Admin: 12/04/20 06:00 Dose: 5 mg Documented by: Clotrimazole [place] 1 each PO SEECOMMENT PRN PRN Reason: Other Last Admin: 12/02/20 01:08 Dose: 1 each Documented by: Theophylline 600mg (Er Tablets) 0.5 each PO TID [facility] Last Admin: 12/05/20 08:02 Dose: 0.5 each Documented by: Omeprazole (Omeprazole 20 Mg Cap.Cr) 40 mg PO DAILY [facility] Last Admin: 12/05/20 07:58 Dose: 40 mg Documented by: Ondansetron HCl (Ondansetron 4 Mg Tab.Dis) 4 mg PO Q6H PRN PRN Reason: NAUSEA Last Admin: 11/19/20 08:31 Dose: 4 mg Documented by: Perforomist 20mcg/ (2ml Nebs) 0 each INH BID [facility] Last Admin: 12/05/20 08:03 Dose: 1 each Documented by: Mucomyst 10% Soln (Neb) 1 each INH Q6H [facility] Last Admin: 12/05/20 07:56 Dose: 1 each Documented by: Polyethylene Glycol (Polyethylene Glycol 3350 Powder 17 Gm Packet) 17 gm PO DAILY [facility] Last Admin: 12/05/20 08:08 Dose: Not Given Documented by: Potassium Chloride (Potassium Chloride 20 Meq Tab.Er) 20 meq PO BID [facility] Last Admin: 12/05/20 07:58 Dose: 20 meq Documented by: Prednisone (Prednisone 20 Mg Tab) 20 mg PO BID [facility] Last Admin: 12/05/20 07:58 Dose: 20 mg Documented by: Senna/Docusate Sodium (Docusate Sodium/Sennosides 50-8.6 Mg Tab) 1 tab PO ACLUNCH [facility] Last Admin: 12/05/20 11:51 Dose: 1 tab Documented by: Sodium Chloride (Sodium Chloride 0.65% Nasal [place] 45 Ml Bottle) 1 ml [place] Q2H PRN PRN Reason: Nasal Dryness Last Admin: 12/01/20 21:00 Dose: 1 each Documented by: Spironolactone (Spironolactone 25 Mg Tab) 25 mg PO QAM [facility] Last Admin: 12/05/20 07:58 Dose: 25 mg Documented by: Tiotropium [place] (Tiotropium Inhaler 18 Mcg Inhalation Powder Cap Kit Of 5) 18 mcg INH DAILY [facility] Last Admin: 12/05/20 11:51 Dose: 1 puff Documented by: Discontinued Medications Hydrocodone Bitart/Acetaminophen (Acetaminophen/Hydrocodone 325-10 Mg Tab) Confirm Administered Dose 1 tab .ROUTE .STK-MED ONE Stop: 11/16/20 20:01 Last Admin: 11/16/20 20:18 Dose: Not Given Documented by: Acetylcysteine (Acetylcysteine 20% 200 Mg/Ml 30 Ml Nebulizer Soln Sdv) 100 mg INH Q6H [facility] Last Admin: 11/15/20 23:30 Dose: 100 mg Documented by: Albuterol (Albuterol 0.083% 2.5 Mg/3 Ml Neb Soln) 2.5 mg NEB Q6H [facility] Albuterol (Albuterol 0.083% 2.5 Mg/3 Ml Neb Soln) Confirm Administered Dose 2.5 mg .ROUTE .STK-MED ONE Stop: 11/25/20 16:13 Last Admin: 11/25/20 16:35 Dose: Not Given Documented by: Albuterol/Ipratropium (Albuterol/Ipratropium 3.0-0.5 Mg/3 Ml Neb Soln) 3 ml NEB Q2H PRN PRN Reason: Dyspnea Last Admin: 11/17/20 06:10 Dose: 3 ml Documented by: Albuterol/Ipratropium (Albuterol/Ipratropium 3.0-0.5 Mg/3 Ml Neb Soln) 6 ml NEB ASDIRECTED ONE Stop: 11/17/20 20:01 Last Admin: 11/17/20 21:02 Dose: 6 ml Documented by: Azithromycin (Azithromycin 250 Mg Tab) 500 mg PO DAILY [facility] Stop: 11/24/20 16:31 Last Admin: 11/19/20 08:28 Dose: 500 mg Documented by: Bumetanide (Bumetanide 2 Mg Tab) 3 mg PO WITHBREAKFAST [facility] Last Admin: 11/18/20 06:42 Dose: 3 mg Documented by: Bumetanide (Bumetanide 1 Mg Tab) 3 mg PO ONETIME ONE Stop: 11/17/20 21:20 Last Admin: 11/17/20 22:11 Dose: 3 mg Documented by: Bumetanide (Bumetanide 1 Mg Tab) Confirm Administered Dose 3 mg .ROUTE .STK-MED ONE Stop: 11/23/20 07:36 Last Admin: 11/23/20 07:37 Dose: 3 mg Documented by: Dexamethasone (Dexamethasone 4 Mg Tab) 6 mg PO DAILY [facility] Last Admin: 11/19/20 08:26 Dose: 6 mg Documented by: Furosemide (Furosemide 20 Mg Tab) Confirm Administered Dose 20 mg .ROUTE .STK- MED ONE Stop: 11/21/20 11:48 Last Admin: 11/21/20 19:11 Dose: Not Given Documented by: Furosemide (Furosemide 20 Mg Tab) 20 mg PO BIDDIURETIC [facility] Stop: 11/24/20 23:59 Last Admin: 11/24/20 17:29 Dose: 20 mg Documented by: Remdesivir 200 mg/ Sodium (Chloride) 250 mls @ 250 mls/hr IV ONETIME ONE Stop: 11/15/20 19:18 Last Admin: 11/15/20 20:04 Dose: 250 mls/hr Documented by: Remdesivir 100 mg/ Sodium (Chloride) 100 mls @ 100 mls/hr IV Q24H [facility] Stop: 11/19/20 16:59 Last Admin: 11/19/20 16:25 Dose: 100 mls/hr Documented by: Levofloxacin/Dextrose 500 mg/ (Levofloxacin/Dextrose) 200 mls @ 100 mls/hr IV Q24H [facility] Last Admin: 11/22/20 18:01 Dose: 100 mls/hr Documented by: Levofloxacin/Dextrose (Levaquin In D5w 500 Mg/100 Ml) Confirm Administered Dose 100 mls @ as directed IV .STK-MED ONE Stop: 11/19/20 19:26 Last Admin: 11/20/20 02:33 Dose: Not Given Documented by: Lorazepam (Lorazepam 1 Mg Tab) 1 mg PO ONETIME ONE Stop: 11/18/20 03:46 Last Admin: 11/18/20 03:45 Dose: 1 mg Documented by: Lorazepam (Lorazepam 2 Mg/Ml Sdv) 0.5 mg IVPUSH Q6H PRN PRN Reason: Agitation Last Admin: 11/19/20 04:13 Dose: 0.5 mg Documented by: Lorazepam (Lorazepam 2 Mg/Ml Sdv) 1 mg IVPUSH Q6H PRN PRN Reason: Agitation Last Admin: 11/23/20 10:25 Dose: 1 mg Documented by: Lorazepam (Lorazepam 2 Mg/Ml Sdv) Confirm Administered Dose 2 mg .ROUTE .STK-MED ONE Stop: 11/20/20 06:26 Last Admin: 11/20/20 06:35 Dose: Not Given Documented by: Lorazepam (Lorazepam 2 Mg/Ml Sdv) 1 mg IVPUSH Q6H PRN PRN Reason: Anxiety Stop: 11/24/20 19:00 Lorazepam (Lorazepam 1 Mg Tab) Confirm Administered Dose 1 mg .ROUTE .STK-MED ONE Stop: 11/25/20 04:15 Last Admin: 11/25/20 04:18 Dose: Not Given Documented by: Lorazepam (Lorazepam 1 Mg Tab) Confirm Administered Dose 1 mg .ROUTE .STK-MED ONE Stop: 11/30/20 04:29 Last Admin: 11/30/20 04:25 Dose: 1 mg Documented by: Lorazepam (Lorazepam 1 Mg Tab) Confirm Administered Dose 1 mg .ROUTE .STK-MED ONE Stop: 12/04/20 19:55 Last Admin: 12/04/20 20:01 Dose: Not Given Documented by: Lorazepam (Lorazepam 1 Mg Tab) Confirm Administered Dose 1 mg .ROUTE .STK-MED ONE Stop: 12/04/20 22:20 Last Admin: 12/04/20 23:30 Dose: Not Given Documented by: Lorazepam (Lorazepam 0.5 Mg Tab) Confirm Administered Dose 1 mg .ROUTE .STK-MED ONE Stop: 12/05/20 07:41 Last Admin: 12/05/20 07:53 Dose: Not Given Documented by: Lorazepam (Lorazepam 0.5 Mg Tab) Confirm Administered Dose 1 mg .ROUTE .STK-MED ONE Stop: 12/05/20 11:52 Last Admin: 12/05/20 11:52 Dose: Not Given Documented by: Methylprednisolone (Methylprednisolone 4 Mg Tab) 40 mg PO Q12H [facility] Methylprednisolone Sodium Succinate (Methylprednisolone Sodium Succinate 40 Mg/1 Ml Sdv) 40 mg IVPUSH Q12H [facility] Last Admin: 11/23/20 06:02 Dose: 40 mg Documented by: Methylprednisolone Sodium Succinate (Methylprednisolone Sodium Succinate 40 Mg/1 Ml Sdv) Confirm Administered Dose 40 mg .ROUTE .STK-MED ONE Stop: 11/23/20 17:56 Last Admin: 11/23/20 17:57 Dose: Not Given Documented by: Morphine Sulfate (Morphine Oral Concentrate 20 Mg/Ml 30 Ml Bottle) Confirm Administered Dose 600 mg .ROUTE .STK-MED ONE Stop: 11/18/20 08:13 Last Admin: 11/18/20 09:22 Dose: Not Given Documented by: Theophylline 600mg (Er Tablet) 0.5 each PO TID [facility] Last Admin: 11/25/20 21:55 Dose: Not Given Documented by: Mucomyst 10% Soln (Neb) 0 each INH Q6H [facility] Last Admin: 11/18/20 09:24 Dose: Not Given Documented by: Potassium Chloride (Potassium Chloride 20 Meq Tab.Er) 20 meq PO DAILY [facility] Last Admin: 11/17/20 09:24 Dose: 20 meq Documented by: Prednisone (Prednisone 10 Mg Tab) 10 mg PO DAILY [facility] Last Admin: 11/23/20 07:37 Dose: 10 mg Documented by: Prednisone (Prednisone 20 Mg Tab) 20 mg PO DAILY [facility] Last Admin: 12/03/20 07:27 Dose: 20 mg Documented by: Prednisone (Prednisone 10 Mg Tab) Confirm Administered Dose 10 mg .ROUTE .STK- MED ONE Stop: 11/23/20 18:26 Last Admin: 11/23/20 21:20 Dose: Not Given Documented by: Sodium Chloride (Sodium Chloride 0.9% 10 Ml Syringe) 10 ml FLUSH BID [facility] Last Admin: 11/23/20 09:19 Dose: 10 ml Documented by: Spironolactone (Spironolactone 25 Mg Tab) 25 mg PO ONETIME ONE Stop: 11/30/20 09:48 Last Admin: 11/30/20 12:39 Dose: 25 mg Documented by: Theophylline (Theophylline 300 Mg Cap.Er) 300 mg PO TID [facility] Last Admin: 11/16/20 12:39 Dose: 300 mg Documented by: Theophylline (Theophylline 300 Mg Tab.Er) 150 mg PO TID [facility] Stop: 11/26/20 01:00 Last Admin: 11/25/20 22:00 Dose: 150 mg Documented by: Theophylline (Theophylline 300 Mg Tab.Er) 300 mg PO DAILY [facility] Last Admin: 11/30/20 08:55 Dose: 300 mg Documented by: Theophylline (Theophylline 300 Mg Tab.Er) 300 mg PO TID [facility] Last Admin: 12/03/20 13:01 Dose: 300 mg Documented by: - Exam Quality Assessment: Supplemental Oxygen General: Alert, Oriented, Other (Quite demanding with nursing staff) HEENT: Pupils Equal, Pupils Reactive, EOMI, Mucous Membr. Moist/[place] Neck: Supple Lungs: Rales (Continues to have bilateral crackles; limited to basis.) Cardiovascular: Regular Rate, Regular Rhythm Back Exam: Normal Inspection Extremities: Normal Inspection Skin: Warm, Dry, Intact Neurological: No New Focal Deficit Psy/Mental Status: Alert, Normal Affect, Normal Mood - Patient Data Result Diagrams: 12/02/20 07:10 12/02/20 07:10 Sepsis Event Note - Evaluation Sepsis Screening Result: Sepsis Risk - Focused Exam Vital Signs: Vital Signs Temp Pulse Resp BP Pulse Ox 12/05/20 08:00 36.2 C 99 22 H 105/55 L 89 L - Problem List Review Problem List Initiated/Reviewed/Updated: Yes - Assessment Assessment:: Continue to provide oxygen to maintain saturations greater than 90%. - Plan Plan:: Assessment and Plan: - 60 yo M with chronic resp failure presented 11/15 with worsening resp failure, dx with COVID 19 - Completed a course of Remdesivir and dexamethasone. - COVID pneumonia Finished a 5 days course of Remdesivir IV. On quarantine till Dec 05. - Concern for secondary bacterial pneumonia Continue Levaquin started 11/19 for pseudomonas coverage. Last dose on 12/05 - Acute on chronic hypoxia 2/2 respiratory failure He is on chronic O2 use at home 3-4 lit by NC during the day, trilogy BiPAP machine only at night. 12/01/2020 patient has been weaned down to 7 L/min by nasal cannula satting between 86-91%, without any increased work of breathing. - Acute on chronic COPD exacerbation. Currently on DuoNeb q6hr, Pulmicort, Albuterol, and his home medications Theophylline and Spiriva. Continued. - Chronic prednisone use Increased prednisone 20mg PO BID on 12/03. plan to gradually wean him off as tolerating. Baseline at home is 10mg daily - h/o CHF - mild fluid overload in feet - resolving Currently on home dose of Bumex 3mg and 2 mg PO. Also, on Spironolactone daily. No presentation of being fluid overloaded today. - Hypomagnesemia On Mg replacement PO. - High risk of DVT; On Lovenox 40mg BID - h/o Anxiety On Ativan 1mg q6hr PRN Patient is DNR/DNI, and he and his decline option of transfer. Patient will still in quarantine till Dec 05 due to immunocompromised state, patient is currently on a oxygen taper plan as tolerated.
[2020-12-05] MEDS: Levofloxacin 500 MG Tab PO SCH (17:39)
[2020-12-05] MEDS: Montelukast 10 MG Tab PO SCH (19:44)
[2020-12-05] MEDS: Docusate Sodium 250 MG Cap PO SCH (19:45)
[2020-12-05] MEDS ORDERED: LORazepam 1 MG Tab ONE (20:00)
[2020-12-05] MEDS: Morphine Oral Concentrate 20 MG/ML 30 ML Bottle SL PRN (21:18)
[2020-12-06] MEDS: Albuterol 0.083% 2.5 MG/3 ML Neb Soln NEB SCH ×8 (00:17→21:24)
[2020-12-06] MEDS: Albuterol/Ipratropium 3.0-0.5 MG/3 ML Neb Soln NEB SCH ×5 (00:17→23:50)
[2020-12-06] MEDS: MUCOMYST 10% INH SCH ×4 (03:05→20:06)
[2020-12-06] MEDS: LORazepam 1 MG Tab PO SCH ×4 (07:27→19:52)
[2020-12-06] MEDS: Enoxaparin 40 MG/0.4 ML Syringe SUBCUT SCH ×2 (07:28→19:50)
[2020-12-06] MEDS: Magnesium Oxide 400 MG Tab PO SCH ×2 (07:28→19:51)
[2020-12-06] MEDS: Omeprazole 20 MG Cap.CR PO SCH (07:28)
[2020-12-06] MEDS: predniSONE 20 MG Tab PO SCH ×2 (07:28→19:51)
[2020-12-06] MEDS: Cetirizine 10 MG Tab PO SCH (07:28)
[2020-12-06] MEDS: Tiotropium Inhaler 18 MCG Inhalation Powder Cap Kit of 5 INH SCH (07:28)
[2020-12-06] MEDS: Acetaminophen/HYDROcodone 325-10 MG Tab PO SCH ×3 (07:28→19:51)
[2020-12-06] MEDS: Bumetanide 2 MG Tab PO SCH ×2 (07:29→10:48)
[2020-12-06] MEDS: Potassium Chloride 20 MEQ Tab.ER PO SCH ×2 (07:29→19:51)
[2020-12-06] MEDS: THEOPHYLLINE 600 MG PO SCH ×3 (07:29→19:52)
[2020-12-06] MEDS: Spironolactone 25 MG Tab PO SCH (07:29)
[2020-12-06] MEDS: Polyethylene Glycol 3350 Powder 17 GM Packet PO SCH (07:29)
[2020-12-06] MEDS: Budesonide 0.5 MG/2 ML Neb Susp NEB SCH ×2 (07:30→19:53)
[2020-12-06] MEDS: PERFOROMIST 20 MCG/2 ML INH SCH ×2 (07:30→19:48)
[2020-12-06] MEDS ORDERED: LORazepam 1 MG Tab ONE ×3 (07:37→17:11)
[2020-12-06] MEDS: CLOTRIMAZOLE PO PRN ×3 (09:24→18:46)
[2020-12-06] MEDS ORDERED: CLOTRIMAZOLE PO SCH (10:00)
[2020-12-06] MEDS: Albuterol 8 GM Inhaler INH PRN (13:36)
[2020-12-06] MEDS: Morphine Oral Concentrate 20 MG/ML 30 ML Bottle SL PRN ×2 (13:36→22:41)
[2020-12-06] MEDS: Levofloxacin 500 MG Tab PO SCH (18:30)
[2020-12-06] MEDS ORDERED: LORazepam 0.5 MG Tab ONE (19:49)
[2020-12-06] MEDS: Docusate Sodium 250 MG Cap PO SCH (19:50)
[2020-12-06] MEDS: Montelukast 10 MG Tab PO SCH (19:50)
--- NOTE | 2020-12-06 20:29 | PCM.PN ---
- General Info Date of Service: 12/06/20 Admission Dx/Problem (Free Text): Admission Diagnosis/Problem Admission Diagnosis/Problem Pneumonia Subjective Update: Has been tolerating decreased oxygen today of 4 L per nasal canula; occasionally needs a slight increase for activity. Appetite is good, patient is drinking fluids. No vomiting or diarrhea. Functional Status: Reports: Pain Controlled, Tolerating Diet, Ambulating, Urinating - Review of Systems General: Reports: Weakness. Denies: Fever HEENT: Denies: Ear Pain, Eye Pain Pulmonary: Reports: Shortness of Breath, Cough Cardiovascular: Reports: Dyspnea on Exertion. Denies: Chest Pain Gastrointestinal: Denies: Abdominal Pain, Diarrhea, Vomiting Musculoskeletal: Reports: No Symptoms Skin: Reports: No Symptoms Neurological: Reports: No Symptoms - Patient Data Vitals - Most Recent: Last Vital Signs Temp 36.2 C 12/06/20 19:53 Pulse 97 12/06/20 19:53 Resp 20 12/06/20 20:00 BP 116/71 12/06/20 19:53 Pulse Ox 92 L 12/06/20 19:53 Weight - Most Recent: 72.938 kg I&O - Last 24 Hours: Intake & Output 12/06/20 12/06/20 12/06/20 06:59 14:59 22:59 Intake Total 700 200 200 Output Total 500 700 300 Balance 200 -500 -100 Med Orders - Current: Current Medications Hydrocodone Bitart/Acetaminophen (Acetaminophen/Hydrocodone 325-10 Mg Tab) 1 tab PO TID [facility] Last Admin: 12/06/20 19:51 Dose: 1 tab Documented by: Albuterol (Albuterol 8 Gm Inhaler) 0 gm INH QID PRN PRN Reason: Shortness of Breath Last Admin: 12/06/20 13:36 Dose: 2 puff Documented by: Albuterol (Albuterol 0.083% 2.5 Mg/3 Ml Neb Soln) 2.5 mg NEB Q3H [facility] Last Admin: 12/06/20 18:30 Dose: 2.5 mg Documented by: Albuterol/Ipratropium (Albuterol/Ipratropium 3.0-0.5 Mg/3 Ml Neb Soln) 3 ml NEB Q6H [facility] Last Admin: 12/06/20 18:30 Dose: 3 ml Documented by: Budesonide (Budesonide 0.5 Mg/2 Ml Neb Susp) 0.5 mg NEB BID [facility] Last Admin: 12/06/20 19:53 Dose: 0.5 mg Documented by: Bumetanide (Bumetanide 2 Mg Tab) 2 mg PO ACLUNCH [facility] Last Admin: 12/06/20 10:48 Dose: 2 mg Documented by: Bumetanide (Bumetanide 2 Mg Tab) 3 mg PO DAILY@0800 [facility] Last Admin: 12/06/20 07:29 Dose: 3 mg Documented by: Calamine/Phenol (Menthol/Zinc Oxide Ointment 113 Gm Tube) 1 gm TOP QID PRN PRN Reason: Rash Last Admin: 11/17/20 09:35 Dose: 1 applic Documented by: Cetirizine HCl (Cetirizine 10 Mg Tab) 10 mg PO DAILY [facility] Last Admin: 12/06/20 07:28 Dose: 10 mg Documented by: Diphenhydramine HCl (Diphenhydramine 50 Mg Cap) 50 mg PO BID PRN PRN Reason: burning eyes Last Admin: 11/26/20 20:49 Dose: 50 mg Documented by: Docusate Sodium (Docusate Sodium 250 Mg Cap) 250 mg PO BEDTIME [facility] Last Admin: 12/06/20 19:50 Dose: 250 mg Documented by: Enoxaparin Sodium (Enoxaparin 40 Mg/0.4 Ml Syringe) 40 mg SUBCUT Q12H [facility] Last Admin: 12/06/20 19:50 Dose: 40 mg Documented by: Levofloxacin (Levofloxacin 500 Mg Tab) 500 mg PO Q24H [facility] Last Admin: 12/06/20 18:30 Dose: 500 mg Documented by: Lorazepam (Lorazepam 1 Mg Tab) 1 mg PO QID [facility] Last Admin: 12/06/20 19:52 Dose: 1 mg Documented by: Lorazepam (Lorazepam 1 Mg Tab) 1 mg PO Q6H PRN PRN Reason: Anxiety Last Admin: 12/04/20 22:09 Dose: 1 mg Documented by: Magnesium Oxide (Magnesium Oxide 400 Mg Tab) 400 mg PO BID [facility] Last Admin: 12/06/20 19:51 Dose: 400 mg Documented by: Montelukast Sodium (Montelukast 10 Mg Tab) 10 mg PO BEDTIME [facility] Last Admin: 12/06/20 19:50 Dose: 10 mg Documented by: Morphine Sulfate (Morphine Oral Concentrate 20 Mg/Ml 30 Ml Bottle) 5 mg SL Q4H PRN PRN Reason: Pain Last Admin: 12/06/20 13:36 Dose: 5 mg Documented by: Theophylline 600mg (Er Tablets) 0.5 each PO TID [facility] Last Admin: 12/06/20 19:52 Dose: 0.5 each Documented by: Clotrimazole Luis Fernando (10mgOwn Med) 1 each PO 5XDAY PRN PRN Reason: thrush Last Admin: 12/06/20 18:46 Dose: 1 each Documented by: Omeprazole (Omeprazole 20 Mg Cap.Cr) 40 mg PO DAILY [facility] Last Admin: 12/06/20 07:28 Dose: 40 mg Documented by: Ondansetron HCl (Ondansetron 4 Mg Tab.Dis) 4 mg PO Q6H PRN PRN Reason: NAUSEA Last Admin: 11/19/20 08:31 Dose: 4 mg Documented by: Perforomist 20mcg/ (2ml Nebs) 0 each INH BID [facility] Last Admin: 12/06/20 19:48 Dose: 1 each Documented by: Mucomyst 10% Soln (Neb) 1 each INH Q6H [facility] Last Admin: 12/06/20 20:06 Dose: 1 each Documented by: Polyethylene Glycol (Polyethylene Glycol 3350 Powder 17 Gm Packet) 17 gm PO DAILY [facility] Last Admin: 12/06/20 07:29 Dose: Not Given Documented by: Potassium Chloride (Potassium Chloride 20 Meq Tab.Er) 20 meq PO BID [facility] Last Admin: 12/06/20 19:51 Dose: 20 meq Documented by: Prednisone (Prednisone 20 Mg Tab) 20 mg PO BID [facility] Last Admin: 12/06/20 19:51 Dose: 20 mg Documented by: Senna/Docusate Sodium (Docusate Sodium/Sennosides 50-8.6 Mg Tab) 1 tab PO ACLUNCH [facility] Last Admin: 12/06/20 10:47 Dose: Not Given Documented by: Sodium Chloride (Sodium Chloride 0.65% Nasal [place] 45 Ml Bottle) 1 ml [place] Q2H PRN PRN Reason: Nasal Dryness Last Admin: 12/01/20 21:00 Dose: 1 each Documented by: Spironolactone (Spironolactone 25 Mg Tab) 25 mg PO QAM [facility] Last Admin: 12/06/20 07:29 Dose: 25 mg Documented by: Tiotropium [place] (Tiotropium Inhaler 18 Mcg Inhalation Powder Cap Kit Of 5) 18 mcg INH DAILY [facility] Last Admin: 12/06/20 07:28 Dose: 1 puff Documented by: Discontinued Medications Hydrocodone Bitart/Acetaminophen (Acetaminophen/Hydrocodone 325-10 Mg Tab) Confirm Administered Dose 1 tab .ROUTE .STK-MED ONE Stop: 11/16/20 20:01 Last Admin: 11/16/20 20:18 Dose: Not Given Documented by: Acetylcysteine (Acetylcysteine 20% 200 Mg/Ml 30 Ml Nebulizer Soln Sdv) 100 mg INH Q6H [facility] Last Admin: 11/15/20 23:30 Dose: 100 mg Documented by: Albuterol (Albuterol 0.083% 2.5 Mg/3 Ml Neb Soln) 2.5 mg NEB Q6H [facility] Albuterol (Albuterol 0.083% 2.5 Mg/3 Ml Neb Soln) Confirm Administered Dose 2.5 mg .ROUTE .STK-MED ONE Stop: 11/25/20 16:13 Last Admin: 11/25/20 16:35 Dose: Not Given Documented by: Albuterol/Ipratropium (Albuterol/Ipratropium 3.0-0.5 Mg/3 Ml Neb Soln) 3 ml NEB Q2H PRN PRN Reason: Dyspnea Last Admin: 11/17/20 06:10 Dose: 3 ml Documented by: Albuterol/Ipratropium (Albuterol/Ipratropium 3.0-0.5 Mg/3 Ml Neb Soln) 6 ml NEB ASDIRECTED ONE Stop: 11/17/20 20:01 Last Admin: 11/17/20 21:02 Dose: 6 ml Documented by: Azithromycin (Azithromycin 250 Mg Tab) 500 mg PO DAILY [facility] Stop: 11/24/20 16:31 Last Admin: 11/19/20 08:28 Dose: 500 mg Documented by: Bumetanide (Bumetanide 2 Mg Tab) 3 mg PO WITHBREAKFAST [facility] Last Admin: 11/18/20 06:42 Dose: 3 mg Documented by: Bumetanide (Bumetanide 1 Mg Tab) 3 mg PO ONETIME ONE Stop: 11/17/20 21:20 Last Admin: 11/17/20 22:11 Dose: 3 mg Documented by: Bumetanide (Bumetanide 1 Mg Tab) Confirm Administered Dose 3 mg .ROUTE .STK-MED ONE Stop: 11/23/20 07:36 Last Admin: 11/23/20 07:37 Dose: 3 mg Documented by: Dexamethasone (Dexamethasone 4 Mg Tab) 6 mg PO DAILY [facility] Last Admin: 11/19/20 08:26 Dose: 6 mg Documented by: Furosemide (Furosemide 20 Mg Tab) Confirm Administered Dose 20 mg .ROUTE .STK- MED ONE Stop: 11/21/20 11:48 Last Admin: 11/21/20 19:11 Dose: Not Given Documented by: Furosemide (Furosemide 20 Mg Tab) 20 mg PO BIDDIURETIC [facility] Stop: 11/24/20 23:59 Last Admin: 11/24/20 17:29 Dose: 20 mg Documented by: Remdesivir 200 mg/ Sodium (Chloride) 250 mls @ 250 mls/hr IV ONETIME ONE Stop: 11/15/20 19:18 Last Admin: 11/15/20 20:04 Dose: 250 mls/hr Documented by: Remdesivir 100 mg/ Sodium (Chloride) 100 mls @ 100 mls/hr IV Q24H [facility] Stop: 11/19/20 16:59 Last Admin: 11/19/20 16:25 Dose: 100 mls/hr Documented by: Levofloxacin/Dextrose 500 mg/ (Levofloxacin/Dextrose) 200 mls @ 100 mls/hr IV Q24H [facility] Last Admin: 11/22/20 18:01 Dose: 100 mls/hr Documented by: Levofloxacin/Dextrose (Levaquin In D5w 500 Mg/100 Ml) Confirm Administered Dose 100 mls @ as directed IV .STK-MED ONE Stop: 11/19/20 19:26 Last Admin: 11/20/20 02:33 Dose: Not Given Documented by: Lorazepam (Lorazepam 1 Mg Tab) 1 mg PO ONETIME ONE Stop: 11/18/20 03:46 Last Admin: 11/18/20 03:45 Dose: 1 mg Documented by: Lorazepam (Lorazepam 2 Mg/Ml Sdv) 0.5 mg IVPUSH Q6H PRN PRN Reason: Agitation Last Admin: 11/19/20 04:13 Dose: 0.5 mg Documented by: Lorazepam (Lorazepam 2 Mg/Ml Sdv) 1 mg IVPUSH Q6H PRN PRN Reason: Agitation Last Admin: 11/23/20 10:25 Dose: 1 mg Documented by: Lorazepam (Lorazepam 2 Mg/Ml Sdv) Confirm Administered Dose 2 mg .ROUTE .STK-MED ONE Stop: 11/20/20 06:26 Last Admin: 11/20/20 06:35 Dose: Not Given Documented by: Lorazepam (Lorazepam 2 Mg/Ml Sdv) 1 mg IVPUSH Q6H PRN PRN Reason: Anxiety Stop: 11/24/20 19:00 Lorazepam (Lorazepam 1 Mg Tab) Confirm Administered Dose 1 mg .ROUTE .STK-MED ONE Stop: 11/25/20 04:15 Last Admin: 11/25/20 04:18 Dose: Not Given Documented by: Lorazepam (Lorazepam 1 Mg Tab) Confirm Administered Dose 1 mg .ROUTE .STK-MED ONE Stop: 11/30/20 04:29 Last Admin: 11/30/20 04:25 Dose: 1 mg Documented by: Lorazepam (Lorazepam 1 Mg Tab) Confirm Administered Dose 1 mg .ROUTE .STK-MED ONE Stop: 12/04/20 19:55 Last Admin: 12/04/20 20:01 Dose: Not Given Documented by: Lorazepam (Lorazepam 1 Mg Tab) Confirm Administered Dose 1 mg .ROUTE .STK-MED ONE Stop: 12/04/20 22:20 Last Admin: 12/04/20 23:30 Dose: Not Given Documented by: Lorazepam (Lorazepam 0.5 Mg Tab) Confirm Administered Dose 1 mg .ROUTE .STK-MED ONE Stop: 12/05/20 07:41 Last Admin: 12/05/20 07:53 Dose: Not Given Documented by: Lorazepam (Lorazepam 0.5 Mg Tab) Confirm Administered Dose 1 mg .ROUTE .STK-MED ONE Stop: 12/05/20 11:52 Last Admin: 12/05/20 11:52 Dose: Not Given Documented by: Lorazepam (Lorazepam 0.5 Mg Tab) Confirm Administered Dose 1 mg .ROUTE .STK-MED ONE Stop: 12/05/20 16:46 Last Admin: 12/05/20 16:47 Dose: Not Given Documented by: Lorazepam (Lorazepam 1 Mg Tab) Confirm Administered Dose 1 mg .ROUTE .STK-MED ONE Stop: 12/05/20 20:01 Last Admin: 12/05/20 20:02 Dose: Not Given Documented by: Lorazepam (Lorazepam 1 Mg Tab) Confirm Administered Dose 1 mg .ROUTE .STK-MED ONE Stop: 12/06/20 07:38 Last Admin: 12/06/20 07:31 Dose: Not Given Documented by: Lorazepam (Lorazepam 1 Mg Tab) Confirm Administered Dose 1 mg .ROUTE .STK-MED ONE Stop: 12/06/20 12:06 Last Admin: 12/06/20 12:18 Dose: Not Given Documented by: Lorazepam (Lorazepam 1 Mg Tab) Confirm Administered Dose 1 mg .ROUTE .STK-MED ONE Stop: 12/06/20 17:12 Last Admin: 12/06/20 17:26 Dose: Not Given Documented by: Lorazepam (Lorazepam 0.5 Mg Tab) Confirm Administered Dose 1 mg .ROUTE .STK-MED ONE Stop: 12/06/20 19:50 Last Admin: 12/06/20 19:45 Dose: Not Given Documented by: Methylprednisolone (Methylprednisolone 4 Mg Tab) 40 mg PO Q12H [facility] Methylprednisolone Sodium Succinate (Methylprednisolone Sodium Succinate 40 Mg/1 Ml Sdv) 40 mg IVPUSH Q12H [facility] Last Admin: 11/23/20 06:02 Dose: 40 mg Documented by: Methylprednisolone Sodium Succinate (Methylprednisolone Sodium Succinate 40 Mg/1 Ml Sdv) Confirm Administered Dose 40 mg .ROUTE .STK-MED ONE Stop: 11/23/20 17:56 Last Admin: 11/23/20 17:57 Dose: Not Given Documented by: Morphine Sulfate (Morphine Oral Concentrate 20 Mg/Ml 30 Ml Bottle) Confirm Administered Dose 600 mg .ROUTE .STK-MED ONE Stop: 11/18/20 08:13 Last Admin: 11/18/20 09:22 Dose: Not Given Documented by: Theophylline 600mg (Er Tablet) 0.5 each PO TID [facility] Last Admin: 11/25/20 21:55 Dose: Not Given Documented by: Clotrimazole Luis Fernando 1 each PO SEECOMMENT PRN PRN Reason: Other Last Admin: 12/02/20 01:08 Dose: 1 each Documented by: Clotrimazole Luis Fernando (10mgOwn Med) 1 each PO 5XDAY [facility] Mucomyst 10% Soln (Neb) 0 each INH Q6H [facility] Last Admin: 11/18/20 09:24 Dose: Not Given Documented by: Potassium Chloride (Potassium Chloride 20 Meq Tab.Er) 20 meq PO DAILY [facility] Last Admin: 11/17/20 09:24 Dose: 20 meq Documented by: Prednisone (Prednisone 10 Mg Tab) 10 mg PO DAILY [facility] Last Admin: 11/23/20 07:37 Dose: 10 mg Documented by: Prednisone (Prednisone 20 Mg Tab) 20 mg PO DAILY [facility] Last Admin: 12/03/20 07:27 Dose: 20 mg Documented by: Prednisone (Prednisone 10 Mg Tab) Confirm Administered Dose 10 mg .ROUTE .STK- MED ONE Stop: 11/23/20 18:26 Last Admin: 11/23/20 21:20 Dose: Not Given Documented by: Sodium Chloride (Sodium Chloride 0.9% 10 Ml Syringe) 10 ml FLUSH BID [facility] Last Admin: 11/23/20 09:19 Dose: 10 ml Documented by: Spironolactone (Spironolactone 25 Mg Tab) 25 mg PO ONETIME ONE Stop: 11/30/20 09:48 Last Admin: 11/30/20 12:39 Dose: 25 mg Documented by: Theophylline (Theophylline 300 Mg Cap.Er) 300 mg PO TID [facility] Last Admin: 11/16/20 12:39 Dose: 300 mg Documented by: Theophylline (Theophylline 300 Mg Tab.Er) 150 mg PO TID [facility] Stop: 11/26/20 01:00 Last Admin: 11/25/20 22:00 Dose: 150 mg Documented by: Theophylline (Theophylline 300 Mg Tab.Er) 300 mg PO DAILY [facility] Last Admin: 11/30/20 08:55 Dose: 300 mg Documented by: Theophylline (Theophylline 300 Mg Tab.Er) 300 mg PO TID [facility] Last Admin: 12/03/20 13:01 Dose: 300 mg Documented by: - Patient Data Result Diagrams: 12/02/20 07:10 12/02/20 07:10 Sepsis Event Note - Evaluation Sepsis Screening Result: No Definite Risk - Focused Exam Vital Signs: Vital Signs Temp Temp Pulse Resp BP Pulse Ox 12/06/20 20:00 20 12/06/20 19:53 36.2 C 97 116/71 92 L 12/06/20 16:00 90 89 L 12/06/20 13:38 36.6 C 105 H 106/68 - Problem List Review Problem List Initiated/Reviewed/Updated: Yes - My Orders Last 24 Hours: My Active Orders 12/06/20 10:00 Non-Formulary Medication [NF Drug] 1 each PO 5XDAY PRN 12/07/20 18:26 THEOPHYLLINE [CHEM] Routine - Assessment Assessment:: Continue to provide oxygen to maintain saturations greater than 90%. - Plan Plan:: Assessment and Plan: - 60 yo M with chronic resp failure presented 11/15 with worsening resp failure, dx with COVID 19 - Completed a course of Remdesivir and dexamethasone. - COVID pneumonia Finished a 5 days course of Remdesivir IV. On quarantine till Dec 05. - Concern for secondary bacterial pneumonia Continue Levaquin started 11/19 for pseudomonas coverage. Last dose on 12/05 - Acute on chronic hypoxia 2/2 respiratory failure He is on chronic O2 use at home 3-4 lit by NC during the day, trilogy BiPAP machine only at night. 12/01/2020 patient has been weaned down to 7 L/min by nasal cannula satting between 86-91%, without any increased work of breathing. - Acute on chronic COPD exacerbation. Currently on DuoNeb q6hr, Pulmicort, Albuterol, and his home medications Theophylline and Spiriva. Continued. - Chronic prednisone use Increased prednisone 20mg PO BID on 12/03. plan to gradually wean him off as tole rating. Baseline at home is 10mg daily - h/o CHF - mild fluid overload in feet - resolving Currently on home dose of Bumex 3mg and 2 mg PO. Also, on Spironolactone daily. No presentation of being fluid overloaded today. - Hypomagnesemia On Mg replacement PO. - High risk of DVT; On Lovenox 40mg BID - h/o Anxiety On Ativan 1mg q6hr PRN Patient is DNR/DNI, and he and his decline option of transfer. Patient will still in quarantine till Dec 05 due to immunocompromised state, patient is currently on a oxygen taper plan as tolerated. Patient is tolerating decreased amount of oxygen; plan to discharge to home on Monday, 12/08.
[2020-12-07] MEDS: Albuterol 0.083% 2.5 MG/3 ML Neb Soln NEB SCH ×8 (00:22→20:20)
[2020-12-07] MEDS: MUCOMYST 10% INH SCH ×4 (03:03→20:00)
[2020-12-07] MEDS: Albuterol 8 GM Inhaler INH PRN (04:22)
[2020-12-07] MEDS: Albuterol/Ipratropium 3.0-0.5 MG/3 ML Neb Soln NEB SCH ×3 (07:52→17:18)
[2020-12-07] MEDS: Omeprazole 20 MG Cap.CR PO SCH (07:54)
[2020-12-07] MEDS: Cetirizine 10 MG Tab PO SCH (07:54)
[2020-12-07] MEDS: Acetaminophen/HYDROcodone 325-10 MG Tab PO SCH ×3 (07:54→19:58)
[2020-12-07] MEDS: Magnesium Oxide 400 MG Tab PO SCH ×2 (07:54→19:59)
[2020-12-07] MEDS: Bumetanide 2 MG Tab PO SCH ×2 (07:54→11:44)
[2020-12-07] MEDS: predniSONE 20 MG Tab PO SCH ×2 (07:54→19:58)
[2020-12-07] MEDS: Spironolactone 25 MG Tab PO SCH (07:55)
[2020-12-07] MEDS: LORazepam 1 MG Tab PO SCH ×4 (07:55→19:59)
[2020-12-07] MEDS: Potassium Chloride 20 MEQ Tab.ER PO SCH ×2 (07:55→19:59)
[2020-12-07] MEDS: Enoxaparin 40 MG/0.4 ML Syringe SUBCUT SCH ×2 (07:56→19:59)
[2020-12-07] MEDS: Polyethylene Glycol 3350 Powder 17 GM Packet PO SCH (07:56)
[2020-12-07] MEDS: Budesonide 0.5 MG/2 ML Neb Susp NEB SCH ×2 (08:10→19:55)
[2020-12-07] MEDS: PERFOROMIST 20 MCG/2 ML INH SCH ×2 (08:20→20:00)
[2020-12-07] MEDS: Tiotropium Inhaler 18 MCG Inhalation Powder Cap Kit of 5 INH SCH (08:38)
[2020-12-07] MEDS: THEOPHYLLINE 600 MG PO SCH ×3 (08:38→20:00)
[2020-12-07] MEDS: Levofloxacin 500 MG Tab PO SCH (17:18)
--- NOTE | 2020-12-07 18:39 | PCM.PN ---
- General Info Date of Service: 12/07/20 Admission Dx/Problem (Free Text): Admission Diagnosis/Problem Admission Diagnosis/Problem Pneumonia Subjective Update: Tolerating 4 L of oxygen most of the time. Does require increased amounts when he is moving around. Nursing has changed him to a mask when he gets up which does seem to maintain his saturations better than a nasal cannula when he is moving as he tends to breathe through his mouth when he is up moving. Appetite is good. He has no fever. He is denying new pain. Functional Status: Reports: Pain Controlled, Tolerating Diet, Ambulating, Urinating - Review of Systems General: Reports: Weakness. Denies: Fever, Appetite HEENT: Denies: Ear Pain, Eye Pain, Headaches, Post Nasal Drip, Sinus Congestion, Sore Throat Pulmonary: Denies: Shortness of Breath, Wheezing Cardiovascular: Denies: Chest Pain Gastrointestinal: Denies: Abdominal Pain, Diarrhea, Nausea, Vomiting Musculoskeletal: Denies: No Symptoms Skin: Denies: No Symptoms Neurological: Denies: No Symptoms Psychiatric: Denies: No Symptoms - Patient Data Vitals - Most Recent: Last Vital Signs Temp 37.0 C 12/07/20 16:00 Pulse 83 12/07/20 16:00 Resp 20 12/07/20 16:00 BP 113/58 L 12/07/20 16:00 Pulse Ox 4 L 12/07/20 16:00 Weight - Most Recent: 74.389 kg I&O - Last 24 Hours: Intake & Output 12/07/20 12/07/20 12/07/20 06:59 14:59 22:59 Intake Total 960 Output Total 725 750 Balance -725 210 Lab Results Last 24 Hours: Laboratory Results - last 24 hr 12/07/20 Range/Units 11:00 Theophylline 15 D (10-20) ug/mL Med Orders - Current: Current Medications Hydrocodone Bitart/Acetaminophen (Acetaminophen/Hydrocodone 325-10 Mg Tab) 1 tab PO TID [facility] Last Admin: 12/07/20 14:07 Dose: 1 tab Documented by: Albuterol (Albuterol 8 Gm Inhaler) 0 gm INH QID PRN PRN Reason: Shortness of Breath Last Admin: 12/07/20 04:22 Dose: 2 puff Documented by: Albuterol (Albuterol 0.083% 2.5 Mg/3 Ml Neb Soln) 2.[address] [facility] Last Admin: 12/07/20 17:18 Dose: 2.5 mg Documented by: Albuterol/Ipratropium (Albuterol/Ipratropium 3.0-0.5 Mg/3 Ml Neb Soln) [address] [facility] Last Admin: 12/07/20 17:18 Dose: 3 ml Documented by: Budesonide (Budesonide 0.5 Mg/2 Ml Neb Susp) 0.[address] [facility] Last Admin: 12/07/20 08:10 Dose: 0.5 mg Documented by: Bumetanide (Bumetanide 2 Mg Tab) [address] [facility] Last Admin: 12/07/20 11:44 Dose: 2 mg Documented by: Bumetanide (Bumetanide 2 Mg Tab) 3 mg PO DAILY@0800 [facility] Last Admin: 12/07/20 07:54 Dose: 3 mg Documented by: Calamine/Phenol (Menthol/Zinc Oxide Ointment 113 Gm Tube) 1 gm TOP QID PRN PRN Reason: Rash Last Admin: 11/17/20 09:35 Dose: 1 applic Documented by: Cetirizine HCl (Cetirizine 10 Mg Tab) [address] [facility] Last Admin: 12/07/20 07:54 Dose: 10 mg Documented by: Diphenhydramine HCl (Diphenhydramine 50 Mg Cap) 50 mg PO BID PRN PRN Reason: burning eyes Last Admin: 11/26/20 20:49 Dose: 50 mg Documented by: Docusate Sodium (Docusate Sodium 250 Mg Cap) [address] [facility] Last Admin: 12/06/20 19:50 Dose: 250 mg Documented by: Enoxaparin Sodium (Enoxaparin 40 Mg/0.4 Ml Syringe) [address] [facility] Last Admin: 12/07/20 07:56 Dose: 40 mg Documented by: Levofloxacin (Levofloxacin 500 Mg Tab) [address] [facility] Last Admin: 12/07/20 17:18 Dose: 500 mg Documented by: Lorazepam (Lorazepam 1 Mg Tab) [address] [facility] Last Admin: 12/07/20 17:18 Dose: 1 mg Documented by: Lorazepam (Lorazepam 1 Mg Tab) 1 mg PO Q6H PRN PRN Reason: Anxiety Last Admin: 12/04/20 22:09 Dose: 1 mg Documented by: Magnesium Oxide (Magnesium Oxide 400 Mg Tab) [address] [facility] Last Admin: 12/07/20 07:54 Dose: 400 mg Documented by: Montelukast Sodium (Montelukast 10 Mg Tab) [address] [facility] Last Admin: 12/06/20 19:50 Dose: 10 mg Documented by: Morphine Sulfate (Morphine Oral Concentrate 20 Mg/Ml 30 Ml Bottle) 5 mg SL Q4H PRN PRN Reason: Pain Last Admin: 12/06/20 22:41 Dose: 5 mg Documented by: Theophylline 600mg (Er Tablets) 0.[address] [facility] Last Admin: 12/07/20 14:07 Dose: 0.5 each Documented by: Clotrimazole Luis Fernando (10mgOwn Med) 1 each PO 5XDAY PRN PRN Reason: thrush Last Admin: 12/06/20 18:46 Dose: 1 each Documented by: Omeprazole (Omeprazole 20 Mg Cap.Cr) [address] [facility] Last Admin: 12/07/20 07:54 Dose: 40 mg Documented by: Ondansetron HCl (Ondansetron 4 Mg Tab.Dis) 4 mg PO Q6H PRN PRN Reason: NAUSEA Last Admin: 11/19/20 08:31 Dose: 4 mg Documented by: Perforomist 20mcg/ (2ml Nebs) [address] [facility] Last Admin: 12/07/20 08:20 Dose: 1 each Documented by: Mucomyst 10% Soln (Neb) [address] [facility] Last Admin: 12/07/20 14:07 Dose: 1 each Documented by: Polyethylene Glycol (Polyethylene Glycol 3350 Powder 17 Gm Packet) [address] [facility] Last Admin: 12/07/20 07:56 Dose: 17 gm Documented by: Potassium Chloride (Potassium Chloride 20 Meq Tab.Er) [address] [facility] Last Admin: 12/07/20 07:55 Dose: 20 meq Documented by: Prednisone (Prednisone 20 Mg Tab) [address] [facility] Last Admin: 12/07/20 07:54 Dose: 20 mg Documented by: Senna/Docusate Sodium (Docusate Sodium/Sennosides 50-8.6 Mg Tab) [address] [facility] Last Admin: 12/07/20 11:44 Dose: 1 tab Documented by: Sodium Chloride (Sodium Chloride 0.65% Nasal [place] 45 Ml Bottle) 1 ml [place] Q2H PRN PRN Reason: Nasal Dryness Last Admin: 12/01/20 21:00 Dose: 1 each Documented by: Spironolactone (Spironolactone 25 Mg Tab) [address] [facility] Last Admin: 12/07/20 07:55 Dose: 25 mg Documented by: Tiotropium [place] (Tiotropium Inhaler 18 Mcg Inhalation Powder Cap Kit Of 5) [address] [facility] Last Admin: 12/07/20 08:38 Dose: 1 puff Documented by: Discontinued Medications Hydrocodone Bitart/Acetaminophen (Acetaminophen/Hydrocodone 325-10 Mg Tab) Confirm Administered Dose 1 tab .ROUTE .STK-MED ONE Stop: 11/16/20 20:01 Last Admin: 11/16/20 20:18 Dose: Not Given Documented by: Acetylcysteine (Acetylcysteine 20% 200 Mg/Ml 30 Ml Nebulizer Soln Sdv) [address] [facility] Last Admin: 11/15/20 23:30 Dose: 100 mg Documented by: Albuterol (Albuterol 0.083% 2.5 Mg/3 Ml Neb Soln) 2.5 mg NEB Q6H [facility] Albuterol (Albuterol 0.083% 2.5 Mg/3 Ml Neb Soln) Confirm Administered Dose 2.5 mg .ROUTE .STK-MED ONE Stop: 11/25/20 16:13 Last Admin: 11/25/20 16:35 Dose: Not Given Documented by: Albuterol/Ipratropium (Albuterol/Ipratropium 3.0-0.5 Mg/3 Ml Neb Soln) 3 ml NEB Q2H PRN PRN Reason: Dyspnea Last Admin: 11/17/20 06:10 Dose: 3 ml Documented by: Albuterol/Ipratropium (Albuterol/Ipratropium 3.0-0.5 Mg/3 Ml Neb Soln) 6 ml NEB ASDIRECTED ONE Stop: 11/17/20 20:01 Last Admin: 11/17/20 21:02 Dose: 6 ml Documented by: Azithromycin (Azithromycin 250 Mg Tab) [address] [facility] Stop: 11/24/20 16:31 Last Admin: 11/19/20 08:28 Dose: 500 mg Documented by: Bumetanide (Bumetanide 2 Mg Tab) [address] [facility] Last Admin: 11/18/20 06:42 Dose: 3 mg Documented by: Bumetanide (Bumetanide 1 Mg Tab) 3 mg PO ONETIME ONE Stop: 11/17/20 21:20 Last Admin: 11/17/20 22:11 Dose: 3 mg Documented by: Bumetanide (Bumetanide 1 Mg Tab) Confirm Administered Dose 3 mg .ROUTE .STK-MED ONE Stop: 11/23/20 07:36 Last Admin: 11/23/20 07:37 Dose: 3 mg Documented by: Dexamethasone (Dexamethasone 4 Mg Tab) [address] [facility] Last Admin: 11/19/20 08:26 Dose: 6 mg Documented by: Furosemide (Furosemide 20 Mg Tab) Confirm Administered Dose 20 mg .ROUTE .STK- MED ONE Stop: 11/21/20 11:48 Last Admin: 11/21/20 19:11 Dose: Not Given Documented by: Furosemide (Furosemide 20 Mg Tab) 20 mg PO BIDDIURETIC [facility] Stop: 11/24/20 23:59 Last Admin: 11/24/20 17:29 Dose: 20 mg Documented by: Remdesivir 200 mg/ Sodium (Chloride) 250 mls @ 250 mls/hr IV ONETIME ONE Stop: 11/15/20 19:18 Last Admin: 11/15/20 20:04 Dose: 250 mls/hr Documented by: Remdesivir 100 mg/ Sodium (Chloride) 100 mls @ 100 mls/hr IV Q24H [facility] Stop: 11/19/20 16:59 Last Admin: 11/19/20 16:25 Dose: 100 mls/hr Documented by: Levofloxacin/Dextrose 500 mg/ (Levofloxacin/Dextrose) 200 mls @ 100 mls/hr IV Q24H [facility] Last Admin: 11/22/20 18:01 Dose: 100 mls/hr Documented by: Levofloxacin/Dextrose (Levaquin In D5w 500 Mg/100 Ml) Confirm Administered Dose 100 mls @ as directed IV .STK-MED ONE Stop: 11/19/20 19:26 Last Admin: 11/20/20 02:33 Dose: Not Given Documented by: Lorazepam (Lorazepam 1 Mg Tab) 1 mg PO ONETIME ONE Stop: 11/18/20 03:46 Last Admin: 11/18/20 03:45 Dose: 1 mg Documented by: Lorazepam (Lorazepam 2 Mg/Ml Sdv) 0.5 mg IVPUSH Q6H PRN PRN Reason: Agitation Last Admin: 11/19/20 04:13 Dose: 0.5 mg Documented by: Lorazepam (Lorazepam 2 Mg/Ml Sdv) 1 mg IVPUSH Q6H PRN PRN Reason: Agitation Last Admin: 11/23/20 10:25 Dose: 1 mg Documented by: Lorazepam (Lorazepam 2 Mg/Ml Sdv) Confirm Administered Dose 2 mg .ROUTE .STK-MED ONE Stop: 11/20/20 06:26 Last Admin: 11/20/20 06:35 Dose: Not Given Documented by: Lorazepam (Lorazepam 2 Mg/Ml Sdv) 1 mg IVPUSH Q6H PRN PRN Reason: Anxiety Stop: 11/24/20 19:00 Lorazepam (Lorazepam 1 Mg Tab) Confirm Administered Dose 1 mg .ROUTE .STK-MED ONE Stop: 11/25/20 04:15 Last Admin: 11/25/20 04:18 Dose: Not Given Documented by: Lorazepam (Lorazepam 1 Mg Tab) Confirm Administered Dose 1 mg .ROUTE .STK-MED ONE Stop: 11/30/20 04:29 Last Admin: 11/30/20 04:25 Dose: 1 mg Documented by: Lorazepam (Lorazepam 1 Mg Tab) Confirm Administered Dose 1 mg .ROUTE .STK-MED ONE Stop: 12/04/20 19:55 Last Admin: 12/04/20 20:01 Dose: Not Given Documented by: Lorazepam (Lorazepam 1 Mg Tab) Confirm Administered Dose 1 mg .ROUTE .STK-MED ONE Stop: 12/04/20 22:20 Last Admin: 12/04/20 23:30 Dose: Not Given Documented by: Lorazepam (Lorazepam 0.5 Mg Tab) Confirm Administered Dose 1 mg .ROUTE .STK-MED ONE Stop: 12/05/20 07:41 Last Admin: 12/05/20 07:53 Dose: Not Given Documented by: Lorazepam (Lorazepam 0.5 Mg Tab) Confirm Administered Dose 1 mg .ROUTE .STK-MED ONE Stop: 12/05/20 11:52 Last Admin: 12/05/20 11:52 Dose: Not Given Documented by: Lorazepam (Lorazepam 0.5 Mg Tab) Confirm Administered Dose 1 mg .ROUTE .STK-MED ONE Stop: 12/05/20 16:46 Last Admin: 12/05/20 16:47 Dose: Not Given Documented by: Lorazepam (Lorazepam 1 Mg Tab) Confirm Administered Dose 1 mg .ROUTE .STK-MED ONE Stop: 12/05/20 20:01 Last Admin: 12/05/20 20:02 Dose: Not Given Documented by: Lorazepam (Lorazepam 1 Mg Tab) Confirm Administered Dose 1 mg .ROUTE .STK-MED ONE Stop: 12/06/20 07:38 Last Admin: 12/06/20 07:31 Dose: Not Given Documented by: Lorazepam (Lorazepam 1 Mg Tab) Confirm Administered Dose 1 mg .ROUTE .STK-MED ONE Stop: 12/06/20 12:06 Last Admin: 12/06/20 12:18 Dose: Not Given Documented by: Lorazepam (Lorazepam 1 Mg Tab) Confirm Administered Dose 1 mg .ROUTE .STK-MED ONE Stop: 12/06/20 17:12 Last Admin: 12/06/20 17:26 Dose: Not Given Documented by: Lorazepam (Lorazepam 0.5 Mg Tab) Confirm Administered Dose 1 mg .ROUTE .STK-MED ONE Stop: 12/06/20 19:50 Last Admin: 12/06/20 19:45 Dose: Not Given Documented by: Methylprednisolone (Methylprednisolone 4 Mg Tab) [address] [facility] Methylprednisolone Sodium Succinate (Methylprednisolone Sodium Succinate 40 Mg/1 Ml Sdv) [address] [facility] Last Admin: 11/23/20 06:02 Dose: 40 mg Documented by: Methylprednisolone Sodium Succinate (Methylprednisolone Sodium Succinate 40 Mg/1 Ml Sdv) Confirm Administered Dose 40 mg .ROUTE .STK-MED ONE Stop: 11/23/20 17:56 Last Admin: 11/23/20 17:57 Dose: Not Given Documented by: Morphine Sulfate (Morphine Oral Concentrate 20 Mg/Ml 30 Ml Bottle) Confirm Administered Dose 600 mg .ROUTE .STK-MED ONE Stop: 11/18/20 08:13 Last Admin: 11/18/20 09:22 Dose: Not Given Documented by: Theophylline 600mg (Er Tablet) 0.[address] [facility] Last Admin: 11/25/20 21:55 Dose: Not Given Documented by: Clotrimazole Luis Fernando 1 each PO SEECOMMENT PRN PRN Reason: Other Last Admin: 12/02/20 01:08 Dose: 1 each Documented by: Clotrimazole Luis Fernando (10mgOwn Med) [address] [facility] Mucomyst 10% Soln (Neb) [address] [facility] Last Admin: 11/18/20 09:24 Dose: Not Given Documented by: Potassium Chloride (Potassium Chloride 20 Meq Tab.Er) [address] [facility] Last Admin: 11/17/20 09:24 Dose: 20 meq Documented by: Prednisone (Prednisone 10 Mg Tab) [address] [facility] Last Admin: 11/23/20 07:37 Dose: 10 mg Documented by: Prednisone (Prednisone 20 Mg Tab) [address] [facility] Last Admin: 12/03/20 07:27 Dose: 20 mg Documented by: Prednisone (Prednisone 10 Mg Tab) Confirm Administered Dose 10 mg .ROUTE .STK- MED ONE Stop: 11/23/20 18:26 Last Admin: 11/23/20 21:20 Dose: Not Given Documented by: Sodium Chloride (Sodium Chloride 0.9% 10 Ml Syringe) [address] [facility] Last Admin: 11/23/20 09:19 Dose: 10 ml Documented by: Spironolactone (Spironolactone 25 Mg Tab) 25 mg PO ONETIME ONE Stop: 11/30/20 09:48 Last Admin: 11/30/20 12:39 Dose: 25 mg Documented by: Theophylline (Theophylline 300 Mg Cap.Er) [address] [facility] Last Admin: 11/16/20 12:39 Dose: 300 mg Documented by: Theophylline (Theophylline 300 Mg Tab.Er) [address] [facility] Stop: 11/26/20 01:00 Last Admin: 11/25/20 22:00 Dose: 150 mg Documented by: Theophylline (Theophylline 300 Mg Tab.Er) [address] [facility] Last Admin: 11/30/20 08:55 Dose: 300 mg Documented by: Theophylline (Theophylline 300 Mg Tab.Er) [address] [facility] Last Admin: 12/03/20 13:01 Dose: 300 mg Documented by: - Exam Quality Assessment: Supplemental Oxygen General: Alert, Oriented, Cooperative, No Acute Distress HEENT: Pupils Equal, Pupils Reactive, EOMI, Mucous Membr. Moist/[place] Neck: Supple Lungs: Normal Respiratory Effort, Other (Continues to have intermittent rales in bilateral bases; however, this has dramatically improved) Cardiovascular: Regular Rate, Regular Rhythm Skin: Warm, Dry, Intact Neurological: No New Focal Deficit - Patient Data Lab Results Last 24 hrs: Laboratory Results - last 24 hr 12/07/20 Range/Units 11:00 Theophylline 15 D (10-20) ug/mL Result Diagrams: 12/02/20 07:10 12/02/20 07:10 Sepsis Event Note - Evaluation Sepsis Screening Result: Sepsis Risk - Focused Exam Vital Signs: Vital Signs Temp Pulse Resp BP Pulse Ox 12/07/20 16:00 37.0 C 83 20 113/58 L 4 L 12/07/20 12:00 37.1 C 96 20 108/59 L 92 L 12/07/20 08:00 37.2 C 96 24 H 112/61 85 L - Problem List Review Problem List Initiated/Reviewed/Updated: Yes - My Orders Last 24 Hours: My Active Orders 12/06/20 21:34 OT Evaluation and Treatment [CONS] Routine PT Evaluation and Treatment [CONS] Routine - Assessment Assessment:: Continue to provide oxygen to maintain saturations greater than 90%. - Plan Plan:: Assessment and Plan: - 60 yo M with chronic resp failure presented 11/15 with worsening resp failure, dx with COVID 19 - Completed a course of Remdesivir and dexamethasone. - COVID pneumonia Finished a 5 days course of Remdesivir IV. On quarantine till Dec 05. - Concern for secondary bacterial pneumonia Continue Levaquin started 11/19 for pseudomonas coverage. Last dose on 12/05 - Acute on chronic hypoxia 2/2 respiratory failure He is on chronic O2 use at home 3-4 lit by NC during the day, trilogy BiPAP machine only at night. 12/01/2020 patient has been weaned down to 7 L/min by nasal cannula satting between 86-91%, without any increased work of breathing. - Acute on chronic COPD exacerbation. Currently on DuoNeb q6hr, Pulmicort, Albuterol, and his home medications Theophylline and Spiriva. Continued. - Chronic prednisone use Increased prednisone 20mg PO BID on 12/03. plan to gradually wean him off as malcolm rating. Baseline at home is 10mg daily - h/o CHF - mild fluid overload in feet - resolving Currently on home dose of Bumex 3mg and 2 mg PO. Also, on Spironolactone daily. No presentation of being fluid overloaded today. - Hypomagnesemia On Mg replacement PO. - High risk of DVT; On Lovenox 40mg BID - h/o Anxiety On Ativan 1mg q6hr PRN Patient is DNR/DNI, and he and his decline option of transfer. Patient will still in quarantine till Dec 05 due to immunocompromised state, patient is currently on a oxygen taper plan as tolerated. Patient is tolerating decreased amount of oxygen; plan to discharge to home on Monday, 12/08.
[2020-12-07] MEDS: Montelukast 10 MG Tab PO SCH (19:58)
[2020-12-07] MEDS: Docusate Sodium 250 MG Cap PO SCH (20:00)
[2020-12-07] MEDS ORDERED: Acetylcysteine 20% 200 MG/ML 30 ML Nebulizer Soln SDV ONE (20:10)
[2020-12-07] MEDS: CLOTRIMAZOLE PO PRN (22:04)
[2020-12-08] MEDS: Morphine Oral Concentrate 20 MG/ML 30 ML Bottle SL PRN ×2 (00:40→09:30)
[2020-12-08] MEDS: LORazepam 1 MG Tab PO PRN (00:41)
[2020-12-08] MEDS: Albuterol/Ipratropium 3.0-0.5 MG/3 ML Neb Soln NEB SCH ×3 (00:41→11:14)
[2020-12-08] MEDS: Albuterol 0.083% 2.5 MG/3 ML Neb Soln NEB SCH ×4 (00:41→11:14)
[2020-12-08] MEDS: MUCOMYST 10% INH SCH ×2 (02:31→07:58)
[2020-12-08] MEDS ORDERED: LORazepam 1 MG Tab PO PRN (07:43)
[2020-12-08] MEDS ORDERED: CLOTRIMAZOLE 10 MG PO PRN (07:43)
[2020-12-08] MEDS ORDERED: Sodium Chloride 0.65% Nasal Spray 45 ML Bottle NASBOTH PRN (07:43)
[2020-12-08] MEDS ORDERED: Non-Formulary Medication 1 Each (Ibuprofen [Ibuprofen] 200 MG Capsule) PO PRN (07:43)
[2020-12-08] MEDS ORDERED: TROCHE PO PRN (07:43)
[2020-12-08] MEDS: LORazepam 1 MG Tab PO SCH ×2 (07:46→11:16)
--- NOTE | 2020-12-08 07:46 | PCM.DCSUM1 ---
Discharge Summary - Hospital Course Free Text/Narrative:: This patient is at baseline and will be discharged to home early this afternoon. His family was notified of this 48 hours ago to allow them time to prepare for discharge. HPI Initial Comments: This patient was admitted to the hospital for Covid pneumonia on November 15. Since admission he has progressed to the point where he is at approximate baseline for oxygen requirements. Nursing has noticed that he has significant desaturations when he gets up and walks and believed it was due to him mouth breathing while he was active. They have begun to change him to a facemask when he gets out of bed which has significantly decreased the desaturations and kept his oximetry more stable. His appetite is fairly good, he is eating and drinking. He denies new pain. Brief History: This patient has a history of COPD with chronic hypoxia. He developed Covid pneumonia and was admitted on November 15. Diagnosis: Stroke: No Modified [place] Scale: No Symptoms at All Modified [place] Scale Score: 0 - Discharge Data Discharge Date: 12/08/20 Discharge Disposition: Home, Self-Care 01 Condition: Good - Referral to Home Health Primary Care Physician: PCP None - Discharge Diagnosis/Problem(s) (1) COVID SNOMED Code(s): 854218063 ICD Code: U07.1 - COVID-19 Status: Acute Current Visit: Yes - Patient Summary/Data Consults: Consultations 12/06/20 21:34 OT Evaluation and Treatment [CONS] Routine Please Evaluate and Treat. OT Reason for Consult: ADL's This query below is only for informational purposes and is not editable. Admission Diagnosis/Problem: Pneumonia PT Evaluation and Treatment [CONS] Routine Please Evaluate and Treat. PT Reason for Consult: Strengthening This query below is only for informational purposes and is not editable. Admission Diagnosis/Problem: Pneumonia - Patient Instructions Diet: Heart Healthy Diet - Discharge Plan *PRESCRIPTION DRUG MONITORING PROGRAM REVIEWED*: Not Applicable *COPY OF PRESCRIPTION DRUG MONITORING REPORT IN PATIENT SHONDA: Not Applicable Home Medications: Home Meds Ipratropium/Albuterol Sulfate [Duoneb 0.5 MG-3 MG/3 ML] 3 ml INH QID 12/11/12 [History] Formoterol [Perforomist] 20 mcg NEB BID 12/26/14 [History] Cetirizine [ZyrTEC] 10 mg PO DAILY tablet 12/30/14 [Rx] Calcium Carbonate/Vitamin D3 [Calcium 600 + Vit D Tablet] 1 each PO DAILY 12/08/15 [History] Budesonide [Pulmicort] 0.5 mg INH BID #1 neb 12/14/15 [Rx] LORazepam [Ativan] 1 mg PO QID 12/22/15 [History] Acetylcysteine [Mucomyst 10%] 100 mg INH Q6H 12/23/15 [History] Polyethylene Glycol 3350 [MiraLAX] 17 gm PO DAILY 01/03/16 [History] Bumetanide 3 mg PO WITHBREAKFAST 01/20/17 [History] Docusate Sodium [Colace] 250 mg PO BEDTIME 01/20/17 [History] Ibuprofen 400 mg PO Q4H PRN 01/20/17 [History] Omeprazole 40 mg PO DAILY 01/20/17 [History] predniSONE [Prednisone] 20 mg PO DAILY 01/20/17 [History] B12/Levomefolate Calcium/B-6 [Folbic Rf Tablet] 1 each PO BEDTIME 09/06/19 [History] Potassium Chloride [Klor-Con M20] 20 meq PO DAILY 09/06/19 [History] Sennosides/Docusate Sodium [Senokot-S Tablet] 1 each PO ACLUNCH 09/06/19 [History] Theophylline [Jc-24] 300 mg PO TID 09/06/19 [History] Albuterol [IJD: Albuterol HFA] 2 puff INH QID PRN 08/31/20 [History] Bumetanide 2 mg PO ACLUNCH 08/31/20 [History] Ondansetron [Zofran ODT] 4 mg PO Q6H PRN #20 tab.dis 08/31/20 [Rx] Spironolactone [Aldactone] 25 mg PO QAM 08/31/20 [History] Tiotropium [Spiriva HandiHaler] 1 puff INH DAILY 08/31/20 [History] diphenhydrAMINE [Benadryl] 50 mg PO BID PRN 08/31/20 [History] Hydrocodone/Acetaminophen [Hydrocodon-Acetaminophn 10-325] 1 tab PO TID 11/15/20 [History] Montelukast [Singulair] 10 mg PO BEDTIME 11/15/20 [History] Clotrimazole [Mycelex] 10 mg PO 5XDAY PRN 12/07/20 [History] LORazepam [Ativan] 1 mg PO Q6H PRN 12/07/20 [History] Magnesium Oxide [Magnesium] 400 mg PO DAILY 12/07/20 [History] Sodium Chloride 0.65% [[place] Nasal Reading] 1 spray NASBOTH Q2H PRN 12/07/20 [History] Oxygen Therapy Mode: Nasal Cannula Oxygen Flow Rate (L/min): 4 Maintain SpO2% greater than: 90 Patient Handouts: Radicular Pain Forms: ED Department Discharge Referrals: PCP,None [Primary Care Provider] - - Discharge Summary/Plan Comment DC Time >30 min.: Yes Total # of Minutes for Discharge Time: 60 Discharge Summary/Plan Comment: - 60 yo M with chronic resp failure presented 11/15 with worsening resp failure, dx with COVID 19 pneumonia He completed a course of Remdesivir and dexamethasone as well as Levaquin started 11/19 for pseudomonas coverage. Last dose on 12/05 - Acute on chronic hypoxia 2/2 respiratory failure He is on chronic O2 use at home 3-4 lit by NC during the day, trilogy BiPAP machine only at night. 12/01/2020 patient has been weaned down to 7 L/min by nasal cannula satting between 86-91%, without any increased work of breathing. - Acute on chronic COPD exacerbation. Currently on DuoNeb q6hr, Pulmicort, Albuterol, and his home medications Theophylline and Spiriva. His albuterol will be decreased slightly and he will be started on some salmeterol at home. - Chronic prednisone use Increased prednisone 20mg PO BID on 12/03. plan to gradually wean him off as tolerating. Baseline at home is 10mg daily - h/o CHF - mild fluid overload in feet - resolving Currently on home dose of Bumex 3mg and 2 mg PO. He is also on Spironolactone daily and there is no evidence of fluid overload. - Hypomagnesemia On Mg replacement PO. - High risk of DVT; His risk of DVT remains high related to his sedentary lifestyle. His Lovenox will be DC'd and he will be started on Eliquis at home. - h/o Anxiety On Ativan 1mg q6hr PRN Patient is DNR/DNI, and his care needs are significant. He and his declined the option of out-of-home placement. He has been able to wean to his baseline oxygen levels; however should his care needs exceed his family's abilities it is likely he will need an out-of-home placement in a intermediate facility. - General Info Date of Service: 12/08/20 Admission Dx/Problem (Free Text: Admission Diagnosis/Problem Admission Diagnosis/Problem Pneumonia Functional Status: Reports: Pain Controlled, Tolerating Diet, Ambulating, Urinating. Denies: New Symptoms - Review of Systems General: Reports: Weakness, Appetite. Denies: Fever HEENT: Denies: Ear Pain, Eye Pain, Headaches, Sore Throat, Rhinitis Pulmonary: Reports: Shortness of Breath, Cough, Wheezing Cardiovascular: Reports: Dyspnea on Exertion, Orthopnea. Denies: Chest Pain Gastrointestinal: Denies: Abdominal Pain, Decreased Appetite, Diarrhea, Nausea, Vomiting Musculoskeletal: Reports: No Symptoms Skin: Reports: No Symptoms Neurological: Reports: No Symptoms Psychiatric: Reports: No Symptoms - Patient Data Vitals - Most Recent: Last Vital Signs Temp 36.4 C 12/08/20 04:00 Pulse 87 12/08/20 04:00 Resp 20 12/08/20 04:00 BP 118/66 12/08/20 04:00 Pulse Ox 92 L 12/08/20 04:00 Weight - Most Recent: 74.389 kg I&O - Last 24 hours: Intake & Output 12/07/20 12/08/20 12/08/20 22:59 06:59 14:59 Intake Total 960 600 Output Total 750 400 Balance 210 200 Lab Results - Last 24 hrs: Laboratory Results - last 24 hr 12/07/20 Range/Units 11:00 Theophylline 15 D (10-20) ug/mL Med Orders - Current: Current Medications Hydrocodone Bitart/Acetaminophen (Acetaminophen/Hydrocodone 325-10 Mg Tab) 1 tab PO TID [facility] Last Admin: 12/07/20 19:58 Dose: 1 tab Documented by: Albuterol (Albuterol 8 Gm Inhaler) 0 gm INH QID PRN PRN Reason: Shortness of Breath Last Admin: 12/07/20 04:22 Dose: 2 puff Documented by: Albuterol (Albuterol 0.083% 2.5 Mg/3 Ml Neb Soln) 2.5 mg NEB Q3H [facility] Last Admin: 12/08/20 05:51 Dose: 2.5 mg Documented by: Albuterol/Ipratropium (Albuterol/Ipratropium 3.0-0.5 Mg/3 Ml Neb Soln) 3 ml NEB Q6H [facility] Last Admin: 12/08/20 05:51 Dose: 3 ml Documented by: Budesonide (Budesonide 0.5 Mg/2 Ml Neb Susp) 0.5 mg NEB BID [facility] Last Admin: 12/07/20 19:55 Dose: 0.5 mg Documented by: Bumetanide (Bumetanide 2 Mg Tab) 2 mg PO ACLUNCH [facility] Last Admin: 12/07/20 11:44 Dose: 2 mg Documented by: Bumetanide (Bumetanide 2 Mg Tab) 3 mg PO DAILY@0800 [facility] Last Admin: 12/07/20 07:54 Dose: 3 mg Documented by: Calamine/Phenol (Menthol/Zinc Oxide Ointment 113 Gm Tube) 1 gm TOP QID PRN PRN Reason: Rash Last Admin: 11/17/20 09:35 Dose: 1 applic Documented by: Cetirizine HCl (Cetirizine 10 Mg Tab) 10 mg PO DAILY [facility] Last Admin: 12/07/20 07:54 Dose: 10 mg Documented by: Diphenhydramine HCl (Diphenhydramine 50 Mg Cap) 50 mg PO BID PRN PRN Reason: burning eyes Last Admin: 11/26/20 20:49 Dose: 50 mg Documented by: Docusate Sodium (Docusate Sodium 250 Mg Cap) 250 mg PO BEDTIME [facility] Last Admin: 12/07/20 20:00 Dose: 250 mg Documented by: Enoxaparin Sodium (Enoxaparin 40 Mg/0.4 Ml Syringe) 40 mg SUBCUT Q12H [facility] Last Admin: 12/07/20 19:59 Dose: 40 mg Documented by: Levofloxacin (Levofloxacin 500 Mg Tab) 500 mg PO Q24H [facility] Last Admin: 12/07/20 17:18 Dose: 500 mg Documented by: Lorazepam (Lorazepam 1 Mg Tab) 1 mg PO QID [facility] Last Admin: 12/07/20 19:59 Dose: 1 mg Documented by: Lorazepam (Lorazepam 1 Mg Tab) 1 mg PO Q6H PRN PRN Reason: Anxiety Last Admin: 12/08/20 00:41 Dose: 1 mg Documented by: Lorazepam (Lorazepam 1 Mg Tab) 1 mg PO Q6H PRN PRN Reason: Anxiety Magnesium Oxide (Magnesium Oxide 400 Mg Tab) 400 mg PO BID [facility] Last Admin: 12/07/20 19:59 Dose: 400 mg Documented by: Montelukast Sodium (Montelukast 10 Mg Tab) 10 mg PO BEDTIME [facility] Last Admin: 12/07/20 19:58 Dose: 10 mg Documented by: Morphine Sulfate (Morphine Oral Concentrate 20 Mg/Ml 30 Ml Bottle) 5 mg SL Q4H PRN PRN Reason: Pain Last Admin: 12/08/20 00:40 Dose: 5 mg Documented by: Theophylline 600mg (Er Tablets) 0.5 each PO TID [facility] Last Admin: 12/07/20 20:00 Dose: 0.5 each Documented by: Clotrimazole Luis Fernando (10mgOwn Med) 1 each PO 5XDAY PRN PRN Reason: thrush Last Admin: 12/07/20 22:04 Dose: 1 each Documented by: Non-Formulary Medication (Clotrimazole [Mycelex]) 10 mg PO 5XDAY PRN PRN Reason: Other Non-Formulary Medication (Magnesium Oxide [Magnesium]) 400 mg PO DAILY [facility] Omeprazole (Omeprazole 20 Mg Cap.Cr) 40 mg PO DAILY [facility] Last Admin: 12/07/20 07:54 Dose: 40 mg Documented by: Ondansetron HCl (Ondansetron 4 Mg Tab.Dis) 4 mg PO Q6H PRN PRN Reason: NAUSEA Last Admin: 11/19/20 08:31 Dose: 4 mg Documented by: Perforomist 20mcg/ (2ml Nebs) 0 each INH BID [facility] Last Admin: 12/07/20 20:00 Dose: 1 each Documented by: Mucomyst 10% Soln (Neb) 1 each INH Q6H [facility] Last Admin: 12/08/20 02:31 Dose: Not Given Documented by: Polyethylene Glycol (Polyethylene Glycol 3350 Powder 17 Gm Packet) 17 gm PO DAILY [facility] Last Admin: 12/07/20 07:56 Dose: 17 gm Documented by: Potassium Chloride (Potassium Chloride 20 Meq Tab.Er) 20 meq PO BID [facility] Last Admin: 12/07/20 19:59 Dose: 20 meq Documented by: Prednisone (Prednisone 20 Mg Tab) 20 mg PO BID [facility] Last Admin: 12/07/20 19:58 Dose: 20 mg Documented by: Senna/Docusate Sodium (Docusate Sodium/Sennosides 50-8.6 Mg Tab) 1 tab PO ACLUNCH [facility] Last Admin: 12/07/20 11:44 Dose: 1 tab Documented by: Sodium Chloride (Sodium Chloride 0.65% Nasal Reading 45 Ml Bottle) 1 ml [place] Q2H PRN PRN Reason: Nasal Dryness Last Admin: 12/01/20 21:00 Dose: 1 each Documented by: Spironolactone (Spironolactone 25 Mg Tab) 25 mg PO QAM [facility] Last Admin: 12/07/20 07:55 Dose: 25 mg Documented by: Tiotropium [place] (Tiotropium Inhaler 18 Mcg Inhalation Powder Cap Kit Of 5) 18 mcg INH DAILY [facility] Last Admin: 12/07/20 08:38 Dose: 1 puff Documented by: Discontinued Medications Hydrocodone Bitart/Acetaminophen (Acetaminophen/Hydrocodone 325-10 Mg Tab) Confirm Administered Dose 1 tab .ROUTE .STK-MED ONE Stop: 11/16/20 20:01 Last Admin: 11/16/20 20:18 Dose: Not Given Documented by: Acetylcysteine (Acetylcysteine 20% 200 Mg/Ml 30 Ml Nebulizer Soln Sdv) 100 mg INH Q6H [facility] Last Admin: 11/15/20 23:30 Dose: 100 mg Documented by: Acetylcysteine (Acetylcysteine 20% 200 Mg/Ml 30 Ml Nebulizer Soln Sdv) Confirm Administered Dose 6,000 mg .ROUTE .STK-MED ONE Stop: 12/07/20 20:11 Last Admin: 12/07/20 20:20 Dose: Not Given Documented by: Albuterol (Albuterol 0.083% 2.5 Mg/3 Ml Neb Soln) 2.5 mg NEB Q6H [facility] Albuterol (Albuterol 0.083% 2.5 Mg/3 Ml Neb Soln) Confirm Administered Dose 2.5 mg .ROUTE .STK-MED ONE Stop: 11/25/20 16:13 Last Admin: 11/25/20 16:35 Dose: Not Given Documented by: Albuterol/Ipratropium (Albuterol/Ipratropium 3.0-0.5 Mg/3 Ml Neb Soln) 3 ml NEB Q2H PRN PRN Reason: Dyspnea Last Admin: 11/17/20 06:10 Dose: 3 ml Documented by: Albuterol/Ipratropium (Albuterol/Ipratropium 3.0-0.5 Mg/3 Ml Neb Soln) 6 ml NEB ASDIRECTED ONE Stop: 11/17/20 20:01 Last Admin: 11/17/20 21:02 Dose: 6 ml Documented by: Azithromycin (Azithromycin 250 Mg Tab) 500 mg PO DAILY [facility] Stop: 11/24/20 16:31 Last Admin: 11/19/20 08:28 Dose: 500 mg Documented by: Bumetanide (Bumetanide 2 Mg Tab) 3 mg PO WITHBREAKFAST [facility] Last Admin: 11/18/20 06:42 Dose: 3 mg Documented by: Bumetanide (Bumetanide 1 Mg Tab) 3 mg PO ONETIME ONE Stop: 11/17/20 21:20 Last Admin: 11/17/20 22:11 Dose: 3 mg Documented by: Bumetanide (Bumetanide 1 Mg Tab) Confirm Administered Dose 3 mg .ROUTE .STK-MED ONE Stop: 11/23/20 07:36 Last Admin: 11/23/20 07:37 Dose: 3 mg Documented by: Dexamethasone (Dexamethasone 4 Mg Tab) 6 mg PO DAILY [facility] Last Admin: 11/19/20 08:26 Dose: 6 mg Documented by: Furosemide (Furosemide 20 Mg Tab) Confirm Administered Dose 20 mg .ROUTE .STK- MED ONE Stop: 11/21/20 11:48 Last Admin: 11/21/20 19:11 Dose: Not Given Documented by: Furosemide (Furosemide 20 Mg Tab) 20 mg PO BIDDIURETIC [facility] Stop: 11/24/20 23:59 Last Admin: 11/24/20 17:29 Dose: 20 mg Documented by: Remdesivir 200 mg/ Sodium (Chloride) 250 mls @ 250 mls/hr IV ONETIME ONE Stop: 11/15/20 19:18 Last Admin: 11/15/20 20:04 Dose: 250 mls/hr Documented by: Remdesivir 100 mg/ Sodium (Chloride) 100 mls @ 100 mls/hr IV Q24H [facility] Stop: 11/19/20 16:59 Last Admin: 11/19/20 16:25 Dose: 100 mls/hr Documented by: Levofloxacin/Dextrose 500 mg/ (Levofloxacin/Dextrose) 200 mls @ 100 mls/hr IV Q24H [facility] Last Admin: 11/22/20 18:01 Dose: 100 mls/hr Documented by: Levofloxacin/Dextrose (Levaquin In D5w 500 Mg/100 Ml) Confirm Administered Dose 100 mls @ as directed IV .STK-MED ONE Stop: 11/19/20 19:26 Last Admin: 11/20/20 02:33 Dose: Not Given Documented by: Lorazepam (Lorazepam 1 Mg Tab) 1 mg PO ONETIME ONE Stop: 11/18/20 03:46 Last Admin: 11/18/20 03:45 Dose: 1 mg Documented by: Lorazepam (Lorazepam 2 Mg/Ml Sdv) 0.5 mg IVPUSH Q6H PRN PRN Reason: Agitation Last Admin: 11/19/20 04:13 Dose: 0.5 mg Documented by: Lorazepam (Lorazepam 2 Mg/Ml Sdv) 1 mg IVPUSH Q6H PRN PRN Reason: Agitation Last Admin: 11/23/20 10:25 Dose: 1 mg Documented by: Lorazepam (Lorazepam 2 Mg/Ml Sdv) Confirm Administered Dose 2 mg .ROUTE .STK-MED ONE Stop: 11/20/20 06:26 Last Admin: 11/20/20 06:35 Dose: Not Given Documented by: Lorazepam (Lorazepam 2 Mg/Ml Sdv) 1 mg IVPUSH Q6H PRN PRN Reason: Anxiety Stop: 11/24/20 19:00 Lorazepam (Lorazepam 1 Mg Tab) Confirm Administered Dose 1 mg .ROUTE .STK-MED ONE Stop: 11/25/20 04:15 Last Admin: 11/25/20 04:18 Dose: Not Given Documented by: Lorazepam (Lorazepam 1 Mg Tab) Confirm Administered Dose 1 mg .ROUTE .STK-MED ONE Stop: 11/30/20 04:29 Last Admin: 11/30/20 04:25 Dose: 1 mg Documented by: Lorazepam (Lorazepam 1 Mg Tab) Confirm Administered Dose 1 mg .ROUTE .STK-MED ONE Stop: 12/04/20 19:55 Last Admin: 12/04/20 20:01 Dose: Not Given Documented by: Lorazepam (Lorazepam 1 Mg Tab) Confirm Administered Dose 1 mg .ROUTE .STK-MED ONE Stop: 12/04/20 22:20 Last Admin: 12/04/20 23:30 Dose: Not Given Documented by: Lorazepam (Lorazepam 0.5 Mg Tab) Confirm Administered Dose 1 mg .ROUTE .STK-MED ONE Stop: 12/05/20 07:41 Last Admin: 12/05/20 07:53 Dose: Not Given Documented by: Lorazepam (Lorazepam 0.5 Mg Tab) Confirm Administered Dose 1 mg .ROUTE .STK-MED ONE Stop: 12/05/20 11:52 Last Admin: 12/05/20 11:52 Dose: Not Given Documented by: Lorazepam (Lorazepam 0.5 Mg Tab) Confirm Administered Dose 1 mg .ROUTE .STK-MED ONE Stop: 12/05/20 16:46 Last Admin: 12/05/20 16:47 Dose: Not Given Documented by: Lorazepam (Lorazepam 1 Mg Tab) Confirm Administered Dose 1 mg .ROUTE .ST-MED ONE Stop: 12/05/20 20:01 Last Admin: 12/05/20 20:02 Dose: Not Given Documented by: Lorazepam (Lorazepam 1 Mg Tab) Confirm Administered Dose 1 mg .ROUTE .ST-MED ONE Stop: 12/06/20 07:38 Last Admin: 12/06/20 07:31 Dose: Not Given Documented by: Lorazepam (Lorazepam 1 Mg Tab) Confirm Administered Dose 1 mg .ROUTE .ST-MED ONE Stop: 12/06/20 12:06 Last Admin: 12/06/20 12:18 Dose: Not Given Documented by: Lorazepam (Lorazepam 1 Mg Tab) Confirm Administered Dose 1 mg .ROUTE .STK-MED ONE Stop: 12/06/20 17:12 Last Admin: 12/06/20 17:26 Dose: Not Given Documented by: Lorazepam (Lorazepam 0.5 Mg Tab) Confirm Administered Dose 1 mg .ROUTE .STK-MED ONE Stop: 12/06/20 19:50 Last Admin: 12/06/20 19:45 Dose: Not Given Documented by: Methylprednisolone (Methylprednisolone 4 Mg Tab) 40 mg PO Q12H [facility] Methylprednisolone Sodium Succinate (Methylprednisolone Sodium Succinate 40 Mg/1 Ml Sdv) 40 mg IVPUSH Q12H [facility] Last Admin: 11/23/20 06:02 Dose: 40 mg Documented by: Methylprednisolone Sodium Succinate (Methylprednisolone Sodium Succinate 40 Mg/1 Ml Sdv) Confirm Administered Dose 40 mg .ROUTE .STK-MED ONE Stop: 11/23/20 17:56 Last Admin: 11/23/20 17:57 Dose: Not Given Documented by: Morphine Sulfate (Morphine Oral Concentrate 20 Mg/Ml 30 Ml Bottle) Confirm Administered Dose 600 mg .ROUTE .STK-MED ONE Stop: 11/18/20 08:13 Last Admin: 11/18/20 09:22 Dose: Not Given Documented by: Theophylline 600mg (Er Tablet) 0.5 each PO TID [facility] Last Admin: 11/25/20 21:55 Dose: Not Given Documented by: Clotrimazole Luis Fernando 1 each PO SEECOMMENT PRN PRN Reason: Other Last Admin: 12/02/20 01:08 Dose: 1 each Documented by: Clotrimazole Luis Fernando (10mgOwn Med) 1 each PO 5XDAY [facility] Mucomyst 10% Soln (Neb) 0 each INH Q6H [facility] Last Admin: 11/18/20 09:24 Dose: Not Given Documented by: Potassium Chloride (Potassium Chloride 20 Meq Tab.Er) 20 meq PO DAILY [facility] Last Admin: 11/17/20 09:24 Dose: 20 meq Documented by: Prednisone (Prednisone 10 Mg Tab) 10 mg PO DAILY [facility] Last Admin: 11/23/20 07:37 Dose: 10 mg Documented by: Prednisone (Prednisone 20 Mg Tab) 20 mg PO DAILY [facility] Last Admin: 12/03/20 07:27 Dose: 20 mg Documented by: Prednisone (Prednisone 10 Mg Tab) Confirm Administered Dose 10 mg .ROUTE .STK- MED ONE Stop: 11/23/20 18:26 Last Admin: 11/23/20 21:20 Dose: Not Given Documented by: Sodium Chloride (Sodium Chloride 0.9% 10 Ml Syringe) 10 ml FLUSH BID [facility] Last Admin: 11/23/20 09:19 Dose: 10 ml Documented by: Spironolactone (Spironolactone 25 Mg Tab) 25 mg PO ONETIME ONE Stop: 11/30/20 09:48 Last Admin: 11/30/20 12:39 Dose: 25 mg Documented by: Theophylline (Theophylline 300 Mg Cap.Er) 300 mg PO TID [facility] Last Admin: 11/16/20 12:39 Dose: 300 mg Documented by: Theophylline (Theophylline 300 Mg Tab.Er) 150 mg PO TID [facility] Stop: 11/26/20 01:00 Last Admin: 11/25/20 22:00 Dose: 150 mg Documented by: Theophylline (Theophylline 300 Mg Tab.Er) 300 mg PO DAILY [facility] Last Admin: 11/30/20 08:55 Dose: 300 mg Documented by: Theophylline (Theophylline 300 Mg Tab.Er) 300 mg PO TID [facility] Last Admin: 12/03/20 13:01 Dose: 300 mg Documented by: - Exam Quality Assessment: Reports: Supplemental Oxygen General: Reports: Alert, Oriented, No Acute Distress HEENT: Reports: Pupils Equal, Pupils Reactive, EOMI, Mucous Membr. Moist/[place] Neck: Reports: Supple Lungs: Reports: Normal Respiratory Effort, Rales (He continues to have some bilateral basilar rales. This is significantly improved over the last several days.) Cardiovascular: Reports: Regular Rate, Regular Rhythm Extremities: Normal Inspection Skin: Reports: Warm, Dry, Intact Neurological: Reports: No New Focal Deficit Psy/Mental Status: Reports: Alert, Normal Affect *Q Meaningful Use (DIS) - VTE *Q VTE Mechanical Contraindications *Q: At Risk for Falls
[2020-12-08] MEDS: Enoxaparin 40 MG/0.4 ML Syringe SUBCUT SCH (07:47)
[2020-12-08] MEDS: Budesonide 0.5 MG/2 ML Neb Susp NEB SCH (07:47)
[2020-12-08] MEDS: Magnesium Oxide 400 MG Tab PO SCH (07:48)
[2020-12-08] MEDS: Polyethylene Glycol 3350 Powder 17 GM Packet PO SCH (07:48)
[2020-12-08] MEDS: Bumetanide 2 MG Tab PO SCH ×2 (07:48→11:15)
[2020-12-08] MEDS: Omeprazole 20 MG Cap.CR PO SCH (07:49)
[2020-12-08] MEDS: predniSONE 20 MG Tab PO SCH (07:49)
[2020-12-08] MEDS: Potassium Chloride 20 MEQ Tab.ER PO SCH (07:49)
[2020-12-08] MEDS: Acetaminophen/HYDROcodone 325-10 MG Tab PO SCH (07:50)
[2020-12-08] MEDS: Cetirizine 10 MG Tab PO SCH (07:50)
[2020-12-08] MEDS: Spironolactone 25 MG Tab PO SCH (07:50)
[2020-12-08] MEDS: THEOPHYLLINE 600 MG PO SCH (07:50)
[2020-12-08] MEDS ORDERED: Non-Formulary Medication 1 Each (Calcium Carbonate/Vitamin D3 [Calcium 600 + Vit D Tablet] PO SCH (08:00)
[2020-12-08] MEDS ORDERED: Magnesium Oxide 400 MG Tab PO SCH (08:00)
[2020-12-08] MEDS ORDERED: Albuterol/Ipratropium 3.0-0.5 MG/3 ML Neb Soln INH SCH (08:00)
[2020-12-08] MEDS ORDERED: Non-Formulary Medication 1 Each (Magnesium Oxide [Magnesium] 400 MG Capsule) PO SCH (08:00)
[2020-12-08] MEDS ORDERED: Budesonide 0.5 MG/2 ML Neb Susp INH SCH (08:00)
[2020-12-08 08:12] VITALS: BP 105/69; PULSE 84
[2020-12-08] MEDS ORDERED: Ibuprofen 400 MG Tab PO PRN (08:36)
[2020-12-08] MEDS: PERFOROMIST 20 MCG/2 ML INH SCH (08:44)
[2020-12-08] MEDS: Tiotropium Inhaler 18 MCG Inhalation Powder Cap Kit of 5 INH SCH (08:53)
[2020-12-08] MEDS ORDERED: CYANOCOBALAMIN PO SCH (20:00)
[2020-12-08] MEDS ORDERED: PYRIDOXINE PO SCH (20:00)
[2020-12-08] MEDS ORDERED: LEVOMEFOLATE CALCIUM PO SCH (20:00)
[2020-12-08] MEDS ORDERED: [UNRECOGNIZED DRUG - OTHER] PO SCH (20:00)
[2020-12-09] MEDS ORDERED: Calcium Carbonate/Vitamin D3 1500 MG-400 Units Tab PO SCH (08:00)
== END 2020-12-08 11:45 | disposition home or self-care (01) | DRG 177 ==
LOC: LB.ED 17:30 → LB.MS 19:30 → UNDOADMIN 19:35 → LB.MS 12-05 10:07
PROVIDERS: ADMIT Surgery; ATTEND Surgery
PROC: XW033E5 Introduction of Remdesivir Anti-infective into Peripheral Vein, Percutaneous Approach, New Technology Group 5 (ICD-10-PCS; principal; 2020-11-15)
PROC: 3E0DX3Z Introduction of Anti-inflammatory into Mouth and Pharynx, External Approach (ICD-10-PCS; 2020-11-19)
DX: U07.1 COVID-19 (principal); J12.82 Pneumonia due to coronavirus disease 2019; J96.21 Acute and chronic respiratory failure with hypoxia; J44.0 Chronic obstructive pulmonary disease with (acute) lower respiratory infection; J44.1 Chronic obstructive pulmonary disease with (acute) exacerbation; Z66 Do not resuscitate; E83.42 Hypomagnesemia; I10 Essential (primary) hypertension; F41.9 Anxiety disorder, unspecified; I50.9 Heart failure, unspecified; M81.0 Age-related osteoporosis without current pathological fracture; H54.7 Unspecified visual loss; G89.29 Other chronic pain; M54.9 Dorsalgia, unspecified; I11.0 Hypertensive heart disease with heart failure; K21.9 Gastro-esophageal reflux disease without esophagitis; Z79.52 Long term (current) use of systemic steroids; Z88.1 Allergy status to other antibiotic agents; Z88.0 Allergy status to penicillin; Z88.2 Allergy status to sulfonamides; Z79.899 Other long term (current) drug therapy; Z87.891 Personal history of nicotine dependence; Z90.49 Acquired absence of other specified parts of digestive tract; Z99.81 Dependence on supplemental oxygen; Z86.14 Personal history of Methicillin resistant Staphylococcus aureus infection
CPT/HCPCS: 36415; 36600; 71045; 80048; 80053; 80076; 80198; 82803; 83605; 83735; 83880; 84100; 84295; 84484; 85025; 85027; 85651; 86140; 87040; 93005; 97161-GP; 97162-GP; 97597-GP; 97605-GP; 99285-25; A0425; A0429; A9270-GY; J1650; J1956; J2060; J2920; J7050; J7512; J7620-GY; J8540; U0002

== ENCOUNTER 2021-01-08 20:37 | Inpatient (IN) | payer MEDICARE ==
[2021-01-08] MEDS ORDERED: Sodium Chloride 0.9% 10 ML Syringe FLUSH PRN (20:39)
--- NOTE | 2021-01-08 21:46 | EDM.PDOC ---
ED HPI GENERAL MEDICAL PROBLEM - General Chief Complaint: Respiratory Problem Stated Complaint: short of breath Time Seen by Provider: 01/08/21 20:37 Source of Information: Reports: EMS, Family, RN Notes Reviewed History Limitations: Reports: No Limitations - History of Present Illness INITIAL COMMENTS - FREE TEXT/NARRATIVE: This patient presents to the emergency department via EMS for difficulty breathing. He was discharged from this facility within the last month following a prolonged admission for Covid. He has a history of end-stage of COPD and had been doing fairly well at home since discharge until this evening. He states he started having increased cough and tonight it got "particularly bad. When baler arrived he did require significant increase in his oxygen, up to 15 L to get his sats greater than 92. They have a low flow concentrator at home and his states she was not able to get his oxygen turned up high enough. He states he has had quite a lot of sinus pain and dry sinus passages with a lot of drainage as well. He is complaining of pain around his shoulders and neck as well. He is denying chest pain, except on occasion when he coughs. He denies abdominal pain, nausea, vomiting. Appetite is fair and he is drinking fluids. He states he has become less mobile at home and is not doing any walking. He has significant swelling of both lower legs; he arrives with them wrapped in Galindo bandages. Over the Galindo bandages there is 2+ pitting edema noted. Distal CMS is intact. He denies other concerns or complaints. - Related Data Allergies Allergy/AdvReac Type Severity Reaction Status Date / Time fluconazole [From Diflucan] Allergy Edema Verified 01/08/21 21:14 levofloxacin [From Levaquin] Allergy Tachycardia Verified 01/08/21 21:14 Penicillins Allergy Anaphylactic Verified 01/08/21 21:14 Shock Sulfa (Sulfonamide Allergy Rash Verified 01/08/21 21:14 Antibiotics) azithromycin AdvReac Other Verified 01/08/21 21:14 Home Meds: Home Meds Ipratropium/Albuterol Sulfate [Duoneb 0.5 MG-3 MG/3 ML] 3 ml INH QID 12/11/12 [History] Formoterol [Perforomist] 20 mcg NEB BID 12/26/14 [History] Cetirizine [ZyrTEC] 10 mg PO DAILY tablet 12/30/14 [Rx] Calcium Carbonate/Vitamin D3 [Calcium 600 + Vit D Tablet] 1 each PO DAILY 12/08/15 [History] Budesonide [Pulmicort] 0.5 mg INH BID #1 neb 12/14/15 [Rx] LORazepam [Ativan] 1 mg PO QID 12/22/15 [History] Acetylcysteine [Mucomyst 10%] 100 mg INH Q6H 12/23/15 [History] Polyethylene Glycol 3350 [MiraLAX] 17 gm PO DAILY 01/03/16 [History] Bumetanide 3 mg PO WITHBREAKFAST 01/20/17 [History] Docusate Sodium [Colace] 250 mg PO BEDTIME 01/20/17 [History] Ibuprofen 400 mg PO Q4H PRN 01/20/17 [History] Omeprazole 40 mg PO DAILY 01/20/17 [History] predniSONE [Prednisone] 20 mg PO DAILY 01/20/17 [History] B12/Levomefolate Calcium/B-6 [Folbic Rf Tablet] 1 each PO BEDTIME 09/06/19 [History] Potassium Chloride [Klor-Con M20] 20 meq PO DAILY 09/06/19 [History] Sennosides/Docusate Sodium [Senokot-S Tablet] 1 each PO ACLUNCH 09/06/19 [History] Theophylline [Jc-24] 300 mg PO TID 09/06/19 [History] Albuterol [IJD: Albuterol HFA] 2 puff INH QID PRN 08/31/20 [History] Bumetanide 2 mg PO ACLUNCH 08/31/20 [History] Ondansetron [Zofran ODT] 4 mg PO Q6H PRN #20 tab.dis 08/31/20 [Rx] Spironolactone [Aldactone] 25 mg PO QAM 08/31/20 [History] Tiotropium [Spiriva HandiHaler] 1 puff INH DAILY 08/31/20 [History] diphenhydrAMINE [Benadryl] 50 mg PO BID PRN 08/31/20 [History] Hydrocodone/Acetaminophen [Hydrocodon-Acetaminophn 10-325] 1 tab PO TID 11/15/20 [History] Montelukast [Singulair] 10 mg PO BEDTIME 11/15/20 [History] Clotrimazole [Mycelex] 10 mg PO 5XDAY PRN 12/07/20 [History] LORazepam [Ativan] 1 mg PO Q6H PRN 12/07/20 [History] Magnesium Oxide [Magnesium] 400 mg PO DAILY 12/07/20 [History] Sodium Chloride 0.65% [Mclennan Nasal [place]] 1 spray NASBOTH Q2H PRN 12/07/20 [History] Past Medical History - Past Health History Medical/Surgical History: Denies Medical/Surgical History HEENT History: Reports: Impaired Vision Other HEENT History: right eye tear duct torn Cardiovascular History: Reports: Hypertension Respiratory History: Reports: COPD, Pneumonia, Recurrent, SOB Other Respiratory History: severe COPD Gastrointestinal History: Reports: GERD Musculoskeletal History: Reports: Back Pain, Chronic, Osteoporosis Other Musculoskeletal History: 2 vertebrae "gone" 1 fixed" Psychiatric History: Reports: Anxiety - Infectious Disease History Infectious Disease History: Reports: Chicken Pox, MRSA, Novel Coronavirus Other Infectious Disease History: Stated MRSA is in his sputum - Past Surgical History Head Surgeries/Procedures: Reports: None HEENT Surgical History: Reports: None Cardiovascular Surgical History: Reports: None Respiratory Surgical History: Reports: None GI Surgical History: Reports: Appendectomy Musculoskeletal Surgical History: Reports: Arthroscopic Knee Dermatological Surgical History: Reports: None Social & Family History - Family History Family Medical History: No Pertinent Family History Respiratory: Reports: Asthma, COPD Endocrine/Metabolic: Reports: Diabetes, type II Oncologic: Reports: Lung - Caffeine Use Caffeine Use: Reports: Soda - Living Situation & Occupation Living situation: Reports: Occupation: Unemployed ED ROS GENERAL - Review of Systems Review Of Systems: See Below Constitutional: Reports: Weakness. Denies: Fever HEENT: Reports: Ear Discharge, Ear Pain, Eye Discharge, Eye Pain, Throat Pain, Other (nasal passages and sinuses "dry") Respiratory: Reports: Shortness of Breath, Wheezing, Cough Cardiovascular: Reports: Dyspnea on Exertion, Orthopnea. Denies: Chest Pain, Blood Pressure Problem, Lightheadedness GI/Abdominal: Denies: Abdominal Pain, Constipation, Diarrhea, Decreased Appetite, Nausea, Vomiting Musculoskeletal: Reports: No Symptoms Skin: Reports: Lesions (toes, buttocks) Neurological: Reports: No Symptoms ED EXAM, GENERAL - Physical Exam Exam: See Below Exam Limited By: No Limitations General Appearance: Alert, Anxious, Moderate Distress Eye Exam: Bilateral Eye: PERRL Ears: Normal External Exam Nose: Normal Inspection, Normal Mucosa, Other (dried nasal mucous in both nares) Throat/Mouth: Normal Inspection, Normal Oropharynx Head: Atraumatic, Normocephalic Neck: Normal Inspection, Supple, Non-Tender, Full Range of Motion Respiratory/Chest: Decreased Breath Sounds (Decreased bilateral bases with left greater than right), Crackles (Fine crackles in all lopez), Wheezing (Occasional expiratory wheezing) Cardiovascular: Regular Rate, Rhythm, Tachycardia GI/Abdominal: Normal Bowel Sounds, Soft, Non-Tender, No Distention Back Exam: Normal Inspection Extremities: Other (Lower extremities extremely swollen with 4+ pitting edema bilaterally. Small open areas to first and second toes on left, small open area great toe on right. He has an ulcerative lesion approximately 1.5 cm on the anterior aspect of right foot. It is erythematous and well indurated approx imately 4 t) Neurological: Alert, Oriented Psychiatric: Normal Affect, Normal Mood, Anxious Skin Exam: Warm, Dry, Normal Color, No Rash, Ecchymosis (Multiple ecchymotic areas to both knees, denies falls), Wound/Incision (Ulcerative lesion medial right buttock approximately 1 cm; erythematous areas to both buttocks approxima tely 5 cm in diameter each) Front/Back Body Diagram: 1 - Erythematous area; tissue in area slightly abraded left side, 1 cm diamater ulcerative lesion right side. Course - Vital Signs Last Recorded V/S: Last Vital Signs Temp 36.2 C 01/08/21 21:26 Pulse 104 H 01/08/21 21:26 Resp 18 01/08/21 21:26 BP 110/68 01/08/21 21:26 Pulse Ox 97 01/08/21 21:26 - Orders/Labs/Meds Orders: Active Orders 24 hr Category Date Time Status Chest 1V Frontal [CR] Stat Exams 01/08/21 20:39 Ordered BASIC METABOLIC PANEL,BMP [CHEM] Stat Lab 01/08/21 20:40 Ordered CORONAVIRUS COVID-19 RAPID [MOLEC] Stat Lab 01/08/21 21:07 Ordered Sodium Chloride 0.9% [Saline Flush] Med 01/08/21 20:39 Active 10 ml FLUSH ASDIRECTED PRN Saline Lock Insert [OM.PC] Routine Oth 01/08/21 20:40 Ordered Medication Orders Sodium Chloride (Sodium Chloride 0.9% 10 Ml Syringe) 10 ml FLUSH ASDIRECTED PRN PRN Reason: Keep Vein Open Labs: Laboratory Tests 01/08/21 Range/Units 21:18 WBC 16.4 H D (4.0-11.0) K/uL RBC 4.06 L (4.50-6.50) M/uL Hgb 11.3 L (13.0-18.0) g/dL Hct 34.6 L (40.0-54.0) % MCV 85 (76-96) fL MCH 27.8 (27.0-32.0) pg MCHC 32.7 (31.0-35.0) g/dL RDW 17.4 H (11.0-16.0) % Plt Count 343 D (150-400) K/uL MPV 10.4 H (6.0-10.0) fL Neut % (Auto) 76.9 H (45.0-70.0) % Lymph % (Auto) 13.7 L (20.0-40.0) % Clare % (Auto) 8.0 (3.0-10.0) % Eos % (Auto) 1.0 (1.0-5.0) % Baso % (Auto) 0.4 (0.0-0.5) % Neut # (Auto) 12.58 H (2.00-7.50) K/uL Lymph # (Auto) 2.24 (1.50-4.00) K/uL Clare # (Auto) 1.30 H (0.20-0.80) K/uL Eos # (Auto) 0.17 (0.04-0.40) K/uL Baso # (Auto) 0.06 (0.02-0.10) K/uL Meds: Medications Generic Name Dose Route Start Last Admin Trade Name Freq PRN Reason Stop Dose Admin Sodium Chloride 10 ml 01/08/21 20:39 Sodium Chloride 0.9% 10 Ml Syringe FLUSH ASDIRECTED PRN Keep Vein Open - Re-Assessments/Exams Free Text/Narrative Re-Assessment/Exam: This patient presents to the emergency department for evaluation of respiratory distress. History and clinical findings are most consistent with a small left lower lobe pneumonia and some patchy infiltrates to the right side. He also has increased oxygen needs at home. Electrolyte evaluation reveals a potassium of 2.7 tonight as well. For these reasons he will be admitted to the inpatient area on acute status for management of these acute on chronic problems. 01/08/21 21:54 Departure - Departure Time of Disposition: 22:00 Disposition: 20 Condition: Fair Clinical Impression: COPD exacerbation Pneumonia Qualifiers: Pneumonia type: due to unspecified organism Laterality: bilateral Lung location: lower lobe of lung Qualified Code(s): J18.9 - Pneumonia, unspecified organism - Discharge Information Sepsis Event Note (ED) - Focused Exam Vital Signs: Vital Signs Temp Pulse Resp BP Pulse Ox 01/08/21 21:26 36.2 C 104 H 18 110/68 97 - My Orders Last 24 Hours: My Active Orders 01/08/21 20:39 Chest 1V Frontal [CR] Stat Sodium Chloride 0.9% [Saline Flush] 10 ml FLUSH ASDIRECTED PRN 01/08/21 20:40 BASIC METABOLIC PANEL,BMP [CHEM] Stat Saline Lock Insert [OM.PC] Routine 01/08/21 21:07 CORONAVIRUS COVID-19 RAPID [MOLEC] Stat - Assessment/Plan Last 24 Hours: My Active Orders 01/08/21 20:39 Chest 1V Frontal [CR] Stat Sodium Chloride 0.9% [Saline Flush] 10 ml FLUSH ASDIRECTED PRN 01/08/21 20:40 BASIC METABOLIC PANEL,BMP [CHEM] Stat Saline Lock Insert [OM.PC] Routine 01/08/21 21:07 CORONAVIRUS COVID-19 RAPID [MOLEC] Stat
[2021-01-08] MEDS ORDERED: Ondansetron 4 MG/2 ML SDV IV PRN (21:58)
[2021-01-08] MEDS ORDERED: diphenhydrAMINE 50 MG Cap PO PRN (22:03)
[2021-01-08] MEDS ORDERED: Sodium Chloride 0.65% Nasal Spray 45 ML Bottle NASBOTH PRN (22:03)
[2021-01-08] MEDS ORDERED: Albuterol 8 GM Inhaler INH PRN (22:03)
[2021-01-08] MEDS ORDERED: Ondansetron 4 MG Tab.DIS PO PRN (22:03)
[2021-01-08] MEDS ORDERED: CLOTRIMAZOLE 10 MG PO PRN (22:03)
[2021-01-08] MEDS ORDERED: Non-Formulary Medication 1 Each (Ibuprofen [Ibuprofen] 200 MG Capsule) PO PRN (22:03)
[2021-01-08] MEDS ORDERED: TROCHE PO PRN (22:03)
[2021-01-08] MEDS ORDERED: Furosemide 40 MG/4 ML VIAL IVPUSH STA (22:18)
[2021-01-08] MEDS ORDERED: Potassium Chloride 20 MEQ Tab.ER PO ONE (22:31)
[2021-01-09] MEDS ORDERED: Potassium Chloride 20 MEQ Tab.ER ONE (00:48)
[2021-01-09] MEDS ORDERED: Levofloxacin/Dextrose 5%-Water 150 ML IV ONE ×2 (01:35→22:59)
[2021-01-09] MEDS ORDERED: Furosemide 40 MG/4 ML VIAL ONE ×2 (01:35→14:27)
[2021-01-09] MEDS: ACETYLCYSTEINE INH SCH ×3 (02:23→10:34)
[2021-01-09] MEDS: fentaNYL 25 MCG/HR Transdermal Patch TRDERM SCH (02:23)
[2021-01-09] MEDS: Levofloxacin/Dextrose 5%-Water 750 MG in Levofloxacin/Dextrose 5%-Water 150 ML IV SCH ×2 (02:26→23:07)
[2021-01-09] MEDS: methylPREDNISolone Sodium Succinate 125 MG/2 ML SDV IVPUSH SCH ×3 (02:27→22:38)
[2021-01-09] MEDS: Acetaminophen/HYDROcodone 325-10 MG Tab PO PRN (06:25)
[2021-01-09] MEDS ORDERED: Warfarin 2.5 MG Tab PO SCH (08:00)
[2021-01-09] MEDS ORDERED: THEOPHYLLINE 300 MG PO SCH (08:00)
[2021-01-09] MEDS ORDERED: Non-Formulary Medication 1 Each (Formoterol [Perforomist] 20 MCG/2 ML Neb) NEB SCH (08:00)
[2021-01-09] MEDS ORDERED: Non-Formulary Medication 1 Each (Omeprazole [Omeprazole] 40 MG Cap.Cr) PO SCH (08:00)
[2021-01-09] MEDS ORDERED: Non-Formulary Medication 1 Each (Magnesium Oxide [Magnesium] 400 MG Capsule) PO SCH (08:00)
[2021-01-09] MEDS ORDERED: Non-Formulary Medication 1 Each (Calcium Carbonate/Vitamin D3 [Calcium 600 + Vit D Tablet] PO SCH (08:00)
[2021-01-09] MEDS: Bumetanide 2 MG Tab PO SCH ×2 (08:44→10:55)
[2021-01-09] MEDS: Cetirizine 10 MG Tab PO SCH (08:47)
[2021-01-09] MEDS: Spironolactone 25 MG Tab PO SCH (08:48)
[2021-01-09] MEDS: Tiotropium Inhaler 18 MCG Inhalation Powder Cap Kit of 5 INH SCH (08:49)
[2021-01-09] MEDS: Albuterol/Ipratropium 3.0-0.5 MG/3 ML Neb Soln INH SCH ×4 (08:49→20:07)
[2021-01-09] MEDS: Polyethylene Glycol 3350 Powder 17 GM Packet PO SCH (08:49)
[2021-01-09] MEDS: Budesonide 0.5 MG/2 ML Neb Susp INH SCH ×2 (08:50→20:07)
[2021-01-09] MEDS ORDERED: Magnesium Oxide 400 MG Tab ONE (08:54)
[2021-01-09] MEDS ORDERED: Calcium Carbonate/Vitamin D3 1500 MG-400 Units Tab ONE (08:54)
[2021-01-09] MEDS ORDERED: Omeprazole 20 MG Cap.CR ONE (08:54)
--- NOTE | 2021-01-09 11:49 | PCM.HP.2 ---
H&P History of Present Illness - General Date of Service: 01/08/21 Admit Problem/Dx: Admission Diagnosis/Problem Admission Diagnosis/Problem COPD with acute lower respiratory infection Source of Information: Patient, Family, RN Notes Reviewed History Limitations: Reports: No Limitations - History of Present Illness Initial Comments - Free Text/Narative: This patient was admitted from the emergency department where he presented for increased respiratory distress. Please review emergency department documentation. Back Pain Score (Numeric/FACES): 8 - Related Data Allergies/Adverse Reactions: Allergies Allergy/AdvReac Type Severity Reaction Status Date / Time fluconazole [From Diflucan] Allergy Edema Verified 01/08/21 21:14 levofloxacin [From Levaquin] Allergy Tachycardia Verified 01/08/21 21:14 Penicillins Allergy Anaphylactic Verified 01/08/21 21:14 Shock Sulfa (Sulfonamide Allergy Rash Verified 01/08/21 21:14 Antibiotics) azithromycin AdvReac Other Verified 01/08/21 21:14 Home Medications: Home Meds Ipratropium/Albuterol Sulfate [Duoneb 0.5 MG-3 MG/3 ML] 3 ml INH QID 12/11/12 [History] Formoterol [Perforomist] 20 mcg NEB BID 12/26/14 [History] Cetirizine [ZyrTEC] 10 mg PO DAILY tablet 12/30/14 [Rx] Calcium Carbonate/Vitamin D3 [Calcium 600 + Vit D Tablet] 1 each PO DAILY 12/08/15 [History] Budesonide [Pulmicort] 0.5 mg INH BID #1 neb 12/14/15 [Rx] LORazepam [Ativan] 1 mg PO QID 12/22/15 [History] Acetylcysteine [Mucomyst 10%] 100 mg INH Q6H 12/23/15 [History] Polyethylene Glycol 3350 [MiraLAX] 17 gm PO DAILY 01/03/16 [History] Bumetanide 3 mg PO WITHBREAKFAST 01/20/17 [History] Docusate Sodium [Colace] 250 mg PO BEDTIME 01/20/17 [History] Ibuprofen 400 mg PO Q4H PRN 01/20/17 [History] Omeprazole 40 mg PO DAILY 01/20/17 [History] predniSONE [Prednisone] 20 mg PO DAILY 01/20/17 [History] B12/Levomefolate Calcium/B-6 [Folbic Rf Tablet] 1 each PO BEDTIME 09/06/19 [History] Potassium Chloride [Klor-Con M20] 20 meq PO DAILY 09/06/19 [History] Sennosides/Docusate Sodium [Senokot-S Tablet] 1 each PO ACLUNCH 09/06/19 [History] Theophylline [Jc-24] 300 mg PO TID 09/06/19 [History] Albuterol [IJD: Albuterol HFA] 2 puff INH QID PRN 08/31/20 [History] Bumetanide 2 mg PO ACLUNCH 08/31/20 [History] Ondansetron [Zofran ODT] 4 mg PO Q6H PRN #20 tab.dis 08/31/20 [Rx] Spironolactone [Aldactone] 25 mg PO QAM 08/31/20 [History] Tiotropium [Spiriva HandiHaler] 1 puff INH DAILY 08/31/20 [History] diphenhydrAMINE [Benadryl] 50 mg PO BID PRN 08/31/20 [History] Hydrocodone/Acetaminophen [Hydrocodon-Acetaminophn 10-325] 1 tab PO TID 11/15/20 [History] Montelukast [Singulair] 10 mg PO BEDTIME 11/15/20 [History] Clotrimazole [Mycelex] 10 mg PO 5XDAY PRN 12/07/20 [History] LORazepam [Ativan] 1 mg PO Q6H PRN 12/07/20 [History] Magnesium Oxide [Magnesium] 400 mg PO DAILY 12/07/20 [History] Sodium Chloride 0.65% [[place] Nasal [place]] 1 spray NASBOTH Q2H PRN 12/07/20 [History] Lidocaine 01/08/21 [History] Non-Formulary Medication [NF Drug] 01/08/21 [History] Past Medical History - Past Health History Medical/Surgical History: Denies Medical/Surgical History HEENT History: Reports: Impaired Vision Other HEENT History: right eye tear duct torn Cardiovascular History: Reports: Hypertension, SOB on Exertion Respiratory History: Reports: COPD, Pneumonia, Recurrent, SOB Other Respiratory History: severe COPD Gastrointestinal History: Reports: Chronic Constipation, GERD Musculoskeletal History: Reports: Back Pain, Chronic, Osteoporosis Other Musculoskeletal History: 2 vertebrae "gone" 1 fixed" Psychiatric History: Reports: Anxiety - Infectious Disease History Infectious Disease History: Reports: Chicken Pox, MRSA, Novel Coronavirus Other Infectious Disease History: Stated MRSA is in his sputum - Past Surgical History Head Surgeries/Procedures: Reports: None HEENT Surgical History: Reports: None Cardiovascular Surgical History: Reports: None Respiratory Surgical History: Reports: None GI Surgical History: Reports: Appendectomy Musculoskeletal Surgical History: Reports: Arthroscopic Knee Dermatological Surgical History: Reports: None Social & Family History - Family History Family Medical History: No Pertinent Family History Respiratory: Reports: Asthma, COPD Endocrine/Metabolic: Reports: Diabetes, type II Oncologic: Reports: Lung - Tobacco Use Tobacco Use Status *Q: Former Tobacco User Used Tobacco, but Quit: Yes Month/Year Tobacco Last Used: 2009 - Caffeine Use Caffeine Use: Reports: Soda - Living Situation & Occupation Living situation: Reports: Occupation: Unemployed H&P Review of Systems - Review of Systems: Review Of Systems: See Below General: Reports: Weakness, Decreased Appetite. Denies: Fever, Chills HEENT: Reports: Sinus Congestion. Denies: Ear Pain, Eye Pain, Rhinitis, Post Nasal Drip Pulmonary: Reports: Shortness of Breath, Wheezing, Cough Cardiovascular: Denies: Chest Pain, Palpitations Gastrointestinal: Reports: No Symptoms Musculoskeletal: Reports: No Symptoms Skin: Reports: No Symptoms Exam - Exam Exam: See Below - Vital Signs Vital Signs: Last Vital Signs Temp 36.7 C 01/09/21 09:27 Pulse 100 01/09/21 09:27 Resp 18 01/09/21 09:27 BP 108/84 01/09/21 09:27 Pulse Ox 93 L 01/09/21 09:27 Weight: 71.305 kg - Exam Quality Assessment: Supplemental Oxygen, Skin Breakdown General: Alert, Oriented, Cooperative HEENT: PERRLA, Conjunctiva Clear, EACs Clear, EOMI, Hearing Intact, Mucosa Moist & [place], Nares Patent (Dried secretions in both nares), Posterior Pharynx Clear, Pupils Equal, Pupils Reactive, TMs Clear Neck: Supple, Trachea Midline Lungs: Decreased Breath Sounds (In both bases), Rhonchi (In all lopez), Wheezing (Primarily expiratory in all lopez) GI/Abdominal Exam: Normal Bowel Sounds, Soft, Non-Tender, No Distention Back Exam: Normal Inspection Extremities: Normal Inspection, Pedal Edema, Leg Pain, Other (Lower legs quite edematous and painful with 4+ pitting edema) Skin: Warm, Dry, Intact, Decubitis (There are several areas of concern: Ulcerative lesion 1.5 cm diameter anterior right foot; ulcerative lesion 1 cm medial right buttock; erythematous areas approximately 5 cm each medial buttocks) Neuro Extensive - Mental Status: Alert, Oriented x3 Psychiatric: Alert, Normal Affect, Normal Mood - Patient Data Lab Results Last 24 hrs: Laboratory Results - last 24 hr 01/08/21 01/08/21 01/09/21 Range/Units 21:18 21:18 08:30 WBC 16.4 H D (4.0-11.0) K/uL RBC 4.06 L (4.50-6.50) M/uL Hgb 11.3 L (13.0-18.0) g/dL Hct 34.6 L (40.0-54.0) % MCV 85 (76-96) fL MCH 27.8 (27.0-32.0) pg MCHC 32.7 (31.0-35.0) g/dL RDW 17.4 H (11.0-16.0) % Plt Count 343 D (150-400) K/uL MPV 10.4 H (6.0-10.0) fL Neut % (Auto) 76.9 H (45.0-70.0) % Lymph % (Auto) 13.7 L (20.0-40.0) % [place] % (Auto) 8.0 (3.0-10.0) % Eos % (Auto) 1.0 (1.0-5.0) % Baso % (Auto) 0.4 (0.0-0.5) % Neut # (Auto) 12.58 H (2.00-7.50) K/uL Lymph # (Auto) 2.24 (1.50-4.00) K/uL [place] # (Auto) 1.30 H (0.20-0.80) K/uL Eos # (Auto) 0.17 (0.04-0.40) K/uL Baso # (Auto) 0.06 (0.02-0.10) K/uL PT 13.0 H D (9.0-11.5) sec INR 1.3 D (1.0-3.5) Sodium 134 L (136-145) mmol/L Potassium 2.7 L* D (3.5-5.1) mmol/L Chloride 93 L (98-107) mmol/L Carbon Dioxide 29.4 (21.0-32.0) mmol/L Anion Gap 14.3 (5.0-15.0) mmol/L BUN 13 D (8-26) mg/dL Creatinine 0.88 D (0.70-1.30) mg/dL Est Cr Clr Drug Dosing 79.59 mL/min Estimated GFR (MDRD) > 60 (>60) MLS/MIN BUN/Creatinine Ratio 14.8 (6-25) Glucose 99 (74-100) mg/dL Calcium 8.6 (8.5-10.1) mg/dL 01/09/21 Range/Units 08:30 WBC (4.0-11.0) K/uL RBC (4.50-6.50) M/uL Hgb (13.0-18.0) g/dL Hct (40.0-54.0) % MCV (76-96) fL MCH (27.0-32.0) pg MCHC (31.0-35.0) g/dL RDW (11.0-16.0) % Plt Count (150-400) K/uL MPV (6.0-10.0) fL Neut % (Auto) (45.0-70.0) % Lymph % (Auto) (20.0-40.0) % [place] % (Auto) (3.0-10.0) % Eos % (Auto) (1.0-5.0) % Baso % (Auto) (0.0-0.5) % Neut # (Auto) (2.00-7.50) K/uL Lymph # (Auto) (1.50-4.00) K/uL [place] # (Auto) (0.20-0.80) K/uL Eos # (Auto) (0.04-0.40) K/uL Baso # (Auto) (0.02-0.10) K/uL PT (9.0-11.5) sec INR (1.0-3.5) Sodium 134 L (136-145) mmol/L Potassium 3.5 D (3.5-5.1) mmol/L Chloride 95 L (98-107) mmol/L Carbon Dioxide 30.4 (21.0-32.0) mmol/L Anion Gap 12.1 (5.0-15.0) mmol/L BUN 12 (8-26) mg/dL Creatinine 0.95 (0.70-1.30) mg/dL Est Cr Clr Drug Dosing 73.73 mL/min Estimated GFR (MDRD) > 60 (>60) MLS/MIN BUN/Creatinine Ratio 12.6 (6-25) Glucose 156 H D (74-100) mg/dL Calcium 8.3 L (8.5-10.1) mg/dL Result Diagrams: 01/08/21 21:18 01/09/21 08:30 Sepsis Event Note - Evaluation Sepsis Screening Result: No Definite Risk - Focused Exam Vital Signs: Vital Signs Temp Pulse Resp BP Pulse Ox 01/09/21 09:27 36.7 C 100 18 108/84 93 L 01/09/21 05:27 90 94 L - Problem List (1) COPD (chronic obstructive pulmonary disease) SNOMED Code(s): 63121523 ICD Code: J44.9 - CHRONIC OBSTRUCTIVE PULMONARY DISEASE, UNSPECIFIED Status: Acute Priority: High Current Visit: No Onset Date: ~12/08/15 Qualifiers: COPD type: COPD with acute exacerbation Qualified Code(s): J44.1 - Chronic obstructive pulmonary disease with (acute) exacerbation (2) Hypokalemia SNOMED Code(s): 13792913 ICD Code: E87.6 - HYPOKALEMIA Status: Acute Priority: Low Current Visit: No (3) Pneumonia SNOMED Code(s): 427041446 ICD Code: J18.9 - PNEUMONIA, UNSPECIFIED ORGANISM Status: Acute Priority: High Current Visit: No Onset Date: ~12/07/15 Qualifiers: Pneumonia type: due to unspecified organism Laterality: bilateral Lung location: lower lobe of lung Qualified Code(s): J18.9 - Pneumonia, unspecified organism (4) Respiratory distress SNOMED Code(s): 423443758 ICD Code: R06.00 - DYSPNEA, UNSPECIFIED Status: Acute Current Visit: No Problem Details: resolved (5) Skin breakdown SNOMED Code(s): 326244977 ICD Code: R23.8 - OTHER SKIN CHANGES Status: Acute Priority: High Current Visit: Yes Problem List Initiated/Reviewed/Updated: Yes Orders Last 24hrs: Active Orders 24 hr Category Date Time Status Admission Status [Patient Status] [ADT] Routine ADT 01/08/21 21:56 Active Patient Status [ADT] Routine ADT 01/08/21 21:58 Active OT Evaluation and Treatment [CONS] Routine Cons 01/08/21 21:58 Active PT Evaluation and Treatment [CONS] Routine Cons 01/08/21 21:58 Active Regular Diet [DIET] Diet 01/09/21 Breakfast Ordered Chest 1V Frontal [CR] Stat Exams 01/08/21 20:39 Taken CULTURE MRSA [RM] Routine Lab 01/09/21 02:50 Received INR,PT,PROTHROMBIN TIME [COAG] AM Lab 01/10/21 05:11 Ordered INR,PT,PROTHROMBIN TIME [COAG] AM Lab 01/11/21 05:11 Ordered UA W/MICROSCOPIC [URIN] Routine Lab 01/08/21 21:58 Ordered Acetaminophen/HYDROcodone [[place] 325-10 MG] Med 01/08/21 22:09 Active 1 tab PO BID PRN Acetylcysteine [Mucomyst 10%] Med 01/08/21 22:15 Active 100 mg INH Q6H Albuterol [Ventolin HFA] Med 01/08/21 22:03 Active 0 gm INH QID PRN Albuterol/Ipratropium [DuoNeb 3.0-0.5 MG/3 ML] Med 01/09/21 08:00 Active 3 ml INH QID B12/Levomefolate Calcium/B-6 [Folbic Rf Tablet] Med 01/09/21 20:00 Active 1 each PO BEDTIME Budesonide [Pulmicort] Med 01/09/21 08:00 Active 0.5 mg INH BID Bumetanide [Bumex] Med 01/09/21 11:00 Active 2 mg PO ACLUNCH Bumetanide [Bumex] Med 01/09/21 07:00 Active 3 mg PO WITHBREAKFAST Calcium Carbonate/Vitamin D3 [Calcium 600 + Vit D Med 01/09/21 08:00 Active Tablet] 1 each PO DAILY Cetirizine [ZyrTEC] Med 01/09/21 08:00 Active 10 mg PO DAILY Clotrimazole [Mycelex] Med 01/08/21 22:03 Active 10 mg PO 5XDAY PRN Docusate Sodium/Sennosides [Senna Plus] Med 01/09/21 11:00 Active 1 tab PO ACLUNCH Formoterol [Perforomist] Med 01/09/21 08:00 Active 20 mcg NEB BID Ibuprofen [Ibuprofen] Med 01/08/21 22:03 Active 400 mg PO Q4H PRN LORazepam [Ativan] Med 01/08/21 22:03 Active 1 mg PO Q6H PRN Levofloxacin/Dextrose 5%-Water [Levaquin in D5W 750 MG/ Med 01/08/21 22:15 Active 150 ML] 750 mg Levofloxacin/Dextrose 5%-Water [Levaquin in D5W 750 MG/ 150 ML] 150 ml IV Q24H Lidocaine 5% [Lidoderm 5%] Med 01/08/21 22:15 Unverified DOSE UNIT RTE FREQ Magnesium Oxide [Magnesium] Med 01/09/21 08:00 Active 400 mg PO DAILY Montelukast [Singulair] Med 01/09/21 20:00 Active 10 mg PO BEDTIME Omeprazole [Omeprazole] Med 01/09/21 08:00 Active 40 mg PO DAILY Ondansetron [Zofran ODT] Med 01/08/21 22:03 Active 4 mg PO Q6H PRN Ondansetron [Zofran] Med 01/08/21 21:58 Active 4 mg IV Q4H PRN Sodium Chloride 0.65% [[place] Nasal [place]] Med 01/08/21 22:03 Active 0 ml NASBOTH Q2H PRN Sodium Chloride 0.9% [Saline Flush] Med 01/08/21 20:39 Active 10 ml FLUSH ASDIRECTED PRN Spironolactone [Aldactone] Med 01/09/21 08:00 Active 25 mg PO QAM Theophylline [Jc-24] Med 01/09/21 08:00 Active 300 mg PO TID Tiotropium [Spiriva HandiHaler] Med 01/09/21 08:00 Active 0 mcg INH DAILY Warfarin [Coumadin] Med 01/10/21 08:00 Pending 0 mg PO DAILY Warfarin [Coumadin] Med 01/09/21 18:00 Active 5 mg PO DAILY@1800 diphenhydrAMINE [Benadryl] Med 01/08/21 22:03 Active 50 mg PO BID PRN fentaNYL [Duragesic] Med 01/08/21 22:15 Active 25 mcg TRDERM Q72H methylPREDNISolone Sod Succ [Solu-MEDROL] Med 01/08/21 22:15 Active 125 mg IVPUSH Q12H polyethylene glycoL 3350 [MiraLAX] Med 01/09/21 08:00 Active 17 gm PO DAILY CATHERINE Bandage [Elastic Wrap] [OM.PC] Routine Oth 01/08/21 22:17 Ordered RT Oxygen High Humidity High Flow [RESPCARE] Stat Oth 01/08/21 22:23 Ordered Saline Lock Insert [OM.PC] Routine Oth 01/08/21 20:40 Ordered Resuscitation Status Routine Resus Stat 01/08/21 21:58 Ordered Medication Orders Hydrocodone Bitart/Acetaminophen (Acetaminophen/Hydrocodone 325-10 Mg Tab) 1 tab PO BID PRN PRN Reason: Pain Last Admin: 01/09/21 06:25 Dose: 1 tab Documented by: TANNA Albuterol (Albuterol 8 Gm Inhaler) 0 gm INH QID PRN PRN Reason: Shortness of Breath Albuterol/Ipratropium (Albuterol/Ipratropium 3.0-0.5 Mg/3 Ml Neb Soln) 3 ml INH QID [facility] Last Admin: 01/09/21 11:43 Dose: 3 ml Documented by: Admin: 01/09/21 08:49 Dose: 3 ml Documented by: RAMÓN Budesonide (Budesonide 0.5 Mg/2 Ml Neb Susp) 0.5 mg INH BID [facility] Last Admin: 01/09/21 08:50 Dose: 0.5 mg Documented by: RAMÓN Bumetanide (Bumetanide 2 Mg Tab) 2 mg PO ACLUNCH [facility] Last Admin: 01/09/21 10:55 Dose: 2 mg Documented by: RAMÓN Bumetanide (Bumetanide 2 Mg Tab) 3 mg PO WITHBREAKFAST [facility] Last Admin: 01/09/21 08:44 Dose: 3 mg Documented by: RAMÓN Cetirizine HCl (Cetirizine 10 Mg Tab) 10 mg PO DAILY [facility] Last Admin: 01/09/21 08:47 Dose: 10 mg Documented by: RAMÓN Diphenhydramine HCl (Diphenhydramine 50 Mg Cap) 50 mg PO BID PRN PRN Reason: burning eyes Fentanyl (Fentanyl 25 Mcg/Hr Transdermal Patch) 25 mcg TRDERM Q72H [facility] Last Admin: 01/09/21 02:23 Dose: 25 mcg Documented by: TANNA Levofloxacin/Dextrose 750 mg/ (Levofloxacin/Dextrose) 300 mls @ 100 mls/hr IV Q24H [facility] Stop: 01/14/21 22:15 Last Admin: 01/09/21 02:26 Dose: 100 mls/hr Documented by: TANNA Lorazepam (Lorazepam 1 Mg Tab) 1 mg PO Q6H PRN PRN Reason: Anxiety Methylprednisolone Sodium Succinate (Methylprednisolone Sodium Succinate 125 Mg/2 Ml Sdv) 125 mg IVPUSH Q12H [facility] Last Admin: 01/09/21 10:34 Dose: 125 mg Documented by: Admin: 01/09/21 02:27 Dose: 125 mg Documented by: TANNA Montelukast Sodium (Montelukast 10 Mg Tab) 10 mg PO BEDTIME [facility] Non-Formulary Medication (Acetylcysteine [Mucomyst 10%]) 100 mg INH Q6H [facility] Last Admin: 01/09/21 10:34 Dose: 100 mg Documented by: Admin: 01/09/21 04:48 Dose: 100 mg Documented by: Admin: 01/09/21 02:23 Dose: 100 mg Documented by: TANNA Non-Formulary Medication (B12/Levomefolate Calcium/B-6 [Folbic Rf Tablet]) 1 each PO BEDTIME [facility] Non-Formulary Medication (Calcium Carbonate/Vitamin D3 [Calcium 600 + Vit D Tablet]) 1 each PO DAILY [facility] Last Admin: 01/09/21 08:55 Dose: 1 each Documented by: RAMÓN Non-Formulary Medication (Clotrimazole [Mycelex]) 10 mg PO 5XDAY PRN PRN Reason: Other Non-Formulary Medication (Formoterol [Perforomist]) 20 mcg NEB BID [facility] Last Admin: 01/09/21 08:50 Dose: 20 mcg Documented by: RAMÓN Non-Formulary Medication (Ibuprofen [Ibuprofen]) 400 mg PO Q4H PRN PRN Reason: Pain Non-Formulary Medication (Magnesium Oxide [Magnesium]) 400 mg PO DAILY [facility] Last Admin: 01/09/21 08:55 Dose: 400 mg Documented by: RAMÓN Non-Formulary Medication (Omeprazole [Omeprazole]) 40 mg PO DAILY [facility] Last Admin: 01/09/21 08:54 Dose: 40 mg Documented by: RAMÓN Ondansetron HCl (Ondansetron 4 Mg/2 Ml Sdv) 4 mg IV Q4H PRN PRN Reason: Nausea/Vomiting Last Admin: 01/09/21 02:29 Dose: 4 mg Documented by: TANNA Ondansetron HCl (Ondansetron 4 Mg Tab.Dis) 4 mg PO Q6H PRN PRN Reason: NAUSEA Polyethylene Glycol (Polyethylene Glycol 3350 Powder 17 Gm Packet) 17 gm PO DAILY [facility] Last Admin: 01/09/21 08:49 Dose: 17 gm Documented by: RAMÓN Senna/Docusate Sodium (Docusate Sodium/Sennosides 50-8.6 Mg Tab) 1 tab PO ACLUN [facility] Last Admin: 01/09/21 10:56 Dose: 1 tab Documented by: RAMÓN Sodium Chloride (Sodium Chloride 0.9% 10 Ml Syringe) 10 ml FLUSH ASDIRECTED PRN PRN Reason: Keep Vein Open Sodium Chloride (Sodium Chloride 0.65% Nasal [place] 45 Ml Bottle) 0 ml NASBOTH Q2H PRN PRN Reason: Congestion Spironolactone (Spironolactone 25 Mg Tab) 25 mg PO QAM [facility] Last Admin: 01/09/21 08:48 Dose: 25 mg Documented by: RAMÓN Theophylline (Theophylline 300 Mg Cap.Er) 300 mg PO TID [facility] Last Admin: 01/09/21 08:51 Dose: Not Given Documented by: RAMÓN Tiotropium [place] (Tiotropium Inhaler 18 Mcg Inhalation Powder Cap Kit Of 5) 0 mcg INH DAILY [facility] Last Admin: 01/09/21 08:49 Dose: 1 puff Documented by: RAMÓN Warfarin Sodium (Pharmacy To Dose Warfarin) 0 mg PO DAILY [facility] Warfarin Sodium (Warfarin 5 Mg Tab) 5 mg PO DAILY@1800 [facility] Stop: 01/09/21 18:01 Assessment/Plan Comment:: Exacerbation COPD with left side pneumonia Initiate IV antibiotics; change oral steroid to IV. Extra diuretics ordered to promote fluid movement. Hypokalemia Oral potassium will be changed to twice a day and increase in dose. He will be given additional potassium now. Skin integrity Wound care per nursing; frequent repositioning.
--- NOTE | 2021-01-09 11:50 | PCM.PN ---
- General Info Date of Service: 01/09/21 Admission Dx/Problem (Free Text): Admission Diagnosis/Problem Admission Diagnosis/Problem COPD with acute lower respiratory infection Subjective Update: Patient appears improved this morning with increased color, decreased pain, significantly decreased edema in legs. Functional Status: Reports: Tolerating Diet, Ambulating (Has not been ambulating at home since discharge which was approximately 30 days ago. He will need significant encouragement to stand, participate in transfers, and walk.), Uri nating - Review of Systems General: Reports: Weakness. Denies: Fever, Appetite HEENT: Reports: No Symptoms Pulmonary: Reports: Shortness of Breath, Cough, Wheezing Cardiovascular: Reports: Dyspnea on Exertion, Orthopnea. Denies: Chest Pain, Palpitations Gastrointestinal: Reports: No Symptoms Genitourinary: Reports: No Symptoms Musculoskeletal: Reports: No Symptoms Skin: Reports: No Symptoms Neurological: Reports: No Symptoms - Patient Data Vitals - Most Recent: Last Vital Signs Temp 36.7 C 01/09/21 09:27 Pulse 100 01/09/21 09:27 Resp 18 01/09/21 09:27 BP 108/84 01/09/21 09:27 Pulse Ox 93 L 01/09/21 09:27 Weight - Most Recent: 71.305 kg I&O - Last 24 Hours: Intake & Output 01/08/21 01/09/21 01/09/21 22:59 06:59 14:59 Intake Total 500 Output Total 1060 Balance -560 Lab Results Last 24 Hours: Laboratory Results - last 24 hr 01/08/21 01/08/21 01/09/21 Range/Units 21:18 21:18 08:30 WBC 16.4 H D (4.0-11.0) K/uL RBC 4.06 L (4.50-6.50) M/uL Hgb 11.3 L (13.0-18.0) g/dL Hct 34.6 L (40.0-54.0) % MCV 85 (76-96) fL MCH 27.8 (27.0-32.0) pg MCHC 32.7 (31.0-35.0) g/dL RDW 17.4 H (11.0-16.0) % Plt Count 343 D (150-400) K/uL MPV 10.4 H (6.0-10.0) fL Neut % (Auto) 76.9 H (45.0-70.0) % Lymph % (Auto) 13.7 L (20.0-40.0) % [place] % (Auto) 8.0 (3.0-10.0) % Eos % (Auto) 1.0 (1.0-5.0) % Baso % (Auto) 0.4 (0.0-0.5) % Neut # (Auto) 12.58 H (2.00-7.50) K/uL Lymph # (Auto) 2.24 (1.50-4.00) K/uL [place] # (Auto) 1.30 H (0.20-0.80) K/uL Eos # (Auto) 0.17 (0.04-0.40) K/uL Baso # (Auto) 0.06 (0.02-0.10) K/uL PT 13.0 H D (9.0-11.5) sec INR 1.3 D (1.0-3.5) Sodium 134 L (136-145) mmol/L Potassium 2.7 L* D (3.5-5.1) mmol/L Chloride 93 L (98-107) mmol/L Carbon Dioxide 29.4 (21.0-32.0) mmol/L Anion Gap 14.3 (5.0-15.0) mmol/L BUN 13 D (8-26) mg/dL Creatinine 0.88 D (0.70-1.30) mg/dL Est Cr Clr Drug Dosing 79.59 mL/min Estimated GFR (MDRD) > 60 (>60) MLS/MIN BUN/Creatinine Ratio 14.8 (6-25) Glucose 99 (74-100) mg/dL Calcium 8.6 (8.5-10.1) mg/dL 01/09/21 Range/Units 08:30 WBC (4.0-11.0) K/uL RBC (4.50-6.50) M/uL Hgb (13.0-18.0) g/dL Hct (40.0-54.0) % MCV (76-96) fL MCH (27.0-32.0) pg MCHC (31.0-35.0) g/dL RDW (11.0-16.0) % Plt Count (150-400) K/uL MPV (6.0-10.0) fL Neut % (Auto) (45.0-70.0) % Lymph % (Auto) (20.0-40.0) % [place] % (Auto) (3.0-10.0) % Eos % (Auto) (1.0-5.0) % Baso % (Auto) (0.0-0.5) % Neut # (Auto) (2.00-7.50) K/uL Lymph # (Auto) (1.50-4.00) K/uL [place] # (Auto) (0.20-0.80) K/uL Eos # (Auto) (0.04-0.40) K/uL Baso # (Auto) (0.02-0.10) K/uL PT (9.0-11.5) sec INR (1.0-3.5) Sodium 134 L (136-145) mmol/L Potassium 3.5 D (3.5-5.1) mmol/L Chloride 95 L (98-107) mmol/L Carbon Dioxide 30.4 (21.0-32.0) mmol/L Anion Gap 12.1 (5.0-15.0) mmol/L BUN 12 (8-26) mg/dL Creatinine 0.95 (0.70-1.30) mg/dL Est Cr Clr Drug Dosing 73.73 mL/min Estimated GFR (MDRD) > 60 (>60) MLS/MIN BUN/Creatinine Ratio 12.6 (6-25) Glucose 156 H D (74-100) mg/dL Calcium 8.3 L (8.5-10.1) mg/dL Med Orders - Current: Current Medications Hydrocodone Bitart/Acetaminophen (Acetaminophen/Hydrocodone 325-10 Mg Tab) 1 tab PO BID PRN PRN Reason: Pain Last Admin: 01/09/21 06:25 Dose: 1 tab Documented by: Albuterol (Albuterol 8 Gm Inhaler) 0 gm INH QID PRN PRN Reason: Shortness of Breath Albuterol/Ipratropium (Albuterol/Ipratropium 3.0-0.5 Mg/3 Ml Neb Soln) 3 ml INH QID ALEK Last Admin: 01/09/21 11:43 Dose: 3 ml Documented by: Budesonide (Budesonide 0.5 Mg/2 Ml Neb Susp) 0.5 mg INH BID [facility] Last Admin: 01/09/21 08:50 Dose: 0.5 mg Documented by: Bumetanide (Bumetanide 2 Mg Tab) 2 mg PO ACLUNCH [facility] Last Admin: 01/09/21 10:55 Dose: 2 mg Documented by: Bumetanide (Bumetanide 2 Mg Tab) 3 mg PO WITHBREAKFAST [facility] Last Admin: 01/09/21 08:44 Dose: 3 mg Documented by: Cetirizine HCl (Cetirizine 10 Mg Tab) 10 mg PO DAILY [facility] Last Admin: 01/09/21 08:47 Dose: 10 mg Documented by: Diphenhydramine HCl (Diphenhydramine 50 Mg Cap) 50 mg PO BID PRN PRN Reason: burning eyes Fentanyl (Fentanyl 25 Mcg/Hr Transdermal Patch) 25 mcg TRDERM Q72H [facility] Last Admin: 01/09/21 02:23 Dose: 25 mcg Documented by: Levofloxacin/Dextrose 750 mg/ (Levofloxacin/Dextrose) 300 mls @ 100 mls/hr IV Q24H [facility] Stop: 01/14/21 22:15 Last Admin: 01/09/21 02:26 Dose: 100 mls/hr Documented by: Lorazepam (Lorazepam 1 Mg Tab) 1 mg PO Q6H PRN PRN Reason: Anxiety Methylprednisolone Sodium Succinate (Methylprednisolone Sodium Succinate 125 Mg/ 2 Ml Sdv) 125 mg IVPUSH Q12H [facility] Last Admin: 01/09/21 10:34 Dose: 125 mg Documented by: Montelukast Sodium (Montelukast 10 Mg Tab) 10 mg PO BEDTIME [facility] Non-Formulary Medication (Acetylcysteine [Mucomyst 10%]) 100 mg INH Q6H [facility] Last Admin: 01/09/21 10:34 Dose: 100 mg Documented by: Non-Formulary Medication (B12/Levomefolate Calcium/B-6 [Folbic Rf Tablet]) 1 each PO BEDTIME [facility] Non-Formulary Medication (Calcium Carbonate/Vitamin D3 [Calcium 600 + Vit D Tablet]) 1 each PO DAILY [facility] Last Admin: 01/09/21 08:55 Dose: 1 each Documented by: Non-Formulary Medication (Clotrimazole [Mycelex]) 10 mg PO 5XDAY PRN PRN Reason: Other Non-Formulary Medication (Formoterol [Perforomist]) 20 mcg NEB BID [facility] Last Admin: 01/09/21 08:50 Dose: 20 mcg Documented by: Non-Formulary Medication (Ibuprofen [Ibuprofen]) 400 mg PO Q4H PRN PRN Reason: Pain Non-Formulary Medication (Magnesium Oxide [Magnesium]) 400 mg PO DAILY [facility] Last Admin: 01/09/21 08:55 Dose: 400 mg Documented by: Non-Formulary Medication (Omeprazole [Omeprazole]) 40 mg PO DAILY [facility] Last Admin: 01/09/21 08:54 Dose: 40 mg Documented by: Ondansetron HCl (Ondansetron 4 Mg/2 Ml Sdv) 4 mg IV Q4H PRN PRN Reason: Nausea/Vomiting Last Admin: 01/09/21 02:29 Dose: 4 mg Documented by: Ondansetron HCl (Ondansetron 4 Mg Tab.Dis) 4 mg PO Q6H PRN PRN Reason: NAUSEA Polyethylene Glycol (Polyethylene Glycol 3350 Powder 17 Gm Packet) 17 gm PO DAILY [facility] Last Admin: 01/09/21 08:49 Dose: 17 gm Documented by: Senna/Docusate Sodium (Docusate Sodium/Sennosides 50-8.6 Mg Tab) 1 tab PO ACLUNCH [facility] Last Admin: 01/09/21 10:56 Dose: 1 tab Documented by: Sodium Chloride (Sodium Chloride 0.9% 10 Ml Syringe) 10 ml FLUSH ASDIRECTED PRN PRN Reason: Keep Vein Open Sodium Chloride (Sodium Chloride 0.65% Nasal [place] 45 Ml Bottle) 0 ml NASBOTH Q2H PRN PRN Reason: Congestion Spironolactone (Spironolactone 25 Mg Tab) 25 mg PO QAM [facility] Last Admin: 01/09/21 08:48 Dose: 25 mg Documented by: Theophylline (Theophylline 300 Mg Cap.Er) 300 mg PO TID [facility] Last Admin: 01/09/21 08:51 Dose: Not Given Documented by: Tiotropium [place] (Tiotropium Inhaler 18 Mcg Inhalation Powder Cap Kit Of 5) 0 mcg INH DAILY [facility] Last Admin: 01/09/21 08:49 Dose: 1 puff Documented by: Warfarin Sodium (Pharmacy To Dose Warfarin) 0 mg PO DAILY [facility] Warfarin Sodium (Warfarin 5 Mg Tab) 5 mg PO DAILY@1800 [facility] Stop: 01/09/21 18:01 Discontinued Medications Calcium Carbonate (Calcium Carbonate/Vitamin D3 1500 Mg-400 Units Tab) Confirm Administered Dose 1 tab .ROUTE .STK-MED ONE Stop: 01/09/21 08:55 Last Admin: 01/09/21 08:59 Dose: Not Given Documented by: Furosemide (Furosemide 40 Mg/4 Ml Vial) 40 mg IVPUSH NOW STA Stop: 01/08/21 22:19 Last Admin: 01/09/21 02:27 Dose: 40 mg Documented by: Furosemide (Furosemide 40 Mg/4 Ml Vial) Confirm Administered Dose 40 mg .ROUTE .STK-MED ONE Stop: 01/09/21 01:36 Last Admin: 01/09/21 02:18 Dose: Not Given Documented by: Levofloxacin/Dextrose (Levaquin In D5w 750 Mg/150 Ml) Confirm Administered Dose 150 mls @ as directed IV .STK-MED ONE Stop: 01/09/21 01:36 Last Admin: 01/09/21 02:19 Dose: Not Given Documented by: Magnesium Oxide (Magnesium Oxide 400 Mg Tab) Confirm Administered Dose 400 mg .ROUTE .STK-MED ONE Stop: 01/09/21 08:55 Last Admin: 01/09/21 08:59 Dose: Not Given Documented by: Omeprazole (Omeprazole 20 Mg Cap.Cr) Confirm Administered Dose 40 mg .ROUTE .STK-MED ONE Stop: 01/09/21 08:55 Last Admin: 01/09/21 08:59 Dose: Not Given Documented by: Potassium Chloride (Potassium Chloride 20 Meq Tab.Er) 40 meq PO NOW ONE Stop: 01/08/21 22:32 Last Admin: 01/09/21 02:27 Dose: 40 meq Documented by: Potassium Chloride (Potassium Chloride 20 Meq Tab.Er) Confirm Administered Dose 40 meq .ROUTE .STK-MED ONE Stop: 01/09/21 00:49 Last Admin: 01/09/21 02:27 Dose: Not Given Documented by: Warfarin Sodium (Warfarin 2.5 Mg Tab) 2.5 mg PO DAILY [facility] - Exam Quality Assessment: Supplemental Oxygen, Skin Breakdown (Wounds unchanged) General: Alert, Oriented, Cooperative, No Acute Distress HEENT: Pupils Equal, Pupils Reactive, EOMI, Mucous Membr. Moist/[place] Neck: Supple Lungs: Decreased Breath Sounds (Left side and right base), Wheezing (Faint expiratory) Cardiovascular: Regular Rate, Regular Rhythm Back Exam: Normal Inspection Extremities: Pedal Edema (Significant decrease with), Leg Pain ( 2+ edema today. He continues to complain of leg pain) Skin: Warm, Dry Wound/Incisions: Decubitis Neurological: No New Focal Deficit Psy/Mental Status: Alert, Normal Affect, Normal Mood - Patient Data Lab Results Last 24 hrs: Laboratory Results - last 24 hr 01/08/21 01/08/21 01/09/21 Range/Units 21:18 21:18 08:30 WBC 16.4 H D (4.0-11.0) K/uL RBC 4.06 L (4.50-6.50) M/uL Hgb 11.3 L (13.0-18.0) g/dL Hct 34.6 L (40.0-54.0) % MCV 85 (76-96) fL MCH 27.8 (27.0-32.0) pg MCHC 32.7 (31.0-35.0) g/dL RDW 17.4 H (11.0-16.0) % Plt Count 343 D (150-400) K/uL MPV 10.4 H (6.0-10.0) fL Neut % (Auto) 76.9 H (45.0-70.0) % Lymph % (Auto) 13.7 L (20.0-40.0) % [place] % (Auto) 8.0 (3.0-10.0) % Eos % (Auto) 1.0 (1.0-5.0) % Baso % (Auto) 0.4 (0.0-0.5) % Neut # (Auto) 12.58 H (2.00-7.50) K/uL Lymph # (Auto) 2.24 (1.50-4.00) K/uL [place] # (Auto) 1.30 H (0.20-0.80) K/uL Eos # (Auto) 0.17 (0.04-0.40) K/uL Baso # (Auto) 0.06 (0.02-0.10) K/uL PT 13.0 H D (9.0-11.5) sec INR 1.3 D (1.0-3.5) Sodium 134 L (136-145) mmol/L Potassium 2.7 L* D (3.5-5.1) mmol/L Chloride 93 L (98-107) mmol/L Carbon Dioxide 29.4 (21.0-32.0) mmol/L Anion Gap 14.3 (5.0-15.0) mmol/L BUN 13 D (8-26) mg/dL Creatinine 0.88 D (0.70-1.30) mg/dL Est Cr Clr Drug Dosing 79.59 mL/min Estimated GFR (MDRD) > 60 (>60) MLS/MIN BUN/Creatinine Ratio 14.8 (6-25) Glucose 99 (74-100) mg/dL Calcium 8.6 (8.5-10.1) mg/dL 01/09/21 Range/Units 08:30 WBC (4.0-11.0) K/uL RBC (4.50-6.50) M/uL Hgb (13.0-18.0) g/dL Hct (40.0-54.0) % MCV (76-96) fL MCH (27.0-32.0) pg MCHC (31.0-35.0) g/dL RDW (11.0-16.0) % Plt Count (150-400) K/uL MPV (6.0-10.0) fL Neut % (Auto) (45.0-70.0) % Lymph % (Auto) (20.0-40.0) % [place] % (Auto) (3.0-10.0) % Eos % (Auto) (1.0-5.0) % Baso % (Auto) (0.0-0.5) % Neut # (Auto) (2.00-7.50) K/uL Lymph # (Auto) (1.50-4.00) K/uL [place] # (Auto) (0.20-0.80) K/uL Eos # (Auto) (0.04-0.40) K/uL Baso # (Auto) (0.02-0.10) K/uL PT (9.0-11.5) sec INR (1.0-3.5) Sodium 134 L (136-145) mmol/L Potassium 3.5 D (3.5-5.1) mmol/L Chloride 95 L (98-107) mmol/L Carbon Dioxide 30.4 (21.0-32.0) mmol/L Anion Gap 12.1 (5.0-15.0) mmol/L BUN 12 (8-26) mg/dL Creatinine 0.95 (0.70-1.30) mg/dL Est Cr Clr Drug Dosing 73.73 mL/min Estimated GFR (MDRD) > 60 (>60) MLS/MIN BUN/Creatinine Ratio 12.6 (6-25) Glucose 156 H D (74-100) mg/dL Calcium 8.3 L (8.5-10.1) mg/dL Result Diagrams: 01/08/21 21:18 01/09/21 08:30 Sepsis Event Note - Evaluation Sepsis Screening Result: No Definite Risk - Focused Exam Vital Signs: Vital Signs Temp Pulse Resp BP Pulse Ox 01/09/21 09:27 36.7 C 100 18 108/84 93 L 01/09/21 05:27 90 94 L - Problem List Review Problem List Initiated/Reviewed/Updated: Yes - My Orders Last 24 Hours: My Active Orders 01/08/21 20:39 Chest 1V Frontal [CR] Stat Sodium Chloride 0.9% [Saline Flush] 10 ml FLUSH ASDIRECTED PRN 01/08/21 20:40 Saline Lock Insert [OM.PC] Routine 01/08/21 21:56 Admission Status [Patient Status] [ADT] Routine 01/08/21 21:58 Patient Status [ADT] Routine OT Evaluation and Treatment [CONS] Routine PT Evaluation and Treatment [CONS] Routine UA W/MICROSCOPIC [URIN] Routine Ondansetron [Zofran] 4 mg IV Q4H PRN Resuscitation Status Routine 01/08/21 22:03 Albuterol [Ventolin HFA] 0 gm INH QID PRN Clotrimazole [Mycelex] 10 mg PO 5XDAY PRN Ibuprofen [Ibuprofen] 400 mg PO Q4H PRN LORazepam [Ativan] 1 mg PO Q6H PRN Ondansetron [Zofran ODT] 4 mg PO Q6H PRN Sodium Chloride 0.65% [[place] Nasal [place]] 0 ml NASBOTH Q2H PRN diphenhydrAMINE [Benadryl] 50 mg PO BID PRN 01/08/21 22:09 Acetaminophen/HYDROcodone [[place] 325-10 MG] 1 tab PO BID PRN 01/08/21 22:15 Acetylcysteine [Mucomyst 10%] 100 mg INH Q6H Levofloxacin/Dextrose 5%-Water [Levaquin in D5W 750 MG/150 ML] 750 mg Levof loxacin/Dextrose 5%-Water [Levaquin in D5W 750 MG/150 ML] 150 ml IV Q24H Lidocaine 5% [Lidoderm 5%] DOSE UNIT RTE FREQ fentaNYL [Duragesic] 25 mcg TRDERM Q72H methylPREDNISolone Sod Succ [Solu-MEDROL] 125 mg IVPUSH Q12H 01/08/21 22:17 CATHERINE Bandage [Elastic Wrap] [OM.PC] Routine 01/08/21 22:23 RT Oxygen High Humidity High Flow [RESPCARE] Stat 01/09/21 02:50 CULTURE MRSA [RM] Routine 01/09/21 Breakfast Regular Diet [DIET] Bumetanide [Bumex] 3 mg PO WITHBREAKFAST 01/09/21 08:00 Albuterol/Ipratropium [DuoNeb 3.0-0.5 MG/3 ML] 3 ml INH QID Budesonide [Pulmicort] 0.5 mg INH BID Calcium Carbonate/Vitamin D3 [Calcium 600 + Vit D Tablet] 1 each PO DAILY Cetirizine [ZyrTEC] 10 mg PO DAILY Formoterol [Perforomist] 20 mcg NEB BID Magnesium Oxide [Magnesium] 400 mg PO DAILY Omeprazole [Omeprazole] 40 mg PO DAILY Spironolactone [Aldactone] 25 mg PO QAM Theophylline [Jc-24] 300 mg PO TID Tiotropium [Spiriva HandiHaler] 0 mcg INH DAILY polyethylene glycoL 3350 [MiraLAX] 17 gm PO DAILY 01/09/21 11:00 Bumetanide [Bumex] 2 mg PO ACLUNCH Docusate Sodium/Sennosides [Senna Plus] 1 tab PO ACLUNCH 01/09/21 18:00 Warfarin [Coumadin] 5 mg PO DAILY@1800 01/09/21 20:00 B12/Levomefolate Calcium/B-6 [Folbic Rf Tablet] 1 each PO BEDTIME Montelukast [Singulair] 10 mg PO BEDTIME 01/10/21 05:11 INR,PT,PROTHROMBIN TIME [COAG] AM 01/10/21 08:00 Warfarin [Coumadin] 0 mg PO DAILY 01/11/21 05:11 INR,PT,PROTHROMBIN TIME [COAG] AM - Assessment Assessment:: This 60-year-old patient is admitted to the hospital for increased respiratory symptoms including work of breathing and oxygen requirements. He has not been ambulatory at home and comes in with significant leg swelling and pain. - Plan Plan:: Exacerbation COPD with left side pneumonia Initiate IV antibiotics; change oral steroid to IV. Extra diuretics ordered to promote fluid movement. Hypokalemia Oral potassium will be changed to twice a day and increase in dose. He will be given additional potassium now. Skin integrity Wound care per nursing; frequent repositioning. Pain Patient states he has not had good pain control with opioids prescribed at home. A fentanyl patch was placed on admission and we will decrease his oral opioids as tolerated.
--- NOTE | 2021-01-09 11:54 | CR ---
DATE OF SERVICE: 01/08/2021 CLINICAL DATA: SOB. AP CHEST: Comparison is made to a prior exam dated 11/20/2020. The heart size is stable. The pulmonary vascular congestion on the prior exam has improved. There are poorly defined infiltrates in the right upper lobe and right perihilar region and in the right lung base that have progressed from the prior study. There is persistent increased density in the left lung base, however it does appear clearer and better aerated than on the prior study. There is persistent blunting of the left costophrenic angle suggesting a small left pleural effusion. The exam is otherwise unchanged. No pneumothorax. [id number] [facility]
[2021-01-09] MEDS ORDERED: Furosemide 40 MG/4 ML VIAL IVPUSH ONE (12:14)
[2021-01-09] MEDS: ACETYLCYSTEINE NEB SCH ×2 (14:29→20:20)
[2021-01-09] MEDS: THEOPHYLLINE 600 MG PO SCH ×2 (14:30→20:36)
[2021-01-09] MEDS ORDERED: Warfarin 5 MG Tab PO SCH (18:00)
[2021-01-09] MEDS ORDERED: Docusate Sodium 100 MG Cap PO SCH (20:00)
[2021-01-09] MEDS: Montelukast 10 MG Tab PO SCH (20:07)
[2021-01-09] MEDS: [UNRECOGNIZED DRUG - OTHER] PO SCH (20:19)
[2021-01-09] MEDS: CYANOCOBALAMIN PO SCH (20:19)
[2021-01-09] MEDS: PYRIDOXINE PO SCH (20:19)
[2021-01-09] MEDS: LEVOMEFOLATE CALCIUM PO SCH (20:19)
[2021-01-10] MEDS: ACETYLCYSTEINE NEB SCH ×4 (01:11→20:39)
[2021-01-10] MEDS: LORazepam 1 MG Tab PO PRN ×2 (02:56→22:40)
[2021-01-10] MEDS ORDERED: Albuterol/Ipratropium 3.0-0.5 MG/3 ML Neb Soln ONE (03:19)
[2021-01-10] MEDS ORDERED: Albuterol/Ipratropium 3.0-0.5 MG/3 ML Neb Soln INH ONE ×2 (03:20→10:30)
[2021-01-10] MEDS: Budesonide 0.5 MG/2 ML Neb Susp INH SCH ×2 (07:01→21:13)
[2021-01-10] MEDS: Bumetanide 2 MG Tab PO SCH ×2 (07:02→10:38)
[2021-01-10] MEDS: Omeprazole 20 MG Cap.CR PO SCH (07:03)
[2021-01-10] MEDS: Acetaminophen/HYDROcodone 325-10 MG Tab PO PRN (07:26)
[2021-01-10] MEDS: Magnesium Oxide 400 MG Tab PO SCH (07:26)
[2021-01-10] MEDS: Calcium Carbonate/Vitamin D3 1500 MG-400 Units Tab PO SCH (07:27)
[2021-01-10] MEDS: Tiotropium Inhaler 18 MCG Inhalation Powder Cap Kit of 5 INH SCH (07:27)
[2021-01-10] MEDS: Spironolactone 25 MG Tab PO SCH (07:27)
[2021-01-10] MEDS: Cetirizine 10 MG Tab PO SCH (07:27)
[2021-01-10] MEDS: THEOPHYLLINE 600 MG PO SCH ×3 (07:32→21:12)
[2021-01-10] MEDS: Polyethylene Glycol 3350 Powder 17 GM Packet PO SCH (07:32)
[2021-01-10] MEDS ORDERED: Omeprazole 20 MG Cap.CR PO SCH (08:00)
[2021-01-10] MEDS ORDERED: Magnesium Oxide 400 MG Tab PO SCH (08:00)
--- NOTE | 2021-01-10 09:33 | PCM.PN ---
- General Info Date of Service: 01/10/21 Admission Dx/Problem (Free Text): Admission Diagnosis/Problem Admission Diagnosis/Problem COPD with acute lower respiratory infection Subjective Update: Patient awake, oriented and interactive. States he feels better this morning although he is complaining of some chest pain that he states is reflux in nature. He states he has has not having an easier time breathing and has noticed how much swelling is gone from his legs. His color is improved today as well. Appetite is fair and he is drinking fluids. He continues to be concerned about the dried mucus in his nose which interferes with his use of nasal cannula. He continues to require approximately 4 L oxygen by cannula. He is still reluctant to get out of bed. Functional Status: Reports: Pain Controlled, Tolerating Diet, Urinating - Review of Systems General: Reports: Weakness. Denies: Fever HEENT: Denies: Ear Pain, Eye Pain, Headaches, Sore Throat Pulmonary: Reports: Shortness of Breath, Cough, Sputum, Wheezing Cardiovascular: Reports: Dyspnea on Exertion, Orthopnea. Denies: Chest Pain, Palpitations Gastrointestinal: Reports: No Symptoms Musculoskeletal: Reports: No Symptoms Skin: Reports: Other (Wounds are unchanged) Neurological: Reports: No Symptoms - Patient Data Vitals - Most Recent: Last Vital Signs Temp 36.6 C 01/10/21 07:52 Pulse 93 01/10/21 07:52 Resp 20 01/10/21 07:52 BP 111/74 01/10/21 07:52 Pulse Ox 90 L 01/10/21 07:57 Weight - Most Recent: 71.305 kg I&O - Last 24 Hours: Intake & Output 01/09/21 01/10/21 01/10/21 23:59 06:59 14:59 Intake Total Output Total Balance Lab Results Last 24 Hours: Laboratory Results - last 24 hr 01/10/21 01/10/21 Range/Units 08:30 08:30 PT 12.1 H (9.0-11.5) sec INR 1.2 (1.0-3.5) Sodium 134 L (136-145) mmol/L Potassium 3.3 L (3.5-5.1) mmol/L Chloride 93 L (98-107) mmol/L Carbon Dioxide 30.3 (21.0-32.0) mmol/L Anion Gap 14.0 (5.0-15.0) mmol/L BUN 11 (8-26) mg/dL Creatinine 1.03 (0.70-1.30) mg/dL Est Cr Clr Drug Dosing 68.00 mL/min Estimated GFR (MDRD) > 60 (>60) MLS/MIN BUN/Creatinine Ratio 10.7 (6-25) Glucose 123 H (74-100) mg/dL Calcium 8.9 (8.5-10.1) mg/dL Fab Results Last 24 Hours: Microbiology 01/09/21 02:50 MRSA Culture - Final Nares, Unspecified NO MRSA ISOLATED Med Orders - Current: Current Medications Hydrocodone Bitart/Acetaminophen (Acetaminophen/Hydrocodone 325-10 Mg Tab) 1 tab PO BID PRN PRN Reason: Pain Last Admin: 01/10/21 07:26 Dose: 1 tab Documented by: Albuterol (Albuterol 8 Gm Inhaler) 0 gm INH QID PRN PRN Reason: Shortness of Breath Budesonide (Budesonide 0.5 Mg/2 Ml Neb Susp) 0.5 mg INH BID [facility] Last Admin: 01/10/21 07:01 Dose: 0.5 mg Documented by: Bumetanide (Bumetanide 2 Mg Tab) 2 mg PO ACLUNCH [facility] Last Admin: 01/09/21 10:55 Dose: 2 mg Documented by: Bumetanide (Bumetanide 2 Mg Tab) 3 mg PO WITHBREAKFAST [facility] Last Admin: 01/10/21 07:02 Dose: 3 mg Documented by: Calcium Carbonate (Calcium Carbonate/Vitamin D3 1500 Mg-400 Units Tab) 1 tab PO DAILY [facility] Last Admin: 01/10/21 07:27 Dose: 1 tab Documented by: Cetirizine HCl (Cetirizine 10 Mg Tab) 10 mg PO DAILY [facility] Last Admin: 01/10/21 07:27 Dose: 10 mg Documented by: Diphenhydramine HCl (Diphenhydramine 50 Mg Cap) 50 mg PO BID PRN PRN Reason: burning eyes Fentanyl (Fentanyl 25 Mcg/Hr Transdermal Patch) 25 mcg TRDERM Q72H [facility] Last Admin: 01/09/21 02:23 Dose: 25 mcg Documented by: Levofloxacin/Dextrose 750 mg/ (Levofloxacin/Dextrose) 300 mls @ 100 mls/hr IV Q24H [facility] Stop: 01/14/21 22:15 Last Admin: 01/09/21 23:07 Dose: 100 mls/hr Documented by: Ibuprofen (Ibuprofen 400 Mg Tab) 400 mg PO Q4H PRN PRN Reason: Pain Lorazepam (Lorazepam 1 Mg Tab) 1 mg PO Q6H PRN PRN Reason: Anxiety Last Admin: 01/10/21 02:56 Dose: 1 mg Documented by: Magnesium Oxide (Magnesium Oxide 400 Mg Tab) 400 mg PO DAILY [facility] Last Admin: 01/10/21 07:26 Dose: 400 mg Documented by: Methylprednisolone Sodium Succinate (Methylprednisolone Sodium Succinate 125 Mg/2 Ml Sdv) 125 mg IVPUSH Q12H [facility] Last Admin: 01/09/21 22:38 Dose: 125 mg Documented by: Montelukast Sodium (Montelukast 10 Mg Tab) 10 mg PO BEDTIME [facility] Last Admin: 01/09/21 20:07 Dose: 10 mg Documented by: Non-Formulary Medication (B12/Levomefolate Calcium/B-6 [Folbic Rf Tablet]) 1 each PO BEDTIME [facility] Last Admin: 01/09/21 20:19 Dose: Not Given Documented by: Omeprazole (Omeprazole 20 Mg Cap.Cr) 40 mg PO ACBREAKFAST [facility] Last Admin: 01/10/21 07:03 Dose: 40 mg Documented by: Ondansetron HCl (Ondansetron 4 Mg/2 Ml Sdv) 4 mg IV Q4H PRN PRN Reason: Nausea/Vomiting Last Admin: 01/09/21 02:29 Dose: 4 mg Documented by: Ondansetron HCl (Ondansetron 4 Mg Tab.Dis) 4 mg PO Q6H PRN PRN Reason: NAUSEA Theophylline 600 Mg (Er Tab *Pt Own Med*) 0 each PO TID [facility] Last Admin: 01/10/21 07:32 Dose: 1 each Documented by: (Acetylcysteine [ Mucomyst 10%] 100 Mg /Ml Sdv) *Pt Own Med * 0 each NEB Q6H [facility] Last Admin: 01/10/21 07:28 Dose: 1 each Documented by: (Formoterol [ Perforomist] 20 Mcg/2 Ml Neb) *Pt Own Med* 0 each NEB BID [facility] Last Admin: 01/10/21 07:28 Dose: 1 each Documented by: (Clotrimazole [ Mycelex] 10 Mg Luis Fernando) *Pt Own Med* 0 each PO 5XDAY PRN PRN Reason: Other Polyethylene Glycol (Polyethylene Glycol 3350 Powder 17 Gm Packet) 17 gm PO DAILY [facility] Last Admin: 01/10/21 07:32 Dose: 17 gm Documented by: Senna/Docusate Sodium (Docusate Sodium/Sennosides 50-8.6 Mg Tab) 1 tab PO ACL UNCH [facility] Last Admin: 01/09/21 10:56 Dose: 1 tab Documented by: Sodium Chloride (Sodium Chloride 0.9% 10 Ml Syringe) 10 ml FLUSH ASDIRECTED PRN PRN Reason: Keep Vein Open Sodium Chloride (Sodium Chloride 0.65% Nasal [place] 45 Ml Bottle) 0 ml NASBOTH Q2H PRN PRN Reason: Congestion Spironolactone (Spironolactone 25 Mg Tab) 25 mg PO QAM [facility] Last Admin: 01/10/21 07:27 Dose: 25 mg Documented by: Tiotropium [place] (Tiotropium Inhaler 18 Mcg Inhalation Powder Cap Kit Of 5) 0 mcg INH DAILY [facility] Last Admin: 01/10/21 07:27 Dose: 1 puff Documented by: Warfarin Sodium (Pharmacy To Dose Warfarin) 0 mg PO DAILY [facility] Warfarin Sodium (Warfarin 7.5 Mg Tab) 7.5 mg PO ONETIME ONE Stop: 01/10/21 18:01 Discontinued Medications Albuterol/Ipratropium (Albuterol/Ipratropium 3.0-0.5 Mg/3 Ml Neb Soln) 3 ml INH QID [facility] Last Admin: 01/09/21 20:07 Dose: 3 ml Documented by: Albuterol/Ipratropium (Albuterol/Ipratropium 3.0-0.5 Mg/3 Ml Neb Soln) Confirm Administered Dose 3 ml .ROUTE .STK-MED ONE Stop: 01/10/21 03:20 Last Admin: 01/10/21 03:21 Dose: Not Given Documented by: Albuterol/Ipratropium (Albuterol/Ipratropium 3.0-0.5 Mg/3 Ml Neb Soln) 3 ml INH Q2H ONE Stop: 01/10/21 03:21 Last Admin: 01/10/21 03:29 Dose: 3 ml Documented by: Calcium Carbonate (Calcium Carbonate/Vitamin D3 1500 Mg-400 Units Tab) Confirm Administered Dose 1 tab .ROUTE .STK-MED ONE Stop: 01/09/21 08:55 Last Admin: 01/09/21 08:59 Dose: Not Given Documented by: Furosemide (Furosemide 40 Mg/4 Ml Vial) 40 mg IVPUSH NOW STA Stop: 01/08/21 22:19 Last Admin: 01/09/21 02:27 Dose: 40 mg Documented by: Furosemide (Furosemide 40 Mg/4 Ml Vial) Confirm Administered Dose 40 mg .ROUTE .[facility] ONE Stop: 01/09/21 01:36 Last Admin: 01/09/21 02:18 Dose: Not Given Documented by: Furosemide (Furosemide 40 Mg/4 Ml Vial) 40 mg IVPUSH NOW ONE Stop: 01/09/21 12:15 Last Admin: 01/09/21 14:29 Dose: 40 mg Documented by: Furosemide (Furosemide 40 Mg/4 Ml Vial) Confirm Administered Dose 40 mg .ROUTE .[facility] ONE Stop: 01/09/21 14:28 Last Admin: 01/09/21 14:54 Dose: Not Given Documented by: Levofloxacin/Dextrose (Levaquin In D5w 750 Mg/150 Ml) Confirm Administered Dose 150 mls @ as directed IV .[facility] ONE Stop: 01/09/21 01:36 Last Admin: 01/09/21 02:19 Dose: Not Given Documented by: Levofloxacin/Dextrose (Levaquin In D5w 750 Mg/150 Ml) Confirm Administered Dose 150 mls @ as directed IV .[facility] ONE Stop: 01/09/21 23:00 Last Admin: 01/09/21 23:30 Dose: Not Given Documented by: Magnesium Oxide (Magnesium Oxide 400 Mg Tab) Confirm Administered Dose 400 mg .ROUTE .[facility] ONE Stop: 01/09/21 08:55 Last Admin: 01/09/21 08:59 Dose: Not Given Documented by: Magnesium Oxide (Magnesium Oxide 400 Mg Tab) 400 mg PO DAILY [facility] Non-Formulary Medication (Acetylcysteine [Mucomyst 10%]) 100 mg INH Q6H [facility] Last Admin: 01/09/21 10:34 Dose: 100 mg Documented by: Non-Formulary Medication (Calcium Carbonate/Vitamin D3 [Calcium 600 + Vit D Tablet]) 1 each PO DAILY [facility] Last Admin: 01/09/21 08:55 Dose: 1 each Documented by: Non-Formulary Medication (Clotrimazole [Mycelex]) 10 mg PO 5XDAY PRN PRN Reason: Other Non-Formulary Medication (Formoterol [Perforomist]) 20 mcg NEB BID [facility] Last Admin: 01/09/21 08:50 Dose: 20 mcg Documented by: Non-Formulary Medication (Ibuprofen [Ibuprofen]) 400 mg PO Q4H PRN PRN Reason: Pain Non-Formulary Medication (Magnesium Oxide [Magnesium]) 400 mg PO DAILY [facility] Last Admin: 01/09/21 08:55 Dose: 400 mg Documented by: Non-Formulary Medication (Omeprazole [Omeprazole]) 40 mg PO DAILY [facility] Last Admin: 01/09/21 08:54 Dose: 40 mg Documented by: Omeprazole (Omeprazole 20 Mg Cap.Cr) Confirm Administered Dose 40 mg .ROUTE .S TK-MED ONE Stop: 01/09/21 08:55 Last Admin: 01/09/21 08:59 Dose: Not Given Documented by: Omeprazole (Omeprazole 20 Mg Cap.Cr) 40 mg PO DAILY [facility] (Clotrimazole [ Mycelex] 10 Mg Luis Fernando) *Pt Own Med* 0 each PO 5XDAY PRN PRN Reason: Other Potassium Chloride (Potassium Chloride 20 Meq Tab.Er) 40 meq PO NOW ONE Stop: 01/08/21 22:32 Last Admin: 01/09/21 02:27 Dose: 40 meq Documented by: Potassium Chloride (Potassium Chloride 20 Meq Tab.Er) Confirm Administered Dose 40 meq .ROUTE .STK-MED ONE Stop: 01/09/21 00:49 Last Admin: 01/09/21 02:27 Dose: Not Given Documented by: Theophylline (Theophylline 300 Mg Cap.Er) 300 mg PO TID [facility] Last Admin: 01/09/21 08:51 Dose: Not Given Documented by: Warfarin Sodium (Warfarin 2.5 Mg Tab) 2.5 mg PO DAILY [facility] Last Admin: 01/09/21 12:08 Dose: Not Given Documented by: Warfarin Sodium (Warfarin 5 Mg Tab) 5 mg PO DAILY@1800 [facility] Stop: 01/09/21 18:01 Last Admin: 01/09/21 18:02 Dose: 5 mg Documented by: - Exam Quality Assessment: Supplemental Oxygen, Skin Breakdown General: Alert, Oriented, Cooperative, No Acute Distress HEENT: Pupils Equal, Pupils Reactive, EOMI, Mucous Membr. Moist/[place] Neck: Supple Lungs: Decreased Breath Sounds (Bilateral bases), Wheezing (Mostly expiratory today, increased on left side) Cardiovascular: Regular Rhythm Extremities: Normal Inspection, Other (Significantly decreased edema to lower legs with no pitting edema this morning. Color improved distal CMS intact.) Skin: Warm, Dry Wound/Incisions: Dressing Dry and Intact, Decubitis (Unchanged) Neurological: No New Focal Deficit Psy/Mental Status: Alert, Normal Affect, Normal Mood - Patient Data Lab Results Last 24 hrs: Laboratory Results - last 24 hr 01/10/21 01/10/21 Range/Units 08:30 08:30 PT 12.1 H (9.0-11.5) sec INR 1.2 (1.0-3.5) Sodium 134 L (136-145) mmol/L Potassium 3.3 L (3.5-5.1) mmol/L Chloride 93 L (98-107) mmol/L Carbon Dioxide 30.3 (21.0-32.0) mmol/L Anion Gap 14.0 (5.0-15.0) mmol/L BUN 11 (8-26) mg/dL Creatinine 1.03 (0.70-1.30) mg/dL Est Cr Clr Drug Dosing 68.00 mL/min Estimated GFR (MDRD) > 60 (>60) MLS/MIN BUN/Creatinine Ratio 10.7 (6-25) Glucose 123 H (74-100) mg/dL Calcium 8.9 (8.5-10.1) mg/dL Result Diagrams: 01/08/21 21:18 01/10/21 08:30 Fab Results Last 24 hrs: Microbiology 01/09/21 02:50 MRSA Culture - Final Nares, Unspecified NO MRSA ISOLATED Sepsis Event Note - Evaluation Sepsis Screening Result: No Definite Risk - Focused Exam Vital Signs: Vital Signs Temp Pulse Resp BP Pulse Ox Pulse Ox 01/10/21 07:57 90 L 01/10/21 07:52 36.6 C 93 20 111/74 89 L 01/10/21 04:00 36.8 C 91 20 92 L 01/09/21 23:49 98 91 L - Problem List Review Problem List Initiated/Reviewed/Updated: Yes - My Orders Last 24 Hours: My Active Orders 01/09/21 11:00 Bumetanide [Bumex] 2 mg PO ACLUNCH Docusate Sodium/Sennosides [Senna Plus] 1 tab PO ACLUNCH 01/09/21 11:58 Ibuprofen [Motrin] 400 mg PO Q4H PRN 01/09/21 13:52 Patient's Own Medication [Ptom] 0 each PO 5XDAY PRN 01/09/21 14:00 Patient's Own Medication [Ptom] 0 each NEB Q6H Patient's Own Medication [Ptom] 0 each PO TID 01/09/21 18:00 Chest 1V Frontal [CR] Timed 01/09/21 20:00 B12/Levomefolate Calcium/B-6 [Folbic Rf Tablet] 1 each PO BEDTIME Montelukast [Singulair] 10 mg PO BEDTIME Patient's Own Medication [Ptom] 0 each NEB BID 01/10/21 07:00 Omeprazole 40 mg PO ACBREAKFAST 01/10/21 08:00 Calcium Carbonate/Vitamin D3 [Caltrate 600+D 1500 MG-400 Units] 1 tab PO DAILY Magnesium Oxide 400 mg PO DAILY Warfarin [Coumadin] 0 mg PO DAILY 01/10/21 09:04 Consult to Wound Care Services [CONS] Routine 01/10/21 18:00 Warfarin [Coumadin] 7.5 mg PO ONETIME ONE 01/11/21 05:11 INR,PT,PROTHROMBIN TIME [COAG] AM - Assessment Assessment:: This 60-year-old patient is admitted to the hospital for increased respiratory symptoms including work of breathing and oxygen requirements. He has not been ambulatory at home and comes in with significant leg swelling and pain. - Plan Plan:: Exacerbation COPD with left side pneumonia Initiate IV antibiotics; change oral steroid to IV. Extra diuretics ordered to promote fluid movement. Hypokalemia Oral potassium will be changed to twice a day and increase in dose. Potassium level yesterday was within normal limits. Skin integrity Wound care per nursing; frequent repositioning. Wound care consult for tomorrow Pain Patient states he has not had good pain control with opioids prescribed at home. A fentanyl patch was placed on admission and we will decrease his oral opioids to hydrocodone: 5/325 from 10. He has not requested hydrocodone very fr equently.
--- NOTE | 2021-01-10 09:35 | PCM.SN.2 ---
- Free Text/Narrative Note: This patient was started on anticoagulant therapy following his diagnosis of Covid on November 15. He was discharged to home on December 08 with instructions to continue this medication. At this time I find no specific evidence to suggest or support that he should remain on these medications, therefore his anticoagulant therapy was discontinued.
[2021-01-10] MEDS: methylPREDNISolone Sodium Succinate 125 MG/2 ML SDV IVPUSH SCH (10:38)
[2021-01-10] MEDS: Albuterol/Ipratropium 3.0-0.5 MG/3 ML Neb Soln INH SCH ×3 (11:53→19:49)
[2021-01-10] MEDS: guaiFENesin 600 MG Tab.ER PO SCH ×2 (13:53→21:11)
--- NOTE | 2021-01-10 14:32 | CR ---
DATE OF SERVICE: 01/09/21 CLINICAL DATA: COPD AP CHEST: Comparison is made to a prior exam dated 01/08/21. The heart size is stable. There are persistent bilateral pleural effusions. They do appear minimally improved from the prior exam. No other interval changes. No new abnormalities. [id number] [facility]
[2021-01-10] MEDS ORDERED: Warfarin 7.5 MG Tab PO ONE (18:00)
[2021-01-10] MEDS ORDERED: Montelukast 10 MG Tab ONE (21:09)
[2021-01-10] MEDS: [UNRECOGNIZED DRUG - OTHER] PO SCH (21:11)
[2021-01-10] MEDS: LEVOMEFOLATE CALCIUM PO SCH (21:11)
[2021-01-10] MEDS: Montelukast 10 MG Tab PO SCH (21:11)
[2021-01-10] MEDS: CYANOCOBALAMIN PO SCH (21:11)
[2021-01-10] MEDS: PYRIDOXINE PO SCH (21:11)
[2021-01-10] MEDS ORDERED: Levofloxacin/Dextrose 5%-Water 150 ML IV ONE (22:46)
[2021-01-10] MEDS: Levofloxacin/Dextrose 5%-Water 750 MG in Levofloxacin/Dextrose 5%-Water 150 ML IV SCH (22:54)
[2021-01-11] MEDS: methylPREDNISolone Sodium Succinate 125 MG/2 ML SDV IVPUSH SCH ×2 (00:25→10:29)
[2021-01-11] MEDS: ACETYLCYSTEINE NEB SCH ×4 (01:29→20:00)
[2021-01-11] MEDS: LORazepam 1 MG Tab PO PRN (04:51)
[2021-01-11] MEDS: Ibuprofen 400 MG Tab PO PRN (04:54)
[2021-01-11] MEDS: guaiFENesin 600 MG Tab.ER PO SCH ×3 (08:21→19:38)
[2021-01-11] MEDS: Omeprazole 20 MG Cap.CR PO SCH (08:21)
[2021-01-11] MEDS: Polyethylene Glycol 3350 Powder 17 GM Packet PO SCH (08:21)
[2021-01-11] MEDS: Cetirizine 10 MG Tab PO SCH (08:22)
[2021-01-11] MEDS: Budesonide 0.5 MG/2 ML Neb Susp INH SCH ×2 (08:22→19:38)
[2021-01-11] MEDS: Albuterol/Ipratropium 3.0-0.5 MG/3 ML Neb Soln INH SCH ×4 (08:22→19:39)
[2021-01-11] MEDS: Magnesium Oxide 400 MG Tab PO SCH (08:22)
[2021-01-11] MEDS: Calcium Carbonate/Vitamin D3 1500 MG-400 Units Tab PO SCH (08:22)
[2021-01-11] MEDS: Spironolactone 25 MG Tab PO SCH (08:22)
[2021-01-11] MEDS: Bumetanide 2 MG Tab PO SCH ×2 (08:22→10:29)
[2021-01-11] MEDS: Tiotropium Inhaler 18 MCG Inhalation Powder Cap Kit of 5 INH SCH (08:26)
[2021-01-11] MEDS: THEOPHYLLINE 600 MG PO SCH ×3 (08:26→19:41)
--- NOTE | 2021-01-11 14:06 | PCM.PN ---
- General Info Date of Service: 01/11/21 Admission Dx/Problem (Free Text): Admission Diagnosis/Problem Admission Diagnosis/Problem COPD with acute lower respiratory infection Subjective Update: Patient states he feels improved with decreased shortness of breath. He also has significantly decreased swelling in his legs. Appetite is good, he has no fever. He denies new pain. Functional Status: Reports: Pain Controlled, Tolerating Diet, Urinating - Review of Systems General: Reports: No Symptoms, Night Sweats HEENT: Reports: No Symptoms Pulmonary: Reports: No Symptoms, Shortness of Breath, Cough, Sputum Cardiovascular: Reports: No Symptoms Gastrointestinal: Reports: No Symptoms Musculoskeletal: Reports: No Symptoms Skin: Reports: No Symptoms Neurological: Reports: No Symptoms - Patient Data Vitals - Most Recent: Last Vital Signs Temp 36.3 C 01/11/21 11:38 Pulse 96 01/11/21 11:38 Resp 20 01/11/21 11:38 BP 101/64 01/11/21 11:38 Pulse Ox 96 01/11/21 11:38 Weight - Most Recent: 70.125 kg I&O - Last 24 Hours: Intake & Output 01/10/21 01/11/21 01/11/21 22:59 06:59 14:59 Intake Total 1760 390 Output Total 1400 800 Balance 360 -410 Lab Results Last 24 Hours: Laboratory Results - last 24 hr 01/11/21 Range/Units 08:09 PT 13.1 H (9.0-11.5) sec INR 1.3 (1.0-3.5) Fab Results Last 24 Hours: Microbiology 01/09/21 02:50 MRSA Culture - Final Nares, Unspecified NO MRSA ISOLATED Med Orders - Current: Current Medications Hydrocodone Bitart/Acetaminophen (Acetaminophen/Hydrocodone 325-5 Mg Tab) 1 tab PO Q8H PRN PRN Reason: Breakthrough Pain Albuterol (Albuterol 8 Gm Inhaler) 0 gm INH QID PRN PRN Reason: Shortness of Breath Last Admin: 01/10/21 09:46 Dose: 2 puff Documented by: Albuterol/Ipratropium (Albuterol/Ipratropium 3.0-0.5 Mg/3 Ml Neb Soln) 3 ml INH QID ALEK Last Admin: 01/11/21 11:37 Dose: 3 ml Documented by: Budesonide (Budesonide 0.5 Mg/2 Ml Neb Susp) 0.5 mg INH BID [facility] Last Admin: 01/11/21 08:22 Dose: 0.5 mg Documented by: Bumetanide (Bumetanide 2 Mg Tab) 2 mg PO ACLUNCH [facility] Last Admin: 01/11/21 10:29 Dose: 2 mg Documented by: Bumetanide (Bumetanide 2 Mg Tab) 3 mg PO WITHBREAKFAST [facility] Last Admin: 01/11/21 08:22 Dose: 3 mg Documented by: Calcium Carbonate (Calcium Carbonate/Vitamin D3 1500 Mg-400 Units Tab) 1 tab PO DAILY [facility] Last Admin: 01/11/21 08:22 Dose: 1 tab Documented by: Cetirizine HCl (Cetirizine 10 Mg Tab) 10 mg PO DAILY [facility] Last Admin: 01/11/21 08:22 Dose: 10 mg Documented by: Diphenhydramine HCl (Diphenhydramine 50 Mg Cap) 50 mg PO BID PRN PRN Reason: burning eyes Fentanyl (Fentanyl 25 Mcg/Hr Transdermal Patch) 25 mcg TRDERM Q72H [facility] Last Admin: 01/09/21 02:23 Dose: 25 mcg Documented by: Guaifenesin (Guaifenesin 600 Mg Tab.Er) 600 mg PO TID [facility] Last Admin: 01/11/21 13:35 Dose: 600 mg Documented by: Levofloxacin/Dextrose 750 mg/ (Levofloxacin/Dextrose) 300 mls @ 100 mls/hr IV Q24H [facility] Stop: 01/14/21 22:15 Last Admin: 01/10/21 22:54 Dose: 100 mls/hr Documented by: Ibuprofen (Ibuprofen 400 Mg Tab) 400 mg PO Q4H PRN PRN Reason: Pain Last Admin: 01/11/21 04:54 Dose: 400 mg Documented by: Lorazepam (Lorazepam 1 Mg Tab) 1 mg PO Q6H PRN PRN Reason: Anxiety Last Admin: 01/11/21 04:51 Dose: 1 mg Documented by: Magnesium Oxide (Magnesium Oxide 400 Mg Tab) 400 mg PO DAILY [facility] Last Admin: 01/11/21 08:22 Dose: 400 mg Documented by: Methylprednisolone Sodium Succinate (Methylprednisolone Sodium Succinate 125 Mg/2 Ml Sdv) 125 mg IVPUSH Q12H [facility] Last Admin: 01/11/21 10:29 Dose: 125 mg Documented by: Montelukast Sodium (Montelukast 10 Mg Tab) 10 mg PO BEDTIME [facility] Last Admin: 01/10/21 21:11 Dose: 10 mg Documented by: Non-Formulary Medication (B12/Levomefolate Calcium/B-6 [Folbic Rf Tablet]) 1 each PO BEDTIME [facility] Last Admin: 01/10/21 21:11 Dose: Not Given Documented by: Omeprazole (Omeprazole 20 Mg Cap.Cr) 40 mg PO ACBREAKFAST [facility] Last Admin: 01/11/21 08:21 Dose: 40 mg Documented by: Ondansetron HCl (Ondansetron 4 Mg/2 Ml Sdv) 4 mg IV Q4H PRN PRN Reason: Nausea/Vomiting Last Admin: 01/09/21 02:29 Dose: 4 mg Documented by: Ondansetron HCl (Ondansetron 4 Mg Tab.Dis) 4 mg PO Q6H PRN PRN Reason: NAUSEA Theophylline 600 Mg (Er Tab *Pt Own Med*) 0 each PO TID [facility] Last Admin: 01/11/21 13:36 Dose: 1 each Documented by: (Acetylcysteine [ Mucomyst 10%] 100 Mg /Ml Sdv) *Pt Own Med * 0 each NEB Q6H [facility] Last Admin: 01/11/21 13:36 Dose: 1 each Documented by: (Formoterol [ Perforomist] 20 Mcg/2 Ml Neb) *Pt Own Med* 0 each NEB BID [facility] Last Admin: 01/11/21 08:35 Dose: 1 each Documented by: (Clotrimazole [ Mycelex] 10 Mg Luis Fernando) *Pt Own Med* 0 each PO 5XDAY PRN PRN Reason: Other Polyethylene Glycol (Polyethylene Glycol 3350 Powder 17 Gm Packet) 17 gm PO DAILY [facility] Last Admin: 01/11/21 08:21 Dose: 17 gm Documented by: Senna/Docusate Sodium (Docusate Sodium/Sennosides 50-8.6 Mg Tab) 1 tab PO ACLUNCH [facility] Last Admin: 01/11/21 10:29 Dose: 1 tab Documented by: Sodium Chloride (Sodium Chloride 0.9% 10 Ml Syringe) 10 ml FLUSH ASDIRECTED PRN PRN Reason: Keep Vein Open Sodium Chloride (Sodium Chloride 0.65% Nasal Emblem 45 Ml Bottle) 0 ml NASBOTH Q2H PRN PRN Reason: Congestion Spironolactone (Spironolactone 25 Mg Tab) 25 mg PO QAM [facility] Last Admin: 01/11/21 08:22 Dose: 25 mg Documented by: Tiotropium Mcl[place] (Tiotropium Inhaler 18 Mcg Inhalation Powder Cap Kit Of 5) 0 mcg INH DAILY [facility] Last Admin: 01/11/21 08:26 Dose: 1 puff Documented by: Discontinued Medications Hydrocodone Bitart/Acetaminophen (Acetaminophen/Hydrocodone 325-10 Mg Tab) 1 tab PO BID PRN PRN Reason: Pain Last Admin: 01/10/21 07:26 Dose: 1 tab Documented by: Albuterol/Ipratropium (Albuterol/Ipratropium 3.0-0.5 Mg/3 Ml Neb Soln) 3 ml INH QID [facility] Last Admin: 01/09/21 20:07 Dose: 3 ml Documented by: Albuterol/Ipratropium (Albuterol/Ipratropium 3.0-0.5 Mg/3 Ml Neb Soln) Confirm Administered Dose 3 ml .ROUTE .STK-MED ONE Stop: 01/10/21 03:20 Last Admin: 01/10/21 03:21 Dose: Not Given Documented by: Albuterol/Ipratropium (Albuterol/Ipratropium 3.0-0.5 Mg/3 Ml Neb Soln) 3 ml INH Q2H ONE Stop: 01/10/21 03:21 Last Admin: 01/10/21 03:29 Dose: 3 ml Documented by: Albuterol/Ipratropium (Albuterol/Ipratropium 3.0-0.5 Mg/3 Ml Neb Soln) 3 ml INH ONETIME ONE Stop: 01/10/21 10:31 Last Admin: 01/10/21 10:38 Dose: 3 ml Documented by: Calcium Carbonate (Calcium Carbonate/Vitamin D3 1500 Mg-400 Units Tab) Confirm Administered Dose 1 tab .ROUTE .STK-MED ONE Stop: 01/09/21 08:55 Last Admin: 01/09/21 08:59 Dose: Not Given Documented by: Furosemide (Furosemide 40 Mg/4 Ml Vial) 40 mg IVPUSH NOW STA Stop: 01/08/21 22:19 Last Admin: 01/09/21 02:27 Dose: 40 mg Documented by: Furosemide (Furosemide 40 Mg/4 Ml Vial) Confirm Administered Dose 40 mg .ROUTE .STK-MED ONE Stop: 01/09/21 01:36 Last Admin: 01/09/21 02:18 Dose: Not Given Documented by: Furosemide (Furosemide 40 Mg/4 Ml Vial) 40 mg IVPUSH NOW ONE Stop: 01/09/21 12:15 Last Admin: 01/09/21 14:29 Dose: 40 mg Documented by: Furosemide (Furosemide 40 Mg/4 Ml Vial) Confirm Administered Dose 40 mg .ROUTE .STK-MED ONE Stop: 01/09/21 14:28 Last Admin: 01/09/21 14:54 Dose: Not Given Documented by: Levofloxacin/Dextrose (Levaquin In D5w 750 Mg/150 Ml) Confirm Administered Dose 150 mls @ as directed IV .[facility] ONE Stop: 01/09/21 01:36 Last Admin: 01/09/21 02:19 Dose: Not Given Documented by: Levofloxacin/Dextrose (Levaquin In D5w 750 Mg/150 Ml) Confirm Administered Dose 150 mls @ as directed IV .[facility] ONE Stop: 01/09/21 23:00 Last Admin: 01/09/21 23:30 Dose: Not Given Documented by: Levofloxacin/Dextrose (Levaquin In D5w 750 Mg/150 Ml) Confirm Administered Dose 150 mls @ as directed IV .[facility] ONE Stop: 01/10/21 22:47 Last Admin: 01/10/21 23:03 Dose: Not Given Documented by: Magnesium Oxide (Magnesium Oxide 400 Mg Tab) Confirm Administered Dose 400 mg .ROUTE .[facility] ONE Stop: 01/09/21 08:55 Last Admin: 01/09/21 08:59 Dose: Not Given Documented by: Magnesium Oxide (Magnesium Oxide 400 Mg Tab) 400 mg PO DAILY [facility] Montelukast Sodium (Montelukast 10 Mg Tab) Confirm Administered Dose 10 mg .ROUTE .STK-MED ONE Stop: 01/10/21 21:10 Last Admin: 01/10/21 21:13 Dose: Not Given Documented by: Non-Formulary Medication (Acetylcysteine [Mucomyst 10%]) 100 mg INH Q6H [facility] Last Admin: 01/09/21 10:34 Dose: 100 mg Documented by: Non-Formulary Medication (Calcium Carbonate/Vitamin D3 [Calcium 600 + Vit D Tablet]) 1 each PO DAILY [facility] Last Admin: 01/09/21 08:55 Dose: 1 each Documented by: Non-Formulary Medication (Clotrimazole [Mycelex]) 10 mg PO 5XDAY PRN PRN Reason: Other Non-Formulary Medication (Formoterol [Perforomist]) 20 mcg NEB BID [facility] Last Admin: 01/09/21 08:50 Dose: 20 mcg Documented by: Non-Formulary Medication (Ibuprofen [Ibuprofen]) 400 mg PO Q4H PRN PRN Reason: Pain Non-Formulary Medication (Magnesium Oxide [Magnesium]) 400 mg PO DAILY [facility] Last Admin: 01/09/21 08:55 Dose: 400 mg Documented by: Non-Formulary Medication (Omeprazole [Omeprazole]) 40 mg PO DAILY [facility] Last Admin: 01/09/21 08:54 Dose: 40 mg Documented by: Omeprazole (Omeprazole 20 Mg Cap.Cr) Confirm Administered Dose 40 mg .ROUTE .STK-MED ONE Stop: 01/09/21 08:55 Last Admin: 01/09/21 08:59 Dose: Not Given Documented by: Omeprazole (Omeprazole 20 Mg Cap.Cr) 40 mg PO DAILY [facility] (Clotrimazole [ Mycelex] 10 Mg Luis Fernando) *Pt Own Med* 0 each PO 5XDAY PRN PRN Reason: Other Potassium Chloride (Potassium Chloride 20 Meq Tab.Er) 40 meq PO NOW ONE Stop: 01/08/21 22:32 Last Admin: 01/09/21 02:27 Dose: 40 meq Documented by: Potassium Chloride (Potassium Chloride 20 Meq Tab.Er) Confirm Administered Dose 40 meq .ROUTE .STK-MED ONE Stop: 01/09/21 00:49 Last Admin: 01/09/21 02:27 Dose: Not Given Documented by: Theophylline (Theophylline 300 Mg Cap.Er) 300 mg PO TID [facility] Last Admin: 01/09/21 08:51 Dose: Not Given Documented by: Warfarin Sodium (Warfarin 2.5 Mg Tab) 2.5 mg PO DAILY [facility] Last Admin: 01/09/21 12:08 Dose: Not Given Documented by: Warfarin Sodium (Pharmacy To Dose Warfarin) 0 mg PO DAILY [facility] Warfarin Sodium (Warfarin 5 Mg Tab) 5 mg PO DAILY@1800 [facility] Stop: 01/09/21 18:01 Last Admin: 01/09/21 18:02 Dose: 5 mg Documented by: Warfarin Sodium (Warfarin 7.5 Mg Tab) 7.5 mg PO ONETIME ONE Stop: 01/10/21 18:01 - Exam Quality Assessment: Supplemental Oxygen, Skin Breakdown General: Alert, Oriented, Cooperative, No Acute Distress HEENT: Pupils Equal, Pupils Reactive, EOMI, Mucous Membr. Moist/[place] Neck: Supple Lungs: Normal Respiratory Effort, Rales (Occasional rales in all lopez.) Cardiovascular: Regular Rate, Regular Rhythm Extremities: Normal Inspection Skin: Warm, Dry, Intact Neurological: No New Focal Deficit Psy/Mental Status: Alert, Normal Affect, Normal Mood - Patient Data Lab Results Last 24 hrs: Laboratory Results - last 24 hr 01/11/21 Range/Units 08:09 PT 13.1 H (9.0-11.5) sec INR 1.3 (1.0-3.5) Result Diagrams: 01/08/21 21:18 01/10/21 08:30 Fab Results Last 24 hrs: Microbiology 01/09/21 02:50 MRSA Culture - Final Nares, Unspecified NO MRSA ISOLATED Sepsis Event Note - Evaluation Sepsis Screening Result: No Definite Risk - Focused Exam Vital Signs: Vital Signs Temp Temp Pulse Resp BP Pulse Ox 01/11/21 11:38 36.3 C 96 20 101/64 96 01/11/21 08:00 36.2 C 94 20 111/71 94 L 01/11/21 04:57 -13.2 C L 96 20 102/79 90 L 01/11/21 04:54 36.8 C 01/11/21 04:00 36.7 C 94 20 90 L - Problem List Review Problem List Initiated/Reviewed/Updated: Yes - My Orders Last 24 Hours: My Active Orders 01/10/21 14:00 guaiFENesin [Mucinex] 600 mg PO TID - Assessment Assessment:: This 60-year-old patient is admitted to the hospital for increased respiratory symptoms including work of breathing and oxygen requirements. He has not been ambulatory at home and comes in with significant leg swelling and pain. - Plan Plan:: Exacerbation COPD with left side pneumonia Change to oral antibiotics today. Hypokalemia Oral potassium will be changed to twice a day and increase in dose. Potassium level yesterday was within normal limits. Skin integrity Wound care per nursing; frequent repositioning. Wound care consult today Pain Patient states he has not had good pain control with opioids prescribed at home. A fentanyl patch was placed on admission and we will decrease his oral opioids to hydrocodone: 5/325 from . He has not requested hydrocodone very frequently. Plan at this point is for discharge on January 14.
[2021-01-11] MEDS: Levofloxacin 750 MG Tab PO SCH (15:21)
[2021-01-11] MEDS: Acetaminophen/HYDROcodone 325-5 MG Tab PO PRN (18:31)
[2021-01-11] MEDS: Montelukast 10 MG Tab PO SCH (19:38)
[2021-01-11] MEDS: PYRIDOXINE PO SCH (20:00)
[2021-01-11] MEDS: [UNRECOGNIZED DRUG - OTHER] PO SCH (20:00)
[2021-01-11] MEDS: CYANOCOBALAMIN PO SCH (20:00)
[2021-01-11] MEDS: LEVOMEFOLATE CALCIUM PO SCH (20:00)
[2021-01-12] MEDS: fentaNYL 25 MCG/HR Transdermal Patch TRDERM SCH (00:18)
[2021-01-12] MEDS: LORazepam 1 MG Tab PO PRN ×3 (00:18→21:34)
[2021-01-12] MEDS: Omeprazole 20 MG Cap.CR PO SCH (07:32)
[2021-01-12] MEDS: Bumetanide 2 MG Tab PO SCH ×2 (07:33→10:45)
[2021-01-12] MEDS: predniSONE 20 MG Tab PO SCH (07:35)
[2021-01-12] MEDS: ACETYLCYSTEINE NEB SCH ×4 (07:36→21:32)
[2021-01-12] MEDS: Magnesium Oxide 400 MG Tab PO SCH (07:38)
[2021-01-12] MEDS: Cetirizine 10 MG Tab PO SCH (07:38)
[2021-01-12] MEDS: Spironolactone 25 MG Tab PO SCH (07:38)
[2021-01-12] MEDS: guaiFENesin 600 MG Tab.ER PO SCH ×3 (07:38→21:30)
[2021-01-12] MEDS: Calcium Carbonate/Vitamin D3 1500 MG-400 Units Tab PO SCH (07:39)
[2021-01-12] MEDS: Albuterol/Ipratropium 3.0-0.5 MG/3 ML Neb Soln INH SCH ×4 (07:39→18:33)
[2021-01-12] MEDS: Polyethylene Glycol 3350 Powder 17 GM Packet PO SCH (07:39)
[2021-01-12] MEDS: THEOPHYLLINE 600 MG PO SCH ×3 (07:43→21:31)
[2021-01-12] MEDS: Tiotropium Inhaler 18 MCG Inhalation Powder Cap Kit of 5 INH SCH (07:44)
[2021-01-12] MEDS: Budesonide 0.5 MG/2 ML Neb Susp INH SCH ×2 (09:06→21:31)
[2021-01-12] MEDS: Acetaminophen/HYDROcodone 325-5 MG Tab PO PRN ×2 (09:51→18:31)
[2021-01-12] MEDS: Ibuprofen 400 MG Tab PO PRN ×2 (09:52→18:30)
--- NOTE | 2021-01-12 11:07 | PCM.PN ---
- General Info Date of Service: 01/12/21 Admission Dx/Problem (Free Text): Admission Diagnosis/Problem Admission Diagnosis/Problem COPD with acute lower respiratory infection Subjective Update: This patient has been admitted from the emergency department for pneumonia and exacerbation of COPD. He also does have new areas of skin breakdown. He states he did not have a good night last night and was unable to sleep because he feels as though he has phlegm in his throat that he is unable to cough up. His saturations were a little bit lower during the night on the same amount of oxygen at 4 L per nasal cannula. He has not had a fever and vital signs are otherwise unchanged. He denies other concerns. Functional Status: Reports: Tolerating Diet, Urinating - Review of Systems General: Reports: Weakness. Denies: Fever, Chills HEENT: Denies: Ear Pain, Eye Pain, Headaches, Rhinitis Pulmonary: Reports: Shortness of Breath, Cough, Sputum Cardiovascular: Reports: Dyspnea on Exertion, Orthopnea. Denies: Chest Pain, Palpitations Gastrointestinal: Reports: No Symptoms Musculoskeletal: Reports: No Symptoms Skin: Reports: No Symptoms Neurological: Reports: No Symptoms - Patient Data Vitals - Most Recent: Last Vital Signs Temp 36.4 C 01/12/21 08:00 Pulse 100 01/12/21 08:00 Resp 22 H 01/12/21 08:00 BP 105/59 L 01/12/21 08:00 Pulse Ox 100 01/12/21 08:00 Weight - Most Recent: 69.218 kg I&O - Last 24 Hours: Intake & Output 01/11/21 01/12/21 01/12/21 22:59 06:59 14:59 Intake Total 1070 240 Output Total 1975 400 Balance -905 -160 Med Orders - Current: Current Medications Hydrocodone Bitart/Acetaminophen (Acetaminophen/Hydrocodone 325-5 Mg Tab) 1 tab PO Q8H PRN PRN Reason: Breakthrough Pain Last Admin: 01/12/21 09:51 Dose: 1 tab Documented by: Albuterol (Albuterol 8 Gm Inhaler) 0 gm INH QID PRN PRN Reason: Shortness of Breath Last Admin: 01/10/21 09:46 Dose: 2 puff Documented by: Albuterol/Ipratropium (Albuterol/Ipratropium 3.0-0.5 Mg/3 Ml Neb Soln) 3 ml INH QID [facility] Last Admin: 01/12/21 07:39 Dose: 3 ml Documented by: Budesonide (Budesonide 0.5 Mg/2 Ml Neb Susp) 0.5 mg INH BID [facility] Last Admin: 01/12/21 09:06 Dose: 0.5 mg Documented by: Bumetanide (Bumetanide 2 Mg Tab) 2 mg PO ACLUNCH [facility] Last Admin: 01/12/21 10:45 Dose: 2 mg Documented by: Bumetanide (Bumetanide 2 Mg Tab) 3 mg PO WITHBREAKFAST [facility] Last Admin: 01/12/21 07:33 Dose: 3 mg Documented by: Calcium Carbonate (Calcium Carbonate/Vitamin D3 1500 Mg-400 Units Tab) 1 tab PO DAILY [facility] Last Admin: 01/12/21 07:39 Dose: 1 tab Documented by: Cetirizine HCl (Cetirizine 10 Mg Tab) 10 mg PO DAILY [facility] Last Admin: 01/12/21 07:38 Dose: 10 mg Documented by: Diphenhydramine HCl (Diphenhydramine 50 Mg Cap) 50 mg PO BID PRN PRN Reason: burning eyes Fentanyl (Fentanyl 25 Mcg/Hr Transdermal Patch) 25 mcg TRDERM Q72H [facility] Last Admin: 01/12/21 00:18 Dose: 25 mcg Documented by: Guaifenesin (Guaifenesin 600 Mg Tab.Er) 600 mg PO TID [facility] Last Admin: 01/12/21 07:38 Dose: 600 mg Documented by: Ibuprofen (Ibuprofen 400 Mg Tab) 400 mg PO Q4H PRN PRN Reason: Pain Last Admin: 01/12/21 09:52 Dose: 400 mg Documented by: Levofloxacin (Levofloxacin 750 Mg Tab) 750 mg PO Q24H [facility] Stop: 01/18/21 14:01 Last Admin: 01/11/21 15:21 Dose: 750 mg Documented by: Lorazepam (Lorazepam 1 Mg Tab) 1 mg PO Q6H PRN PRN Reason: Anxiety Last Admin: 01/12/21 00:18 Dose: 1 mg Documented by: Magnesium Oxide (Magnesium Oxide 400 Mg Tab) 400 mg PO DAILY [facility] Last Admin: 01/12/21 07:38 Dose: 400 mg Documented by: Montelukast Sodium (Montelukast 10 Mg Tab) 10 mg PO BEDTIME [facility] Last Admin: 01/11/21 19:38 Dose: 10 mg Documented by: Non-Formulary Medication (B12/Levomefolate Calcium/B-6 [Folbic Rf Tablet]) 1 each PO BEDTIME [facility] Last Admin: 01/11/21 20:00 Dose: 1 each Documented by: Omeprazole (Omeprazole 20 Mg Cap.Cr) 40 mg PO ACBREAKFAST [facility] Last Admin: 01/12/21 07:32 Dose: 40 mg Documented by: Ondansetron HCl (Ondansetron 4 Mg/2 Ml Sdv) 4 mg IV Q4H PRN PRN Reason: Nausea/Vomiting Last Admin: 01/09/21 02:29 Dose: 4 mg Documented by: Ondansetron HCl (Ondansetron 4 Mg Tab.Dis) 4 mg PO Q6H PRN PRN Reason: NAUSEA Theophylline 600 Mg (Er Tab *Pt Own Med*) 0 each PO TID [facility] Last Admin: 01/12/21 07:43 Dose: 1 each Documented by: (Acetylcysteine [ Mucomyst 10%] 100 Mg /Ml Sdv) *Pt Own Med * 0 each NEB Q6H [facility] Last Admin: 01/12/21 07:36 Dose: 1 each Documented by: (Formoterol [ Perforomist] 20 Mcg/2 Ml Neb) *Pt Own Med* 0 each NEB BID [facility] Last Admin: 01/12/21 08:30 Dose: 1 each Documented by: (Clotrimazole [ Mycelex] 10 Mg Luis Fernando) *Pt Own Med* 0 each PO 5XDAY PRN PRN Reason: Other Polyethylene Glycol (Polyethylene Glycol 3350 Powder 17 Gm Packet) 17 gm PO DAILY [facility] Last Admin: 01/12/21 07:39 Dose: 17 gm Documented by: Prednisone (Prednisone 20 Mg Tab) 40 mg PO WITHBREAKFAST [facility] Last Admin: 01/12/21 07:35 Dose: 40 mg Documented by: Senna/Docusate Sodium (Docusate Sodium/Sennosides 50-8.6 Mg Tab) 1 tab PO ACLUNCH [facility] Last Admin: 01/12/21 10:45 Dose: 1 tab Documented by: Sodium Chloride (Sodium Chloride 0.9% 10 Ml Syringe) 10 ml FLUSH ASDIRECTED PRN PRN Reason: Keep Vein Open Sodium Chloride (Sodium Chloride 0.65% Nasal [place] 45 Ml Bottle) 0 ml NASBOTH Q2H PRN PRN Reason: Congestion Spironolactone (Spironolactone 25 Mg Tab) 25 mg PO QAM [facility] Last Admin: 01/12/21 07:38 Dose: 25 mg Documented by: Tiotropium Macy (Tiotropium Inhaler 18 Mcg Inhalation Powder Cap Kit Of 5) 0 mcg INH DAILY [facility] Last Admin: 01/12/21 07:44 Dose: 1 puff Documented by: Discontinued Medications Hydrocodone Bitart/Acetaminophen (Acetaminophen/Hydrocodone 325-10 Mg Tab) 1 tab PO BID PRN PRN Reason: Pain Last Admin: 01/10/21 07:26 Dose: 1 tab Documented by: Albuterol/Ipratropium (Albuterol/Ipratropium 3.0-0.5 Mg/3 Ml Neb Soln) 3 ml INH QID [facility] Last Admin: 01/09/21 20:07 Dose: 3 ml Documented by: Albuterol/Ipratropium (Albuterol/Ipratropium 3.0-0.5 Mg/3 Ml Neb Soln) Confirm Administered Dose 3 ml .ROUTE .STK-MED ONE Stop: 01/10/21 03:20 Last Admin: 01/10/21 03:21 Dose: Not Given Documented by: Albuterol/Ipratropium (Albuterol/Ipratropium 3.0-0.5 Mg/3 Ml Neb Soln) 3 ml INH Q2H ONE Stop: 01/10/21 03:21 Last Admin: 01/10/21 03:29 Dose: 3 ml Documented by: Albuterol/Ipratropium (Albuterol/Ipratropium 3.0-0.5 Mg/3 Ml Neb Soln) 3 ml INH ONETIME ONE Stop: 01/10/21 10:31 Last Admin: 01/10/21 10:38 Dose: 3 ml Documented by: Calcium Carbonate (Calcium Carbonate/Vitamin D3 1500 Mg-400 Units Tab) Confirm Administered Dose 1 tab .ROUTE .STK-MED ONE Stop: 01/09/21 08:55 Last Admin: 01/09/21 08:59 Dose: Not Given Documented by: Furosemide (Furosemide 40 Mg/4 Ml Vial) 40 mg IVPUSH NOW STA Stop: 01/08/21 22:19 Last Admin: 01/09/21 02:27 Dose: 40 mg Documented by: Furosemide (Furosemide 40 Mg/4 Ml Vial) Confirm Administered Dose 40 mg .ROUTE .STK-[facility] ONE Stop: 01/09/21 01:36 Last Admin: 01/09/21 02:18 Dose: Not Given Documented by: Furosemide (Furosemide 40 Mg/4 Ml Vial) 40 mg IVPUSH NOW ONE Stop: 01/09/21 12:15 Last Admin: 01/09/21 14:29 Dose: 40 mg Documented by: Furosemide (Furosemide 40 Mg/4 Ml Vial) Confirm Administered Dose 40 mg .ROUTE .[facility] ONE Stop: 01/09/21 14:28 Last Admin: 01/09/21 14:54 Dose: Not Given Documented by: Levofloxacin/Dextrose 750 mg/ (Levofloxacin/Dextrose) 300 mls @ 100 mls/hr IV Q 24H [facility] Stop: 01/14/21 22:15 Last Admin: 01/10/21 22:54 Dose: 100 mls/hr Documented by: Levofloxacin/Dextrose (Levaquin In D5w 750 Mg/150 Ml) Confirm Administered Dose 150 mls @ as directed IV .[facility] ONE Stop: 01/09/21 01:36 Last Admin: 01/09/21 02:19 Dose: Not Given Documented by: Levofloxacin/Dextrose (Levaquin In D5w 750 Mg/150 Ml) Confirm Administered Dose 150 mls @ as directed IV .[facility] ONE Stop: 01/09/21 23:00 Last Admin: 01/09/21 23:30 Dose: Not Given Documented by: Levofloxacin/Dextrose (Levaquin In D5w 750 Mg/150 Ml) Confirm Administered Dose 150 mls @ as directed IV .[facility] ONE Stop: 01/10/21 22:47 Last Admin: 01/10/21 23:03 Dose: Not Given Documented by: Magnesium Oxide (Magnesium Oxide 400 Mg Tab) Confirm Administered Dose 400 mg .ROUTE .[facility] ONE Stop: 01/09/21 08:55 Last Admin: 01/09/21 08:59 Dose: Not Given Documented by: Magnesium Oxide (Magnesium Oxide 400 Mg Tab) 400 mg PO DAILY [facility] Methylprednisolone Sodium Succinate (Methylprednisolone Sodium Succinate 125 Mg/2 Ml Sdv) 125 mg IVPUSH Q12H [facility] Last Admin: 01/11/21 10:29 Dose: 125 mg Documented by: Montelukast Sodium (Montelukast 10 Mg Tab) Confirm Administered Dose 10 mg .ROUT E .STK-MED ONE Stop: 01/10/21 21:10 Last Admin: 01/10/21 21:13 Dose: Not Given Documented by: Non-Formulary Medication (Acetylcysteine [Mucomyst 10%]) 100 mg INH Q6H [facility] Last Admin: 01/09/21 10:34 Dose: 100 mg Documented by: Non-Formulary Medication (Calcium Carbonate/Vitamin D3 [Calcium 600 + Vit D Tablet]) 1 each PO DAILY [facility] Last Admin: 01/09/21 08:55 Dose: 1 each Documented by: Non-Formulary Medication (Clotrimazole [Mycelex]) 10 mg PO 5XDAY PRN PRN Reason: Other Non-Formulary Medication (Formoterol [Perforomist]) 20 mcg NEB BID [facility] Last Admin: 01/09/21 08:50 Dose: 20 mcg Documented by: Non-Formulary Medication (Ibuprofen [Ibuprofen]) 400 mg PO Q4H PRN PRN Reason: Pain Non-Formulary Medication (Magnesium Oxide [Magnesium]) 400 mg PO DAILY [facility] Last Admin: 01/09/21 08:55 Dose: 400 mg Documented by: Non-Formulary Medication (Omeprazole [Omeprazole]) 40 mg PO DAILY [facility] Last Admin: 01/09/21 08:54 Dose: 40 mg Documented by: Omeprazole (Omeprazole 20 Mg Cap.Cr) Confirm Administered Dose 40 mg .ROUTE .STK-MED ONE Stop: 01/09/21 08:55 Last Admin: 01/09/21 08:59 Dose: Not Given Documented by: Omeprazole (Omeprazole 20 Mg Cap.Cr) 40 mg PO DAILY [facility] (Clotrimazole [ Mycelex] 10 Mg Luis Fernando) *Pt Own Med* 0 each PO 5XDAY PRN PRN Reason: Other Potassium Chloride (Potassium Chloride 20 Meq Tab.Er) 40 meq PO NOW ONE Stop: 01/08/21 22:32 Last Admin: 01/09/21 02:27 Dose: 40 meq Documented by: Potassium Chloride (Potassium Chloride 20 Meq Tab.Er) Confirm Administered Dose 40 meq .ROUTE .STK-MED ONE Stop: 01/09/21 00:49 Last Admin: 01/09/21 02:27 Dose: Not Given Documented by: Theophylline (Theophylline 300 Mg Cap.Er) 300 mg PO TID [facility] Last Admin: 01/09/21 08:51 Dose: Not Given Documented by: Warfarin Sodium (Warfarin 2.5 Mg Tab) 2.5 mg PO DAILY [facility] Last Admin: 01/09/21 12:08 Dose: Not Given Documented by: Warfarin Sodium (Pharmacy To Dose Warfarin) 0 mg PO DAILY [facility] Warfarin Sodium (Warfarin 5 Mg Tab) 5 mg PO DAILY@1800 [facility] Stop: 01/09/21 18:01 Last Admin: 01/09/21 18:02 Dose: 5 mg Documented by: Warfarin Sodium (Warfarin 7.5 Mg Tab) 7.5 mg PO ONETIME ONE Stop: 01/10/21 18:01 - Exam Quality Assessment: Supplemental Oxygen, Skin Breakdown General: Alert, Oriented, Cooperative, No Acute Distress HEENT: Pupils Equal, Pupils Reactive, Mucous Membr. Moist/[place] Neck: Supple Lungs: Decreased Breath Sounds, Rhonchi (Right middle and both lower lobes) Cardiovascular: Regular Rate, Regular Rhythm Skin: Warm, Dry Wound/Incisions: Decubitis (Unchanged) Psy/Mental Status: Alert, Normal Affect - Patient Data Result Diagrams: 01/08/21 21:18 01/10/21 08:30 Sepsis Event Note - Evaluation Sepsis Screening Result: No Definite Risk - Focused Exam Vital Signs: Vital Signs Temp Pulse Resp BP Pulse Ox 01/12/21 08:00 36.4 C 100 22 H 105/59 L 100 01/12/21 04:00 102 H 89 L 01/12/21 00:00 36.9 C 109 H 20 116/67 90 L - Problem List Review Problem List Initiated/Reviewed/Updated: Yes - My Orders Last 24 Hours: My Active Orders 01/11/21 14:00 levoFLOXacin [Levaquin] 750 mg PO Q24H 01/12/21 07:00 predniSONE 40 mg PO WITHBREAKFAST - Assessment Assessment:: This 60-year-old patient is admitted to the hospital for increased respiratory symptoms including work of breathing and oxygen requirements. He has not been ambulatory at home and comes in with significant leg swelling and pain. - Plan Plan:: Exacerbation COPD with left side pneumonia Change to oral antibiotics today. Hypokalemia: Resolved Skin integrity Wound care per nursing; frequent repositioning. Wound care consult today Pain Patient has been doing well on fentanyl patch; no requests for additional pain medications. Anxiety Patient's states he is having tremendous anxiety. Nursing does not report that he is feeling anxious; patient has not requested medications for anxiety.
[2021-01-12] MEDS: Levofloxacin 750 MG Tab PO SCH (13:43)
[2021-01-12] MEDS: Montelukast 10 MG Tab PO SCH (21:30)
[2021-01-13] MEDS: LORazepam 1 MG Tab PO PRN ×2 (02:04→18:18)
[2021-01-13] MEDS: predniSONE 20 MG Tab PO SCH (07:33)
[2021-01-13] MEDS: Bumetanide 2 MG Tab PO SCH ×2 (07:34→10:35)
[2021-01-13] MEDS: Omeprazole 20 MG Cap.CR PO SCH (07:34)
[2021-01-13] MEDS: Spironolactone 25 MG Tab PO SCH (07:44)
[2021-01-13] MEDS: Ibuprofen 400 MG Tab PO PRN (07:44)
[2021-01-13] MEDS: Magnesium Oxide 400 MG Tab PO SCH (07:45)
[2021-01-13] MEDS: Cetirizine 10 MG Tab PO SCH (07:45)
[2021-01-13] MEDS: Acetaminophen/HYDROcodone 325-5 MG Tab PO PRN ×2 (07:45→19:40)
[2021-01-13] MEDS: guaiFENesin 600 MG Tab.ER PO SCH ×3 (07:45→19:28)
[2021-01-13] MEDS: Calcium Carbonate/Vitamin D3 1500 MG-400 Units Tab PO SCH (07:45)
[2021-01-13] MEDS: Albuterol/Ipratropium 3.0-0.5 MG/3 ML Neb Soln INH SCH ×4 (07:46→19:30)
[2021-01-13] MEDS: ACETYLCYSTEINE NEB SCH ×3 (07:47→20:30)
[2021-01-13] MEDS: Polyethylene Glycol 3350 Powder 17 GM Packet PO SCH (07:50)
[2021-01-13] MEDS: THEOPHYLLINE 600 MG PO SCH ×3 (07:51→19:41)
[2021-01-13] MEDS: Tiotropium Inhaler 18 MCG Inhalation Powder Cap Kit of 5 INH SCH (07:51)
[2021-01-13] MEDS: Budesonide 0.5 MG/2 ML Neb Susp INH SCH ×2 (08:00→19:31)
--- NOTE | 2021-01-13 13:32 | PCM.PN ---
- General Info Date of Service: 01/13/21 Admission Dx/Problem (Free Text): Admission Diagnosis/Problem Admission Diagnosis/Problem COPD with acute lower respiratory infection Subjective Update: Patient states he slept better last night and feels much better today. Color is improved today and he has had a decrease in his work of breathing again. Appetite is fair and he is drinking fluids. Functional Status: Reports: Tolerating Diet, Urinating - Review of Systems General: Reports: Weakness. Denies: Fever, Appetite HEENT: Reports: Rhinitis. Denies: Ear Pain, Eye Pain, Sore Throat Pulmonary: Reports: Shortness of Breath, Cough, Sputum, Wheezing Cardiovascular: Reports: Dyspnea on Exertion. Denies: Chest Pain Gastrointestinal: Reports: No Symptoms Musculoskeletal: Reports: Leg Pain, Foot Pain Skin: Reports: Other (Decubiti) Neurological: Reports: No Symptoms - Patient Data Vitals - Most Recent: Last Vital Signs Temp 36.1 C 01/13/21 07:53 Pulse 100 01/13/21 07:53 Resp 14 01/13/21 07:53 BP 116/74 01/13/21 07:53 Pulse Ox 92 L 01/13/21 07:53 Weight - Most Recent: 68.152 kg I&O - Last 24 Hours: Intake & Output 01/12/21 01/13/21 01/13/21 22:59 06:59 14:59 Intake Total 1100 Output Total 800 Balance 300 Med Orders - Current: Current Medications Hydrocodone Bitart/Acetaminophen (Acetaminophen/Hydrocodone 325-5 Mg Tab) 1 tab PO Q8H PRN PRN Reason: Breakthrough Pain Last Admin: 01/13/21 07:45 Dose: 1 tab Documented by: Albuterol (Albuterol 8 Gm Inhaler) 0 gm INH QID PRN PRN Reason: Shortness of Breath Last Admin: 01/10/21 09:46 Dose: 2 puff Documented by: Albuterol/Ipratropium (Albuterol/Ipratropium 3.0-0.5 Mg/3 Ml Neb Soln) 3 ml INH QID [facility] Last Admin: 01/13/21 11:32 Dose: 3 ml Documented by: Budesonide (Budesonide 0.5 Mg/2 Ml Neb Susp) 0.5 mg INH BID [facility] Last Admin: 01/13/21 08:00 Dose: 0.5 mg Documented by: Bumetanide (Bumetanide 2 Mg Tab) 2 mg PO ACLUNCH [facility] Last Admin: 01/13/21 10:35 Dose: 2 mg Documented by: Bumetanide (Bumetanide 2 Mg Tab) 3 mg PO WITHBREAKFAST [facility] Last Admin: 01/13/21 07:34 Dose: 3 mg Documented by: Calcium Carbonate (Calcium Carbonate/Vitamin D3 1500 Mg-400 Units Tab) 1 tab PO DAILY [facility] Last Admin: 01/13/21 07:45 Dose: 1 tab Documented by: Cetirizine HCl (Cetirizine 10 Mg Tab) 10 mg PO DAILY [facility] Last Admin: 01/13/21 07:45 Dose: 10 mg Documented by: Diphenhydramine HCl (Diphenhydramine 50 Mg Cap) 50 mg PO BID PRN PRN Reason: burning eyes Fentanyl (Fentanyl 25 Mcg/Hr Transdermal Patch) 25 mcg TRDERM Q72H [facility] Last Admin: 01/12/21 00:18 Dose: 25 mcg Documented by: Guaifenesin (Guaifenesin 600 Mg Tab.Er) 600 mg PO TID [facility] Last Admin: 01/13/21 07:45 Dose: 600 mg Documented by: Ibuprofen (Ibuprofen 400 Mg Tab) 400 mg PO Q4H PRN PRN Reason: Pain Last Admin: 01/13/21 07:44 Dose: 400 mg Documented by: Levofloxacin (Levofloxacin 750 Mg Tab) 750 mg PO Q24H [facility] Stop: 01/18/21 14:01 Last Admin: 01/12/21 13:43 Dose: 750 mg Documented by: Lorazepam (Lorazepam 1 Mg Tab) 1 mg PO Q6H PRN PRN Reason: Anxiety Last Admin: 01/13/21 02:04 Dose: 1 mg Documented by: Magnesium Oxide (Magnesium Oxide 400 Mg Tab) 400 mg PO DAILY [facility] Last Admin: 01/13/21 07:45 Dose: 400 mg Documented by: Montelukast Sodium (Montelukast 10 Mg Tab) 10 mg PO BEDTIME [facility] Last Admin: 01/12/21 21:30 Dose: 10 mg Documented by: Non-Formulary Medication (B12/Levomefolate Calcium/B-6 [Folbic Rf Tablet]) 1 each PO BEDTIME [facility] Last Admin: 01/11/21 20:00 Dose: 1 each Documented by: Omeprazole (Omeprazole 20 Mg Cap.Cr) 40 mg PO ACBREAKFAST [facility] Last Admin: 01/13/21 07:34 Dose: 40 mg Documented by: Ondansetron HCl (Ondansetron 4 Mg/2 Ml Sdv) 4 mg IV Q4H PRN PRN Reason: Nausea/Vomiting Last Admin: 01/09/21 02:29 Dose: 4 mg Documented by: Ondansetron HCl (Ondansetron 4 Mg Tab.Dis) 4 mg PO Q6H PRN PRN Reason: NAUSEA Theophylline 600 Mg (Er Tab *Pt Own Med*) 0 each PO TID [facility] Last Admin: 01/13/21 07:51 Dose: 1 each Documented by: (Acetylcysteine [ Mucomyst 10%] 100 Mg /Ml Sdv) *Pt Own Med * 0 each NEB Q6H [facility] Last Admin: 01/13/21 07:47 Dose: 1 each Documented by: (Formoterol [ Perforomist] 20 Mcg/2 Ml Neb) *Pt Own Med* 0 each NEB BID [facility] Last Admin: 01/13/21 07:47 Dose: 1 each Documented by: (Clotrimazole [ Mycelex] 10 Mg Luis Fernando) *Pt Own Med* 0 each PO 5XDAY PRN PRN Reason: Other Last Admin: 01/13/21 11:33 Dose: 1 each Documented by: Polyethylene Glycol (Polyethylene Glycol 3350 Powder 17 Gm Packet) 17 gm PO DAILY [facility] Last Admin: 01/13/21 07:50 Dose: 17 gm Documented by: Prednisone (Prednisone 20 Mg Tab) 40 mg PO WITHBREAKFAST [facility] Last Admin: 01/13/21 07:33 Dose: 40 mg Documented by: Senna/Docusate Sodium (Docusate Sodium/Sennosides 50-8.6 Mg Tab) 1 tab PO ACLUNCH [facility] Last Admin: 01/13/21 10:36 Dose: 1 tab Documented by: Sodium Chloride (Sodium Chloride 0.9% 10 Ml Syringe) 10 ml FLUSH ASDIRECTED PRN PRN Reason: Keep Vein Open Sodium Chloride (Sodium Chloride 0.65% Nasal [place] 45 Ml Bottle) 0 ml NASBOTH Q2H PRN PRN Reason: Congestion Spironolactone (Spironolactone 25 Mg Tab) 25 mg PO QAM [facility] Last Admin: 01/13/21 07:44 Dose: 25 mg Documented by: Tiotropium [place] (Tiotropium Inhaler 18 Mcg Inhalation Powder Cap Kit Of 5) 0 mcg INH DAILY [facility] Last Admin: 01/13/21 07:51 Dose: 1 puff Documented by: Discontinued Medications Hydrocodone Bitart/Acetaminophen (Acetaminophen/Hydrocodone 325-10 Mg Tab) 1 tab PO BID PRN PRN Reason: Pain Last Admin: 01/10/21 07:26 Dose: 1 tab Documented by: Albuterol/Ipratropium (Albuterol/Ipratropium 3.0-0.5 Mg/3 Ml Neb Soln) 3 ml INH QID [facility] Last Admin: 01/09/21 20:07 Dose: 3 ml Documented by: Albuterol/Ipratropium (Albuterol/Ipratropium 3.0-0.5 Mg/3 Ml Neb Soln) Confirm Administered Dose 3 ml .ROUTE .STK-MED ONE Stop: 01/10/21 03:20 Last Admin: 01/10/21 03:21 Dose: Not Given Documented by: Albuterol/Ipratropium (Albuterol/Ipratropium 3.0-0.5 Mg/3 Ml Neb Soln) 3 ml INH Q2H ONE Stop: 01/10/21 03:21 Last Admin: 01/10/21 03:29 Dose: 3 ml Documented by: Albuterol/Ipratropium (Albuterol/Ipratropium 3.0-0.5 Mg/3 Ml Neb Soln) 3 ml INH ONETIME ONE Stop: 01/10/21 10:31 Last Admin: 01/10/21 10:38 Dose: 3 ml Documented by: Calcium Carbonate (Calcium Carbonate/Vitamin D3 1500 Mg-400 Units Tab) Confirm Administered Dose 1 tab .ROUTE .STK-MED ONE Stop: 01/09/21 08:55 Last Admin: 01/09/21 08:59 Dose: Not Given Documented by: Furosemide (Furosemide 40 Mg/4 Ml Vial) 40 mg IVPUSH NOW STA Stop: 01/08/21 22:19 Last Admin: 01/09/21 02:27 Dose: 40 mg Documented by: Furosemide (Furosemide 40 Mg/4 Ml Vial) Confirm Administered Dose 40 mg .ROUTE .STK-MED ONE Stop: 01/09/21 01:36 Last Admin: 01/09/21 02:18 Dose: Not Given Documented by: Furosemide (Furosemide 40 Mg/4 Ml Vial) 40 mg IVPUSH NOW ONE Stop: 01/09/21 12:15 Last Admin: 01/09/21 14:29 Dose: 40 mg Documented by: Furosemide (Furosemide 40 Mg/4 Ml Vial) Confirm Administered Dose 40 mg .ROUTE .STK-MED ONE Stop: 01/09/21 14:28 Last Admin: 01/09/21 14:54 Dose: Not Given Documented by: Levofloxacin/Dextrose 750 mg/ (Levofloxacin/Dextrose) 300 mls @ 100 mls/hr IV Q24H [facility] Stop: 01/14/21 22:15 Last Admin: 01/10/21 22:54 Dose: 100 mls/hr Documented by: Levofloxacin/Dextrose (Levaquin In D5w 750 Mg/150 Ml) Confirm Administered Dose 150 mls @ as directed IV .STK-MED ONE Stop: 01/09/21 01:36 Last Admin: 01/09/21 02:19 Dose: Not Given Documented by: Levofloxacin/Dextrose (Levaquin In D5w 750 Mg/150 Ml) Confirm Administered Dose 150 mls @ as directed IV .STK-MED ONE Stop: 01/09/21 23:00 Last Admin: 01/09/21 23:30 Dose: Not Given Documented by: Levofloxacin/Dextrose (Levaquin In D5w 750 Mg/150 Ml) Confirm Administered Dose 150 mls @ as directed IV .STK-MED ONE Stop: 01/10/21 22:47 Last Admin: 01/10/21 23:03 Dose: Not Given Documented by: Magnesium Oxide (Magnesium Oxide 400 Mg Tab) Confirm Administered Dose 400 mg .ROUTE .STK-MED ONE Stop: 01/09/21 08:55 Last Admin: 01/09/21 08:59 Dose: Not Given Documented by: Magnesium Oxide (Magnesium Oxide 400 Mg Tab) 400 mg PO DAILY [facility] Methylprednisolone Sodium Succinate (Methylprednisolone Sodium Succinate 125 Mg/2 Ml Sdv) 125 mg IVPUSH Q12H [facility] Last Admin: 01/11/21 10:29 Dose: 125 mg Documented by: Montelukast Sodium (Montelukast 10 Mg Tab) Confirm Administered Dose 10 mg .ROUTE .STK-MED ONE Stop: 01/10/21 21:10 Last Admin: 01/10/21 21:13 Dose: Not Given Documented by: Non-Formulary Medication (Acetylcysteine [Mucomyst 10%]) 100 mg INH Q6H [facility] Last Admin: 01/09/21 10:34 Dose: 100 mg Documented by: Non-Formulary Medication (Calcium Carbonate/Vitamin D3 [Calcium 600 + Vit D Tablet]) 1 each PO DAILY [facility] Last Admin: 01/09/21 08:55 Dose: 1 each Documented by: Non-Formulary Medication (Clotrimazole [Mycelex]) 10 mg PO 5XDAY PRN PRN Reason: Other Non-Formulary Medication (Formoterol [Perforomist]) 20 mcg NEB BID [facility] Last Admin: 01/09/21 08:50 Dose: 20 mcg Documented by: Non-Formulary Medication (Ibuprofen [Ibuprofen]) 400 mg PO Q4H PRN PRN Reason: Pain Non-Formulary Medication (Magnesium Oxide [Magnesium]) 400 mg PO DAILY [facility] Last Admin: 01/09/21 08:55 Dose: 400 mg Documented by: Non-Formulary Medication (Omeprazole [Omeprazole]) 40 mg PO DAILY [facility] Last Admin: 01/09/21 08:54 Dose: 40 mg Documented by: Omeprazole (Omeprazole 20 Mg Cap.Cr) Confirm Administered Dose 40 mg .ROUTE .STK-MED ONE Stop: 01/09/21 08:55 Last Admin: 01/09/21 08:59 Dose: Not Given Documented by: Omeprazole (Omeprazole 20 Mg Cap.Cr) 40 mg PO DAILY [facility] (Clotrimazole [ Mycelex] 10 Mg Luis Fernando) *Pt Own Med* 0 each PO 5XDAY PRN PRN Reason: Other Potassium Chloride (Potassium Chloride 20 Meq Tab.Er) 40 meq PO NOW ONE Stop: 01/08/21 22:32 Last Admin: 01/09/21 02:27 Dose: 40 meq Documented by: Potassium Chloride (Potassium Chloride 20 Meq Tab.Er) Confirm Administered Dose 40 meq .ROUTE .STK-MED ONE Stop: 01/09/21 00:49 Last Admin: 01/09/21 02:27 Dose: Not Given Documented by: Theophylline (Theophylline 300 Mg Cap.Er) 300 mg PO TID [facility] Last Admin: 01/09/21 08:51 Dose: Not Given Documented by: Warfarin Sodium (Warfarin 2.5 Mg Tab) 2.5 mg PO DAILY [facility] Last Admin: 01/09/21 12:08 Dose: Not Given Documented by: Warfarin Sodium (Pharmacy To Dose Warfarin) 0 mg PO DAILY [facility] Warfarin Sodium (Warfarin 5 Mg Tab) 5 mg PO DAILY@1800 [facility] Stop: 01/09/21 18:01 Last Admin: 01/09/21 18:02 Dose: 5 mg Documented by: Warfarin Sodium (Warfarin 7.5 Mg Tab) 7.5 mg PO ONETIME ONE Stop: 01/10/21 18:01 - Exam Quality Assessment: Supplemental Oxygen, Skin Breakdown. No: Urine Catheter General: Alert, Oriented, Cooperative, No Acute Distress HEENT: Pupils Equal, Pupils Reactive, Mucous Membr. Moist/[place] Neck: Supple Lungs: Decreased Breath Sounds (Bilateral bases), Rhonchi (All lung lopez), Wheezing (Occasional expiratory wheezing in all lung lopez) Cardiovascular: Regular Rhythm Extremities: No Pedal Edema, Leg Pain (Lower leg pain with ankle pain) Skin: Warm, Dry Wound/Incisions: Erythema (Bilateral buttocks), Decubitis (Unchanged) Neurological: No New Focal Deficit Psy/Mental Status: Alert, Normal Affect - Patient Data Result Diagrams: 01/08/21 21:18 01/10/21 08:30 Sepsis Event Note - Evaluation Sepsis Screening Result: No Definite Risk - Focused Exam Vital Signs: Vital Signs Temp Pulse Resp BP Pulse Ox 01/13/21 07:53 36.1 C 100 14 116/74 92 L 01/13/21 04:00 36.9 C 105 H 18 113/73 83 L - Problem List Review Problem List Initiated/Reviewed/Updated: Yes - Assessment Assessment:: This 60-year-old patient is admitted to the hospital for increased respiratory symptoms including work of breathing and oxygen requirements. He has not been ambulatory at home and comes in with significant leg swelling and pain. - Plan Plan:: Exacerbation COPD with left side pneumonia Change to oral antibiotics today. Hypokalemia: Resolved Skin integrity Wound care per nursing; frequent repositioning. Wound care consult today Pain Patient has been doing well on fentanyl patch; no requests for additional pain medications. Anxiety Patient's states he is having tremendous anxiety. Nursing does not report that he is feeling anxious; patient has not requested medications for anxiety.
[2021-01-13] MEDS: Levofloxacin 750 MG Tab PO SCH (13:57)
[2021-01-13] MEDS: Montelukast 10 MG Tab PO SCH (19:28)
[2021-01-13] MEDS: CYANOCOBALAMIN PO SCH (20:32)
[2021-01-13] MEDS: PYRIDOXINE PO SCH (20:32)
[2021-01-13] MEDS: [UNRECOGNIZED DRUG - OTHER] PO SCH (20:32)
[2021-01-13] MEDS: LEVOMEFOLATE CALCIUM PO SCH (20:32)
[2021-01-14] MEDS: LORazepam 1 MG Tab PO PRN (00:18)
[2021-01-14] MEDS: ACETYLCYSTEINE NEB SCH ×3 (01:45→14:31)
[2021-01-14] MEDS: Acetaminophen/HYDROcodone 325-5 MG Tab PO PRN (03:51)
[2021-01-14] MEDS: Omeprazole 20 MG Cap.CR PO SCH (06:43)
[2021-01-14] MEDS: Bumetanide 2 MG Tab PO SCH ×2 (06:44→10:36)
[2021-01-14] MEDS: predniSONE 20 MG Tab PO SCH (06:45)
[2021-01-14] MEDS: Albuterol/Ipratropium 3.0-0.5 MG/3 ML Neb Soln INH SCH ×2 (07:09→11:32)
[2021-01-14] MEDS: Cetirizine 10 MG Tab PO SCH (08:05)
[2021-01-14] MEDS: guaiFENesin 600 MG Tab.ER PO SCH ×2 (08:05→14:28)
[2021-01-14] MEDS: Polyethylene Glycol 3350 Powder 17 GM Packet PO SCH (08:06)
[2021-01-14] MEDS: Magnesium Oxide 400 MG Tab PO SCH (08:06)
[2021-01-14] MEDS: Calcium Carbonate/Vitamin D3 1500 MG-400 Units Tab PO SCH (08:06)
[2021-01-14] MEDS: Tiotropium Inhaler 18 MCG Inhalation Powder Cap Kit of 5 INH SCH (08:06)
[2021-01-14] MEDS: Spironolactone 25 MG Tab PO SCH (08:06)
[2021-01-14] MEDS: Budesonide 0.5 MG/2 ML Neb Susp INH SCH (08:07)
[2021-01-14] MEDS: THEOPHYLLINE 600 MG PO SCH ×2 (08:17→14:38)
[2021-01-14 12:38] VITALS: BP 109/64; PULSE 97
--- NOTE | 2021-01-14 13:23 | PCM.DCSUM1 ---
Discharge Summary - Hospital Course Free Text/Narrative:: 60-year-old male, with history of end-stage COPD, was admitted to the hospital for pneumonia. Brief History: Patient has a long history of respiratory difficulty, and recurrent episodes of pneumonia. Patient recently had a bout with COVID-19. Patient's living situation is less than optimal for his health, and wound healing. states that she is not able to take care of his medical needs. Diagnosis: Stroke: No Modified Destiny Scale: Mod.Sev.Disability ;Unable to Walk/Attend Bodily Needs W/O Assistance (He called me in went over) Modified [place] Scale Score: 4 - Discharge Data Discharge Date: 01/14/21 Discharge Disposition: Home, Self-Care 01 Condition: Good - Referral to Home Health Primary Care Physician: PCP None - Patient Summary/Data Consults: Consultations 01/08/21 21:58 OT Evaluation and Treatment [CONS] Routine Please Evaluate and Treat. OT Reason for Consult: Strengthening This query below is only for informational purposes and is not editable. Admission Diagnosis/Problem: COPD with acute lower respiratory infection PT Evaluation and Treatment [CONS] Routine Please Evaluate and Treat. PT Reason for Consult: Strengthening This query below is only for informational purposes and is not editable. Admission Diagnosis/Problem: COPD with acute lower respiratory infection 01/10/21 09:04 Consult to Wound Care Services [CONS] Routine Comment: Physician Instructions: Special Instructions: pressure sore to coccyx, sore to left lower leg - Patient Instructions Diet: Regular Diet as Tolerated Showering/Bathing: May Shower Wound/Incision Care: Keep Operative Site/Wound Site Clean and Dry Notify Provider of: Fever, Increased Pain, Nausea and/or Vomiting Other/Special Instructions: Return to ED if uncreasing shortness of breath, fevers, increased weakness. Follow-up with primary care provider for pain control, medication management. Appointment with January 26 at 1120. - Discharge Plan *PRESCRIPTION DRUG MONITORING PROGRAM REVIEWED*: No *COPY OF PRESCRIPTION DRUG MONITORING REPORT IN PATIENT SHONDA: No Prescriptions/Med Rec: fentaNYL [Duragesic] 25 mcg TD Q72H #5 patch levoFLOXacin [Levaquin] 750 mg PO DAILY #5 tab Home Medications: Home Meds Ipratropium/Albuterol Sulfate [Duoneb 0.5 MG-3 MG/3 ML] 3 ml INH QID 12/11/12 [History] Formoterol [Perforomist] 20 mcg NEB BID 12/26/14 [History] Cetirizine [ZyrTEC] 10 mg PO DAILY tablet 12/30/14 [Rx] Calcium Carbonate/Vitamin D3 [Calcium 600 + Vit D Tablet] 1 each PO DAILY 12/08/15 [History] Budesonide [Pulmicort] 0.5 mg INH BID #1 neb 12/14/15 [Rx] Acetylcysteine [Mucomyst 10%] 100 mg INH Q6H 12/23/15 [History] Polyethylene Glycol 3350 [MiraLAX] 17 gm PO DAILY 01/03/16 [History] Bumetanide 3 mg PO WITHBREAKFAST 01/20/17 [History] Docusate Sodium [Colace] 250 mg PO BEDTIME 01/20/17 [History] Ibuprofen 400 mg PO Q4H PRN 01/20/17 [History] Omeprazole 40 mg PO DAILY 01/20/17 [History] predniSONE [Prednisone] 20 mg PO DAILY 01/20/17 [History] B12/Levomefolate Calcium/B-6 [Folbic Rf Tablet] 1 each PO BEDTIME 09/06/19 [History] Potassium Chloride [Klor-Con M20] 20 meq PO DAILY 09/06/19 [History] Sennosides/Docusate Sodium [Senokot-S Tablet] 1 each PO ACLUNCH 09/06/19 [History] Theophylline [Jc-24] 300 mg PO TID 09/06/19 [History] Albuterol [IJD: Albuterol HFA] 2 puff INH QID PRN 08/31/20 [History] Bumetanide 2 mg PO ACLUNCH 08/31/20 [History] Ondansetron [Zofran ODT] 4 mg PO Q6H PRN #20 tab.dis 08/31/20 [Rx] Spironolactone [Aldactone] 25 mg PO QAM 08/31/20 [History] Tiotropium [Spiriva HandiHaler] 1 puff INH DAILY 08/31/20 [History] diphenhydrAMINE [Benadryl] 50 mg PO BID PRN 08/31/20 [History] Montelukast [Singulair] 10 mg PO BEDTIME 11/15/20 [History] Clotrimazole [Mycelex] 10 mg PO 5XDAY PRN 12/07/20 [History] LORazepam [Ativan] 1 mg PO Q6H PRN 12/07/20 [History] Magnesium Oxide [Magnesium] 400 mg PO DAILY 12/07/20 [History] Sodium Chloride 0.65% [[place] Nasal [place]] 1 spray NASBOTH Q2H PRN 12/07/20 [History] Lidocaine 01/08/21 [History] Non-Formulary Medication [NF Drug] 01/08/21 [History] Calcium Carbonate/Vitamin D3 [Caltrate 600+D 1500 MG-400 Units] 1 tab PO DAILY tablet 01/14/21 [Rx] LORazepam [Ativan] 1 mg PO QID PRN #0 01/14/21 [Rx] fentaNYL [Duragesic] 25 mcg TD Q72H #5 patch 01/14/21 [Rx] levoFLOXacin [Levaquin] 750 mg PO DAILY #5 tab 01/14/21 [Rx] Forms: ED Department Discharge Referrals: PCP,None [Primary Care Provider] - - Discharge Summary/Plan Comment DC Time >30 min.: No Total # of Minutes for Discharge Time: 25 Discharge Summary/Plan Comment: Follow-up with primary care provider January. Discontinue use of Afrin Discontinue oral narcotics Initiate use of nasal normal saline frequently to address nasal dryness and obstruction. 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 Ativan only as needed for anxiety every 6 hours, no longer scheduled - General Info Date of Service: 01/14/21 Admission Dx/Problem (Free Text: Admission Diagnosis/Problem Admission Diagnosis/Problem COPD with acute lower respiratory infection Functional Status: Reports: Tolerating Diet, Ambulating (At baseline) - Review of Systems General: Reports: Weakness, Fatigue HEENT: Reports: No Symptoms Pulmonary: Reports: Shortness of Breath (At baseline) Gastrointestinal: Reports: No Symptoms Genitourinary: Reports: No Symptoms - Patient Data Vitals - Most Recent: Last Vital Signs Temp 98.4 F 01/14/21 12:00 Pulse 97 01/14/21 12:00 Resp 24 H 01/14/21 12:00 BP 109/64 01/14/21 12:00 Pulse Ox 84 L 01/14/21 12:00 Weight - Most Recent: 150 lb 4 oz I&O - Last 24 hours: Intake & Output 01/13/21 01/14/21 01/14/21 22:59 06:59 14:59 Intake Total 360 Output Total 400 Balance -40 Med Orders - Current: Current Medications Hydrocodone Bitart/Acetaminophen (Acetaminophen/Hydrocodone 325-5 Mg Tab) 1 tab PO Q8H PRN PRN Reason: Breakthrough Pain Last Admin: 01/14/21 03:51 Dose: 1 tab Documented by: Albuterol (Albuterol 8 Gm Inhaler) 0 gm INH QID PRN PRN Reason: Shortness of Breath Last Admin: 01/10/21 09:46 Dose: 2 puff Documented by: Albuterol/Ipratropium (Albuterol/Ipratropium 3.0-0.5 Mg/3 Ml Neb Soln) 3 ml INH QID [facility] Last Admin: 01/14/21 11:32 Dose: 3 ml Documented by: Budesonide (Budesonide 0.5 Mg/2 Ml Neb Susp) 0.5 mg INH BID [facility] Last Admin: 01/14/21 08:07 Dose: 0.5 mg Documented by: Bumetanide (Bumetanide 2 Mg Tab) 2 mg PO ACLUNCH [facility] Last Admin: 01/14/21 10:36 Dose: 2 mg Documented by: Bumetanide (Bumetanide 2 Mg Tab) 3 mg PO WITHBREAKFAST [facility] Last Admin: 01/14/21 06:44 Dose: 3 mg Documented by: Calcium Carbonate (Calcium Carbonate/Vitamin D3 1500 Mg-400 Units Tab) 1 tab PO DAILY [facility] Last Admin: 01/14/21 08:06 Dose: 1 tab Documented by: Cetirizine HCl (Cetirizine 10 Mg Tab) 10 mg PO DAILY [facility] Last Admin: 01/14/21 08:05 Dose: 10 mg Documented by: Diphenhydramine HCl (Diphenhydramine 50 Mg Cap) 50 mg PO BID PRN PRN Reason: burning eyes Fentanyl (Fentanyl 25 Mcg/Hr Transdermal Patch) 25 mcg TRDERM Q72H [facility] Last Admin: 01/12/21 00:18 Dose: 25 mcg Documented by: Guaifenesin (Guaifenesin 600 Mg Tab.Er) 600 mg PO TID [facility] Last Admin: 01/14/21 08:05 Dose: 600 mg Documented by: Ibuprofen (Ibuprofen 400 Mg Tab) 400 mg PO Q4H PRN PRN Reason: Pain Last Admin: 01/13/21 07:44 Dose: 400 mg Documented by: Influenza Virus Vaccine (Pharmacy To Dose - Influenza Vaccine) 1 each IM ONETIME ONE Stop: 01/14/21 11:57 Levofloxacin (Levofloxacin 750 Mg Tab) 750 mg PO Q24H [facility] Stop: 01/18/21 14:01 Last Admin: 01/13/21 13:57 Dose: 750 mg Documented by: Lorazepam (Lorazepam 1 Mg Tab) 1 mg PO Q6H PRN PRN Reason: Anxiety Last Admin: 01/14/21 00:18 Dose: 1 mg Documented by: Magnesium Oxide (Magnesium Oxide 400 Mg Tab) 400 mg PO DAILY [facility] Last Admin: 01/14/21 08:06 Dose: 400 mg Documented by: Montelukast Sodium (Montelukast 10 Mg Tab) 10 mg PO BEDTIME [facility] Last Admin: 01/13/21 19:28 Dose: 10 mg Documented by: Non-Formulary Medication (B12/Levomefolate Calcium/B-6 [Folbic Rf Tablet]) 1 each PO BEDTIME [facility] Last Admin: 01/13/21 20:32 Dose: Not Given Documented by: Omeprazole (Omeprazole 20 Mg Cap.Cr) 40 mg PO ACBREAKFAST [facility] Last Admin: 01/14/21 06:43 Dose: 40 mg Documented by: Ondansetron HCl (Ondansetron 4 Mg/2 Ml Sdv) 4 mg IV Q4H PRN PRN Reason: Nausea/Vomiting Last Admin: 01/09/21 02:29 Dose: 4 mg Documented by: Ondansetron HCl (Ondansetron 4 Mg Tab.Dis) 4 mg PO Q6H PRN PRN Reason: NAUSEA (Acetylcysteine [ Mucomyst 10%] 100 Mg /Ml Sdv) *Pt Own Med * 0 each NEB Q6H [facility] Last Admin: 01/14/21 08:09 Dose: 1.5 each Documented by: (Formoterol [ Perforomist] 20 Mcg/2 Ml Neb) *Pt Own Med* 0 each NEB BID [facility] Last Admin: 01/14/21 07:58 Dose: 1 each Documented by: (Clotrimazole [ Mycelex] 10 Mg Luis Fernando) *Pt Own Med* 0 each PO 5XDAY PRN PRN Reason: Other Last Admin: 01/14/21 10:36 Dose: 1 each Documented by: Polyethylene Glycol (Polyethylene Glycol 3350 Powder 17 Gm Packet) 17 gm PO DAILY [facility] Last Admin: 01/14/21 08:06 Dose: 17 gm Documented by: Prednisone (Prednisone 20 Mg Tab) 40 mg PO WITHBREAKFAST [facility] Last Admin: 01/14/21 06:45 Dose: 40 mg Documented by: Senna/Docusate Sodium (Docusate Sodium/Sennosides 50-8.6 Mg Tab) 1 tab PO ACLUNCH [facility] Last Admin: 01/14/21 10:37 Dose: 1 tab Documented by: Sodium Chloride (Sodium Chloride 0.9% 10 Ml Syringe) 10 ml FLUSH ASDIRECTED PRN PRN Reason: Keep Vein Open Sodium Chloride (Sodium Chloride 0.65% Nasal Cameron 45 Ml Bottle) 0 ml NASBOTH Q2H PRN PRN Reason: Congestion Spironolactone (Spironolactone 25 Mg Tab) 25 mg PO QAM [facility] Last Admin: 01/14/21 08:06 Dose: 25 mg Documented by: Theophylline (Theophylline 600 Mg Tab.Er) 300 mg PO TID [facility] Last Admin: 01/14/21 08:17 Dose: 300 mg Documented by: Tiotropium [place] (Tiotropium Inhaler 18 Mcg Inhalation Powder Cap Kit Of 5) 0 mcg INH DAILY [facility] Last Admin: 01/14/21 08:06 Dose: 1 puff Documented by: Discontinued Medications Hydrocodone Bitart/Acetaminophen (Acetaminophen/Hydrocodone 325-10 Mg Tab) 1 tab PO BID PRN PRN Reason: Pain Last Admin: 01/10/21 07:26 Dose: 1 tab Documented by: Albuterol/Ipratropium (Albuterol/Ipratropium 3.0-0.5 Mg/3 Ml Neb Soln) 3 ml INH QID [facility] Last Admin: 01/09/21 20:07 Dose: 3 ml Documented by: Albuterol/Ipratropium (Albuterol/Ipratropium 3.0-0.5 Mg/3 Ml Neb Soln) Confirm Administered Dose 3 ml .ROUTE .STK-MED ONE Stop: 01/10/21 03:20 Last Admin: 01/10/21 03:21 Dose: Not Given Documented by: Albuterol/Ipratropium (Albuterol/Ipratropium 3.0-0.5 Mg/3 Ml Neb Soln) 3 ml INH Q2H ONE Stop: 01/10/21 03:21 Last Admin: 01/10/21 03:29 Dose: 3 ml Documented by: Albuterol/Ipratropium (Albuterol/Ipratropium 3.0-0.5 Mg/3 Ml Neb Soln) 3 ml INH ONETIME ONE Stop: 01/10/21 10:31 Last Admin: 01/10/21 10:38 Dose: 3 ml Documented by: Calcium Carbonate (Calcium Carbonate/Vitamin D3 1500 Mg-400 Units Tab) Confirm Administered Dose 1 tab .ROUTE .STK-MED ONE Stop: 01/09/21 08:55 Last Admin: 01/09/21 08:59 Dose: Not Given Documented by: Furosemide (Furosemide 40 Mg/4 Ml Vial) 40 mg IVPUSH NOW STA Stop: 01/08/21 22:19 Last Admin: 01/09/21 02:27 Dose: 40 mg Documented by: Furosemide (Furosemide 40 Mg/4 Ml Vial) Confirm Administered Dose 40 mg .ROUTE .STK-MED ONE Stop: 01/09/21 01:36 Last Admin: 01/09/21 02:18 Dose: Not Given Documented by: Furosemide (Furosemide 40 Mg/4 Ml Vial) 40 mg IVPUSH NOW ONE Stop: 01/09/21 12:15 Last Admin: 01/09/21 14:29 Dose: 40 mg Documented by: Furosemide (Furosemide 40 Mg/4 Ml Vial) Confirm Administered Dose 40 mg .ROUTE .STK-MED ONE Stop: 01/09/21 14:28 Last Admin: 01/09/21 14:54 Dose: Not Given Documented by: Levofloxacin/Dextrose 750 mg/ (Levofloxacin/Dextrose) 300 mls @ 100 mls/hr IV Q24H [facility] Stop: 01/14/21 22:15 Last Admin: 01/10/21 22:54 Dose: 100 mls/hr Documented by: Levofloxacin/Dextrose (Levaquin In D5w 750 Mg/150 Ml) Confirm Administered Dose 150 mls @ as directed IV .STK-MED ONE Stop: 01/09/21 01:36 Last Admin: 01/09/21 02:19 Dose: Not Given Documented by: Levofloxacin/Dextrose (Levaquin In D5w 750 Mg/150 Ml) Confirm Administered Dose 150 mls @ as directed IV .STK-MED ONE Stop: 01/09/21 23:00 Last Admin: 01/09/21 23:30 Dose: Not Given Documented by: Levofloxacin/Dextrose (Levaquin In D5w 750 Mg/150 Ml) Confirm Administered Dose 150 mls @ as directed IV .STK-MED ONE Stop: 01/10/21 22:47 Last Admin: 01/10/21 23:03 Dose: Not Given Documented by: Magnesium Oxide (Magnesium Oxide 400 Mg Tab) Confirm Administered Dose 400 mg .ROUTE .STK-MED ONE Stop: 01/09/21 08:55 Last Admin: 01/09/21 08:59 Dose: Not Given Documented by: Magnesium Oxide (Magnesium Oxide 400 Mg Tab) 400 mg PO DAILY [facility] Methylprednisolone Sodium Succinate (Methylprednisolone Sodium Succinate 125 Mg/2 Ml Sdv) 125 mg IVPUSH Q12H [facility] Last Admin: 01/11/21 10:29 Dose: 125 mg Documented by: Montelukast Sodium (Montelukast 10 Mg Tab) Confirm Administered Dose 10 mg .ROUTE .STK-MED ONE Stop: 01/10/21 21:10 Last Admin: 01/10/21 21:13 Dose: Not Given Documented by: Non-Formulary Medication (Acetylcysteine [Mucomyst 10%]) 100 mg INH Q6H [facility] Last Admin: 01/09/21 10:34 Dose: 100 mg Documented by: Non-Formulary Medication (Calcium Carbonate/Vitamin D3 [Calcium 600 + Vit D Tablet]) 1 each PO DAILY [facility] Last Admin: 01/09/21 08:55 Dose: 1 each Documented by: Non-Formulary Medication (Clotrimazole [Mycelex]) 10 mg PO 5XDAY PRN PRN Reason: Other Non-Formulary Medication (Formoterol [Perforomist]) 20 mcg NEB BID [facility] Last Admin: 01/09/21 08:50 Dose: 20 mcg Documented by: Non-Formulary Medication (Ibuprofen [Ibuprofen]) 400 mg PO Q4H PRN PRN Reason: Pain Non-Formulary Medication (Magnesium Oxide [Magnesium]) 400 mg PO DAILY [facility] Last Admin: 01/09/21 08:55 Dose: 400 mg Documented by: Non-Formulary Medication (Omeprazole [Omeprazole]) 40 mg PO DAILY [facility] Last Admin: 01/09/21 08:54 Dose: 40 mg Documented by: Omeprazole (Omeprazole 20 Mg Cap.Cr) Confirm Administered Dose 40 mg .ROUTE .STK-MED ONE Stop: 01/09/21 08:55 Last Admin: 01/09/21 08:59 Dose: Not Given Documented by: Omeprazole (Omeprazole 20 Mg Cap.Cr) 40 mg PO DAILY [facility] Theophylline 600 Mg (Er Tab *Pt Own Med*) 0 each PO TID [facility] Last Admin: 01/13/21 13:58 Dose: 1 each Documented by: (Clotrimazole [ Mycelex] 10 Mg Luis Fernando) *Pt Own Med* 0 each PO 5XDAY PRN PRN Reason: Other Potassium Chloride (Potassium Chloride 20 Meq Tab.Er) 40 meq PO NOW ONE Stop: 01/08/21 22:32 Last Admin: 01/09/21 02:27 Dose: 40 meq Documented by: Potassium Chloride (Potassium Chloride 20 Meq Tab.Er) Confirm Administered Dose 40 meq .ROUTE .STK-MED ONE Stop: 01/09/21 00:49 Last Admin: 01/09/21 02:27 Dose: Not Given Documented by: Theophylline (Theophylline 300 Mg Cap.Er) 300 mg PO TID [facility] Last Admin: 01/09/21 08:51 Dose: Not Given Documented by: Warfarin Sodium (Warfarin 2.5 Mg Tab) 2.5 mg PO DAILY [facility] Last Admin: 01/09/21 12:08 Dose: Not Given Documented by: Warfarin Sodium (Pharmacy To Dose Warfarin) 0 mg PO DAILY [facility] Warfarin Sodium (Warfarin 5 Mg Tab) 5 mg PO DAILY@1800 [facility] Stop: 01/09/21 18:01 Last Admin: 01/09/21 18:02 Dose: 5 mg Documented by: Warfarin Sodium (Warfarin 7.5 Mg Tab) 7.5 mg PO ONETIME ONE Stop: 01/10/21 18:01 - Exam Quality Assessment: Reports: Supplemental Oxygen General: Reports: Alert, Oriented HEENT: Reports: Pupils Equal, EOMI Lungs: Reports: Decreased Breath Sounds (All lopez), Wheezing (All lopez) Cardiovascular: Reports: Regular Rate GI/Abdominal Exam: Normal Bowel Sounds, Soft, Non-Tender, Distended Rectal (Males) Exam: Other (Sacral pressure wound as described by physical therapy, wound care by physical therapy, hygiene and relief of pressure in the area recommended by physical therapy.) Extremities: Pedal Edema (+1 bilateral, wound on the top of right foot, wound care by physical therapy in place. Documentation for wound with physical therapy) Skin: Reports: Other (See wound care) Neurological: Reports: No New Focal Deficit Psy/Mental Status: Reports: Alert, Normal Affect, Normal Mood
[2021-01-14] MEDS: Levofloxacin 750 MG Tab PO SCH (14:28)
== END 2021-01-14 14:45 | disposition home or self-care (01) | DRG 190 ==
LOC: LB.ED 20:37 → UNDOADMIN 21:30 → LB.MS 21:30
PROVIDERS: ADMIT Nurse Practitioner; ATTEND Nurse Practitioner
DX: J44.0 Chronic obstructive pulmonary disease with (acute) lower respiratory infection (principal); J18.9 Pneumonia, unspecified organism; J44.1 Chronic obstructive pulmonary disease with (acute) exacerbation; Z79.899 Other long term (current) drug therapy; H54.7 Unspecified visual loss; I10 Essential (primary) hypertension; Z87.01 Personal history of pneumonia (recurrent); K59.09 Other constipation; Z86.14 Personal history of Methicillin resistant Staphylococcus aureus infection; K21.9 Gastro-esophageal reflux disease without esophagitis; G89.29 Other chronic pain; Z88.0 Allergy status to penicillin; M54.9 Dorsalgia, unspecified; M81.0 Age-related osteoporosis without current pathological fracture; F41.9 Anxiety disorder, unspecified; Z86.16 Personal history of COVID-19; Z86.19 Personal history of other infectious and parasitic diseases; Z90.49 Acquired absence of other specified parts of digestive tract; Z87.891 Personal history of nicotine dependence; E87.6 Hypokalemia; Z88.2 Allergy status to sulfonamides; Z88.1 Allergy status to other antibiotic agents; Z88.8 Allergy status to other drugs, medicaments and biological substances; Z79.52 Long term (current) use of systemic steroids
CPT/HCPCS: 36415; 71045; 80048; 85025; 85610; 87070; 90686; 93005; 97161-GP; 97597-GP; 99285-25; A9270-GY; G0008; J1940; J1956; J2405; J2930; J7512; J7620-GY

== ENCOUNTER 2021-10-24 19:40 | Observation (INO) | payer MEDICARE, MEDICAID ==
[2021-10-24] MEDS ORDERED: Morphine 4 MG/ML VIAL IVPUSH ONE (20:47)
[2021-10-24] MEDS ORDERED: Midazolam 1 MG/ML 2 ML SDV IVPUSH ONE (20:48)
[2021-10-24] MEDS ORDERED: Morphine 4 MG/ML VIAL ONE (21:05)
[2021-10-24] MEDS ORDERED: Lactulose Soln 10 GM/15 ML 15 ML UD Cup PO ONE (22:07)
[2021-10-24] MEDS ORDERED: [UNRECOGNIZED DRUG - OTHER] NASBOTH PRN (23:02)
[2021-10-24] MEDS ORDERED: Non-Formulary Medication 1 Each (Lorazepam [Ativan] 1 MG Tablet) PO PRN (23:02)
[2021-10-24] MEDS ORDERED: Non-Formulary Medication 1 Each (Ondansetron [Zofran Odt] 4 MG Tab.Dis) PO PRN (23:02)
[2021-10-24] MEDS ORDERED: SODIUM CHLORIDE 0.65% NASBOTH PRN (23:02)
[2021-10-24] MEDS ORDERED: Non-Formulary Medication 1 Each (Diphenhydramine [Benadryl] 50 MG Cap) PO PRN (23:02)
[2021-10-24] MEDS ORDERED: Non-Formulary Medication 1 Each (Ibuprofen [Ibuprofen] 200 MG Capsule) PO PRN (23:02)
[2021-10-24] MEDS ORDERED: ALBUTEROL INH PRN (23:02)
[2021-10-24] MEDS ORDERED: FENTANYL 25 MCG TD SCH (23:15)
[2021-10-24] MEDS ORDERED: Azithromycin 500 MG in Sodium Chloride 0.9% 250 ML IV SCH (23:15)
[2021-10-24] MEDS: ACETYLCYSTEINE INH SCH (23:40)
[2021-10-24] MEDS ORDERED: Potassium Chloride 20 MEQ Tab.ER ONE (23:47)
[2021-10-24] MEDS ORDERED: Potassium Chloride 20 MEQ Tab.ER PO ONE (23:47)
[2021-10-25] MEDS ORDERED: Potassium Chloride 40 MEQ/20 ML SDV IV ONE (00:25)
[2021-10-25] MEDS ORDERED: Bisacodyl 10 MG Supp RECTAL ONE (02:06)
[2021-10-25] MEDS ORDERED: Acetaminophen/HYDROcodone 325-10 MG Tab PO PRN (02:08)
[2021-10-25] MEDS ORDERED: Magnesium Sulfate/Water 2 GM in Premix Bag 1 BAG IV ONE (02:11)
[2021-10-25] MEDS ORDERED: Lidocaine 5% 700 MG Patch TRDERM SCH (02:15)
[2021-10-25] MEDS: Potassium Chloride Riders 50 ML IV SCH ×2 (02:25→03:48)
[2021-10-25] MEDS: Gabapentin 100 MG Cap PO SCH ×2 (02:45→08:48)
[2021-10-25] MEDS ORDERED: cefTRIAXone 2 GM in Sodium Chloride 0.9% 50 ML IV SCH (03:00)
[2021-10-25] MEDS ORDERED: Magnesium Sulfate/Water 50 ML ONE (04:05)
[2021-10-25] MEDS ORDERED: Ibuprofen 600 MG Tab PO PRN (05:01)
[2021-10-25] MEDS ORDERED: Ondansetron 4 MG Tab.DIS PO PRN (05:10)
[2021-10-25] MEDS ORDERED: diphenhydrAMINE 50 MG Cap PO PRN (05:11)
[2021-10-25] MEDS: ACETYLCYSTEINE INH SCH (05:19)
[2021-10-25] MEDS ORDERED: LORazepam 1 MG Tab PO PRN (05:20)
[2021-10-25] MEDS ORDERED: ACETYLCYSTEINE 10% INH SCH (05:35)
[2021-10-25 06:19] VITALS: BP 94/71; PULSE 95
[2021-10-25] MEDS: Albuterol/Ipratropium 3.0-0.5 MG/3 ML Neb Soln INH SCH ×2 (06:20→08:36)
[2021-10-25] MEDS ORDERED: Bumetanide 2 MG Tab PO SCH ×2 (07:00→11:00)
[2021-10-25] MEDS ORDERED: Omeprazole 20 MG Cap.CR PO SCH (07:00)
[2021-10-25] MEDS ORDERED: Non-Formulary Medication 1 Each (Tiotropium [Spiriva Handihaler] 18 MCG Cap) INH SCH (08:00)
[2021-10-25] MEDS ORDERED: Non-Formulary Medication 1 Each (Potassium Chloride [Klor-Con M20] 20 MEQ Tab.Er) PO SCH (08:00)
[2021-10-25] MEDS ORDERED: Cetirizine 10 MG Tab PO SCH (08:00)
[2021-10-25] MEDS ORDERED: Budesonide 0.5 MG/2 ML Neb Susp INH SCH (08:00)
[2021-10-25] MEDS ORDERED: Nystatin Susp 100,000 Unit/ML 5 ML UD Cup PO SCH (08:00)
[2021-10-25] MEDS ORDERED: THEOPHYLLINE 300 MG PO SCH (08:00)
[2021-10-25] MEDS ORDERED: Non-Formulary Medication 1 Each (Calcium Carbonate/Vitamin D3 [Calcium 600 + Vit D Tablet] PO SCH (08:00)
[2021-10-25] MEDS ORDERED: Non-Formulary Medication 1 Each (Formoterol [Perforomist] 20 MCG/2 ML Neb) NEB SCH (08:00)
[2021-10-25] MEDS ORDERED: Polyethylene Glycol 3350 Powder 17 GM Packet PO SCH (08:00)
[2021-10-25] MEDS ORDERED: Magnesium Oxide 400 MG Tab PO SCH (08:00)
[2021-10-25] MEDS ORDERED: Spironolactone 25 MG Tab PO SCH (08:00)
[2021-10-25] MEDS ORDERED: Calcium Carbonate/Vitamin D3 1500 MG-400 Units Tab PO SCH (08:00)
[2021-10-25] MEDS ORDERED: predniSONE 20 MG Tab PO SCH (08:00)
[2021-10-25] MEDS ORDERED: Lactulose Soln 10 GM/15 ML 15 ML UD Cup PO SCH (08:00)
[2021-10-25] MEDS ORDERED: CYANOCOBALAMIN PO SCH (20:00)
[2021-10-25] MEDS ORDERED: PYRIDOXINE PO SCH (20:00)
[2021-10-25] MEDS ORDERED: [UNRECOGNIZED DRUG - OTHER] PO SCH (20:00)
[2021-10-25] MEDS ORDERED: Montelukast 10 MG Tab PO SCH (20:00)
[2021-10-25] MEDS ORDERED: Docusate Sodium 250 MG Cap PO SCH (20:00)
[2021-10-25] MEDS ORDERED: LEVOMEFOLATE CALCIUM PO SCH (20:00)
== END 2021-10-25 10:30 | disposition home or self-care (01) ==
LOC: LB.ED 19:40 → LB.MS 23:01 → UNDOADMOB 10-25 00:05
PROVIDERS: ADMIT Physician Assistant; ATTEND Physician Assistant
DX: K59.09 Other constipation (principal); J18.9 Pneumonia, unspecified organism; E87.6 Hypokalemia; I10 Essential (primary) hypertension; J44.9 Chronic obstructive pulmonary disease, unspecified; K21.9 Gastro-esophageal reflux disease without esophagitis; M81.0 Age-related osteoporosis without current pathological fracture; Z79.899 Other long term (current) drug therapy; Z88.0 Allergy status to penicillin; Z88.2 Allergy status to sulfonamides; Z88.8 Allergy status to other drugs, medicaments and biological substances; Z88.1 Allergy status to other antibiotic agents; Z79.83 Long term (current) use of bisphosphonates; Z79.51 Long term (current) use of inhaled steroids; Z86.16 Personal history of COVID-19; Z90.49 Acquired absence of other specified parts of digestive tract; Z98.890 Other specified postprocedural states; Z20.822 Contact with and (suspected) exposure to COVID-19
CPT/HCPCS: 36415; 71250; 74018; 74176; 80048; 83605; 83735; 85025; 96365; 96367; 96375; 99217; 99219; 99285-25; A9270-GY; G0378; J0456; J0696; J2250; J2270; J3475; J3480; J7050; J7512; J7620; U0002